=== PATIENT | female | born 1950 | race Caucasian/White ===

== ENCOUNTER 2016-06-27 22:26 | Emergency (ER) | payer OTHER ==
[~2016-06-27] VITALS: Ht 142.2 cm; Wt 94.0 kg
[~2016-06-27 22:26] MED LIST: ALBUAER2 INH; CHOL100010 PO; ESCI1TAB9 PO; FLUT220A INH; OMEP20TA PO; SENN8.6C PO; SIMV20TA2 PO
[2016-06-27 22:28] VITALS: Ht 142.2 cm; Wt 94.0 kg
[2016-06-27] MEDS ORDERED: SODIUM CHLORIDE 0.9% 1000ML 1,000 ML IV STA (22:36)
[2016-06-27] MEDS ORDERED: SODIUM CHLORIDE 0.9% 500ML 500 ML IV STA (22:36)
[2016-06-27] MEDS ORDERED: LIDOCAINE HCL 2% VISC SOLN 20 ML UDC PO STA (22:44)
[2016-06-27] MEDS ORDERED: ALUMINUM/MAGNESIUM SUSP 30 ML UDC PO STA (22:44)
[2016-06-27] MEDS ORDERED: VNTHFA/IN INH (22:51)
[2016-06-27] MEDS ORDERED: FLVHFA220 INH (22:51)
[2016-06-27] MEDS ORDERED: CHOL1TAB76 PO (22:51)
[2016-06-27] MEDS ORDERED: TRMCR130WC TOP (22:51)
[2016-06-27] MEDS ORDERED: NYST80OI TOP (22:51)
[2016-06-27 23:00] VITALS: O2SAT 97
[2016-06-27 23:09] LABS: BASO % 0.5 %; BASO ABS # 0.04 K/uL (0-0.2); COMPLETE YES; EOS % 0.6 %; HEMATOCRIT 37.5 % (37-47); IG% 0.1 %; LYMPH % 13.8 %; MEAN CELL VOLUME 90.4 fL (80-100); MEAN CORPUSCULAR HEMOGLOBIN 30.6 pg (25-34); MEAN CORPUSCULAR HGB CONC 33.9 g/dl (32-36); MEAN PLATELET VOLUME 10.5 fL (7.4-10.4); MONO % 6.9 %; NEUT % 78.1 %; PLATELET COUNT 224 K/uL (130-400); RED BLOOD COUNT 4.15 M/uL (4.2-5.4); WHITE BLOOD COUNT 7.95 K/uL (4.8-10.8)
--- NOTE | 2016-06-27 23:22 | EMERGENCY ROOM VISIT NOTE ---
ED Visit Note First contact with patient: 22:31 This Patient was discussed with the physician medical billing assistant, LIZ Perez. The pertinent historical and physical exam findings were confirmed. I agree with the studies ordered and with the interpretations of these studies. I agree with the disposition and care plan.
[2016-06-27 23:31] LABS: BUN/CREATININE RATIO 12.1 (10-20); CALCIUM 9.5 mg/dl (8.5-10.1); CREATININE 0.94 mg/dl (0.60-1.20); MAGNESIUM 2.4 mg/dl (1.8-2.4)
[2016-06-27 23:40] LABS: CKMB/CK RATIO 1.7 (0-3.0); THYROID STIMULATING HORMONE 2.72 uIu/ml (0.300-4.500)
--- NOTE | 2016-06-28 00:07 | EMERGENCY ROOM VISIT NOTE ---
History First contact with patient: 22:31 Chief Complaint: SYNCOPE (NEAR SYNCOPE) Stated Complaint: SHAKY,FEELS LIKE PASSING OUT,TROUBLE BREATHING History of Present Illness The patient is a 65 year old female who presents to the Emergency Room with complaints of burning in the back of her throat, shaky and lightheaded for the past day. Patient had a few episodes of this in the past. Patient states she feels as if she is going to pass out but has not. Patient denies chest pain, dyspnea, sore throat, fever, chills, cough, ingestion, abdominal pain, vomiting , diarrhea, headache, numbness, tingling. She is tolerating by mouth fluids and food. Endoscopy 1 year ago was normal per patient. No prior heart disease or stroke. Review of Systems See HPI for pertinent positives & negatives. A total of 10 systems reviewed and were otherwise negative. Past Medical/Surgical History Medical Problems: (1) Asthma, Unspecified (2) Hyperlipemia (3) Hypertension Surgical Problems: (1) No significant past surgical history Family History Cancer Social History Smoking Status: Unknown if Ever Smoked Alcohol Use: none Marital Status: Occupation Status: unemployed Current/Historical Medications Scheduled Cholecalciferol (D 1999), 2,000 UNITS PO DAILY Escitalopram Oxalate (Lexapro), 10 MG PO DAILY Fluticasone Propionate (Flovent Hfa), 1 PUFF INH BID Nystatin (Topical) (Nystatin), 1 APPLN TOP BID Omeprazole (Omeprazole), 40 MG PO DAILY Simvastatin (Zocor), 20 MG PO HS Triamcinolone Acet (Aristocort 0.1%), 1 APPLN TOP DIRECTED Scheduled PRN Albuterol Hfa (Ventolin Hfa), 2 PUFFS INH Q4H PRN for Shortness of Breath Sennosides (Senna), 2-4 TAB PO DAILY PRN for Constipation Allergies Coded Allergies: Latex (Verified Allergy, Mild, RASH, 06/27/16) Aspirin (Verified Allergy, Unknown, HX OF STOMACH ULCERS-NOT ALLOW TO TAKE , 06/27/16) Physical Exam Vital Signs Date Time Temp Pulse Resp B/P Pulse Ox O2 Delivery O2 Flow Rate FiO2 06/27/16 23:00 62 141/62 63 147/82 58 126/75 06/27/16 23:00 97 Room Air 06/27/16 23:00 57 06/27/16 22:28 64 18 165/72 98 Room Air Physical Exam VITALS: Vitals are noted on the nurse's note and reviewed by myself. Vital signs stable. GENERAL: Pleasant female shaky-appearing who states she feels anxious, in no acute distress, nondiaphoretic, well-developed well-nourished. SKIN: The skin was without rashes, erythema, edema, or bruising. There is no tenting of the skin. Capillary reflex less than 2 seconds. HEAD: Normocephalic atraumatic. EARS: External auditory canals clear, tympanic membranes pearly davis without erythema or effusion bilaterally. EYES: Pupils equal round and reactive to light and accommodation. Conjunctivae without injection, sclerae without icterus. Extraocular movements intact. NOSE: Patent, turbinates without inflammation or discharge. No sinus tenderness. MOUTH: Mucous membranes mildly dry Pharynx without erythema or exudate. Uvula midline. Airway patent. Tongue does not deviate. NECK: Supple without nuchal rigidity. No lymphadenopathy. No thyromegaly. Cervical spine is nontender. No JVD. HEART: Regular rate and rhythm LUNGS: Clear to auscultation bilaterally without wheezes, rales or rhonchi. No dullness to percussion. No retractions or accessory muscle use. ABDOMEN: Positive bowel sounds x 4. Normal tympanic percussion. Soft, nontender, without masses or organomegaly. Diego sign negative. No guarding or rebound tenderness. MUSCULOSKELETAL: No muscle atrophy, erythema, or edema noted. 5 out of 5 strength throughout NEURO: Patient was alert and oriented to person place and time. Normal sensation to light and sharp touch. No focal neurological deficits. Cranial nerves II through XII grossly intact. No pronator drift. Cerebellar exam intact. Medical Decision & Procedures Laboratory Results 06/27/16 22:52 Red Blood Count 4.15, Mean Corpuscular Volume 90.4, Mean Corpuscular Hemoglobin 30.6, Mean Corpuscular Hemoglobin Concent 33.9, Mean Platelet Volume 10.5, Neutrophils (%) (Auto) 78.1, Lymphocytes (%) (Auto) 13.8, Monocytes (%) (Auto) 6.9, Eosinophils (%) (Auto) 0.6, Basophils (%) (Auto) 0.5, Neutrophils # (Auto) 6.20, Lymphocytes # (Auto) 1.10, Monocytes # (Auto) 0.55, Eosinophils # (Auto) 0.05, Basophils # (Auto) 0.04 06/27/16 22:52 Test 06/27/16 22:52 White Blood Count 7.95 K/uL (4.8-10.8) Red Blood Count 4.15 M/uL (4.2-5.4) Hemoglobin 12.7 g/dL (12.0-16.0) Hematocrit 37.5 % (37-47) Mean Corpuscular Volume 90.4 fL (80-100) Mean Corpuscular Hemoglobin 30.6 pg (25-34) Mean Corpuscular Hemoglobin Concent 33.9 g/dl (32-36) Platelet Count 224 K/uL (130-400) Mean Platelet Volume 10.5 fL (7.4-10.4) Neutrophils (%) (Auto) 78.1 % Lymphocytes (%) (Auto) 13.8 % Monocytes (%) (Auto) 6.9 % Eosinophils (%) (Auto) 0.6 % Basophils (%) (Auto) 0.5 % Neutrophils # (Auto) 6.20 K/uL (1.4-6.5) Lymphocytes # (Auto) 1.10 K/uL (1.2-3.4) Monocytes # (Auto) 0.55 K/uL (0.11-0.59) Eosinophils # (Auto) 0.05 K/uL (0-0.5) Basophils # (Auto) 0.04 K/uL (0-0.2) RDW Standard Deviation 46.8 fL (36.4-46.3) RDW Coefficient of Variation 14.1 % (11.5-14.5) Immature Granulocyte % (Auto) 0.1 % Immature Granulocyte # (Auto) 0.01 K/uL (0.00-0.02) Anion Gap 5.0 mmol/L (3-11) Est Creatinine Clear Calc Drug Dose 55.9 ml/min Estimated GFR () 73.8 Estimated GFR (Non- 63.7 BUN/Creatinine Ratio 12.1 (10-20) Calcium Level 9.5 mg/dl (8.5-10.1) Magnesium Level 2.4 mg/dl (1.8-2.4) Total Bilirubin 0.5 mg/dl (0.2-1) Direct Bilirubin 0.1 mg/dl (0-0.2) Aspartate Amino Transf (AST/SGOT) 16 U/L (15-37) Alanine Aminotransferase (ALT/SGPT) 24 U/L (12-78) Alkaline Phosphatase 103 U/L (45-117) Total Creatine Kinase 126 U/L (26-192) Creatine Kinase MB 2.1 ng/ml (0.5-3.6) Creatine Kinase MB Ratio 1.7 (0-3.0) Bedside Troponin I 0.020 ng/ml (0-0.045) Total Protein 7.8 gm/dl (6.4-8.2) Albumin 4.1 gm/dl (3.4-5.0) Lipase 188 U/L (73-393) Thyroid Stimulating Hormone (TSH) 2.720 uIu/ml (0.300-4.500) Medications Administered Medications (Trade) Dose Ordered Sig/Jose Route Start Time Stop Time Status Last Admin Dose Admin Sodium Chloride 1,000 ml @ 125 mls/hr Q8H STAT IV 06/27/16 22:36 06/28/16 06:35 06/27/16 23:13 125 MLS/HR Sodium Chloride (Nss 500ml) 500 ml @ 999 mls/hr Q31M STAT IV 06/27/16 22:36 06/27/16 23:06 DC 06/27/16 23:13 999 MLS/HR Lidocaine HCl (Viscous Lidocaine 2% Soln) 10 ml NOW STAT PO 06/27/16 22:44 06/27/16 22:45 DC 06/27/16 23:13 10 ML Al Hydroxide/Mg Hydroxide (Maalox Susp) 30 ml NOW STAT PO 06/27/16 22:44 06/27/16 22:45 DC 06/27/16 23:13 30 ML ED Course Prior records/ancillary studies reviewed and summarized above. Nursing notes reviewed. Additional history obtained from family The patient's history was concerning for near-syncope and shaky. Differential diagnosis: Etiologies such as metabolic, infection, hypo/hyperglycemia, electrolyte abnormalities, cardiac sources, intracerebral event, toxicologic, neurologic, as well as others were entertained. Physical examination: As above. ER treatment provided: IV Lock IV fluids, GI cocktail On reassessment the patient felt better. Diagnostics interpretation by me: ECG: Normal sinus, normal intervals, no acute ST-T wave changes, rate of 57. Impression sinus bradycardia interpreted by myself The labs revealed negative troponin. Stable H&H Imaging studies: Chest x-ray with no acute consolidation, pneumothorax or free air per my interpretation Exam and history seem consistent with near syncope and shaking and feels much better that most likely could be related to dehydration. Patient is neurovascularly and neurologically intact. No acute findings and the above workup. She is advised to rest, stay well-hydrated, eat regular meals and follow-up family care in a few days or here in the ER sooner for chest pain, difficulty breathing, weakness, worsening signs or symptoms or as needed. Patient ambulate out of the ER without difficulties.By the evaluation outlined above emergent etiologies such as infection, electrolyte abnormalities, cardiac sources, intracerebral event, toxologic, neurologic, abnormalities blood glucose , metabolic, as well as others were deemed relatively unlikely. The pt informed about the findings as listed above. All questions were answered and pleased with the treatment. Return instructions were outlined and the patient was discharged in stable condition. Referral: The patient was referred back to primary care physician for follow-up in 2 to 3 days for a recheck of the current condition. Case reviewed with my attending. Medical Decision As above Impression Primary Impression: Near syncope Departure Information Dispostion Home / Self-Care Condition GOOD Referrals Frieda Pearles D.O. (PCP) Patient Instructions My [facility] Additional Instructions Acetaminophen(Tylenol) may be used for fever or pain. Use 1000mg every six hours as needed. Avoid using more than 3000mg in a 24 hour period. Rest and drink plenty of fluids as tolerated. Continue current medications. Return to the ER immediately for worsening or persistent near syncope, abdominal pain, vomiting, fevers, chest pains, difficulty breathing, worsening of your condition, or as needed. Follow up with your primary physician in 2-3 days for a recheck of your current condition.
[2016-06-28 00:23] VITALS: BP 154/80; PULSE 53; O2SAT 100
--- NOTE | 2016-06-28 07:54 | DIAGNOSTIC IMAGING REPORT ---
CHEST ONE VIEW PORTABLE HISTORY: Atypical CHEST PAIN COMPARISON: Chest 07/31/2014. FINDINGS: No pleural effusions. No pneumothorax. No focal lung consolidations to suggest pneumonia. No evidence for pulmonary edema. The heart is stable in size. Right cardiophrenic lobular density remains unchanged. This favors prominent mediastinal fat or a small hernia. IMPRESSION: No significant change compared to the prior study. No acute process. Electronically signed by: Luis Vazquez M.D. 06/28/2016 7:53 AM Dictated Date/Time: 06/28/2016 7:52 AM
== END 2016-06-28 00:24 | disposition home or self-care (01) ==
LOC: C.EDB 22:26 → C.EDC 06-28 00:24
DX: R55 Syncope and collapse (principal); R07.0 Pain in throat; E78.5 Hyperlipidemia, unspecified; I10 Essential (primary) hypertension; J45.909 Unspecified asthma, uncomplicated; Z79.899 Other long term (current) drug therapy

== ENCOUNTER → 2016-10-27 | Outpatient (CLI) | payer OTHER ==
[~2016-10-27] MED LIST changes: -ALBUAER2 INH; +AMLO2.5T PO; -CHOL100010 PO; +CHOL1TAB76 PO; -FLUT220A INH; +FLVHFA220 INH; +NYST80OI TOP; +SUCR1TAB PO; +TRMCR130WC TOP; +VNTHFA/IN INH
--- NOTE | 2016-10-27 11:47 | DIAGNOSTIC IMAGING REPORT ---
(BARIUM SWALLOW) ESOPHAGUS CLINICAL HISTORY: 66 years-old Female presenting with DIFFICULTY SWALLOWING. TECHNIQUE: A standard air contrast barium esophagram is performed. Multiple spot images of the esophagus are acquired both upright and prone. COMPARISON: None. FINDINGS: The patient was able to ingest barium, however, the patient was unable to attempt ingestion of the barium pill. Tertiary contractions evident. Normal mucosal pattern in the esophagus. No evidence of a diverticulum. Physiologic mass effect on the mid esophagus from the aortic arch. No evidence of intrinsic or extrinsic mass lesion. No aspiration observed. Small hiatal hernia may be present. The gastroesophageal junction distended normally. No gastroesophageal reflux could be elicited despite provocative maneuvers. Fluoroscopy dosage (mGy): Not available. Fluoroscopy time: 1.1 minutes. Number of fluoroscopic spot images: 30. IMPRESSION: 1. Physiologic mass effect on the mid esophagus from the aortic arch. No evidence of intrinsic or extrinsic mass lesion of the esophagus. 2. Tertiary contractions indicate mild dysmotility, likely in the setting of presbyesophagus. Electronically signed by: Trevor Rod M.D. 10/27/2016 11:46 AM Dictated Date/Time: 10/27/2016 11:43 AM
== END | disposition home or self-care (01) ==
LOC: C.RAD 10:35
PROVIDERS: ATTEND Family Medicine
DX: R13.10 Dysphagia, unspecified (principal); K22.8 Other specified diseases of esophagus

== ENCOUNTER 2016-10-30 18:27 | Emergency (ER) | payer OTHER ==
[~2016-10-30 18:27] MED LIST changes: -AMLO2.5T PO; -SUCR1TAB PO
[2016-10-30 18:38] VITALS: TEMP 36.6; Ht 147.3 cm
[2016-10-30] MEDS ORDERED: SUCR1TAB PO (19:45)
[2016-10-30] MEDS ORDERED: AMLO2.5T PO (19:45)
[2016-10-30] MEDS ORDERED: MAGNESIUM CITRATE 296 ML/BTL PO STA (20:45)
[2016-10-30 20:56] VITALS: BP 137/72; PULSE 68; O2SAT 96
--- NOTE | 2016-10-30 22:03 | EMERGENCY ROOM VISIT NOTE ---
History Report prepared by [place]: Vasquez Espino Under the Supervision of: Dr. Dain Crow M.D. First contact with patient: 18:42 Chief Complaint: CONSTIPATION Stated Complaint: CAN'T MAKE BM Nursing Triage Summary: Pt has issues having BMs, worse today, having discomfort rectal area whenshe attempts to go. Pt a/ox3, HILLS, abd obese, states having liquid coming out, normal BM yesterday. History of Present Illness The patient is a 66 year old female who presents to the Emergency Room with complaints of constant constipation beginning two days ago. The patient states that she has a history of chronic constipation, and her last normal bowel movement was two days ago. She reports that when she tries to defecate, but it is painful and little liquid is produced. The patient notes that she has never had a colonoscopy, and her son has a history of colon caner. She states that the last meal she ate was this morning. The patient reports that she is able to drink fluids. She notes that she had a swallow study performed three days ago, and she does not know the results. The patient states that she has tried miralax and senna, but neither is helping. She reports that she had not tried an enema or suppository. The patient notes that she has a history of GERD, hypertension, hyperlipidemia, and an ovarian cystectomy. Pt denies LOC, headache , fevers, chills, diaphoresis, visual changes, neck pain, chest pain, breathing difficulties, nausea, vomiting, abdominal pain, back pain, melena, hematochezia , urinary symptoms, numbness, weakness, lymphadenopathy, rash, or other complaints. Source of History: patient Onset: two days ago Position: other (rectum) Quality: other (constipation) Timing: constant Modifying Factors (Worsening): defecation (attempting to defecate) Note: Associated symptoms: pain with defecation Review of Systems See HPI for pertinent positives and negatives. A total of ten systems were reviewed and were otherwise negative. Past Medical & Surgical Medical Problems: (1) Asthma, Unspecified (2) Hyperlipemia (3) Hypertension Surgical Problems: (1) No significant past surgical history Family History Cancer Social History Smoking Status: Former Smoker Alcohol Use: none Marital Status: Occupation Status: unemployed Current/Historical Medications Scheduled Amlodipine Besylate (Norvasc), 2.5 MG PO DAILY Cholecalciferol (D 1999), 2,000 UNITS PO DAILY Escitalopram Oxalate (Lexapro), 10 MG PO DAILY Fluticasone Propionate (Flovent Hfa), 1 PUFF INH BID Nystatin (Topical) (Nystatin), 1 APPLN TOP BID Omeprazole (Omeprazole), 40 MG PO DAILY Simvastatin (Zocor), 20 MG PO HS Sucralfate (Sucralfate), 1 GM PO QID Triamcinolone Acet (Aristocort 0.1%), 1 APPLN TOP DIRECTED Scheduled PRN Albuterol Hfa (Ventolin Hfa), 2 PUFFS INH Q4H PRN for Shortness of Breath Sennosides (Senna), 2-4 TAB PO DAILY PRN for Constipation Allergies Coded Allergies: Latex (Verified Allergy, Mild, RASH, 06/27/16) Aspirin (Verified Allergy, Unknown, HX OF STOMACH ULCERS-NOT ALLOW TO TAKE , 06/27/16) Physical Exam Vital Signs Date Time Temp Pulse Resp B/P (MAP) Pulse Ox O2 Delivery O2 Flow Rate FiO2 10/30/16 20:56 68 18 137/72 96 Room Air 10/30/16 18:38 36.6 64 18 155/79 97 Room Air Physical Exam GENERAL: Awake, alert, well-appearing, in no distress HENT: Normocephalic, atraumatic. Oropharynx unremarkable. EYES: Normal conjunctiva. Sclera non-icteric. NECK: Supple. No nuchal rigidity. FROM. No JVD. RESPIRATORY: Clear to auscultation. CARDIAC: Regular rate, normal rhythm. Extremities warm and well perfused. Pulses equal. ABDOMEN: Soft, non-distended. No tenderness to palpation. No rebound or guarding. No masses. RECTAL (Performed in the presence of a female nurse): Brown stool, no significant hemorrhoid or sign of infection, firm stool noted at 5cm. MUSCULOSKELETAL: Chest examination reveals no tenderness. The back is symmetrical on inspection without obvious abnormality. There is no CVA tenderness to palpation. No joint edema. LOWER EXTREMITIES: Calves are equal size bilaterally and non-tender. No edema. No discoloration. NEURO: Normal sensorium. No sensory or motor deficits noted. SKIN: No rash or jaundice noted. Medical Decision & Procedures Medications Administered Medications (Trade) Dose Ordered Sig/Jose Route Start Time Stop Time Status Last Admin Dose Admin Magnesium Citrate (Citrate Of Magnesia Soln) 296 ml NOW STAT PO 10/30/16 20:45 10/30/16 20:46 DC 10/30/16 20:52 296 ML ED Course 1830: The patient was evaluated in room C08 by the medical student under my supervision. A complete history and physical exam was performed. 1922: The patient was evaluated by me. A complete history and physical exam was performed. 2040: I reevaluated the patient. She had a large bowel movement and feels much better. Discussed results and discharge instructions: she verbalized understanding and agreement. The patient is ready for discharge when she receives her medication. 2044: Ordered Magnesium Citrate 296 ml PO Medical Decision Prior records/ancillary studies reviewed. Triage Nursing notes reviewed and agree them. The patient's history was concerning for constipation. Differential diagnosis: Etiologies such as functional constipation, impaction, obstruction, volvulus, metabolic abnormality, infection, neurologic, as well as others were entertained. Physical examination findings: As above. The patient had hard stool in the rectal vault but this was not amenable to disimpaction. ER treatment provided: Soapsuds enema with large resulting bowel movement On reassessment the patient felt better. Diagnostics interpreted by me: Deferred Imaging studies: Deferred Appears to patient had constipation. She had no abdominal pain. Laboratory testing was deferred. She had a benign abdominal examination. Rectal examination revealed hard stool in vault however this needed an enema for treatment as disimpaction was not feasible. The patient had a large bowel movement with relief of her symptoms. I gave my usual and customary discussion regarding this issue. By the evaluation outlined above emergent etiologies such as obstruction, volvulus, metabolic abnormality, infection , neurologic, as well as others were deemed relatively unlikely. The patient was informed about the findings as listed above. All questions were answered and she was pleased with the treatment. Return instructions were outlined and the patient was discharged in stable condition. Outpatient prescription management: Magnesium citrate Referral: The patient was referred back to their primary care physician for follow-up for a recheck of the current condition. Medication Reconcilliation Current Medication List: was personally reviewed by me Blood Pressure Screening Patient's blood pressure: Elevated blood pressure Blood pressure disposition: Referred to PCP Impression Primary Impression: Constipation Scribe Attestation The scribe's documentation has been prepared under my direction and personally reviewed by me in its entirety. I confirm that the note above accurately reflects all work, treatment, procedures, and medical decision making performed by me. Departure Information Dispostion Home / Self-Care Referrals Frieda Perales D.O. (PCP) Forms HOME CARE DOCUMENTATION FORM, IMPORTANT VISIT INFORMATION Patient Instructions My [facility] Additional Instructions Magnesium citrate, 1/2 bottle for constipation. If you don't have a good bowel movement in 8 hrs then drink the other half. This is available over-the- counter. Rest and drink plenty of fluids. Increase fiber in your diet. Return to the ER for worsening abdominal pain, vomiting, fevers, bloody stools, or as needed. Follow-up with your primary care physician next week for a recheck of your current condition.
== END 2016-10-30 21:07 | disposition home or self-care (01) ==
LOC: C.EDB 18:28 → C.EDC 21:07
DX: K59.00 Constipation, unspecified (principal); J45.909 Unspecified asthma, uncomplicated; I10 Essential (primary) hypertension; E78.5 Hyperlipidemia, unspecified; K21.9 Gastro-esophageal reflux disease without esophagitis; Z87.891 Personal history of nicotine dependence; Z98.890 Other specified postprocedural states; Z80.0 Family history of malignant neoplasm of digestive organs; Z79.899 Other long term (current) drug therapy

== ENCOUNTER 2016-12-07 02:52 | Emergency (ER) | payer OTHER ==
[~2016-12-07] VITALS: Ht 144.8 cm; Wt 86.5 kg
[~2016-12-07 02:52] MED LIST changes: +AMLO2.5T PO; +SUCR1TAB PO
[2016-12-07 02:58] VITALS: Ht 144.8 cm; Wt 86.5 kg
[2016-12-07 04:06] VITALS: O2SAT 99
[2016-12-07 04:15] LABS: BASO % 0.8 %; BASO ABS # 0.06 K/uL (0-0.2); COMPLETE YES; EOS % 0.8 %; HEMATOCRIT 34.3 % (37-47); IG% 0.3 %; LYMPH % 13.2 %; LYMPH ABS # 0.98 K/uL (1.2-3.4); MEAN CELL VOLUME 89.1 fL (80-100); MEAN CORPUSCULAR HEMOGLOBIN 31.7 pg (25-34); MEAN CORPUSCULAR HGB CONC 35.6 g/dl (32-36); MEAN PLATELET VOLUME 10.9 fL (7.4-10.4); MONO % 5.2 %; NEUT % 79.7 %; PLATELET COUNT 186 K/uL (130-400); RED BLOOD COUNT 3.85 M/uL (4.2-5.4); WHITE BLOOD COUNT 7.44 K/uL (4.8-10.8)
[2016-12-07 04:26] LABS: INR 1.1 (0.9-1.1); PARTIAL THROMBOPLASTIN RATIO 1.1; PROTHROMBIN TIME (PATIENT) 11.9 SECONDS (9.0-12.0)
[2016-12-07 04:58] LABS: BUN/CREATININE RATIO 5.2 (10-20); CALCIUM 9.1 mg/dl (8.5-10.1); CREATININE 0.94 mg/dl (0.60-1.20); POTASSIUM 3.7 mmol/L (3.5-5.1)
[2016-12-07] MEDS ORDERED: OMEP40CA41 PO (05:04)
[2016-12-07 06:33] VITALS: TEMP 36.4
[2016-12-07] MEDS ORDERED: PANT40TA2 PO (06:45)
[2016-12-07] MEDS ORDERED: ALBUTEROL HFA 8 GM INHALER INH ONE (07:15)
--- NOTE | 2016-12-07 07:15 | EMERGENCY ROOM VISIT NOTE ---
History Report prepared by [place]: Maisha Mo Under the Supervision of: Dr. Linda Parisi D.O. First contact with patient: 05:31 Chief Complaint: RESPIRATORY PROBLEMS Stated Complaint: RESPIRATORY DIFFICULTY Nursing Triage Summary: pt states she was burping after the [facility] football game. had a burning sensation in her throat post burping. pt states she then began to have sob. pt states this all started around 0000 History of Present Illness The patient is a 66 year old female who presents to the Emergency Room with complaints of persistent SOB starting around 0000. The patient was trying to go to sleep when she belched. She felt something come up and she started feeling SOB. She has a history of esophageal dysfunction, acid reflux, and asthma. She has experienced belching before, but has not had SOB with her reflux before. She called her son around 0200 saying that she feels that she needs to go to the ED. He notes that she does not often want to go see a doctor. He brought her his albuterol inhaler. Her SOB is currently improved. She was not having any SOB earlier in the day. She has some burning in her throat. She denies hemoptysis, abdominal pain, or chest pain. She normally has a cough and denies any increased coughing. She is on Protonix and takes antacids regularly. She recently had an endoscopy which was normal. She has been on a diet of soft foods. She notes that she missed her blood pressure pill tonight. She denies any history of heart problems. She has a hiatal hernia. She quit smoking 26 years ago. Source of History: patient, family Onset: 0000 Position: other (global) Quality: other (SOB) Timing: other (persistent) Associated Symptoms: No chest pain, No abdominal pain Note: Pt reports burning in throat. Pt denies hemoptysis. Review of Systems See HPI for pertinent positives & negatives. A total of 10 systems reviewed and were otherwise negative. Past Medical & Surgical Medical Problems: (1) Asthma, Unspecified (2) Hyperlipemia (3) Hypertension Surgical Problems: (1) No significant past surgical history Family History Cancer Social History Smoking Status: Never Smoker Alcohol Use: none Marital Status: Occupation Status: unemployed Current/Historical Medications Scheduled Amlodipine Besylate (Norvasc), 2.5 MG PO DAILY Cholecalciferol (D 1999), 2,000 UNITS PO DAILY Escitalopram Oxalate (Lexapro), 10 MG PO DAILY Fluticasone Propionate (Flovent Hfa), 1 PUFF INH BID Nystatin (Topical) (Nystatin), 1 APPLN TOP BID Pantoprazole (Pantoprazole Sodium), 40 MG PO DAILYBB Simvastatin (Zocor), 20 MG PO HS Triamcinolone Acet (Aristocort 0.1%), 1 APPLN TOP DIRECTED Scheduled PRN Albuterol Hfa (Ventolin Hfa), 2 PUFFS INH Q4H PRN for Shortness of Breath Allergies Coded Allergies: Latex (Verified Allergy, Mild, RASH, 12/07/16) Aspirin (Verified Allergy, Unknown, HX OF STOMACH ULCERS-NOT ALLOW TO TAKE , 12/07/16) Physical Exam Vital Signs Date Time Temp Pulse Resp B/P (MAP) Pulse Ox O2 Delivery O2 Flow Rate FiO2 12/07/16 07:43 58 16 167/64 100 12/07/16 06:33 36.4 79 20 152/79 98 Room Air 12/07/16 06:13 97 Room Air 12/07/16 05:02 36.4 85 22 168/82 98 Room Air 12/07/16 04:06 98 Room Air 12/07/16 04:06 99 Room Air 12/07/16 03:21 57 12/07/16 03:19 36.8 58 22 116/55 98 Room Air 12/07/16 03:19 98 Room Air 12/07/16 02:58 59 24 182/84 99 Room Air Physical Exam GENERAL: alert, well appearing, well nourished, no distress, non-toxic EYE EXAM: normal conjunctiva, PERRL and EOM's grossly intact OROPHARYNX: edentulous, no exudate, no erythema, lips, buccal mucosa, and tongue normal, no mucocutaneous lesions, and mucous membranes are moist NECK: supple, no nuchal rigidity, no adenopathy, non-tender, no stridor LUNGS: Clear to auscultation. Normal chest wall mechanics, no wheezes/rhonchi/ rales HEART: no murmurs, S1 normal and S2 normal ABDOMEN: abdomen soft, non-tender, normo-active bowel sounds, no masses, no rebound or guarding. BACK: Back is symmetrical on inspection and there is no deformity, no midline tenderness, no CVA tenderness. SKIN: no rashes and no bruising UPPER EXTREMITIES: upper extremities are grossly normal. LOWER EXTREMITIES: No pitting edema. Normal ROM bilaterally. NEURO EXAM: Normal sensorium, cranial nerves II-XII grossly intact, normal speech, no gross weakness of arms, no gross weakness of legs. Medical Decision & Procedures ER Provider Diagnostic Interpretation: Xray results have been interpreted by me. Chest X-ray: No cardiomegaly. No effusion. No wide mediastinum. No pulmonary edema. No pneumothorax. Laboratory Results 12/07/16 04:00 Red Blood Count 3.85, Mean Corpuscular Volume 89.1, Mean Corpuscular Hemoglobin 31.7, Mean Corpuscular Hemoglobin Concent 35.6, Mean Platelet Volume 10.9, Neutrophils (%) (Auto) 79.7, Lymphocytes (%) (Auto) 13.2, Monocytes (%) (Auto) 5.2, Eosinophils (%) (Auto) 0.8, Basophils (%) (Auto) 0.8, Neutrophils # (Auto) 5.93, Lymphocytes # (Auto) 0.98, Monocytes # (Auto) 0.39, Eosinophils # (Auto) 0.06, Basophils # (Auto) 0.06 12/07/16 04:00 Test 12/07/16 04:00 12/07/16 06:13 White Blood Count 7.44 K/uL (4.8-10.8) Red Blood Count 3.85 M/uL (4.2-5.4) Hemoglobin 12.2 g/dL (12.0-16.0) Hematocrit 34.3 % (37-47) Mean Corpuscular Volume 89.1 fL (80-100) Mean Corpuscular Hemoglobin 31.7 pg (25-34) Mean Corpuscular Hemoglobin Concent 35.6 g/dl (32-36) Platelet Count 186 K/uL (130-400) Mean Platelet Volume 10.9 fL (7.4-10.4) Neutrophils (%) (Auto) 79.7 % Lymphocytes (%) (Auto) 13.2 % Monocytes (%) (Auto) 5.2 % Eosinophils (%) (Auto) 0.8 % Basophils (%) (Auto) 0.8 % Neutrophils # (Auto) 5.93 K/uL (1.4-6.5) Lymphocytes # (Auto) 0.98 K/uL (1.2-3.4) Monocytes # (Auto) 0.39 K/uL (0.11-0.59) Eosinophils # (Auto) 0.06 K/uL (0-0.5) Basophils # (Auto) 0.06 K/uL (0-0.2) RDW Standard Deviation 46.4 fL (36.4-46.3) RDW Coefficient of Variation 14.2 % (11.5-14.5) Immature Granulocyte % (Auto) 0.3 % Immature Granulocyte # (Auto) 0.02 K/uL (0.00-0.02) Prothrombin Time 11.9 SECONDS (9.0-12.0) Prothromb Time International Ratio 1.1 (0.9-1.1) Activated Partial Thromboplast Time 28.0 SECONDS (21.0-31.0) Partial Thromboplastin Ratio 1.1 Anion Gap 6.0 mmol/L (3-11) Est Creatinine Clear Calc Drug Dose 53.7 ml/min Estimated GFR () 73.3 Estimated GFR (Non- 63.2 BUN/Creatinine Ratio 5.2 (10-20) Calcium Level 9.1 mg/dl (8.5-10.1) Total Bilirubin 0.6 mg/dl (0.2-1) Aspartate Amino Transf (AST/SGOT) 17 U/L (15-37) Alanine Aminotransferase (ALT/SGPT) 23 U/L (12-78) Alkaline Phosphatase 90 U/L (45-117) Total Protein 7.5 gm/dl (6.4-8.2) Albumin 3.8 gm/dl (3.4-5.0) Globulin 3.7 gm/dl (2.5-4.0) Albumin/Globulin Ratio 1.0 (0.9-2) Troponin I < 0.015 ng/ml (0-0.045) Pro-B-Type Natriuretic Peptide 56 pg/ml (0-900) Laboratory results per my review. Medications Administered Medications (Trade) Dose Ordered Sig/Jose Route Start Time Stop Time Status Last Admin Dose Admin Albuterol (Ventolin Hfa Inhaler) 2 puffs NOW ONCE INH 12/07/16 07:15 12/07/16 07:16 DC 12/07/16 07:29 2 PUFFS ED Course 0542: The patient was evaluated in room B7. A complete history and physical exam was performed. 0703: Upon reevaluation, the patient is feeling better. I discussed the findings and the treatment plan with the patient. She verbalizes agreement and understanding. She was discharged home. 0715: Albuterol 2 puffs INH. Medical Decision Differential diagnoses includes but is not limited to pneumonia, bronchitis, COPD/Asthma exacerbation, pneumothorax, pulmonary embolism, congestive heart failure, acute coronary syndrome Patient well-appearing here despite initial complaint. I feel this is likely a patient with reflux which contributed to bronchospasm and patient also has contributing anxiety symptoms. Patient with no recurrent symptoms here, stable vital signs, no hypoxia at rest or with ambulation. Labs and imaging otherwise reassuring. Patient felt markedly improved here. Doubt PE, ACS, dissection, tamponade, effusion, no evidence of infiltrate or pneumothorax. No evidence of stridor, dysphonia, dysphasia to suggest upper airway obstruction. Discussed with patient all results, follow up with family doctor, use of her inhaler, continued use of her acid reducing medications, continued follow-up with GI for her recent history of dysphasia weight loss. Patient with no vomiting here, no fevers, doubt occult infectious etiology, doubt deep space infection, doubt bacteremia/sepsis. Medication Reconcilliation Current Medication List: was personally reviewed by me Blood Pressure Screening Patient's blood pressure: Elevated blood pressure Blood pressure disposition: Elevated BP felt to be situational Impression Primary Impression: GERD (gastroesophageal reflux disease) Additional Impressions: Bronchospasm Anxiety Scribe Attestation The scribe's documentation has been prepared under my direction and personally reviewed by me in its entirety. I confirm that the note above accurately reflects all work, treatment, procedures, and medical decision making performed by me. Departure Information Dispostion Home / Self-Care Referrals Frieda Perales D.O. (PCP) Patient Instructions My [facility] Additional Instructions Please take all your regular medications as prescribed. Please follow-up with your GI specialist as directed to undergo additional testing regarding your recent trouble swallowing and weight loss. You may use your inhaler up to every 4 hours as needed for shortness of breath or wheezing. If you have any recurrent episodes of difficulty breathing, develop chest pain, dizziness, vomiting, noticed blood in her vomit, noticed black or bloody stools, develop fevers, or you have any other new concerns, please return the emergency room. If you have persistent symptoms of reflux, you may use Tums or Maalox over-the- counter as directed on the packaging. Problem Qualifiers Primary Impression: GERD (gastroesophageal reflux disease) Esophagitis presence: esophagitis presence not specified Qualified Codes: K21.9 - Gastro-esophageal reflux disease without esophagitis
[2016-12-07 07:43] VITALS: BP 167/64; PULSE 58; O2SAT 100
--- NOTE | 2016-12-07 08:51 | DIAGNOSTIC IMAGING REPORT ---
CHEST ONE VIEW PORTABLE CLINICAL HISTORY: Shortness of breath COMPARISON STUDY: 06/27/2016 FINDINGS: The cardiac and mediastinal contours are normal. There is no evidence of focal pulmonary consolidation. There is no evidence of failure. No pleural effusions are visualized.[There is a prominent right cardiophrenic angle fat pad IMPRESSION: No active disease in the chest. Electronically signed by: Noe Dixon M.D. 12/07/2016 8:50 AM Dictated Date/Time: 12/07/2016 8:49 AM
== END 2016-12-07 07:44 | disposition home or self-care (01) ==
LOC: C.EDB 02:53
DX: K21.9 Gastro-esophageal reflux disease without esophagitis (principal); J98.01 Acute bronchospasm; F41.9 Anxiety disorder, unspecified; Z79.899 Other long term (current) drug therapy; Z87.891 Personal history of nicotine dependence; K44.9 Diaphragmatic hernia without obstruction or gangrene; I10 Essential (primary) hypertension; E78.5 Hyperlipidemia, unspecified; Z80.9 Family history of malignant neoplasm, unspecified

== ENCOUNTER 2016-12-16 03:10 | Emergency (ER) | payer OTHER ==
[~2016-12-16] VITALS: Ht 147.3 cm; Wt 85.1 kg
[~2016-12-16 03:10] MED LIST changes: -OMEP20TA PO; +PANT40TA2 PO; -SENN8.6C PO; -SUCR1TAB PO
[2016-12-16 03:20] VITALS: TEMP 37; Ht 147.3 cm; Wt 85.1 kg
[2016-12-16] MEDS ORDERED: LORAZEPAM 1 MG TAB SL STA (03:59)
[2016-12-16] MEDS ORDERED: ALUMINUM/MAGNESIUM SUSP 30 ML UDC PO STA (03:59)
[2016-12-16] MEDS ORDERED: LIDOCAINE HCL 2% VISC SOLN 20 ML UDC PO STA (03:59)
--- NOTE | 2016-12-16 04:01 | EMERGENCY ROOM VISIT NOTE ---
History Report prepared by [place]: Carla Smith Under the Supervision of: Dr. Samanta Robbins D.O. First contact with patient: 03:43 Chief Complaint: SORETHROAT Stated Complaint: SEVERE THROAT BURNING AND SEVERE PAIN History of Present Illness The patient is a 66 year old female who presents to the Emergency Room with complaints of a constant sore throat beginning prior to arrival. The patient describes the pain as burning. The patient also reports that she has been gagging. Per her family, the patient had a camera down her throat at [facility], and was told she has acid reflux. She states that she takes Pantoprazole for her reflux. Per her family, the patient was seen in the ED two weeks ago and that she will be following up with her PCP on January 01. The patient also reports that she takes medication for her anxiety. The patient denies having other symptoms. Source of History: patient, family Onset: prior to arrival Position: throat Quality: burning Timing: constant Associated Symptoms: No fevers Note: additional symptom: gagging Review of Systems See HPI for pertinent positives & negatives. A total of 10 systems reviewed and were otherwise negative. Past Medical & Surgical Medical Problems: (1) Anxiety (2) Asthma, Unspecified (3) Hyperlipemia (4) Hypertension Surgical Problems: (1) No significant past surgical history Family History Cancer Social History Smoking Status: Former Smoker Alcohol Use: none Marital Status: Occupation Status: unemployed Current/Historical Medications Scheduled Amlodipine Besylate (Norvasc), 2.5 MG PO DAILY Cholecalciferol (D 2000), 2,000 UNITS PO DAILY Escitalopram Oxalate (Lexapro), 10 MG PO DAILY Fluticasone Propionate (Flovent Hfa), 1 PUFF INH BID Nystatin (Topical) (Nystatin), 1 APPLN TOP BID Pantoprazole (Pantoprazole Sodium), 40 MG PO DAILYBB Simvastatin (Zocor), 20 MG PO HS Triamcinolone Acet (Aristocort 0.1%), 1 APPLN TOP DIRECTED Scheduled PRN Albuterol Hfa (Ventolin Hfa), 2 PUFFS INH Q4H PRN for Shortness of Breath Allergies Coded Allergies: Latex (Verified Allergy, Mild, RASH, 12/16/16) Aspirin (Verified Allergy, Unknown, HX OF STOMACH ULCERS-NOT ALLOW TO TAKE , 12/16/16) Physical Exam Vital Signs Date Time Temp Pulse Resp B/P (MAP) Pulse Ox O2 Delivery O2 Flow Rate FiO2 12/16/16 04:44 72 18 151/79 99 12/16/16 03:46 Room Air 12/16/16 03:20 37.0 64 18 163/89 97 Room Air Physical Exam General: Patient is anxious appearing. HEENT: Head - normocephalic and atraumatic Pupils are equal, round, and reactive to light. Extraocular eye muscles are intact, and sclera are anicteric. Nose - moist nasal mucosa without discharge. Mouth - moist buccal mucosa. Oropharynx is nonerythematous and there is no tonsillar exudate or edema noted. Neck: Supple; no JVD, nuchal rigidity, cervical lymphadenopathy, or auscultated bruits. Heart: Regular rate and rhythm. There is a normal S1 and S2 with no murmurs, clicks, or gallops appreciated. Lungs: Clear to auscultation bilaterally with no wheezes, rales, or rhonchi. Abdomen: Soft, completely nontender, nondistended, with good bowel sounds. There are no palpable pulsatile masses or hepatosplenomegaly. There is no guarding, rigidity, or rebound noted. Extremities: No evidence of cyanosis, clubbing, or edema. There are easily palpable peripheral pulses. Skin: warm and dry with good turgor and no rashes. Medical Decision & Procedures Medications Administered Medications (Trade) Dose Ordered Sig/Jose Route Start Time Stop Time Status Last Admin Dose Admin Lidocaine HCl (Viscous Lidocaine 2% Soln) 10 ml NOW STAT PO 12/16/16 03:59 12/16/16 04:00 DC 12/16/16 04:11 10 ML Al Hydroxide/Mg Hydroxide (Maalox Susp) 30 ml NOW STAT PO 12/16/16 03:59 12/16/16 04:00 DC 12/16/16 04:10 30 ML Lorazepam (Ativan Tab) 1 mg NOW STAT SL 12/16/16 03:59 12/16/16 04:00 DC 12/16/16 04:10 1 MG Procedure Medications ordered: Lorazepam SL, Maalox Susp PO, Lidocaine PO. ED Course 0350: Past medical records reviewed. The patient was evaluated in room B5. A complete history and physical exam was performed. 0359: Ordered Lorazepam 1 mg SL, Maalox Susp 30 ml PO, Lidocaine HCl 10 ml PO. 0437: The patient was sound asleep, I woke her up, and she says she feels much better. 0440: Upon reevaluation, the patient is resting. I discussed findings and results with her. She verbalized agreement of the treatment plan. She was discharged home. Medical Decision The patient is a 66 year old female who presents to the ED with throat pain. Differential diagnosis includes acute exacerbation of GERD, anxiety, esophagitis , and worsening hiatal hernia. The patient was here in the emergency department a couple weeks ago with a similar presentation. She was unable to sleep tonight. She has been seen by her PCP who has recommended follow-up with psychiatry for her anxiety. The patient's family explains that she is unable swallow pills and crushes her Protonix tablet. I wonder if this is making it less effective. The patient describes having previous GI evaluation related to the camera study and this was negative. The patient's symptoms seemed consistent with GERD and anxiety. She has a follow-up appointment with her PCP. I've asked her to discuss both of these with her. Medication Reconcilliation Current Medication List: was personally reviewed by me Blood Pressure Screening Patient's blood pressure: Elevated blood pressure Blood pressure disposition: Elevated BP felt to be situational Impression Primary Impression: GERD (gastroesophageal reflux disease) Scribe Attestation The scribe's documentation has been prepared under my direction and personally reviewed by me in its entirety. I confirm that the note above accurately reflects all work, treatment, procedures, and medical decision making performed by me. Departure Information Dispostion Home / Self-Care Referrals Frieda Perales D.O. (PCP) Forms HOME CARE DOCUMENTATION FORM, IMPORTANT VISIT INFORMATION Patient Instructions GERD, GERD Dc, GERD Lifestyle Changes, GERD Meds, My [facility] Additional Instructions Talk with Dr. Lara about Protonix so that you don't have to crush it. Take a bland diet. If you have further burning in your throat, take maalox Talk to Dr. Lara about anxiety and nerves Problem Qualifiers Primary Impression: GERD (gastroesophageal reflux disease) Esophagitis presence: with esophagitis Qualified Codes: K21.0 - Gastro- esophageal reflux disease with esophagitis
[2016-12-16 04:44] VITALS: BP 151/79; PULSE 72; O2SAT 99
== END 2016-12-16 04:45 | disposition home or self-care (01) ==
LOC: C.EDB 03:11
DX: K21.9 Gastro-esophageal reflux disease without esophagitis (principal); F41.9 Anxiety disorder, unspecified; I10 Essential (primary) hypertension; E78.5 Hyperlipidemia, unspecified; J45.909 Unspecified asthma, uncomplicated; Z79.899 Other long term (current) drug therapy; Z87.891 Personal history of nicotine dependence; Z88.6 Allergy status to analgesic agent; Z91.040 Latex allergy status; Z80.9 Family history of malignant neoplasm, unspecified

== ENCOUNTER 2017-01-03 04:28 | Emergency (ER) | payer OTHER ==
[~2017-01-03] VITALS: Ht 147.3 cm; Wt 81.8 kg
[2017-01-03 04:35] VITALS: Ht 147.3 cm; Wt 81.8 kg
[2017-01-03] MEDS ORDERED: LORAZEPAM 1 MG TAB SL STA (04:57)
--- NOTE | 2017-01-03 05:00 | EMERGENCY ROOM VISIT NOTE ---
History Report prepared by Maria Victoriaibkeegan: Ashley Roberts Under the Supervision of: Dr. Samanta Robbins D.O. First contact with patient: 04:41 Chief Complaint: ALLERGIC REACTION Stated Complaint: HARD TO SWALLOW Nursing Triage Summary: pt states after she had taken her lexapro around 0300 this am, her throat felt like it was burning and tight. she also states she had been gaging and having difficulty swallowing. History of Present Illness The patient is a 66 year old female who presents to the Emergency Room with complaints of a possible allergic reaction. She reports she has been having issues with excessive amounts of mucous in her throat recently. She took a Lexapro tablet, after crushing it up, around 0300 this morning and states after taking it, her throat began to feel like it was "burning and tight". She reports she had been taken off the Lexapro recently, but was restarted on it in the past few weeks. She also complains of gagging and difficulty swallowing. The patient admits to a history of GERD. She denies any recent abdominal pain. Source of History: patient Onset: 0300 this morning Position: throat Timing: other (persistent) Associated Symptoms: No abdominal pain Review of Systems See HPI for pertinent positives & negatives. A total of 10 systems reviewed and were otherwise negative. Past Medical & Surgical Medical Problems: (1) Anxiety (2) Asthma, Unspecified (3) Hyperlipemia (4) Hypertension Surgical Problems: (1) No significant past surgical history Family History Cancer Social History Smoking Status: Never Smoker Alcohol Use: none Drug Use: none Marital Status: Housing Status: lives with family Occupation Status: unemployed Current/Historical Medications Scheduled Amlodipine Besylate (Norvasc), 2.5 MG PO DAILY Cholecalciferol (D 1999), 2,000 UNITS PO DAILY Escitalopram Oxalate (Lexapro), 10 MG PO DAILY Fluticasone Propionate (Flovent Hfa), 1 PUFF INH BID Pantoprazole (Pantoprazole Sodium), 40 MG PO DAILYBB Simvastatin (Zocor), 20 MG PO HS Scheduled PRN Albuterol Hfa (Ventolin Hfa), 2 PUFFS INH Q4H PRN for Shortness of Breath Allergies Coded Allergies: Latex (Verified Allergy, Mild, RASH, 01/03/17) Aspirin (Verified Allergy, Unknown, HX OF STOMACH ULCERS-NOT ALLOW TO TAKE , 01/03/17) Physical Exam Vital Signs Date Time Temp Pulse Resp B/P (MAP) Pulse Ox O2 Delivery O2 Flow Rate FiO2 01/03/17 05:33 36.8 60 18 154/69 100 Room Air 01/03/17 04:46 100 Room Air 01/03/17 04:35 60 18 177/77 100 Room Air Physical Exam General: The patient continues to cough and gag on her own saliva. HEENT: Head - normocephalic and atraumatic Pupils are equal, round, and reactive to light. Extraocular eye muscles are intact, and sclera are anicteric. Nose - moist nasal mucosa without discharge. Mouth - moist buccal mucosa. Oropharynx is nonerythematous and there is no tonsillar exudate or edema noted. Neck: Supple; no JVD, nuchal rigidity, cervical lymphadenopathy. Heart: Regular rate and rhythm. There is a normal S1 and S2 with no murmurs, clicks, or gallops appreciated. Lungs: Clear to auscultation bilaterally with no wheezes, rales, or rhonchi. Abdomen: Soft, completely nontender, nondistended, with good bowel sounds. There are no palpable pulsatile masses or hepatosplenomegaly. There is no guarding, rigidity, or rebound noted. Extremities: No evidence of cyanosis, clubbing, or edema. There are easily palpable peripheral pulses. Skin: warm and dry with good turgor and no rashes. Medical Decision & Procedures Medications Administered Medications (Trade) Dose Ordered Sig/Jose Route Start Time Stop Time Status Last Admin Dose Admin Lorazepam (Ativan Tab) 1 mg NOW STAT SL 01/03/17 04:57 01/03/17 04:58 DC 01/03/17 05:06 1 MG Procedure Ativan SL. ED Course 0453: Past medical records reviewed. The patient was evaluated in room A3. A complete history and physical exam was performed. 0457: Ativan 1 mg SL. 0529: I reevaluated the patient. She is asleep. I gently woke her and she states she feels much more relaxed and comfortable. I discussed her discharge instructions and she verbalized complete understanding and agreement. Medical Decision The patient is a 66 year old female who presents to the ED with a possible allergic reaction. Differential diagnosis includes anxiety, GERD, medication reaction and allergic reaction. The patient has a history of significant reflux. She also suffers from anxiety. The patient states that she took a Lexapro tonight to try to help with her nerves and suddenly started to shake after taking it and wondered if she was having an acute allergic reaction. On presentation to the emergency department, the that she is suffering from some significant anxiety. I gave the patient and dose of oral Ativan and she is feeling much better at this time. I strongly encouraged the patient to follow-up with her PCP with regards to the GERD and anxiety. Medication Reconcilliation Current Medication List: was personally reviewed by me Blood Pressure Screening Patient's blood pressure: Elevated blood pressure Blood pressure disposition: Referred to PCP Impression Primary Impression: Anxiety Scribe Attestation The scribe's documentation has been prepared under my direction and personally reviewed by me in its entirety. I confirm that the note above accurately reflects all work, treatment, procedures, and medical decision making performed by me. Departure Information Dispostion Home / Self-Care Referrals Frieda Perales D.O. (PCP) Patient Instructions Anxiety Body Response, Anxiety Disorder, My [facility] Additional Instructions Rest. Follow up with PCP about meds to use for anxiety.
[2017-01-03 05:33] VITALS: BP 154/69; PULSE 60; TEMP 36.8; O2SAT 100
== END 2017-01-03 05:34 | disposition home or self-care (01) ==
LOC: C.EDB 04:29 → C.EDA 05:34
DX: F41.9 Anxiety disorder, unspecified (principal); K21.9 Gastro-esophageal reflux disease without esophagitis; I10 Essential (primary) hypertension; E78.5 Hyperlipidemia, unspecified; J45.909 Unspecified asthma, uncomplicated; Z79.899 Other long term (current) drug therapy; Z88.6 Allergy status to analgesic agent; Z91.040 Latex allergy status; Z80.9 Family history of malignant neoplasm, unspecified

== ENCOUNTER → 2017-01-28 | Emergency (ER) | payer OTHER ==
[~2017-01-28] VITALS: Ht 147.3 cm; Wt 74.7 kg
[~2017-01-28] MED LIST changes: +ALUMINUM/MAGNESIUM SUSP 30 ML UDC PO STA; +LIDOCAINE HCL 2% VISC SOLN 20 ML UDC MT STA; +LORAZEPAM 1 MG TAB SL STA; -NYST80OI TOP; -TRMCR130WC TOP
[2017-01-28 15:31] VITALS: TEMP 36.8; Ht 147.3 cm; Wt 74.7 kg
--- NOTE | 2017-01-28 16:01 | DIAGNOSTIC IMAGING REPORT ---
CHEST ONE VIEW PORTABLE HISTORY: 66 years-old Female CHEST PAIN acute atypical chest pain COMPARISON: Chest radiograph 12/07/2016 TECHNIQUE: Portable AP view of the chest FINDINGS: Cardiomediastinal and hilar silhouettes are within normal limits. No pneumothorax, pleural effusion, focal airspace consolidation or overt pulmonary edema. The bones of the chest appear grossly intact. There are degenerative changes about the shoulders and spine. IMPRESSION: No acute cardiopulmonary process. The above report was generated using voice recognition software. It may contain grammatical, syntax or spelling errors. Electronically signed by: Suman Drake M.D. 01/28/2017 4:00 PM Dictated Date/Time: 01/28/2017 3:59 PM
--- NOTE | 2017-01-28 16:13 | EMERGENCY ROOM VISIT NOTE ---
History Report prepared by [place]: Bahman Paniagua Under the Supervision of: Dr. Delfino Seth M.D. 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 She states that "it feels like something is stuck in my throat. She notes a burning sensation in her throat and a productive cough with "giant balls of mucus." The patient states that she cannot swallow normal foods, though she can swallow fluids and she has been on a soft food diet. She notes that she has been losing weight, though is not sure why. She also notes mild shortness of breath. She notes an acid taste in her mouth. She has a history of acid reflux. She denies fevers, nausea, vomiting, diarrhea, trauma, and chest pain. She currently rates her pain a 5/10 in severity. I have been gagging a lot." She was seen October 27, 2016 for swallow tests that showed mild dysmotility. She has a baseline tremor. 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 She notes difficulty swallowing normal foods. She notes weight loss. She denies trauma. Review of Systems See HPI for pertinent positives & negatives. A total of 10 systems reviewed and were otherwise negative. Past Medical & Surgical Medical Problems: (1) Anxiety (2) Asthma, Unspecified (3) Hyperlipemia (4) Hypertension Surgical Problems: (1) No significant past surgical history Family History Cancer Social History Smoking Status: Former Smoker Alcohol Use: none Drug Use: none Marital Status: Housing Status: lives with family Occupation Status: unemployed Current/Historical Medications Scheduled Amlodipine Besylate (Norvasc), 2.5 MG PO DAILY Cholecalciferol (D 2000), 2,000 UNITS PO DAILY Escitalopram Oxalate (Lexapro), 10 MG PO DAILY Fluticasone Propionate (Flovent Hfa), 1 PUFF INH BID Pantoprazole (Pantoprazole Sodium), 40 MG PO DAILYBB Simvastatin (Zocor), 20 MG PO HS Scheduled PRN Albuterol Hfa (Ventolin Hfa), 2 PUFFS INH Q4H PRN for Shortness of Breath Allergies Coded Allergies: Latex (Verified Allergy, Mild, RASH, 01/28/17) Aspirin (Verified Allergy, Unknown, HX OF STOMACH ULCERS-NOT ALLOW TO TAKE , 01/28/17) Physical Exam Vital Signs Date Time Temp Pulse Resp B/P (MAP) Pulse Ox O2 Delivery O2 Flow Rate FiO2 01/28/17 18:55 55 18 181/77 100 Room Air 01/28/17 16:36 48 20 178/83 99 Room Air 01/28/17 15:56 98 Room Air 01/28/17 15:31 36.8 63 18 183/69 98 Room Air Physical Exam General: Non-ill appearing older female in no acute distress. Speaking and swallowing without difficulty. No drooling. HEENT: Normal cephalic atraumatic. Pupils are equal round and reactive to light. Extraocular movements are intact. Oropharynx shows no lesions or swelling and is pink with moist mucous membranes. No swelling of the mouth lips or tongue. Neck: Supple with a midline trachea. No meningeal signs or stiffness, no JVD or bruits. No Stridor. Chest: Clear to auscultation bilaterally. No wheezes or rhonchi. No increased work of breathing. Heart: regular rate and rhythm. Abdomen: Soft nontender, nondistended without rebound guarding or rigidity. Extremities: No cyanosis clubbing or edema. No calf tenderness or assymetry. Spine/Back. Non tender to palpation. No CVA tenderness Skin: Good turgor without rashes. Neurologic exam: Cranial nerves two through 12 are intact. Motor and sensation are intact and symmetrical throughout. Baseline tremor. Medical Decision & Procedures ER Provider Diagnostic Interpretation: Radiology results as stated below per my review and radiologist interpretation: CHEST ONE VIEW PORTABLE HISTORY: 66 years-old Female CHEST PAIN acute atypical chest pain COMPARISON: Chest radiograph 12/07/2016 TECHNIQUE: Portable AP view of the chest FINDINGS: Cardiomediastinal and hilar silhouettes are within normal limits. No pneumothorax, pleural effusion, focal airspace consolidation or overt pulmonary edema. The bones of the chest appear grossly intact. There are degenerative changes about the shoulders and spine. IMPRESSION: No acute cardiopulmonary process. The above report was generated using voice recognition software. It may contain grammatical, syntax or spelling errors. Electronically signed by: Suman Drake M.D. 01/28/2017 4:00 PM Dictated Date/Time: 01/28/2017 3:59 PM Laboratory Results 01/28/17 16:00 Red Blood Count 4.20, Mean Corpuscular Volume 89.8, Mean Corpuscular Hemoglobin 31.0, Mean Corpuscular Hemoglobin Concent 34.5, Mean Platelet Volume 11.1, Neutrophils (%) (Auto) 79.2, Lymphocytes (%) (Auto) 13.5, Monocytes (%) (Auto) 6.0, Eosinophils (%) (Auto) 0.3, Basophils (%) (Auto) 1.0, Neutrophils # (Auto) 4.65, Lymphocytes # (Auto) 0.79, Monocytes # (Auto) 0.35, Eosinophils # (Auto) 0.02, Basophils # (Auto) 0.06 01/28/17 16:00 Test 01/28/17 16:00 01/28/17 16:05 White Blood Count 5.87 K/uL (4.8-10.8) Red Blood Count 4.20 M/uL (4.2-5.4) Hemoglobin 13.0 g/dL (12.0-16.0) Hematocrit 37.7 % (37-47) Mean Corpuscular Volume 89.8 fL (80-100) Mean Corpuscular Hemoglobin 31.0 pg (25-34) Mean Corpuscular Hemoglobin Concent 34.5 g/dl (32-36) Platelet Count 186 K/uL (130-400) Mean Platelet Volume 11.1 fL (7.4-10.4) Neutrophils (%) (Auto) 79.2 % Lymphocytes (%) (Auto) 13.5 % Monocytes (%) (Auto) 6.0 % Eosinophils (%) (Auto) 0.3 % Basophils (%) (Auto) 1.0 % Neutrophils # (Auto) 4.65 K/uL (1.4-6.5) Lymphocytes # (Auto) 0.79 K/uL (1.2-3.4) Monocytes # (Auto) 0.35 K/uL (0.11-0.59) Eosinophils # (Auto) 0.02 K/uL (0-0.5) Basophils # (Auto) 0.06 K/uL (0-0.2) RDW Standard Deviation 46.1 fL (36.4-46.3) RDW Coefficient of Variation 14.1 % (11.5-14.5) Immature Granulocyte % (Auto) 0.0 % Immature Granulocyte # (Auto) 0.00 K/uL (0.00-0.02) Anion Gap 9.0 mmol/L (3-11) Est Creatinine Clear Calc Drug Dose 51.7 ml/min Estimated GFR () 75.2 Estimated GFR (Non- 64.9 BUN/Creatinine Ratio 7.5 (10-20) Calcium Level 9.4 mg/dl (8.5-10.1) Total Bilirubin 0.9 mg/dl (0.2-1) Direct Bilirubin 0.2 mg/dl (0-0.2) Aspartate Amino Transf (AST/SGOT) 20 U/L (15-37) Alanine Aminotransferase (ALT/SGPT) 26 U/L (12-78) Alkaline Phosphatase 76 U/L (45-117) Total Protein 7.7 gm/dl (6.4-8.2) Albumin 4.1 gm/dl (3.4-5.0) Lipase 190 U/L (73-393) Bedside Troponin I < 0.030 ng/ml (0-0.045) Laboratory studies as stated above per my review. Medications Administered Medications (Trade) Dose Ordered Sig/Jose Route Start Time Stop Time Status Last Admin Dose Admin Al Hydroxide/Mg Hydroxide (Maalox Susp) 30 ml NOW STAT PO 01/28/17 15:43 01/28/17 15:44 DC 01/28/17 16:00 30 ML Lidocaine HCl (Viscous Lidocaine 2% Soln) 10 ml NOW STAT MT 01/28/17 15:43 01/28/17 15:44 DC 01/28/17 16:00 10 ML Lorazepam (Ativan Tab) 1 mg NOW STAT SL 01/28/17 16:39 01/28/17 16:40 DC 01/28/17 16:51 1 MG ECG Indication: other (difficulty swallowing) Rate (beats per minute): 55 Rhythm: normal sinus Findings: no acute ischemic change, no ectopy Change: No acute changes when compared to 06/27/2016. ED Course 1536: Past medical records reviewed. The patient was evaluated in room C11B, and a complete history and physical examination were performed. 1543: Ordered Lidocaine HCl 10 ml MT and Maalox 30 ml PO 1639: Ordered Ativan 1 mg SL 1722: I reassessed the patient at this time. She is feeling better and resting comfortably. 1800: I reassessed the patient at this time. She is feeling better and resting comfortably. I discussed the results and treatment plan with the patient. I answered all pertaining questions that she had. She expressed understanding and verbalized agreement. The patient will be discharged home. Medical Decision Differentials include, but are not limited to; GERD, anxiety, dysphasia, infection, and electrolyte or metabolic abnormality. This patient comes in as described above. She complains of difficulty swallowing. This has been gone for quite some time now. She appears well and is not drooling. She is in no respiratory distress. She is able swallow liquids. I reviewed her recent office notes from January 16, she has had upper endoscopy which was unremarkable and she had a swallowing study which showed mild dysmotility and is scheduled to see neuro. She does have some baseline tremor and is possible it could be neurologic issue. She's been afebrile. Chest x-ray was unremarkable. EKG does not suggest acute coronary syndrome or arrhythmia. She has no acute electrolyte or metabolic abnormalities. She was given a GI cocktail without much success. She was given Ativan and was doing much better. I do think she needs to follow-up with her regular doctor drink plenty of fluids and return if: Worsening symptoms or fever chills, any new problems or concerns. Medication Reconcilliation Current Medication List: was personally reviewed by me Blood Pressure Screening Patient's blood pressure: Elevated blood pressure Blood pressure disposition: Elevated BP felt to be situational, Referred to PCP Impression Primary Impression: Dysphagia Scribe Attestation The scribe's documentation has been prepared under my direction and personally reviewed by me in its entirety. I confirm that the note above accurately reflects all work, treatment, procedures, and medical decision making performed by me. Departure Information Dispostion Home / Self-Care Referrals Frieda Perales D.O. (PCP) Forms HOME CARE DOCUMENTATION FORM, IMPORTANT VISIT INFORMATION, WORK / SCHOOL INSTRUCTIONS Patient Instructions My [facility] Additional Instructions Rest. Drink plenty of fluids. Return if: Worsening of symptoms, not tolerating fluids, fever or chills, any new problems or concerns. Follow-up with your doctor this week for recheck
[2017-01-28 16:17] LABS: BASO ABS # 0.06 K/uL (0-0.2); COMPLETE YES; EOS % 0.3 %; HEMATOCRIT 37.7 % (37-47); LYMPH % 13.5 %; LYMPH ABS # 0.79 K/uL (1.2-3.4); MEAN CELL VOLUME 89.8 fL (80-100); MEAN CORPUSCULAR HGB CONC 34.5 g/dl (32-36); MEAN PLATELET VOLUME 11.1 fL (7.4-10.4); NEUT % 79.2 %; PLATELET COUNT 186 K/uL (130-400); WHITE BLOOD COUNT 5.87 K/uL (4.8-10.8)
[2017-01-28 16:35] LABS: BUN/CREATININE RATIO 7.5 (10-20); CALCIUM 9.4 mg/dl (8.5-10.1); CREATININE 0.92 mg/dl (0.60-1.20); POTASSIUM 3.6 mmol/L (3.5-5.1)
[2017-01-28 18:55] VITALS: BP 181/77; PULSE 55; O2SAT 100
== END | disposition home or self-care (01) ==
LOC: C.EDB 15:19
DX: R13.10 Dysphagia, unspecified (principal); J45.909 Unspecified asthma, uncomplicated; I10 Essential (primary) hypertension; E78.5 Hyperlipidemia, unspecified; Z87.891 Personal history of nicotine dependence

== ENCOUNTER 2017-02-13 16:14 | Emergency (ER) | payer OTHER ==
[~2017-02-13] VITALS: Ht 147.3 cm; Wt 70.7 kg
[~2017-02-13 16:14] MED LIST changes: -ALUMINUM/MAGNESIUM SUSP 30 ML UDC PO STA; -LIDOCAINE HCL 2% VISC SOLN 20 ML UDC MT STA; -LORAZEPAM 1 MG TAB SL STA
[2017-02-13 16:18] VITALS: TEMP 36.8; Ht 147.3 cm; Wt 70.7 kg
[2017-02-13] MEDS ORDERED: SODIUM CHLORIDE 0.9% 1000ML 1,000 ML IV STA (16:45)
[2017-02-13] MEDS ORDERED: SUCR5SUS PO (16:53)
--- NOTE | 2017-02-13 16:58 | EMERGENCY ROOM VISIT NOTE ---
History Report prepared by [place]: Michael Salas Under the Supervision of: Dr. Jay Nj M.D. First contact with patient: 16:42 Chief Complaint: CONSTIPATION Stated Complaint: CONSTIPATED Nursing Triage Summary: Pt states that she has been constipated for the last 4 days. Pt has taken stool softner, mag citrate without relief. Pt states that this happen 2 months ago. Pt is scheduled for a colonoscopy bharat in Feb. Hypoactive bowel sounds all 4 quadrants. Abdomen non distended. Pt tender to palpation around umbilicus History of Present Illness The patient is a 66 year old female who presents to the Emergency Room with complaints of constant constipation for the past 4 days. She has associated symptoms of abdominal pain, hematochezia, and a "gag that brings up mucous". She states the blood is only seen on the toilet paper and not in the toilet bowl. She notes the stool blood is red. She denies nausea, chills, painful urination, and vomiting. She adds that Miralax and medications that her physician gave her have not resolved the symptoms. She states she has a history of constipation. She is sometimes able to take care of it at home, and sometimes has to come to the ER. Patient has not tried an at-home enema. She states that she is currently on a "soft" diet that has not changed recently. She adds she has not vomited on this "soft" diet. Pertinent medical history includes having a cyst removed from her ovaries. She states she is currently being treated for throat problems by her PCP. She adds that last time she was at her PCP, she had hematuria. In addition, her PCP suspected she has a bladder infection and scheduled a colonoscopy for her in 10 days. Source of History: patient Onset: 4 days ago Position: other (Constipation) Timing: constant Associated Symptoms: + abdominal pain, + hematochezia, No fevers, No chills , No nausea, No vomiting Note: Patient denies painful urination. Review of Systems See HPI for pertinent positives and negatives. A total of ten systems were reviewed and were otherwise negative. Past Medical & Surgical Medical Problems: (1) Anxiety (2) Asthma, Unspecified (3) Hyperlipemia (4) Hypertension Surgical Problems: (1) No significant past surgical history Family History Cancer Social History Smoking Status: Former Smoker Alcohol Use: none Drug Use: none Marital Status: Housing Status: lives with family Occupation Status: unemployed Current/Historical Medications Scheduled Amlodipine Besylate (Norvasc), 2.5 MG PO DAILY Cholecalciferol (D 2000), 2,000 UNITS PO DAILY Docusate Sodium (Colace), 1 CAP PO BID Escitalopram Oxalate (Lexapro), 10 MG PO DAILY Fluticasone Propionate (Flovent Hfa), 1 PUFF INH BID Simvastatin (Zocor), 20 MG PO HS Sucralfate (Carafate), 10 ML PO QID Scheduled PRN Albuterol Hfa (Ventolin Hfa), 2 PUFFS INH Q4H PRN for Shortness of Breath Allergies Coded Allergies: Latex (Verified Allergy, Mild, RASH, 02/13/17) Aspirin (Verified Allergy, Unknown, HX OF STOMACH ULCERS-NOT ALLOW TO TAKE , 02/13/17) Physical Exam Vital Signs Date Time Temp Pulse Resp B/P (MAP) Pulse Ox O2 Delivery O2 Flow Rate FiO2 02/13/17 23:06 68 18 119/80 96 02/13/17 20:22 73 18 141/89 98 Room Air 02/13/17 17:49 75 02/13/17 16:18 36.8 109 17 158/79 99 Room Air Physical Exam GENERAL: Awake, alert, in no distress HENT: Normocephalic, atraumatic. Oropharynx unremarkable. EYES: Normal conjunctiva. Sclera non-icteric. NECK: Supple. No nuchal rigidity. FROM. No JVD. RESPIRATORY: Clear to auscultation. CARDIAC: Regular rate, normal rhythm. Extremities warm and well perfused. Pulses equal. ABDOMEN: Mild periumbilical tenderness to palpitation in LUQ. No peritoneal signs. Soft, non-distended No rebound or guarding. No masses. RECTAL: Deferred. MUSCULOSKELETAL: Chest examination reveals no tenderness. The back is symmetrical on inspection without obvious abnormality. There is no CVA tenderness to palpation. No joint edema. LOWER EXTREMITIES: Calves are equal size bilaterally and non-tender. No edema. No discoloration. NEURO: Normal sensorium. No sensory or motor deficits noted. SKIN: No rash or jaundice noted. Medical Decision & Procedures ER Provider Diagnostic Interpretation: Radiology results as stated below per my review and radiologist interpretation: ABD/PELVIS IV CONTRAST ONLY CT DOSE: 480.69 mGy.cm HISTORY: Pain abd pain, constipation TECHNIQUE: Multiaxial CT images of the abdomen and pelvis were performed following the use of intravenous contrast. A dose lowering technique was utilized adhering to the principles of ALARA. COMPARISON STUDY: None. FINDINGS: Lung bases are clear. Liver spleen and pancreas are unremarkable. Bilateral renal cysts. No evidence for renal obstructive change or hydronephrosis. Nonobstructive bowel pattern. Normal appendix. Findings consistent with fecal impaction. Maximum rectal diameter is 8 cm. Bladder is midline. No contained bladder calcifications. Uterus is anteflexed possibly with a small fibroid involvement. IMPRESSION: 1. Rectal fecal impaction. 2. Nonobstructive bowel pattern. 3. Several small renal cysts. The above report was generated using voice recognition software. It may contain grammatical, syntax or spelling errors. Electronically signed by: Fletcher Arriaga M.D. 02/13/2017 7:52 PM Laboratory Results 02/13/17 18:16 Red Blood Count 4.56, Mean Corpuscular Volume 86.6, Mean Corpuscular Hemoglobin 31.1, Mean Corpuscular Hemoglobin Concent 35.9, Mean Platelet Volume 11.5, Neutrophils (%) (Auto) 79.4, Lymphocytes (%) (Auto) 11.9, Monocytes (%) (Auto) 6.9, Eosinophils (%) (Auto) 0.7, Basophils (%) (Auto) 0.8, Neutrophils # (Auto) 5.88, Lymphocytes # (Auto) 0.88, Monocytes # (Auto) 0.51, Eosinophils # (Auto) 0.05, Basophils # (Auto) 0.06 02/13/17 18:16 Test 02/13/17 18:16 White Blood Count 7.40 K/uL (4.8-10.8) Red Blood Count 4.56 M/uL (4.2-5.4) Hemoglobin 14.2 g/dL (12.0-16.0) Hematocrit 39.5 % (37-47) Mean Corpuscular Volume 86.6 fL (80-100) Mean Corpuscular Hemoglobin 31.1 pg (25-34) Mean Corpuscular Hemoglobin Concent 35.9 g/dl (32-36) Platelet Count 204 K/uL (130-400) Mean Platelet Volume 11.5 fL (7.4-10.4) Neutrophils (%) (Auto) 79.4 % Lymphocytes (%) (Auto) 11.9 % Monocytes (%) (Auto) 6.9 % Eosinophils (%) (Auto) 0.7 % Basophils (%) (Auto) 0.8 % Neutrophils # (Auto) 5.88 K/uL (1.4-6.5) Lymphocytes # (Auto) 0.88 K/uL (1.2-3.4) Monocytes # (Auto) 0.51 K/uL (0.11-0.59) Eosinophils # (Auto) 0.05 K/uL (0-0.5) Basophils # (Auto) 0.06 K/uL (0-0.2) RDW Standard Deviation 43.7 fL (36.4-46.3) RDW Coefficient of Variation 14.0 % (11.5-14.5) Immature Granulocyte % (Auto) 0.3 % Immature Granulocyte # (Auto) 0.02 K/uL (0.00-0.02) Anion Gap 10.0 mmol/L (3-11) Est Creatinine Clear Calc Drug Dose 51.8 ml/min Estimated GFR () 78.3 Estimated GFR (Non- 67.5 BUN/Creatinine Ratio 12.6 (10-20) Lactic Acid Level 1.4 mmol/L (0.4-2.0) Calcium Level 9.7 mg/dl (8.5-10.1) Total Bilirubin 0.8 mg/dl (0.2-1) Direct Bilirubin 0.2 mg/dl (0-0.2) Aspartate Amino Transf (AST/SGOT) 23 U/L (15-37) Alanine Aminotransferase (ALT/SGPT) 30 U/L (12-78) Alkaline Phosphatase 79 U/L (45-117) Total Protein 8.0 gm/dl (6.4-8.2) Albumin 4.1 gm/dl (3.4-5.0) Lipase 297 U/L (73-393) Laboratory results reviewed by me Medications Administered Medications (Trade) Dose Ordered Sig/Jose Route Start Time Stop Time Status Last Admin Dose Admin Sodium Chloride 1,000 ml @ 999 mls/hr Q1H1M STAT IV 02/13/17 16:45 02/13/17 17:45 DC 02/13/17 18:38 999 MLS/HR Miscellaneous (Soap Suds Enema) 1 ea NOW STAT NM 02/13/17 20:05 02/13/17 20:06 DC 02/13/17 20:05 1 EA Metoclopramide HCl (Reglan Inj) 10 mg NOW STAT IV 02/13/17 21:41 02/13/17 21:42 DC 02/13/17 22:28 10 MG Potassium Chloride (Klor-Con M10) 40 meq STK-MED ONCE .ROUTE 02/13/17 22:55 02/13/17 22:56 DC 02/13/17 23:03 40 MEQ ED Course 1643: The patient was evaluated in room B9. A complete history and physical exam was performed. 2138: I reassessed the patient who is resting comfortably. 2251: I reevaluated the patient. Discussed results and discharge instructions: She verbalized understanding and agreement. The patient is ready for discharge. Medical Decision I reviewed the patient's past medical history, medications, and the nursing notes as described above. Differential Diagnoses: Bowel obstruction, diverticulitis, diverticulosis, colitis, gastroparesis, constipation. The patient is a 66-year-old woman with a past medical history of esophageal dysmotility as well as constipation who presents emergency Department with generalized abdominal pain and constipation for the past 4 days per hpi. On arrival the patient is in no acute distress, afebrile stable vital signs. She has mild marco-umbilical and left upper quadrant tenderness to palpation without any peritoneal signs. Labs unremarkable including WBC and lactate within normal limits. CT negative for acute findings but does show evidence of constipation. She was given a soapsuds enema with some effect and so repeated with milk and molasses as well as dose of reglan with good effect. Findings and plan for follow-up reviewed with patient. Patient agreeable and d/c'd per discharge instructions. Medication Reconcilliation Current Medication List: was personally reviewed by me Blood Pressure Screening Patient's blood pressure: Normal blood pressure Blood pressure disposition: Did not require urgent referral Impression Primary Impression: Constipation Additional Impression: Hypokalemia Scribe Attestation The scribe's documentation has been prepared under my direction and personally reviewed by me in its entirety. I confirm that the note above accurately reflects all work, treatment, procedures, and medical decision making performed by me. Departure Information Dispostion Home / Self-Care Prescriptions Docusate Sodium (COLACE) 100 Mg Cap 1 CAP PO BID for 15 Days, #30 CAP Prov: Jay Nj M.D. 02/13/17 Referrals Frieda Perales D.O. (PCP) Forms HOME CARE DOCUMENTATION FORM, IMPORTANT VISIT INFORMATION Patient Instructions ED Constipation, ED Potassium Deficiency, My [facility] Additional Instructions Please follow up with your primary care physician in the next 1-3 days for re- evaluation and to repeat your potassium level. You were found to have constipation. Otherwise, your exam, CT scan, and lab results did not show signs of an emergent condition at this time. Continue your Miralax and additionally use Colace for constipation as needed. Use Magnesium citrate and/or repeat enema at home as needed for persistent constipation. Drink plenty of fluids to ensure hydration. Return to the emergency department for worsening symptoms as described in the accompanying instructions. Problem Qualifiers
[2017-02-13] MEDS ORDERED: OPTIRAY 320 IV PRN (17:30)
[2017-02-13 18:25] LABS: BASO % 0.8 %; BASO ABS # 0.06 K/uL (0-0.2); EOS % 0.7 %; EOS ABS # 0.05 K/uL (0-0.5); HEMATOCRIT 39.5 % (37-47); HEMOGLOBIN 14.2 g/dL (12.0-16.0); IG# 0.02 K/uL (0.00-0.02); LYMPH % 11.9 %; LYMPH ABS # 0.88 K/uL (1.2-3.4); MEAN CELL VOLUME 86.6 fL (80-100); MEAN CORPUSCULAR HEMOGLOBIN 31.1 pg (25-34); MEAN CORPUSCULAR HGB CONC 35.9 g/dl (32-36); MEAN PLATELET VOLUME 11.5 fL (7.4-10.4); MONO % 6.9 %; MONO ABS # 0.51 K/uL (0.11-0.59); NEUT % 79.4 %; NEUT ABS # 5.88 K/uL (1.4-6.5); PLATELET COUNT 204 K/uL (130-400); RED CELL DISTRIBUTION WIDTH SD 43.7 fL (36.4-46.3)
[2017-02-13 18:42] LABS: ALBUMIN 4.1 gm/dl (3.4-5.0); CALCIUM 9.7 mg/dl (8.5-10.1); CREATININE 0.89 mg/dl (0.60-1.20); POTASSIUM 3.1 mmol/L (3.5-5.1)
--- NOTE | 2017-02-13 19:53 | DIAGNOSTIC IMAGING REPORT ---
ABD/PELVIS IV CONTRAST ONLY CT DOSE: 480.69 mGy.cm HISTORY: Pain abd pain, constipation TECHNIQUE: Multiaxial CT images of the abdomen and pelvis were performed following the use of intravenous contrast. A dose lowering technique was utilized adhering to the principles of ALARA. COMPARISON STUDY: None. FINDINGS: Lung bases are clear. Liver spleen and pancreas are unremarkable. Bilateral renal cysts. No evidence for renal obstructive change or hydronephrosis. Nonobstructive bowel pattern. Normal appendix. Findings consistent with fecal impaction. Maximum rectal diameter is 8 cm. Bladder is midline. No contained bladder calcifications. Uterus is anteflexed possibly with a small fibroid involvement. IMPRESSION: 1. Rectal fecal impaction. 2. Nonobstructive bowel pattern. 3. Several small renal cysts. The above report was generated using voice recognition software. It may contain grammatical, syntax or spelling errors. Electronically signed by: Fletcher Arriaga M.D. 02/13/2017 7:52 PM Dictated Date/Time: 02/13/2017 7:50 PM
[2017-02-13] MEDS ORDERED: SOAP SUDS ENEMA PR STA (20:05)
[2017-02-13] MEDS ORDERED: METOCLOPRAMIDE HCL INJ 5 MG/ML 2 ML VIAL IV STA (21:41)
[2017-02-13] MEDS ORDERED: DOCU-94 PO (22:15)
[2017-02-13] MEDS ORDERED: POTASSIUM CHLORIDE 20 MEQ TABCR PO STA (22:45)
[2017-02-13] MEDS ORDERED: MAGNESIUM CITRATE 296 ML/BTL PO STA (22:45)
[2017-02-13] MEDS ORDERED: POTASSIUM CHLORIDE 10 MEQ TABCR ONE (22:55)
[2017-02-13 23:06] VITALS: BP 119/80; PULSE 68; O2SAT 96
[2017-03-25] MEDS ORDERED: MULTLIQ26 PO (15:03)
[2017-03-25] MEDS ORDERED: ERGO500011 PO (15:03)
[2017-03-25] MEDS ORDERED: B COLIQ PO ×2 (15:03→15:26)
[2017-03-25] MEDS ORDERED: FLV1 PO (15:03)
[2017-03-25] MEDS ORDERED: RSPODT5 PO (15:03)
[2017-03-25] MEDS ORDERED: ENOX30IN4 SQ (15:24)
[2017-03-25] MEDS ORDERED: THIA100T27 PO (15:25)
== END 2017-02-13 23:06 | disposition home or self-care (01) ==
LOC: C.EDB 16:15
DX: K59.00 Constipation, unspecified (principal); E87.6 Hypokalemia; J45.909 Unspecified asthma, uncomplicated; E78.5 Hyperlipidemia, unspecified; I10 Essential (primary) hypertension; F41.9 Anxiety disorder, unspecified; Z87.891 Personal history of nicotine dependence; Z79.899 Other long term (current) drug therapy

== ENCOUNTER 2017-03-03 10:29 | Emergency (ER) | payer OTHER ==
[~2017-03-03] VITALS: Ht 147.3 cm; Wt 70.0 kg
[~2017-03-03 10:29] MED LIST changes: -PANT40TA2 PO; +SUCR5SUS PO
[2017-03-03 10:30] VITALS: TEMP 36.9; Ht 147.3 cm; Wt 70.0 kg
[2017-03-03] MEDS ORDERED: ACETAMINOPHEN SUSP 160 MG/5 ML UDC PO STA (10:49)
[2017-03-03] MEDS ORDERED: GI COCKTAIL PO STA (10:49)
[2017-03-03] MEDS ORDERED: ONDANSETRON INJ 2 MG/ML 2 ML VIAL IV STA (10:49)
--- NOTE | 2017-03-03 10:55 | EMERGENCY ROOM VISIT NOTE ---
History Report prepared by [place]: Guillermo Álvarez Under the Supervision of: Dr. Chris Cui M.D. First contact with patient: 10:44 Chief Complaint: DEHYDRATION Stated Complaint: DEHYDRATED, GAGGING, SICK IN STOMACH Nursing Triage Summary: Pt states, "I'm really sick. I feel dehydrated. My throat feels dry and I'm sick in my stomach. When I pee it's all red. When I bring up mucous it's like hard clumps in there." Nausea. Denies vomiting or diarrhea. Pain in upper abd. Sx for several months. Denies flank pain. History of Present Illness The patient is a 66 year old female who presents to the Emergency Room with complaints of persistent diffuse abdominal pain that began several months ago. She describes her pain as an ache and rates it a 6/10 in severity. For the past several months, the patient has been feeling generally dehydrated. She states that no matter how much water she drinks, she does not feel like it is hydrating her at all. She is experiencing a sore/dry throat, nausea, and bilateral leg stiffness. She denies any vomiting or diarrhea. Although she has not vomited, she says that whenever she gags, she brings up mucous. She also notes that whenever she urinates, "it is all red." She denies any fevers, weakness, or numbness. Source of History: patient Onset: several months Position: abdomen (diffuse) Symptom Intensity: 6/10 Quality: ache Timing: other (persistent) Associated Symptoms: + sorethroat, + nausea, + urinary symptoms (possible hematuria), No fevers, No vomiting, No diarrhea, No weakness, No numbness Review of Systems See HPI for pertinent positives & negatives. A total of 10 systems reviewed and were otherwise negative. Past Medical & Surgical Medical Problems: (1) Anxiety (2) Asthma, Unspecified (3) Hyperlipemia (4) Hypertension Surgical Problems: (1) No significant past surgical history Family History Cancer Social History Smoking Status: Never Smoker Alcohol Use: none Drug Use: none Marital Status: Housing Status: lives with family Occupation Status: unemployed Current/Historical Medications Scheduled Amlodipine Besylate (Norvasc), 2.5 MG PO DAILY Cholecalciferol (D 2000), 2,000 UNITS PO DAILY Escitalopram Oxalate (Lexapro), 20 MG PO DAILY Famotidine (Pepcid), 5 ML PO HS Fluticasone Propionate (Flovent Hfa), 1 PUFF INH BID Simvastatin (Zocor), 20 MG PO HS Scheduled PRN Albuterol Hfa (Ventolin Hfa), 2 PUFFS INH Q4H PRN for Shortness of Breath Allergies Coded Allergies: Latex (Verified Allergy, Mild, RASH, 03/03/17) Aspirin (Verified Allergy, Unknown, HX OF STOMACH ULCERS-NOT ALLOW TO TAKE , 03/03/17) Physical Exam Vital Signs Date Time Temp Pulse Resp B/P (MAP) Pulse Ox O2 Delivery O2 Flow Rate FiO2 03/03/17 12:56 94 22 156/96 100 03/03/17 12:25 97 20 157/104 100 Room Air 03/03/17 11:04 87 03/03/17 11:00 82 20 163/108 100 Room Air 03/03/17 10:56 99 Room Air 03/03/17 10:56 99 Room Air 03/03/17 10:30 36.9 103 20 151/86 100 Room Air Physical Exam GENERAL: Patient is a healthy-appearing well-nourished female HEAD: Normocephalic atraumatic EYES: Ocular movements intact pupils equal and react to light OROPHARYNX mucous membranes are moist no exudates present no erythema or edema present NECK: Supple no nuchal rigidity CHEST: Good equal expansion LUNGS: Clear and equal to auscultation CARDIAC: Normal S1 and S2 ABDOMEN: Soft nontender no guarding BACK: No CVA tenderness EXTREMITIES: No pain upon palpation normal muscle strength in all groups no clubbing cyanosis or edema NEURO: Patient is following commands and answering questions appropriately. Alert and oriented x3 Cranial Nerves 2-12 grossly intact Medical Decision & Procedures ER Provider Diagnostic Interpretation: Radiology results as stated below per my review and radiologist interpretation: CHEST AND ABDOMEN 2 VIEWS HISTORY: Pt c/o nausea COMPARISON: Chest 01/28/2017. Abdomen and pelvis CT 02/13/2017. FINDINGS: The lungs are clear. The cardiomediastinal silhouette is within normal limits. There is no pneumoperitoneum or pneumatosis. The bowel gas pattern is unremarkable. No evidence for bowel obstruction. Multiple pelvic phleboliths. No definite renal or ureteral calculi. Moderate well-formed stool seen within the rectum. IMPRESSION: No acute cardiopulmonary process. No evidence for bowel obstruction. Electronically signed by: Luis Vazquez M.D. 03/03/2017 11:43 AM Dictated Date/Time: 03/03/2017 11:40 AM Laboratory Results 03/03/17 11:00 Red Blood Count 4.49, Mean Corpuscular Volume 83.1, Mean Corpuscular Hemoglobin 30.1, Mean Corpuscular Hemoglobin Concent 36.2, Mean Platelet Volume 10.3, Neutrophils (%) (Auto) 83.1, Lymphocytes (%) (Auto) 9.3, Monocytes (%) (Auto) 6.6, Eosinophils (%) (Auto) 0.3, Basophils (%) (Auto) 0.4, Neutrophils # (Auto) 5.84, Lymphocytes # (Auto) 0.65, Monocytes # (Auto) 0.46, Eosinophils # (Auto) 0.02, Basophils # (Auto) 0.03 03/03/17 11:00 Test 03/03/17 11:00 White Blood Count 7.02 K/uL (4.8-10.8) Red Blood Count 4.49 M/uL (4.2-5.4) Hemoglobin 13.5 g/dL (12.0-16.0) Hematocrit 37.3 % (37-47) Mean Corpuscular Volume 83.1 fL (80-100) Mean Corpuscular Hemoglobin 30.1 pg (25-34) Mean Corpuscular Hemoglobin Concent 36.2 g/dl (32-36) Platelet Count 235 K/uL (130-400) Mean Platelet Volume 10.3 fL (7.4-10.4) Neutrophils (%) (Auto) 83.1 % Lymphocytes (%) (Auto) 9.3 % Monocytes (%) (Auto) 6.6 % Eosinophils (%) (Auto) 0.3 % Basophils (%) (Auto) 0.4 % Neutrophils # (Auto) 5.84 K/uL (1.4-6.5) Lymphocytes # (Auto) 0.65 K/uL (1.2-3.4) Monocytes # (Auto) 0.46 K/uL (0.11-0.59) Eosinophils # (Auto) 0.02 K/uL (0-0.5) Basophils # (Auto) 0.03 K/uL (0-0.2) RDW Standard Deviation 41.6 fL (36.4-46.3) RDW Coefficient of Variation 13.8 % (11.5-14.5) Immature Granulocyte % (Auto) 0.3 % Immature Granulocyte # (Auto) 0.02 K/uL (0.00-0.02) Anion Gap 9.0 mmol/L (3-11) Est Creatinine Clear Calc Drug Dose 60.4 ml/min Estimated GFR () 94.7 Estimated GFR (Non- 81.7 BUN/Creatinine Ratio 15.6 (10-20) Calcium Level 9.8 mg/dl (8.5-10.1) Total Bilirubin 1.9 mg/dl (0.2-1) Direct Bilirubin 0.7 mg/dl (0-0.2) Aspartate Amino Transf (AST/SGOT) 28 U/L (15-37) Alanine Aminotransferase (ALT/SGPT) 40 U/L (12-78) Alkaline Phosphatase 88 U/L (45-117) Total Creatine Kinase 83 U/L (26-192) Creatine Kinase MB 2.6 ng/ml (0.5-3.6) Creatine Kinase MB Ratio 3.1 (0-3.0) Troponin I 0.038 ng/ml (0-0.045) Total Protein 7.4 gm/dl (6.4-8.2) Albumin 3.2 gm/dl (3.4-5.0) Lipase 322 U/L (73-393) Labs reviewed by ED physician. Medications Administered Medications (Trade) Dose Ordered Sig/Jose Route Start Time Stop Time Status Last Admin Dose Admin Ondansetron HCl (Zofran Inj) 4 mg NOW STAT IV 03/03/17 10:49 03/03/17 10:53 DC 03/03/17 11:42 4 MG Miscellaneous Medication (Gi Cocktail) 24 ml NOW STAT PO 03/03/17 10:49 03/03/17 10:53 DC 03/03/17 11:42 24 ML Acetaminophen (Tylenol Children'S Susp) 640 mg NOW STAT PO 03/03/17 10:49 03/03/17 10:53 DC 03/03/17 11:41 640 MG Lidocaine HCl (Viscous Lidocaine 2% Soln) 20 ml STK-MED ONCE .ROUTE 03/03/17 11:39 03/03/17 11:40 DC 03/03/17 11:42 10 ML Al Hydroxide/Mg Hydroxide (Maalox Susp) 30 ml STK-MED ONCE .ROUTE 03/03/17 11:39 03/03/17 11:40 DC 03/03/17 11:42 30 ML Potassium Chloride (Perla Ciel Elix) 80 meq NOW STAT PO 03/03/17 11:47 03/03/17 11:48 DC 03/03/17 12:24 80 MEQ ECG Indication: nausea Rate (beats per minute): 84 Rhythm: sinus rhythm Findings: no acute ischemic change, no ectopy ED Course 1044: Past medical records reviewed. The patient was evaluated in room C5. A complete history and physical examination was performed. 1049: Ordered Acetaminophen 640 mg PO, Gi Cocktail 24 ml PO, Zofran Inj 4 mg IV 1147: Ordered Potassium Chloride 80 meq PO 1250: Upon reexamination the patient is resting. I discussed results and treatment plan with the patient. She verbalizes agreement and understanding. The patient is ready for discharge. Medical Decision Differential diagnosis: Etiologies such as appendicitis, diverticulitis, PUD, biliary pathology, UTI, pancreatitis, obstruction, mesenteric ischemia, aortic pathology, infections, inflammatory bowel disease, renal colic, as well as others were entertained. This is a 66-year-old female who presents emergency department complaining of severe reflux. I will note that the patient has been seen in this emergency department multiple times for this. In the emergency department she was given Zofran as well as GI cocktail. Repeat examination revealed improvement patient' s symptoms. The patient's potassium was found to be low at was repleted. Serial abdominal examinations were performed on the patient in the emergency department and at no time did the patient exhibit a surgical abdomen. In addition the patient has a unchanged EKG has a normal CK-MB and troponin. I do believe that the patient as well as to be discharged home for follow-up with her primary care physician. Patient and family were in agreement with the treatment plan. Medication Reconcilliation Current Medication List: was personally reviewed by me Blood Pressure Screening Patient's blood pressure: Elevated blood pressure Blood pressure disposition: Referred to PCP Impression Primary Impression: Hypokalemia Additional Impression: Reflux esophagitis Scribe Attestation The scribe's documentation has been prepared under my direction and personally reviewed by me in its entirety. I confirm that the note above accurately reflects all work, treatment, procedures, and medical decision making performed by me. Departure Information Dispostion Home / Self-Care Prescriptions Famotidine (Pepcid) 20 Mg/2.5 Ml Susp 5 ML PO HS for 30 Days, #150 ML Prov: Chris Cui MD 03/03/17 Referrals Frieda Perales D.O. (PCP) Forms HOME CARE DOCUMENTATION FORM, IMPORTANT VISIT INFORMATION, WORK / SCHOOL INSTRUCTIONS Patient Instructions ED GERD, My [facility] Additional Instructions Need follow up with Dr Flores's office Take 5 ml Maalox before every meal and at bedtime You have been examined and treated today on an emergency basis only. This is not a substitute for, or an effort to provide, complete comprehensive medical care. It is impossible to recognize and treat all injuries or illnesses in a single emergency department visit. It is therefore important that you follow up closely with Dr Perales. Call as soon as possible for an appointment. Thank you for your time and consideration. I look forward to speaking with you again soon. Please don't hesitate to call us if you have any questions. Problem Qualifiers
[2017-03-03 10:56] VITALS: O2SAT 99
[2017-03-03 11:29] LABS: BASO % 0.4 %; BASO ABS # 0.03 K/uL (0-0.2); EOS % 0.3 %; EOS ABS # 0.02 K/uL (0-0.5); HEMATOCRIT 37.3 % (37-47); HEMOGLOBIN 13.5 g/dL (12.0-16.0); IG# 0.02 K/uL (0.00-0.02); LYMPH % 9.3 %; LYMPH ABS # 0.65 K/uL (1.2-3.4); MEAN CELL VOLUME 83.1 fL (80-100); MEAN CORPUSCULAR HEMOGLOBIN 30.1 pg (25-34); MEAN CORPUSCULAR HGB CONC 36.2 g/dl (32-36); MEAN PLATELET VOLUME 10.3 fL (7.4-10.4); MONO % 6.6 %; MONO ABS # 0.46 K/uL (0.11-0.59); NEUT % 83.1 %; NEUT ABS # 5.84 K/uL (1.4-6.5); PLATELET COUNT 235 K/uL (130-400); RED CELL DISTRIBUTION WIDTH CV 13.8 % (11.5-14.5); RED CELL DISTRIBUTION WIDTH SD 41.6 fL (36.4-46.3); WHITE BLOOD COUNT 7.02 K/uL (4.8-10.8)
[2017-03-03] MEDS ORDERED: ALUMINUM/MAGNESIUM SUSP 30 ML UDC ONE (11:39)
[2017-03-03] MEDS ORDERED: LIDOCAINE HCL 2% VISC SOLN 20 ML UDC ONE (11:39)
--- NOTE | 2017-03-03 11:44 | DIAGNOSTIC IMAGING REPORT ---
CHEST AND ABDOMEN 2 VIEWS HISTORY: Pt c/o nausea COMPARISON: Chest 01/28/2017. Abdomen and pelvis CT 02/13/2017. FINDINGS: The lungs are clear. The cardiomediastinal silhouette is within normal limits. There is no pneumoperitoneum or pneumatosis. The bowel gas pattern is unremarkable. No evidence for bowel obstruction. Multiple pelvic phleboliths. No definite renal or ureteral calculi. Moderate well-formed stool seen within the rectum. IMPRESSION: No acute cardiopulmonary process. No evidence for bowel obstruction. Electronically signed by: Luis Vazquez M.D. 03/03/2017 11:43 AM Dictated Date/Time: 03/03/2017 11:40 AM
[2017-03-03 11:45] LABS: ALBUMIN 3.2 gm/dl (3.4-5.0); CALCIUM 9.8 mg/dl (8.5-10.1); CREATININE 0.76 mg/dl (0.60-1.20); POTASSIUM 2.9 mmol/L (3.5-5.1)
[2017-03-03] MEDS ORDERED: POTASSIUM CHLORIDE 20 MEQ/15 ML UDC PO STA (11:47)
[2017-03-03 11:50] LABS: CKMB 2.6 ng/ml (0.5-3.6); TOTAL PROTEIN 7.4 gm/dl (6.4-8.2)
[2017-03-03] MEDS ORDERED: PPCUDL20 PO (12:51)
[2017-03-03 12:56] VITALS: BP 156/96; PULSE 94; O2SAT 100
== END 2017-03-03 13:23 | disposition home or self-care (01) ==
LOC: C.EDB 10:30 → C.EDC 13:23
DX: E87.6 Hypokalemia (principal); K21.0 Gastro-esophageal reflux disease with esophagitis; I10 Essential (primary) hypertension; E78.5 Hyperlipidemia, unspecified; F41.9 Anxiety disorder, unspecified; J45.909 Unspecified asthma, uncomplicated; Z79.899 Other long term (current) drug therapy; Z88.6 Allergy status to analgesic agent; Z91.041 Radiographic dye allergy status; Z80.9 Family history of malignant neoplasm, unspecified

== ENCOUNTER 2017-03-06 15:01 | Inpatient (IN) | payer OTHER ==
[~2017-03-06] VITALS: Ht 147.3 cm; Wt 69.0 kg
[~2017-03-06 15:01] MED LIST changes: +PPCUDL20 PO; -SUCR5SUS PO
[2017-03-06 16:04] VITALS: BP 156/89; PULSE 91; TEMP 37; O2SAT 98
[2017-03-06 16:06] VITALS: BP 156/89; PULSE 91; TEMP 37; O2SAT 98; BMI 29.9
[2017-03-06] MEDS ORDERED: INFLUENZA ADMINISTRATION CHARGE ONE (17:15)
[2017-03-06] MEDS ORDERED: PNEUMOCOCCAL POLYSACCHARIDES 25 MCG/0.5 ML VIAL/SYR IM. ONE (17:15)
[2017-03-06] MEDS ORDERED: INFLUENZA VIRUS QUAD VACCINE 0.5 ML SYR IM. ONE (17:15)
[2017-03-06] MEDS ORDERED: PNEUMOCOCCAL ADMINISTRATION CHARGE ONE (17:15)
--- NOTE | 2017-03-06 17:49 | DIAGNOSTIC IMAGING REPORT ---
SINGLE VIEW CHEST CLINICAL HISTORY: Preadmission testing. FINDINGS: An AP, portable, upright chest radiograph is compared to study dated 03/03/2017. The examination is degraded by portable technique and patient rotation. The cardiomediastinal silhouette is unremarkable. The lungs and pleural spaces are clear. No pneumothorax is seen. The skeletal structures are osteopenic. The bony thorax is grossly intact. IMPRESSION: No active disease in the chest. Electronically signed by: Damon Padilla M.D. 03/06/2017 5:47 PM Dictated Date/Time: 03/06/2017 5:46 PM
[2017-03-06 18:32] LABS: HEMATOCRIT 37.3 % (37-47); HEMOGLOBIN 13.7 g/dL (12.0-16.0); MEAN CELL VOLUME 83.1 fL (80-100); MEAN CORPUSCULAR HEMOGLOBIN 30.5 pg (25-34); MEAN CORPUSCULAR HGB CONC 36.7 g/dl (32-36); MEAN PLATELET VOLUME 10.3 fL (7.4-10.4); PLATELET COUNT 208 K/uL (130-400); RED CELL DISTRIBUTION WIDTH CV 13.9 % (11.5-14.5); RED CELL DISTRIBUTION WIDTH SD 41.7 fL (36.4-46.3); WHITE BLOOD COUNT 8.42 K/uL (4.8-10.8)
[2017-03-06 18:41] LABS: INR 1.2 (0.9-1.1); PTT PATIENT 30.1 SECONDS (21.0-31.0)
[2017-03-06 18:58] LABS: ALBUMIN 3.2 gm/dl (3.4-5.0); CALCIUM 9.5 mg/dl (8.5-10.1); CREATININE 0.57 mg/dl (0.60-1.20); POTASSIUM 3.3 mmol/L (3.5-5.1); TOTAL PROTEIN 7.5 gm/dl (6.4-8.2)
--- NOTE | 2017-03-06 19:32 | History and Physical ---
History & Physical Date & Time of Service: Mar 06, 2017 at 19:32 Chief Complaint: Poor Oral Intake, Dehydration Primary Care Physician: Frieda Perales D.O. History of Present Illness Source: patient, spouse (at bedside), clinic records, hospital records This is a 66yo F with a PMH of HTN, HLD, asthma, h/o gastric ulcers and dysphagia who is a direct admit from Dr. Perales's office with poor PO intake and generalized weakness. Patient began to experience dysphagia this past September , describing the feeling as getting something stuck in her throat. Had lower and upper teeth removed around this time. A swallowing study was performed that showed mild esophageal dysmotility. Had an EGD performed in November that was normal, without abnormalities of the esophagus and stomach. Per chart review, GI felt that patient's anxiety may be contributing to dysphagia and recommended increasing SSRI. Also suggested a neuro evaluation as well as a dental referral. Was seen by neuro in December of this year for further evaluation of dysphagia. Also has a tremor that has been present since childhood. Neuro exam was essentially normal. CK and acetylcholine shackler ab were normal. An EMG was ordered to look for a central cause for symptoms but has not yet been performed. A CT abd/pelvis was performed in January which showed large diverticula of the rectosigmoid colon. Also showed a thickened bladder wall, for which urology follow-up has been scheduled. Today, the patient presents with worsening dysphagia, describing a burning sensation in the back of her throat. Feels that food and mucous get caught in the back of her throat and she is only able to tolerate thin liquids. States that she is continually throwing up/gagging white mucous. Has lost 30 pounds since symptoms began in September. Has felt generally weak and has not been ambulating as often. Endorses diffuse, aching abdominal pain. Denies nausea. Over the past few months, states that she has begun to notice blood in her urine. Denies dysuria. Has not been taking her medications due to dysphagia. Denies any fever, chills, lightheadedness, headache, CP, palpitations, SOB. Has chronic LE swelling that is unchanged. Past Medical/Surgical History Medical Problems: (1) Anemia Status: Chronic (2) Anxiety Status: Chronic (3) Asthma Status: Chronic (4) Dysphagia Status: Chronic (5) Hypertension Status: Chronic (6) Tremor Status: Chronic Surgical Problems: (1) No significant past surgical history Status: Chronic Family History Cancer Social History Smoking Status: Unknown if Ever Smoked Alcohol Use: none Drug Use: none Marital Status: Housing status: lives with family Occupational Status: unemployed Multi-Drug Resistant Organisms History of MDRO: No Allergies Coded Allergies: Latex (Verified Allergy, Mild, RASH, 03/03/17) Aspirin (Verified Allergy, Unknown, HX OF STOMACH ULCERS-NOT ALLOW TO TAKE , 03/03/17) Home Medications Scheduled Amlodipine Besylate (Norvasc), 2.5 MG PO DAILY Cholecalciferol (D 2000), 2,000 UNITS PO DAILY Escitalopram Oxalate (Lexapro), 20 MG PO DAILY Famotidine (Pepcid), 5 ML PO HS Fluticasone Propionate (Flovent Hfa), 1 PUFF INH BID Simvastatin (Zocor), 20 MG PO HS Scheduled PRN Albuterol Hfa (Ventolin Hfa), 2 PUFFS INH Q4H PRN for Shortness of Breath Review of Systems Ten systems reviewed and negative except as noted in the HPI. Physical Exam Vital Signs Date Time Temp Pulse Resp B/P (MAP) Pulse Ox O2 Delivery O2 Flow Rate FiO2 03/06/17 16:06 37.0 91 18 156/89 98 Room Air 03/06/17 16:04 37.0 91 18 156/89 (111) 98 Room Air General Appearance: + mild distress, + pertinent finding Head: normocephalic, atraumatic Eyes: normal inspection, PERRL, sclerae normal, + pertinent finding (Left eyelid closed but able to open on command.) ENT: hearing grossly normal, + pharyngeal erythema Neck: supple, no adenopathy, trachea midline Respiratory/Chest: chest non-tender, lungs clear, normal breath sounds, no respiratory distress, no accessory muscle use Cardiovascular: regular rate, rhythm, no murmur, normal peripheral pulses Abdomen/GI: soft, no organomegaly, + tenderness (Diffusely tender, most tender in epigastrium.) Back: normal inspection, no CVA tenderness Extremities/Musculoskelatal: normal inspection, no calf tenderness, + pertinent finding (1+ pitting edema bilaterally to knee) Neurologic/Psych: senior group manager II-XII nml as tested, no motor/sensory deficits (Limited 2/2 fatigue, pain but CUCA 5/5 in all 4 extremities. Sensation intact. Cerebellar tests normal. ), alert, normal mood/affect, oriented x 3, + pertinent finding (Refused ambulation 2/2 fatigue ) Skin: normal color, warm/dry Diagnostics Laboratory Results Results Past 24 Hours Test 03/06/17 18:14 Range/Units White Blood Count 8.42 4.8-10.8 K/uL Red Blood Count 4.49 4.2-5.4 M/uL Hemoglobin 13.7 12.0-16.0 g/dL Hematocrit 37.3 37-47 % Mean Corpuscular Volume 83.1 80-100 fL Mean Corpuscular Hemoglobin 30.5 25-34 pg Mean Corpuscular Hemoglobin Concent 36.7 32-36 g/dl RDW Standard Deviation 41.7 36.4-46.3 fL RDW Coefficient of Variation 13.9 11.5-14.5 % Platelet Count 208 130-400 K/uL Mean Platelet Volume 10.3 7.4-10.4 fL Prothrombin Time 12.7 9.0-12.0 SECONDS Prothromb Time International Ratio 1.2 0.9-1.1 Activated Partial Thromboplast Time 30.1 21.0-31.0 SECONDS Partial Thromboplastin Ratio 1.2 Sodium Level 132 136-145 mmol/L Potassium Level 3.3 3.5-5.1 mmol/L Chloride Level 92 98-107 mmol/L Carbon Dioxide Level 27 21-32 mmol/L Anion Gap 13.0 3-11 mmol/L Blood Urea Nitrogen 13 7-18 mg/dl Creatinine 0.57 0.60-1.20 mg/dl Est Creatinine Clear Calc Drug Dose 77.4 ml/min Estimated GFR () 112.0 Estimated GFR (Non- 96.6 BUN/Creatinine Ratio 23.2 10-20 Random Glucose 121 70-99 mg/dl Calcium Level 9.5 8.5-10.1 mg/dl Total Bilirubin 1.8 0.2-1 mg/dl Aspartate Amino Transf (AST/SGOT) 26 15-37 U/L Alanine Aminotransferase (ALT/SGPT) 40 12-78 U/L Alkaline Phosphatase 89 45-117 U/L Total Protein 7.5 6.4-8.2 gm/dl Albumin 3.2 3.4-5.0 gm/dl Globulin 4.3 2.5-4.0 gm/dl Albumin/Globulin Ratio 0.7 0.9-2 Lipase 364 73-393 U/L CXR normal EKG Normal sinus rhythm Incomplete left bundle block ST & T wave abnormality, consider lateral ischemia Prolonged QT When compared with ECG of 03-MAR-2017 11:17, Minimal criteria for Inferior infarct are no longer Present T wave inversion no longer evident in Inferior leads Impression Assessment and Plan This is a 66yo F with a PMH of HTN, HLD, asthma, h/o gastric ulcers and dysphagia who presents with poor PO intake and generalized weakness. Dysphagia: -Swallow study ordered -Neuro consult placed -Brain MRI combo ordered -EGD performed in Oct with normal results -Consider consulting GI, psych if neuro exam negative -NPO except meds -IVF resuscitation -Cont home ranitidine syrup Electrolyte abnormalities 2/2 dehydration: -IVF resuscitation, electrolyte replacement -Monitor with repeat lab work in AM Generalized weakness: -2/2 poor PO intake, deconditioning -Improve nutritional status -PT/OT eval HTN: -Slightly elevated 2/2 pain, non-compliance with BP meds -Cont home amlodipine -IV hydralazine PRN for SBP >160 Depression: -Cont lexapro Asthma: -Cont home albuterol, fluticasone HLD: -Cont statin Vit D deficiency: -Cont home dose supplement Bladder thickening on out patient ct scan hematuria? f/u UA consider urology consult DVT Ppx: Lovenox SQ Code status: FULL PCP: Diaz Dispo: Plan to return home once medically stable. Patient seen in collaboration with Dr. Culp. Please see addendum. Agree with above H and P. Briefly 66f presents with ongoing dysphagia for sold foods. patient says she can tolerated soft diet but not solid food. Has burning sensation in the throat. Lost weight. HAs tremors from child bullard. Seen by Neurology and GI as out patient. Because of worsening symptoms and weight loss was directly admitted from PCP office. Afebrile. Coughing up mucous.No pain.Says has swelling of legs and her legs feel weak. a/p Dysphagia had egd as out patient seen by neurology anxiety related? f/u mri head speech evaluation neuro consult consider psychiatry consult if workup negative patient may not clearing her secretions-coughing up mucous HTN home meds will monitor Lower extremity swelling from malnutrition? nutrition consult Level of Care Telemetry Advanced Directives Existing Living Will: No Existing Power of Assistant Art Director: No Resuscitation Status FULL RESUSCITATION VTE Prophylaxis VTE Risk Assessment Done? Y/N: Yes Risk Level: Moderate Given or contraindicated: Enoxaparin (Lovenox)SQ
[2017-03-06] MEDS ORDERED: HydrALAZINE HCL 20 MG/ML VIAL IV. PRN (19:45)
[2017-03-06 19:58] VITALS: BP 158/87; PULSE 95; TEMP 36.9; O2SAT 100
[2017-03-06 20:00] VITALS: O2SAT 98
[2017-03-06] MEDS: POTASSIUM CHLORIDE INJ 40 MEQ in D5W AND NSS 1,000 ML IV SCH (20:28)
[2017-03-06] MEDS ORDERED: LORAZEPAM INJ 0.5 MG in SYRINGE 0.75 ML IV ONE (20:30)
[2017-03-06] MEDS: ENOXAPARIN 40 MG/0.4 ML SYR SC SCH (20:55)
[2017-03-06] MEDS: FAMOTIDINE 20 MG TAB PO SCH (21:56)
[2017-03-06] MEDS: SIMVASTATIN 20 MG TAB PO SCH (21:57)
[2017-03-06] MEDS: CEFTRIAXONE SOD INJ 1 GM in DEXTROSE 5% ADD-VANTAGE 50ML 50 ML IV SCH (22:16)
[2017-03-06] MEDS: FLUTICASONE HFA 220 MCG INHALER INH SCH (22:16)
--- NOTE | 2017-03-06 22:44 | DIAGNOSTIC IMAGING REPORT ---
BRAIN COMBO HISTORY: 66 years-old Female Dysphagia chronic dysphasia for 6 months. Acute lightheadedness. COMPARISON: None available TECHNIQUE: Multiplanar multisequence MRI of the brain was obtained both with and without the use of 6.5 mL Gadavist FINDINGS: Large [id number] egg caser localizer images demonstrate no gross abnormality. There is no restricted diffusion to suggest acute infarction. The midline structures including the corpus callosum, brainstem, optic chiasm, infundibulum, pituitary and pineal glands appear unremarkable the sagittal T1 series. Degenerative changes of the imaged cervical spine are noted. Major flow voids at the level the skull base appear patent. Orbits are symmetric. Mastoid air cells appear clear. Mild mucosal thickening of the ethmoid air cells. Scalp, calvarium and soft tissues are unremarkable. There is no acute intracranial hemorrhage, midline shift, abnormal extra-axial collections, hydrocephalus or intracranial mass. Mild atrophy. Minimal punctate foci of increased T2/FLAIR signal noted within the subcortical white matter of the cerebral hemispheres bilaterally, notably the frontal lobes suggesting minimal chronic microvascular ischemic changes. There is no abnormal intra-axial or extra-axial enhancement identified. IMPRESSION: 1. No acute intracranial abnormality identified. No acute infarction or abnormal enhancement. 2. Probable minimal chronic microvascular ischemic changes. The above report was generated using voice recognition software. It may contain grammatical, syntax or spelling errors. Electronically signed by: Suman Drake M.D. 03/06/2017 10:42 PM Dictated Date/Time: 03/06/2017 10:36 PM
[2017-03-06 22:50] VITALS: BP 160/86; PULSE 97; TEMP 36.9; O2SAT 95
[2017-03-07] VITALS (8 sets, daily range): BP systolic 136–160; BP diastolic 86–101; PULSE 87–96; TEMP 36.6–37.1; O2SAT 97–100; Ht 147.3 cm; Wt 69.0 kg
[2017-03-07] MEDS: POTASSIUM CHLORIDE INJ 40 MEQ in D5W AND NSS 1,000 ML IV SCH ×2 (06:29→16:12)
[2017-03-07 06:51] LABS: HEMATOCRIT 33.1 % (37-47); HEMOGLOBIN 11.8 g/dL (12.0-16.0); MEAN CELL VOLUME 84.4 fL (80-100); MEAN CORPUSCULAR HEMOGLOBIN 30.1 pg (25-34); MEAN CORPUSCULAR HGB CONC 35.6 g/dl (32-36); MEAN PLATELET VOLUME 10.3 fL (7.4-10.4); PLATELET COUNT 187 K/uL (130-400); RED CELL DISTRIBUTION WIDTH CV 14.1 % (11.5-14.5); WHITE BLOOD COUNT 5.52 K/uL (4.8-10.8)
[2017-03-07 07:20] LABS: ALBUMIN 2.8 gm/dl (3.4-5.0); CALCIUM 8.8 mg/dl (8.5-10.1); CREATININE 0.7 mg/dl (0.60-1.20); POTASSIUM 3.2 mmol/L (3.5-5.1)
[2017-03-07 07:23] LABS: TOTAL PROTEIN 6.8 gm/dl (6.4-8.2)
[2017-03-07] MEDS: AMLODIPINE BESYLATE 5 MG TAB PO SCH (08:02)
[2017-03-07] MEDS: ESCITALOPRAM OXALATE 10 MG TAB PO SCH (08:02)
[2017-03-07] MEDS: FLUTICASONE HFA 220 MCG INHALER INH SCH ×2 (08:04→20:56)
[2017-03-07] MEDS ORDERED: PREMIXED WATER IV ONE (08:45)
[2017-03-07] MEDS ORDERED: POTASSIUM CHLR IV ONE (08:45)
[2017-03-07] MEDS ORDERED: WTR IV ONE (08:45)
[2017-03-07] MEDS: POTASSIUM CHLR 10MEQ / WTR IV SCH ×3 (09:04→11:15)
[2017-03-07] MEDS: CHOLECALCIFEROL 1000 INTER.UNIT TAB PO SCH (09:04)
--- NOTE | 2017-03-07 12:16 | NEUROLOGY CONSULTATION ---
DATE OF CONSULTATION: 03/07/2017 DATE OF CONSULTATION: 03/07/2017 REASON FOR CONSULTATION: Dysphagia. HISTORY OF PRESENT ILLNESS: The patient is a 66-year-old right-handed female with hypertension, hyperlipidemia, asthma, gastric ulcers and dysphagia, who was admitted from outpatient because of poor p.o. intake and generalized weak. The patient has had dysphagia I believe for about a year with the sense that solids are getting stuck in her throat. Her workup has included a swallowing study and barium swallow which showed mild esophageal dysmotility, but nothing that required then to move on to a video swallow with speech, although speech has seen her. She had an EGD that was normal without abnormalities in the esophagus and the stomach. GI felt anxiety might be contributing to dysphagia and they increase the SSRI. She saw our nurse practitioner in neurology and acetylcholine receptor antibody titer was negative, CK was normal and she was suggested to have a nerve conduction EMG which is not yet had. The patient indicates that she has no difficulty with solids or semi-soft textures. She has difficulty with anything that has some texture to it. She was unwilling to get a cracker in the presence of the nurse's. It does not sound like there is any jaw fatigue. She is edentulous. It is unclear to me that the swallowing changes throughout a meal or throughout the day. While she has a fairly severe head tremor and some blepharospasm and tics and clears her throat that clearing of phlegm is a relatively new phenomenon. She indicates no family history of tremor. Her mother fell while she was with her and this was thought to be the etiology of some of her movements. She denies any diplopia, ptosis. She believes her arm strength is good. Her legs have felt fatigued and heavy. She has been relatively immobile during this period of time and has lost 30 pounds since September. She denies any overt sensory symptoms, bladder symptoms, significant spine pain. She has noted blood in her stool. She has not had any fevers, chills, sweats, headache, chest pain, palpitations, shortness of breath. She has chronic lower extremity swelling. An MRI of the brain performed on this hospitalization is unremarkable. LABORATORY DATA: White count, H&H and platelet count are normal. PT, PTT normal. Chemistry profile: Sodium 132, potassium 3.3, BUN and creatinine 13/0.57. Random glucose 121, total bilirubin 1.8, albumin 3.2. Urinalysis notable for positive nitrite, leukocyte esterase, epithelial cells, bacteria. PAST MEDICAL HISTORY: As above including anemia, anxiety, asthma, hypertension, tremor. No significant surgical history. FAMILY HISTORY: Mother Alzheimer disease. Father of a pneumonia. SOCIAL HISTORY: Former smoker. Does not drink alcohol. ALLERGIES: LATEX AND ASPIRIN. HOME MEDICATIONS: Amlodipine, cholecalciferol, Lexapro, Pepcid, Flovent, simvastatin, p.r.n. albuterol. PHYSICAL EXAMINATION: GENERAL: The patient is 37, 87, 20, 143/86, 100%. The patient is awake and alert. She has a fairly coarse side to side head tremor with blepharospasm. I did not notice any ongoing clearing of her throat. There is no resting tremor. There is no nasality of speech. Pupils are equal, round, reactive to light. I had difficulty visualizing the optic nerves. There is normal motility. No fatigability of eye closure. The face is symmetric. Tongue is midline. Speech checked gag which was intact. Tongue seems strong. There are no fasciculations. Gross inspection of the musculature may reveal some mild diffuse atrophy of the proximal muscles of the lower. She has a lot of redundant skin in the lower extremities, particularly about the thighs, pretibial edema. Her strength is full in the upper and lowers, although limited by pain in the lowers. Tone was normal. No atrophy of fasciculations. No pathological reflexes. Downgoing toes. There is a moderate tremor with intention. [id number] is normal. Sensation is intact to vibration and temperature. IMPRESSION: 1. This patient has a fairly severe head tremor and a postural tremor of the heans. 2. She may have a tic disorder with blepharospasm and throat clearing, although the difficulty that she has with the constant spitting up of phlegm is a relatively new phenomenon. 3. I do not see any convincing evidence of a neuromuscular etiology of her symptoms. I am going to order myasthenia panel, add a blocking and modulating antibody. At some point if it is still not clear an anti-MuSK antibody might be appropriate. She will need a nerve conduction EMG with repetitive stimulation as an outpatient. Dr. Garcia asked if scopolamine was problematic. While it could be an issue in myasthenia, I really do not think the patient has it and she is here it can be monitored. I will watch for excessive thickening of secretions. We will follow with you. MILTON
[2017-03-07] MEDS ORDERED: NURSING VERBAL MED ORDER ONE (15:00)
[2017-03-07] MEDS: SCOPOLAMINE 1.5 MG TDSY TD SCH (15:58)
[2017-03-07] MEDS: CHECK SCOPOLAMINE PATCH PLACEMENT SCH (15:58)
--- NOTE | 2017-03-07 17:30 | Progress Note ---
Medicine Progress Note Date & Time of Visit: Mar 07, 2017 at 11:55. Subjective Pt was seen and examined Sitting in bed with no distress Pt continues to have increase saliva She said that she continue to have difficulty swallowing She said that the swallowing seems to start after she had her teeth pulled out She refused to get dentures Denies any SOB, palpitation and fever Objective Last 8 Hrs Date Time Temp Pulse Resp B/P (MAP) Pulse Ox O2 Delivery O2 Flow Rate FiO2 03/07/17 16:14 36.8 92 18 154/90 (111) 97 Room Air 03/07/17 15:32 99 Room Air 03/07/17 12:00 36.8 92 20 160/88 (112) 99 Room Air 03/07/17 12:00 99 Room Air Physical Exam: General- No acute distress Head- atraumatic Eyes- PERRL, EOMI ENT- oropharynx clear Neck- supple, no JVD Lungs- No wheezing Heart- regular rhythm Abdomen- normal bowel sounds, soft Extremities- no calf tenderness Neuro- alert, oriented, PERRL, EOMI Skin- warm & dry Laboratory Results: Last 24 Hours Test 03/06/17 18:14 03/06/17 20:25 03/07/17 06:29 03/07/17 12:42 White Blood Count 8.42 K/uL 5.52 K/uL Red Blood Count 4.49 M/uL 3.92 M/uL Hemoglobin 13.7 g/dL 11.8 g/dL Hematocrit 37.3 % 33.1 % Mean Corpuscular Volume 83.1 fL 84.4 fL Mean Corpuscular Hemoglobin 30.5 pg 30.1 pg Mean Corpuscular Hemoglobin Concent 36.7 g/dl 35.6 g/dl RDW Standard Deviation 41.7 fL 43.0 fL RDW Coefficient of Variation 13.9 % 14.1 % Platelet Count 208 K/uL 187 K/uL Mean Platelet Volume 10.3 fL 10.3 fL Prothrombin Time 12.7 SECONDS Prothromb Time International Ratio 1.2 Activated Partial Thromboplast Time 30.1 SECONDS Partial Thromboplastin Ratio 1.2 Sodium Level 132 mmol/L 134 mmol/L Potassium Level 3.3 mmol/L 3.2 mmol/L Chloride Level 92 mmol/L 99 mmol/L Carbon Dioxide Level 27 mmol/L 27 mmol/L Anion Gap 13.0 mmol/L 8.0 mmol/L Blood Urea Nitrogen 13 mg/dl 11 mg/dl Creatinine 0.57 mg/dl 0.70 mg/dl Est Creatinine Clear Calc Drug Dose 77.4 ml/min 63.4 ml/min Estimated GFR () 112.0 104.6 Estimated GFR (Non- 96.6 90.3 BUN/Creatinine Ratio 23.2 15.5 Random Glucose 121 mg/dl 155 mg/dl Calcium Level 9.5 mg/dl 8.8 mg/dl Total Bilirubin 1.8 mg/dl 1.4 mg/dl Aspartate Amino Transf (AST/SGOT) 26 U/L 20 U/L Alanine Aminotransferase (ALT/SGPT) 40 U/L 33 U/L Alkaline Phosphatase 89 U/L 82 U/L Total Protein 7.5 gm/dl 6.8 gm/dl Albumin 3.2 gm/dl 2.8 gm/dl Globulin 4.3 gm/dl 4.0 gm/dl Albumin/Globulin Ratio 0.7 0.7 Lipase 364 U/L Urine Color ORANGE Urine Appearance CLOUDY Urine pH 5.0 Urine Specific [place] 1.026 Urine Protein NEG Urine Glucose (UA) NEG Urine Ketones 1+ Urine Occult Blood NEG Urine Nitrite POS Urine Bilirubin NEG Urine Urobilinogen NEG Urine Leukocyte Esterase MODERATE Urine WBC (Auto) 10-30 /hpf Urine RBC (Auto) 5-10 /hpf Urine Hyaline Casts (Auto) 5-10 /lpf Urine Epithelial Cells (Auto) >30 /lpf Urine Bacteria (Auto) 1+ Date/Time Source Procedure Growth Status 03/06/17 20:25 Urine , Clean Catch Urine Culture - Preliminary Gram Negative Bacilli Resulted Assessment & Plan Dysphagia Etiology unknown Brain MRI showed no acute finding Last EGD done in NOV showed normal esophagus Neuro on board, does not think it is neuro related, workup for myasthenia gravis pending Recommended nerve conduction EMG with repetitive stimulation as an outpatient Speech therapy on board recommended Mechanical Soft slippery diet with thin liquids- Changed to puree if unable to tolerate Will add protonix IV Aspiration precaution Recommend dental follow up for dentures (refused) EGD done on 12/02 showed - Normal esophagus. - No esophageal pathology seen. - Normal stomach. - Normal examined duodenum. - No specimens collected. - Symptoms and exam c/w oropharyngeal dysphagia not esophageal Electrolyte abnormalities related to poor oral intake/dehydration K replaced Continue IVF Continue monitor electrolytes UTI UA positive Urine cx positive for gram negative bacilli Will starting on rocephin Increase Saliva Possible related to reflux Will try scopolamine patch Adding protonix Generalized weakness Increase PO intake Continue PT/OT eval fall precaution HTN BP elevated Cont home amlodipine Continue IV hydralazine PRN for SBP >160 Depression: On lexapro Asthma: Cont home albuterol, fluticasone HLD: Cont statin Vit D deficiency: -Cont home dose supplement Bladder thickening UA showed no blood Continue monitor DVT Ppx: Lovenox SQ Code status: FULL code Consultants: Neuro Speech therapy Current Inpatient Medications: Current Inpatient Medications Medications (Trade) Dose Ordered Sig/Jose Route Start Time Stop Time Status Last Admin Dose Admin Acetaminophen (Tylenol Tab) 650 mg Q4H PRN PO 03/06/17 17:15 04/05/17 17:14 Ondansetron HCl (Zofran Inj) 4 mg Q6H PRN IV 03/06/17 17:15 04/05/17 17:14 Potassium Chloride 40 meq/ Dextrose/Sodium Chloride 1,020 ml @ 100 mls/hr [id number] IV 03/06/17 20:00 04/05/17 19:59 03/07/17 16:12 100 MLS/HR Enoxaparin Sodium (Lovenox Inj) 40 mg HS SC 03/06/17 21:00 04/05/17 20:59 03/06/17 20:55 40 MG Hydralazine HCl (HydrALAZINE INJ) 5 mg Q6 PRN IV. 03/06/17 19:45 04/05/17 19:44 Albuterol (Ventolin Hfa Inhaler) 2 puffs Q4H PRN INH 03/06/17 20:30 04/05/17 20:29 Amlodipine Besylate (Norvasc Tab) 2.5 mg DAILY PO 03/07/17 09:00 04/06/17 08:59 03/07/17 08:02 2.5 MG Escitalopram Oxalate (Lexapro Tab) 20 mg DAILY PO 03/07/17 09:00 04/06/17 08:59 03/07/17 08:02 20 MG Fluticasone Propionate (Flovent Hfa 220MCG Inhaler) 1 puffs BID INH 03/06/17 21:00 04/05/17 20:59 Simvastatin (Zocor Tab) 20 mg HS PO 03/06/17 21:00 04/05/17 20:59 03/06/17 21:57 20 MG Cholecalciferol (Vitamin D Tab) 2,000 inter.unit QAM PO 03/07/17 09:00 04/06/17 08:59 03/07/17 09:04 2,000 INTER.UNIT Famotidine (Pepcid Tab) 40 mg HS PO 03/06/17 21:00 04/05/17 20:59 03/06/17 21:56 40 MG Ceftriaxone Sodium 1 gm/ Dextrose 50 ml @ 100 mls/hr Q24H IV 03/06/17 22:00 03/16/17 21:59 03/06/17 22:16 100 MLS/HR Scopolamine (Transderm-Scop Patch) 1.5 mg Q72H TD 03/07/17 15:15 04/06/17 15:14 03/07/17 15:58 1.5 MG Miscellaneous (Remove Transderm-Scop Patch) 1 ea Q72H N/A 03/07/17 15:15 04/06/17 15:14 Miscellaneous Information (Check Scopolamine Patch Placement) 1 ea QS N/A 03/07/17 16:00 04/06/17 15:59 03/07/17 15:58 1 EA Enteral Nutritional Formula (Boost) 1 can TID PO 03/07/17 21:00 04/06/17 20:59
[2017-03-07] MEDS ORDERED: PANTOprazole INJ 40 MG in SYRINGE 0 ML IV SCH (18:00)
[2017-03-07] MEDS: BOOST VANILLA PO SCH (20:56)
[2017-03-07] MEDS: SIMVASTATIN 20 MG TAB PO SCH (20:56)
[2017-03-07] MEDS: FAMOTIDINE 20 MG TAB PO SCH (20:56)
[2017-03-07] MEDS: ENOXAPARIN 40 MG/0.4 ML SYR SC SCH (20:57)
[2017-03-07] MEDS: ONDANSETRON INJ 2 MG/ML 2 ML VIAL IV PRN (21:06)
[2017-03-07] MEDS: CEFTRIAXONE SOD INJ 1 GM in DEXTROSE 5% ADD-VANTAGE 50ML 50 ML IV SCH (21:52)
[2017-03-08] VITALS (8 sets, daily range): BP systolic 119–137; BP diastolic 84–96; PULSE 81–96; TEMP 36.5–36.9; O2SAT 92–100
[2017-03-08] MEDS: CHECK SCOPOLAMINE PATCH PLACEMENT SCH ×4 (00:46→23:53)
[2017-03-08] MEDS: POTASSIUM CHLORIDE INJ 40 MEQ in D5W AND NSS 1,000 ML IV SCH (02:51)
[2017-03-08 06:47] LABS: CALCIUM 8.8 mg/dl (8.5-10.1); CREATININE 0.68 mg/dl (0.60-1.20); POTASSIUM 4.5 mmol/L (3.5-5.1)
[2017-03-08 06:55] LABS: PHOSPHORUS 1.4 mg/dl (2.5-4.9)
[2017-03-08] MEDS ORDERED: SODIUM PHOSPHATE INJ 21 MMOL in SODIUM CHLORIDE 0.9% 500ML 500 ML IV ONE (08:30)
[2017-03-08] MEDS ORDERED: SODIUM PHOSPHATE 3 MMOL/1 ML INFUSION IV ONE (08:30)
[2017-03-08] MEDS: BOOST VANILLA PO SCH ×3 (09:00→19:39)
[2017-03-08] MEDS: ESCITALOPRAM OXALATE 10 MG TAB PO SCH (09:02)
[2017-03-08] MEDS: AMLODIPINE BESYLATE 5 MG TAB PO SCH (09:03)
[2017-03-08] MEDS: CHOLECALCIFEROL 1000 INTER.UNIT TAB PO SCH (09:03)
[2017-03-08] MEDS: FLUTICASONE HFA 220 MCG INHALER INH SCH ×2 (09:05→21:14)
[2017-03-08] MEDS ORDERED: PANTOprazole INJ 40 MG in SYRINGE 0 ML IV ONE (10:00)
--- NOTE | 2017-03-08 11:05 | Gastrointestinal Consultation ---
Gastrointestinal Consultation Date of Consultation: Mar 08, 2017 Attending Physician: Miladis Middleton Consulting Physician: Reason for Consultation: Dysphagia History of Present Illness Patient is a 66 year old female with medical comorbids of asthma, HTN, Dyslipidemia, Tremors, admitted to the hospital for dysphagia. Her problem initially started after tooth extraction months ago, describe difficulty initiating the swallow in her oropharyngeal area and diffculty swallowing her saliva hence she has recurrent gagging and drooling thought she can still eat ans swallow soft texture diet. The has been previously investigated by GI team and her EGD was normal in 11/2016, seen in GI clinic few weeks ago and impression was oropharyngeal dysphagia related to neuromuscular disorder that needs further work up by Neurology. She lost some weight recently. She denies any abdominal pain, nausea or vomiting, No typical reflux symptoms. Never had a colonoscopy. Past Medical/Surgical History Medical Problems: (1) Bronchospasm Status: Acute (2) Constipation Status: Acute (3) Constipation Status: Acute (4) GERD (gastroesophageal reflux disease) Status: Acute (5) GERD (gastroesophageal reflux disease) Status: Acute (6) Hypokalemia Status: Acute (7) Hypokalemia Status: Acute (8) Near syncope Status: Acute Family History Cancer Social History Smoking Status: Unknown if Ever Smoked Alcohol Use: none Drug Use: none Marital Status: Housing Status: lives with family Occupation Status: unemployed Allergies Coded Allergies: Latex (Verified Allergy, Mild, RASH, 03/03/17) Aspirin (Verified Allergy, Unknown, HX OF STOMACH ULCERS-NOT ALLOW TO TAKE , 03/03/17) Current Medications Home Meds and Scripts Medications Dose Route/Sig Max Daily Dose Days Date Category Pepcid (Famotidine) 20 Mg/2.5 Ml Susp 5 Ml PO HS 30 03/03/17 Rx Norvasc (Amlodipine Besylate) 2.5 Mg Tab 2.5 Mg PO DAILY 10/30/16 Reported Flovent Hfa (Fluticasone Propionate) 120 Puffs/79384 Mcg Aero 1 Puff INH BID 06/27/16 Reported D 2000 (Cholecalciferol) 2,000 Unit Tab 2,000 Units PO DAILY 06/27/16 Reported Ventolin Hfa (Albuterol) 200 Puffs/90424 Mcg Aers 2 Puffs INH Q4H PRN 06/27/16 Reported Lexapro (Escitalopram Oxalate) 10 Mg Tab 20 Mg PO DAILY 05/12/14 Reported Zocor (Simvastatin) 20 Mg Tab 20 Mg PO HS 05/12/14 Reported Review of Systems Constitutional: No fever, No chills Eyes: No redness, No discharge ENT: No hearing loss, No unusual epistaxis Respiratory: No cough, No sputum Cardiac: No chest pain, No orthopnea Abdomen: + see HPI Musculoskeletal: No joint pain, No muscle pain Female : No dysuria, No urinary frequency, No hematuria, No incontinence Neuro: No numbness/tingling, No vertigo Endo: No fatigue Skin: No rash, No itch Physical Exam Date Time Temp Pulse Resp B/P (MAP) Pulse Ox O2 Delivery O2 Flow Rate FiO2 03/08/17 08:23 36.9 90 18 136/95 (109) 100 Room Air 03/08/17 05:00 36.7 89 18 126/91 (103) 98 Room Air 03/08/17 04:00 Room Air 03/08/17 00:18 Room Air 03/07/17 23:24 36.6 96 18 136/101 (113) 99 Room Air 03/07/17 20:10 Room Air 03/07/17 19:31 36.9 95 18 139/94 (109) 99 Room Air 03/07/17 16:14 36.8 92 18 154/90 (111) 97 Room Air 03/07/17 15:32 99 Room Air 03/07/17 12:00 36.8 92 20 160/88 (112) 99 Room Air 03/07/17 12:00 99 Room Air General Appearance: no apparent distress Eyes: normal inspection ENT: hearing grossly normal, pharynx normal Neck: supple, no JVD Respiratory/Chest: lungs clear, normal breath sounds Cardiovascular: regular rate, rhythm, no edema Abdomen: normal bowel sounds, non tender, soft Neurologic/Psych: alert, oriented x 3 Laboratory Results Last 24 Hours Test 03/08/17 05:38 Sodium Level 136 mmol/L Potassium Level 4.5 mmol/L Chloride Level 106 mmol/L Carbon Dioxide Level 21 mmol/L Anion Gap 9.0 mmol/L Blood Urea Nitrogen 7 mg/dl Creatinine 0.68 mg/dl Est Creatinine Clear Calc Drug Dose 65.3 ml/min Estimated GFR () 105.6 Estimated GFR (Non- 91.2 BUN/Creatinine Ratio 10.7 Random Glucose 237 mg/dl Calcium Level 8.8 mg/dl Phosphorus Level 1.4 mg/dl Magnesium Level 1.9 mg/dl Impression Patient is a 66 year old female with progressive oropharyngeal dysphagia and tremors, frequent head nodding, had recent unremarkable EGD and esophagogram. Seen by Neurology and planned for further work up including work up for Myasthenia. Plan At this point I don't see any further input from GI point. Her problem is only in the oropharyngeal area and difficulty coordinating the swallow not in propagation, hence don't think an esophageal motility study will reveal any pathology in esophagus but this can be done as OP. She needs a FEES study by swallow team and neurology work up including paraneoplastic markers, nerve plexus disorders, etc..... She definitely needs an elective colonoscopy which is scheduled. Would also consider an evaluation by Psych team if anxiety disorder is suspected. Can continue PPI anyway if reflux is suspected. Please recall us if needed.
--- NOTE | 2017-03-08 13:03 | PROGRESS NOTE ---
DATE: 03/08/2017 SUBJECTIVE: I am seeing Mrs. Schaeffer in followup dysphasia. All of her lab testing, the acetylcholine receptor binding, blocking, modulating antibody are pending. She has had no change. PHYSICAL EXAMINATION: She has a coarse [id number] head tremor, blepharospasm. She is spitting thick mucous. There is no fatigability of eye closure, no nasality of speech, no jaw fatigue, neck flexor fatigue, deltoid fatigue, may be some mild proximal weakness in the lower extremities. IMPRESSION: Dysphagia, worse with solids than liquids. I do not see signs of a neuromuscular etiology. No clear signs of a central etiology such as multiple infarcts. Await the acetylcholine receptor antibody titers, binding, blocking, modulating, prior acetylcholine receptor antibodies have been negative The patient will need a nerve conduction EMG with myself as an outpatient. The patient has lost significant weight and I do not doubt that she has some mild proximal lower extremity weakness related to disuse. I would recommend physical therapy and she may need some inpatient physical therapy for strengthening. Please arrange the appointment as an outpatient. MILTON
[2017-03-08] MEDS: SODIUM CHLORIDE 0.9% 1000ML 1,000 ML IV SCH (14:27)
--- NOTE | 2017-03-08 18:25 | Progress Note ---
Medicine Progress Note Date & Time of Visit: Mar 08, 2017 at 11:16. Subjective Pt was seen and examined Lying in bed with no distress Pt continue having difficulty to swallow She said that she spitting less saliva She did not eat today talked to son as bedside son is frustrated because dysphagia has been going on for few months He said that now her mother getting worst and feeling very weak Pt denies any chest pain, abdominal pain and sob Objective Last 8 Hrs Date Time Temp Pulse Resp B/P (MAP) Pulse Ox O2 Delivery O2 Flow Rate FiO2 03/08/17 15:32 36.9 81 18 125/88 (100) 97 Room Air 03/08/17 13:25 100 Room Air 03/08/17 11:55 36.5 92 20 133/90 (104) 100 Room Air 135/90 (105) Physical Exam: General- No acute distress Head- atraumatic Eyes- PERRL, EOMI ENT- oropharynx clear Neck- supple, no JVD Lungs- No wheezing Heart- regular rhythm Abdomen- normal bowel sounds, soft Extremities- no calf tenderness Neuro- alert, oriented, PERRL, EOMI Skin- warm & dry Laboratory Results: Last 24 Hours Test 03/08/17 05:38 Sodium Level 136 mmol/L Potassium Level 4.5 mmol/L Chloride Level 106 mmol/L Carbon Dioxide Level 21 mmol/L Anion Gap 9.0 mmol/L Blood Urea Nitrogen 7 mg/dl Creatinine 0.68 mg/dl Est Creatinine Clear Calc Drug Dose 65.3 ml/min Estimated GFR () 105.6 Estimated GFR (Non- 91.2 BUN/Creatinine Ratio 10.7 Random Glucose 237 mg/dl Calcium Level 8.8 mg/dl Phosphorus Level 1.4 mg/dl Magnesium Level 1.9 mg/dl Assessment & Plan Dysphagia Etiology unknown Brain MRI showed no acute finding Last EGD done in OCT showed normal esophagus Neuro on board, does not think it is neuro related, workup for myasthenia gravis pending Recommended nerve conduction EMG with repetitive stimulation as an outpatient Speech therapy on board recommended Mechanical Soft slippery diet with thin liquids- Changed to puree if unable to tolerate Trial protonix IV Aspiration precaution Recommend dental follow up for dentures (refused) continue gentle IV fluid Case discussed with Gastro, does not think it is GI related Will discuss with speech for video swallow in am Discussed with son to consider tube feeding if her dysphagia does not improve Will consider psych eval EGD done on 12/02 showed - Normal esophagus. - No esophageal pathology seen. - Normal stomach. - Normal examined duodenum. - No specimens collected. - Symptoms and exam c/w oropharyngeal dysphagia not esophageal Electrolyte abnormalities related to poor oral intake/dehydration K replaced Continue IVF Continue monitor electrolytes UTI UA positive Urine cx grew ecoli Continue Rocephin Increase Saliva Possible related to reflux continue scopolamine patch and IV protonix Improve Generalized weakness Increase PO intake Continue PT/OT eval fall precaution HTN BP elevated Cont home amlodipine Continue IV hydralazine PRN for SBP >160 Depression: On lexapro Asthma: Cont home albuterol, fluticasone HLD: Cont statin Vit D deficiency: -Cont home dose supplement Bladder thickening UA showed no blood Continue monitor DVT Ppx: Lovenox SQ Code status: FULL code Consultants: Neuro Speech therapy Current Inpatient Medications: Current Inpatient Medications Medications (Trade) Dose Ordered Sig/Jose Route Start Time Stop Time Status Last Admin Dose Admin Acetaminophen (Tylenol Tab) 650 mg Q4H PRN PO 03/06/17 17:15 04/05/17 17:14 Ondansetron HCl (Zofran Inj) 4 mg Q6H PRN IV 03/06/17 17:15 04/05/17 17:14 03/07/17 21:06 4 MG Enoxaparin Sodium (Lovenox Inj) 40 mg HS SC 03/06/17 21:00 04/05/17 20:59 03/07/17 20:57 40 MG Hydralazine HCl (HydrALAZINE INJ) 5 mg Q6 PRN IV. 03/06/17 19:45 04/05/17 19:44 Albuterol (Ventolin Hfa Inhaler) 2 puffs Q4H PRN INH 03/06/17 20:30 04/05/17 20:29 Amlodipine Besylate (Norvasc Tab) 2.5 mg DAILY PO 03/07/17 09:00 04/06/17 08:59 03/08/17 09:03 2.5 MG Escitalopram Oxalate (Lexapro Tab) 20 mg DAILY PO 03/07/17 09:00 04/06/17 08:59 03/08/17 09:02 20 MG Fluticasone Propionate (Flovent Hfa 220MCG Inhaler) 1 puffs BID INH 03/06/17 21:00 04/05/17 20:59 03/08/17 09:05 1 PUFFS Simvastatin (Zocor Tab) 20 mg HS PO 03/06/17 21:00 04/05/17 20:59 03/07/17 20:56 20 MG Cholecalciferol (Vitamin D Tab) 2,000 inter.unit QAM PO 03/07/17 09:00 04/06/17 08:59 03/08/17 09:03 2,000 INTER.UNIT Famotidine (Pepcid Tab) 40 mg HS PO 03/06/17 21:00 04/05/17 20:59 03/07/17 20:56 40 MG Ceftriaxone Sodium 1 gm/ Dextrose 50 ml @ 100 mls/hr Q24H IV 03/06/17 22:00 03/16/17 21:59 03/07/17 21:52 100 MLS/HR Scopolamine (Transderm-Scop Patch) 1.5 mg Q72H TD 03/07/17 15:15 04/06/17 15:14 03/07/17 15:58 1.5 MG Miscellaneous (Remove Transderm-Scop Patch) 1 ea Q72H N/A 03/07/17 15:15 04/06/17 15:14 Miscellaneous Information (Check Scopolamine Patch Placement) 1 ea QS N/A 03/07/17 16:00 04/06/17 15:59 03/08/17 16:19 1 EA Enteral Nutritional Formula (Boost) 1 can TID PO 03/07/17 21:00 04/06/17 20:59 Sodium Chloride 1,000 ml @ 60 mls/hr [id number] IV 03/08/17 10:00 04/07/17 09:59 03/08/17 14:27 60 MLS/HR
[2017-03-08] MEDS: SIMVASTATIN 20 MG TAB PO SCH (19:39)
[2017-03-08] MEDS: FAMOTIDINE 20 MG TAB PO SCH (19:39)
[2017-03-08] MEDS: ACETAMINOPHEN 325 MG TAB PO PRN (19:49)
[2017-03-08] MEDS: CEFTRIAXONE SOD INJ 1 GM in DEXTROSE 5% ADD-VANTAGE 50ML 50 ML IV SCH (21:14)
[2017-03-08] MEDS: ENOXAPARIN 40 MG/0.4 ML SYR SC SCH (21:14)
[2017-03-09 03:50] VITALS: BP 142/94; PULSE 93; TEMP 36.7; O2SAT 98
[2017-03-09 07:13] VITALS: BP 128/86; PULSE 101; TEMP 36.6; O2SAT 100
[2017-03-09 07:50] LABS: CALCIUM 8.6 mg/dl (8.5-10.1); CREATININE 0.58 mg/dl (0.60-1.20)
[2017-03-09] MEDS ORDERED: MAGNESIUM SULFATE 1GM / D5W 1 GM in PREMIXED IN D5W 100 ML IV ONE (08:15)
--- NOTE | 2017-03-09 08:59 | Clinical Documentation Query ---
CLINICAL DOCUMENTATION QUERY A 66yo F with a PMH of HTN, HLD, asthma, h/o gastric ulcers and dysphagia who presents with poor PO intake and generalized weakness In your clinical opinion is this patient being managed for: NOT MY PATIENT ( ) Severe protein-calorie malnutrition ( ) Not Agree ( ) Other explanation of clinical findings (Please Explain) ( ) Unable to determine (Please Define) ( ) Need to Discuss The medical record reflects the following clinical findings, treatment, and risk factors. Clinical Indicators: 30# wt loss since September, removal of teeth, dysphagia, weakness Treatment: Mechanical soft diet, diet consult, boost shakes Risk Factors: Dysphagia, removal of teeth, difficulty swallowing Please clarify and document your clinical opinion in the progress notes and discharge summary. Terms such as "probable", "suspected", "likely", "questionable", "possible", or "still to be ruled out" are acceptable. IF IN AGREEMENT, YOU MUST DOCUMENT ABOVE DIAGNOSTIC STATEMENT IN DAILY PROGRESS NOTES AND DISCHARGE SUMMARY. This document is not part of the patient's record. Thank You, Gertrude Reed RN [phone]
[2017-03-09] MEDS: BOOST VANILLA PO SCH ×3 (09:00→20:10)
[2017-03-09] MEDS: FLUTICASONE HFA 220 MCG INHALER INH SCH ×2 (09:09→20:12)
[2017-03-09] MEDS: ESCITALOPRAM OXALATE 10 MG TAB PO SCH (09:10)
[2017-03-09] MEDS: AMLODIPINE BESYLATE 5 MG TAB PO SCH (09:10)
[2017-03-09] MEDS: CHECK SCOPOLAMINE PATCH PLACEMENT SCH ×3 (09:10→23:33)
[2017-03-09] MEDS: CHOLECALCIFEROL 1000 INTER.UNIT TAB PO SCH (09:10)
[2017-03-09] MEDS: SODIUM CHLORIDE 0.9% 1000ML 1,000 ML IV SCH ×2 (09:11→20:17)
[2017-03-09 12:03] VITALS: BP 142/97; PULSE 113; TEMP 36.8; O2SAT 98
--- NOTE | 2017-03-09 12:55 | Clinical Documentation Query ---
CLINICAL DOCUMENTATION QUERY A 66yo F with a PMH of HTN, HLD, asthma, h/o gastric ulcers and dysphagia who presents with poor PO intake and generalized weakness In your clinical opinion is this patient being managed for: ( ) Severe protein-calorie malnutrition ( ) Not Agree ( ) Other explanation of clinical findings (Please Explain) ( ) Unable to determine (Please Define) ( ) Need to Discuss The medical record reflects the following clinical findings, treatment, and risk factors. Clinical Indicators: 30# wt loss since September, removal of teeth, dysphagia, weakness Treatment: Mechanical soft diet, diet consult, boost shakes Risk Factors: Dysphagia, removal of teeth, difficulty swallowing Please clarify and document your clinical opinion in the progress notes and discharge summary. Terms such as "probable", "suspected", "likely", "questionable", "possible", or "still to be ruled out" are acceptable. IF IN AGREEMENT, YOU MUST DOCUMENT ABOVE DIAGNOSTIC STATEMENT IN DAILY PROGRESS NOTES AND DISCHARGE SUMMARY. This document is not part of the patient's record. Thank You, Gertrude Reed RN [phone]
[2017-03-09 15:33] VITALS: BP 108/86; PULSE 96; TEMP 36.3; O2SAT 99
[2017-03-09 19:27] VITALS: BP 107/75; PULSE 105; TEMP 36.7; O2SAT 99
--- NOTE | 2017-03-09 19:56 | Progress Note ---
Medicine Progress Note Date & Time of Visit: Mar 09, 2017 at 10:42. Subjective Pt was seen and examined Lying in bed with no distress Case discussed with speech and said that pt was able to swallow during her assessment Talked to son again, he said that her mother was able to swallow She said that her mother said that there is a burning sensation in her throat whenever she swallows Son said that she was given Protonix but she cannot swallow it because of the burning sensation Pt said that she did not like the taste of the Carafate Denies any chest pain, palpitation, dizziness and SOB Objective Last 8 Hrs Date Time Temp Pulse Resp B/P (MAP) Pulse Ox O2 Delivery O2 Flow Rate FiO2 03/09/17 19:27 36.7 105 18 107/75 (86) 99 Room Air 03/09/17 16:00 Room Air 03/09/17 15:33 36.3 96 18 108/86 (93) 99 Room Air 03/09/17 12:03 36.8 113 16 142/97 (112) 98 Room Air 03/09/17 12:00 Room Air Physical Exam: General- No acute distress Head- atraumatic Eyes- PERRL, EOMI ENT- oropharynx clear Neck- supple, no JVD Lungs- No wheezing Heart- regular rhythm Abdomen- normal bowel sounds, soft Extremities- no calf tenderness Neuro- alert, oriented, PERRL, EOMI Skin- warm & dry Laboratory Results: Last 24 Hours Test 03/09/17 07:09 Sodium Level 134 mmol/L Potassium Level 4.0 mmol/L Chloride Level 104 mmol/L Carbon Dioxide Level 17 mmol/L Anion Gap 13.0 mmol/L Blood Urea Nitrogen 7 mg/dl Creatinine 0.58 mg/dl Est Creatinine Clear Calc Drug Dose 77.1 ml/min Estimated GFR () 111.3 Estimated GFR (Non- 96.1 BUN/Creatinine Ratio 11.5 Random Glucose 181 mg/dl Calcium Level 8.6 mg/dl Phosphorus Level 2.9 mg/dl Magnesium Level 1.7 mg/dl Assessment & Plan Dysphagia Odynophagia Etiology unknown Brain MRI showed no acute finding Last EGD done in NOV showed normal esophagus Neuro on board, does not think it is neuro related, workup for myasthenia gravis pending Recommended nerve conduction EMG with repetitive stimulation as an outpatient Speech therapy on board recommended Mechanical Soft slippery diet with thin liquids- Changed to puree if unable to tolerate Trial protonix IV Aspiration precaution Recommend dental follow up for dentures (refused) continue gentle IV fluid Case discussed with Gastro, does not think it is GI related Will discuss with speech for video swallow in am Discussed with son to consider tube feeding if her dysphagia does not improve Will consider psych eval 03/09 Video swallow was cancelled because pt was able to swallow as per speech assessment Son said that pt has a burning feeling with swallowing GI was informed and will seen pt tomorrow Will start on Carafate and continue protonix Starting on puree diet EGD done on 12/02 showed - Normal esophagus. - No esophageal pathology seen. - Normal stomach. - Normal examined duodenum. - No specimens collected. - Symptoms and exam c/w oropharyngeal dysphagia not esophageal Electrolyte abnormalities related to poor oral intake/dehydration Mg replaced Continue IVF Continue monitor electrolytes UTI UA positive Urine cx grew ecoli Continue Rocephin Increase Saliva Possible related to reflux continue scopolamine patch and IV protonix Improve Generalized weakness Increase PO intake Continue PT/OT eval fall precaution HTN BP elevated Cont home amlodipine Continue IV hydralazine PRN for SBP >160 Depression: On lexapro Asthma: Cont home albuterol, fluticasone HLD: Cont statin Vit D deficiency: -Cont home dose supplement Bladder thickening UA showed no blood Continue monitor DVT Ppx: Lovenox SQ Code status: FULL code Consultants: Neuro Speech therapy Current Inpatient Medications: Current Inpatient Medications Medications (Trade) Dose Ordered Sig/Jose Route Start Time Stop Time Status Last Admin Dose Admin Acetaminophen (Tylenol Tab) 650 mg Q4H PRN PO 03/06/17 17:15 04/05/17 17:14 03/08/17 19:49 650 MG Ondansetron HCl (Zofran Inj) 4 mg Q6H PRN IV 03/06/17 17:15 04/05/17 17:14 03/07/17 21:06 4 MG Enoxaparin Sodium (Lovenox Inj) 40 mg HS SC 03/06/17 21:00 04/05/17 20:59 03/08/17 21:14 40 MG Hydralazine HCl (HydrALAZINE INJ) 5 mg Q6 PRN IV. 03/06/17 19:45 04/05/17 19:44 Albuterol (Ventolin Hfa Inhaler) 2 puffs Q4H PRN INH 03/06/17 20:30 04/05/17 20:29 Amlodipine Besylate (Norvasc Tab) 2.5 mg DAILY PO 03/07/17 09:00 04/06/17 08:59 03/09/17 09:10 2.5 MG Escitalopram Oxalate (Lexapro Tab) 20 mg DAILY PO 03/07/17 09:00 04/06/17 08:59 03/09/17 09:10 20 MG Fluticasone Propionate (Flovent Hfa 220MCG Inhaler) 1 puffs BID INH 03/06/17 21:00 04/05/17 20:59 03/09/17 09:09 1 PUFFS Simvastatin (Zocor Tab) 20 mg HS PO 03/06/17 21:00 04/05/17 20:59 03/08/17 19:39 20 MG Cholecalciferol (Vitamin D Tab) 2,000 inter.unit QAM PO 03/07/17 09:00 04/06/17 08:59 03/09/17 09:10 2,000 INTER.UNIT Famotidine (Pepcid Tab) 40 mg HS PO 03/06/17 21:00 04/05/17 20:59 03/08/17 19:39 40 MG Ceftriaxone Sodium 1 gm/ Dextrose 50 ml @ 100 mls/hr Q24H IV 03/06/17 22:00 03/16/17 21:59 03/08/17 21:14 100 MLS/HR Scopolamine (Transderm-Scop Patch) 1.5 mg Q72H TD 03/07/17 15:15 04/06/17 15:14 03/07/17 15:58 1.5 MG Miscellaneous (Remove Transderm-Scop Patch) 1 ea Q72H N/A 03/07/17 15:15 04/06/17 15:14 Miscellaneous Information (Check Scopolamine Patch Placement) 1 ea QS N/A 03/07/17 16:00 04/06/17 15:59 03/09/17 16:00 1 EA Enteral Nutritional Formula (Boost) 1 can TID PO 03/07/17 21:00 04/06/17 20:59 03/08/17 19:39 1 CAN Sodium Chloride 1,000 ml @ 60 mls/hr [id number] IV 03/08/17 10:00 04/07/17 09:59 03/09/17 09:11 60 MLS/HR
[2017-03-09] MEDS: SIMVASTATIN 20 MG TAB PO SCH (20:11)
[2017-03-09] MEDS: FAMOTIDINE 20 MG TAB PO SCH (20:11)
[2017-03-09] MEDS: ENOXAPARIN 40 MG/0.4 ML SYR SC SCH (20:12)
[2017-03-09] MEDS ORDERED: PANTOprazole INJ 40 MG in SYRINGE 0 ML IV ONE (21:00)
[2017-03-09] MEDS: SUCRALFATE 1 GM/10 ML UDC PO SCH ×2 (21:00→22:05)
[2017-03-09] MEDS: CEFTRIAXONE SOD INJ 1 GM in DEXTROSE 5% ADD-VANTAGE 50ML 50 ML IV SCH (22:05)
[2017-03-10] VITALS (8 sets, daily range): BP systolic 104–136; BP diastolic 73–92; PULSE 94–123; TEMP 36.4–37; O2SAT 96–100
[2017-03-10 07:26] LABS: BASO % 0.6 %; BASO ABS # 0.03 K/uL (0-0.2); EOS % 0.4 %; EOS ABS # 0.02 K/uL (0-0.5); HEMATOCRIT 34.1 % (37-47); HEMOGLOBIN 12.3 g/dL (12.0-16.0); IG# 0.04 K/uL (0.00-0.02); LYMPH % 20.9 %; LYMPH ABS # 0.99 K/uL (1.2-3.4); MEAN CELL VOLUME 83.4 fL (80-100); MEAN CORPUSCULAR HEMOGLOBIN 30.1 pg (25-34); MEAN CORPUSCULAR HGB CONC 36.1 g/dl (32-36); MONO % 3.8 %; MONO ABS # 0.18 K/uL (0.11-0.59); NEUT % 73.5 %; NEUT ABS # 3.48 K/uL (1.4-6.5); PLATELET COUNT 156 K/uL (130-400); RED CELL DISTRIBUTION WIDTH SD 42.5 fL (36.4-46.3); WHITE BLOOD COUNT 4.74 K/uL (4.8-10.8)
[2017-03-10 07:59] LABS: CALCIUM 8.7 mg/dl (8.5-10.1); CREATININE 0.59 mg/dl (0.60-1.20); POTASSIUM 3.8 mmol/L (3.5-5.1)
[2017-03-10] MEDS: CHECK SCOPOLAMINE PATCH PLACEMENT SCH ×2 (08:00→16:02)
[2017-03-10] MEDS: SUCRALFATE 1 GM/10 ML UDC PO SCH ×4 (08:01→21:00)
[2017-03-10] MEDS: FLUTICASONE HFA 220 MCG INHALER INH SCH ×2 (08:01→21:04)
[2017-03-10] MEDS: ESCITALOPRAM OXALATE 10 MG TAB PO SCH (08:01)
[2017-03-10] MEDS: BOOST VANILLA PO SCH ×3 (08:01→21:00)
[2017-03-10] MEDS: CHOLECALCIFEROL 1000 INTER.UNIT TAB PO SCH (08:02)
[2017-03-10] MEDS: AMLODIPINE BESYLATE 5 MG TAB PO SCH (08:02)
--- NOTE | 2017-03-10 10:05 | Gastroenterology Progress Note ---
Progress Note Date of Service: Mar 10, 2017 Subjective Pt evaluation today including: conversation w/ patient, physical exam, chart review, lab review GI was asked to re-evaluate the pt as the pt continues to have dysphagia and burning w/ swallowing. Pt was seen and evaluated, chart reviewed. She notes dysphagia x years, worse recently for which she had a recent EGD which was unremarkable. She tells me she compensates by eating foods that are easy to swallow, and crushing her pills. She now notes she has continues esophageal burning worse when laying supine and worse with PO intake. She notes she is not taking any medications as an OP for her stomach as she did not like the way Carafate tastes and she cant swallow pills. She continues to have constant PND w/ mucous that she coughs up. She notes this does irritate her throat. NATURE PHOTOGRAPHER 03/05: Pureed diet General aspiration precautions; straws okay Consider enteral feeding if oral intake is inadequate EGD 12/02: WNL Review of Systems Constitutional: No fever, No chills Respiratory: + cough, + sputum Cardiac: No chest pain Abdomen: + dysphagia, No pain, No nausea, No vomiting, No diarrhea, No constipation Medications Current Inpatient Medications Medications (Trade) Dose Ordered Sig/Jose Route Start Time Stop Time Status Last Admin Dose Admin Acetaminophen (Tylenol Tab) 650 mg Q4H PRN PO 03/06/17 17:15 04/05/17 17:14 03/08/17 19:49 650 MG Ondansetron HCl (Zofran Inj) 4 mg Q6H PRN IV 03/06/17 17:15 04/05/17 17:14 03/07/17 21:06 4 MG Enoxaparin Sodium (Lovenox Inj) 40 mg HS SC 03/06/17 21:00 04/05/17 20:59 03/09/17 20:12 40 MG Hydralazine HCl (HydrALAZINE INJ) 5 mg Q6 PRN IV. 03/06/17 19:45 04/05/17 19:44 Albuterol (Ventolin Hfa Inhaler) 2 puffs Q4H PRN INH 03/06/17 20:30 04/05/17 20:29 Amlodipine Besylate (Norvasc Tab) 2.5 mg DAILY PO 03/07/17 09:00 04/06/17 08:59 03/10/17 08:02 2.5 MG Escitalopram Oxalate (Lexapro Tab) 20 mg DAILY PO 03/07/17 09:00 04/06/17 08:59 03/10/17 08:01 20 MG Fluticasone Propionate (Flovent Hfa 220MCG Inhaler) 1 puffs BID INH 03/06/17 21:00 04/05/17 20:59 03/10/17 08:01 1 PUFFS Simvastatin (Zocor Tab) 20 mg HS PO 03/06/17 21:00 04/05/17 20:59 03/09/17 20:11 20 MG Cholecalciferol (Vitamin D Tab) 2,000 inter.unit QAM PO 03/07/17 09:00 04/06/17 08:59 03/10/17 08:02 2,000 INTER.UNIT Famotidine (Pepcid Tab) 40 mg HS PO 03/06/17 21:00 04/05/17 20:59 03/09/17 20:11 40 MG Ceftriaxone Sodium 1 gm/ Dextrose 50 ml @ 100 mls/hr Q24H IV 03/06/17 22:00 03/16/17 21:59 03/09/17 22:05 100 MLS/HR Scopolamine (Transderm-Scop Patch) 1.5 mg Q72H TD 03/07/17 15:15 04/06/17 15:14 03/07/17 15:58 1.5 MG Miscellaneous (Remove Transderm-Scop Patch) 1 ea Q72H N/A 03/07/17 15:15 04/06/17 15:14 Miscellaneous Information (Check Scopolamine Patch Placement) 1 ea QS N/A 03/07/17 16:00 04/06/17 15:59 03/10/17 08:00 1 EA Enteral Nutritional Formula (Boost) 1 can TID PO 03/07/17 21:00 04/06/17 20:59 03/08/17 19:39 1 CAN Sodium Chloride 1,000 ml @ 60 mls/hr [id number] IV 03/08/17 10:00 04/07/17 09:59 03/09/17 20:17 60 MLS/HR Sucralfate (Carafate Susp) 1 gm QID PO 03/09/17 21:00 04/08/17 20:59 03/10/17 08:01 1 GM Objective Vital Signs Date Time Temp Pulse Resp B/P (MAP) Pulse Ox O2 Delivery O2 Flow Rate FiO2 03/10/17 08:00 Room Air 03/10/17 07:22 36.5 107 20 125/83 (97) 98 Room Air 03/10/17 04:00 37.0 99 18 113/82 (92) 99 Room Air 03/10/17 04:00 Room Air 03/10/17 00:45 36.5 105 18 104/73 (83) 100 Room Air 03/10/17 00:00 Room Air 03/09/17 20:00 Room Air 03/09/17 19:27 36.7 105 18 107/75 (86) 99 Room Air 03/09/17 16:00 Room Air 03/09/17 15:33 36.3 96 18 108/86 (93) 99 Room Air 03/09/17 12:03 36.8 113 16 142/97 (112) 98 Room Air 03/09/17 12:00 Room Air Physical Exam General Appearance: no apparent distress, + pertinent finding (ill appearing) Eyes: PERRL ENT: hearing grossly normal Neck: supple Respiratory/Chest: lungs clear, normal breath sounds Cardiovascular: regular rate, rhythm Abdomen: normal bowel sounds, non tender, soft Neurologic/Psych: alert, normal mood/affect, oriented x 3 Skin: normal color Laboratory Results Last 24 Hours Test 03/10/17 06:55 White Blood Count 4.74 K/uL Red Blood Count 4.09 M/uL Hemoglobin 12.3 g/dL Hematocrit 34.1 % Mean Corpuscular Volume 83.4 fL Mean Corpuscular Hemoglobin 30.1 pg Mean Corpuscular Hemoglobin Concent 36.1 g/dl Platelet Count 156 K/uL Mean Platelet Volume 11.0 fL Neutrophils (%) (Auto) 73.5 % Lymphocytes (%) (Auto) 20.9 % Monocytes (%) (Auto) 3.8 % Eosinophils (%) (Auto) 0.4 % Basophils (%) (Auto) 0.6 % Neutrophils # (Auto) 3.48 K/uL Lymphocytes # (Auto) 0.99 K/uL Monocytes # (Auto) 0.18 K/uL Eosinophils # (Auto) 0.02 K/uL Basophils # (Auto) 0.03 K/uL RDW Standard Deviation 42.5 fL RDW Coefficient of Variation 14.0 % Immature Granulocyte % (Auto) 0.8 % Immature Granulocyte # (Auto) 0.04 K/uL Sodium Level 134 mmol/L Potassium Level 3.8 mmol/L Chloride Level 105 mmol/L Carbon Dioxide Level 18 mmol/L Anion Gap 11.0 mmol/L Blood Urea Nitrogen 11 mg/dl Creatinine 0.59 mg/dl Est Creatinine Clear Calc Drug Dose 75.8 ml/min Estimated GFR () 110.7 Estimated GFR (Non- 95.5 BUN/Creatinine Ratio 18.2 Random Glucose 143 mg/dl Calcium Level 8.7 mg/dl Magnesium Level 1.8 mg/dl Assessment and Plan 66 year old female with progressive oropharyngeal dysphagia and tremors, frequent head nodding, had recent unremarkable EGD and esophagogram. Seen by Neurology and planned for further work up including work up for Myasthenia. There is no evidence of oral thrush on examination, and EGD for her symptoms in November was without evidence of esophageal thrush. Evaluated by NATURE PHOTOGRAPHER who recommends aspiration precaution and pureed diet. Pt still w/ limited PO intake due to dysphagia and esophageal burning - GI cocktail PRN - Gaviscon PRN as OP - IV PPI - Prevacid SoluTab 15 mg BID - Pureed diet as tolerated - Elevate head of bed - Eliminate NSAIDs - Eliminate caffeine - Smaller, more frequent meals - Remain upright after meals - Will discuss repeat EGD w/ dilation - Outpatient Colonoscopy I saw and evaluated the patient. We are consult at for question of oropharyngeal dysphagia. The patient notes having difficulty with swallowing meats and breads and localizes the sensation to her retrosternal and neck region. She does have significant neurologic compromise and perhaps this is the cause of her symptoms. Plan Upper endoscopy with attempt at dilation If no improvement to could try use of baclofen 10 mg 3 times daily or consider further evaluation by neurology.
[2017-03-10] MEDS ORDERED: NURSING DECISION MEDICATION ORDER SCH (11:00)
[2017-03-10] MEDS: MICONAZOLE NITRATE POWDER 43 GM EXT PRN (12:45)
[2017-03-10] MEDS: SODIUM CHLORIDE 0.9% 1000ML 1,000 ML IV SCH (14:11)
[2017-03-10] MEDS ORDERED: GI COCKTAIL PO PRN (15:45)
--- NOTE | 2017-03-10 15:58 | Progress Note ---
Medicine Progress Note Date & Time of Visit: Mar 10, 2017 at 15:37. Subjective -reports pain in throat -denies abdominal pain, bleeding -continues to fall asleep or become easily distracted with cell phone and hacking up sputum. Objective Last 8 Hrs Date Time Temp Pulse Resp B/P (MAP) Pulse Ox O2 Delivery O2 Flow Rate FiO2 03/10/17 14:57 36.4 99 18 128/85 (99) 100 Room Air 03/10/17 12:14 Room Air 03/10/17 11:39 36.5 94 20 129/82 (98) 96 Room Air 03/10/17 11:13 123 03/10/17 08:00 Room Air Physical Exam: GEN: obese, in no acute distress, generalized weakness, lethargic and appears intermittently confused. History is very limited. HEENT: NC/AT, normal sclerae, MMM dry and pulling thick secretions from her mouth, frequently hacks up but nonproductive. CARDIO: reg rate, S1/2 heard without m/g/r LUNGS: CTA bilaterally, no crackles, rales or wheezes, good diaphragmatic excursion ABD: soft, non-tender, non-distended, no rebound or guarding, +BS EXTREMITY: RP and DP palpable 2+ bilat, no LE swelling or edema, extremities are warm and well-perfused NEURO: CN 2-12 grossly intact, exam is otherwise limited as she is very weak and cannot easily follow instruction. MUSC: generalized weakness, no apparent gross focal abnormality but very limited exam 2/2 weakness and confusion as above. SKIN: warm and dry Laboratory Results: 03/10/17 06:55 Red Blood Count 4.09, Mean Corpuscular Volume 83.4, Mean Corpuscular Hemoglobin 30.1, Mean Corpuscular Hemoglobin Concent 36.1, Mean Platelet Volume 11.0, Neutrophils (%) (Auto) 73.5, Lymphocytes (%) (Auto) 20.9, Monocytes (%) (Auto) 3.8, Eosinophils (%) (Auto) 0.4, Basophils (%) (Auto) 0.6, Neutrophils # (Auto) 3.48, Lymphocytes # (Auto) 0.99, Monocytes # (Auto) 0.18, Eosinophils # (Auto) 0.02, Basophils # (Auto) 0.03 03/10/17 06:55 Test 03/06/17 18:14 03/06/17 20:25 03/07/17 06:29 03/08/17 05:38 Prothrombin Time 12.7 SECONDS (9.0-12.0) Prothromb Time International Ratio 1.2 (0.9-1.1) Activated Partial Thromboplast Time 30.1 SECONDS (21.0-31.0) Partial Thromboplastin Ratio 1.2 Lipase 364 U/L (73-393) Urine Color ORANGE Urine Appearance CLOUDY (CLEAR) Urine pH 5.0 (4.5-7.5) Urine Specific [place] 1.026 (1.000-1.030) Urine Protein NEG (NEG) Urine Glucose (UA) NEG (NEG) Urine Ketones 1+ (NEG) Urine Occult Blood NEG (NEG) Urine Nitrite POS (NEG) Urine Bilirubin NEG (NEG) Urine Urobilinogen NEG (NEG) Urine Leukocyte Esterase MODERATE (NEG) Urine WBC (Auto) 10-30 /hpf (0-5) Urine RBC (Auto) 5-10 /hpf (0-4) Urine Hyaline Casts (Auto) 5-10 /lpf (0-5) Urine Epithelial Cells (Auto) >30 /lpf (0-5) Urine Bacteria (Auto) 1+ (NEG) Total Bilirubin 1.4 mg/dl (0.2-1) Aspartate Amino Transf (AST/SGOT) 20 U/L (15-37) Alanine Aminotransferase (ALT/SGPT) 33 U/L (12-78) Alkaline Phosphatase 82 U/L (45-117) Total Protein 6.8 gm/dl (6.4-8.2) Albumin 2.8 gm/dl (3.4-5.0) Globulin 4.0 gm/dl (2.5-4.0) Albumin/Globulin Ratio 0.7 (0.9-2) Test 03/09/17 07:09 03/10/17 06:55 Phosphorus Level 2.9 mg/dl (2.5-4.9) White Blood Count 4.74 K/uL (4.8-10.8) Red Blood Count 4.09 M/uL (4.2-5.4) Hemoglobin 12.3 g/dL (12.0-16.0) Hematocrit 34.1 % (37-47) Mean Corpuscular Volume 83.4 fL (80-100) Mean Corpuscular Hemoglobin 30.1 pg (25-34) Mean Corpuscular Hemoglobin Concent 36.1 g/dl (32-36) Platelet Count 156 K/uL (130-400) Mean Platelet Volume 11.0 fL (7.4-10.4) Neutrophils (%) (Auto) 73.5 % Lymphocytes (%) (Auto) 20.9 % Monocytes (%) (Auto) 3.8 % Eosinophils (%) (Auto) 0.4 % Basophils (%) (Auto) 0.6 % Neutrophils # (Auto) 3.48 K/uL (1.4-6.5) Lymphocytes # (Auto) 0.99 K/uL (1.2-3.4) Monocytes # (Auto) 0.18 K/uL (0.11-0.59) Eosinophils # (Auto) 0.02 K/uL (0-0.5) Basophils # (Auto) 0.03 K/uL (0-0.2) RDW Standard Deviation 42.5 fL (36.4-46.3) RDW Coefficient of Variation 14.0 % (11.5-14.5) Immature Granulocyte % (Auto) 0.8 % Immature Granulocyte # (Auto) 0.04 K/uL (0.00-0.02) Anion Gap 11.0 mmol/L (3-11) Est Creatinine Clear Calc Drug Dose 75.8 ml/min Estimated GFR () 110.7 Estimated GFR (Non- 95.5 BUN/Creatinine Ratio 18.2 (10-20) Calcium Level 8.7 mg/dl (8.5-10.1) Magnesium Level 1.8 mg/dl (1.8-2.4) Date/Time Source Procedure Growth Status 03/06/17 20:25 Urine , Clean Catch Urine Culture - Final Escherichia Coli Complete Last 24 Hours Test 03/10/17 06:55 White Blood Count 4.74 K/uL Red Blood Count 4.09 M/uL Hemoglobin 12.3 g/dL Hematocrit 34.1 % Mean Corpuscular Volume 83.4 fL Mean Corpuscular Hemoglobin 30.1 pg Mean Corpuscular Hemoglobin Concent 36.1 g/dl Platelet Count 156 K/uL Mean Platelet Volume 11.0 fL Neutrophils (%) (Auto) 73.5 % Lymphocytes (%) (Auto) 20.9 % Monocytes (%) (Auto) 3.8 % Eosinophils (%) (Auto) 0.4 % Basophils (%) (Auto) 0.6 % Neutrophils # (Auto) 3.48 K/uL Lymphocytes # (Auto) 0.99 K/uL Monocytes # (Auto) 0.18 K/uL Eosinophils # (Auto) 0.02 K/uL Basophils # (Auto) 0.03 K/uL RDW Standard Deviation 42.5 fL RDW Coefficient of Variation 14.0 % Immature Granulocyte % (Auto) 0.8 % Immature Granulocyte # (Auto) 0.04 K/uL Sodium Level 134 mmol/L Potassium Level 3.8 mmol/L Chloride Level 105 mmol/L Carbon Dioxide Level 18 mmol/L Anion Gap 11.0 mmol/L Blood Urea Nitrogen 11 mg/dl Creatinine 0.59 mg/dl Est Creatinine Clear Calc Drug Dose 75.8 ml/min Estimated GFR () 110.7 Estimated GFR (Non- 95.5 BUN/Creatinine Ratio 18.2 Random Glucose 143 mg/dl Calcium Level 8.7 mg/dl Magnesium Level 1.8 mg/dl Assessment & Plan This is a 66yo F with a PMH of HTN, HLD, asthma, h/o gastric ulcers and dysphagia who presents with poor PO intake and generalized weakness. 1. Weakness: likely multifactorial. Per family she is not eating much and is very deconditioned. Cont to encourage PO intake. PT/OT. Nutrition consult ordered, however, patient is non-compliant with diet or supplement recs. 2. Dysphagia/Odynophagia: per DISTRICT PLANT SUPERVISOR and Neuro discussion there is no indication for a video swallow study at this time. Per Neuro there is no evidence of a neuromuscular disorder at this time. Workup still pending completion. Per GI, they plan to repeat EGD in am with dilation to see if that helps. GI cocktail ordered PRN. 3. HTN-controlled. Holding Norvasc to minimize PO intake. 4. Depression/Anxiety-cont Lexapro 5. h/o PUD-Pepcid switched to PPI. Sulcralfate ordered but pt is declining at this time. 6. E coli UTI-some confusion present, poss related to infection. Cont ceftriaxone as this is IV and she is having difficulty tolerating PO and monitor for improvement. DVT Ppx: Lovenox SQ Code status: FULL PCP: Diaz Dispo: Plan to return home once medically stable. DO Bandar Nash Hospitalist Consultants: Neuro Speech therapy Current Inpatient Medications: Current Inpatient Medications Medications (Trade) Dose Ordered Sig/Jose Route Start Time Stop Time Status Last Admin Dose Admin Acetaminophen (Tylenol Tab) 650 mg Q4H PRN PO 03/06/17 17:15 04/05/17 17:14 03/08/17 19:49 650 MG Ondansetron HCl (Zofran Inj) 4 mg Q6H PRN IV 03/06/17 17:15 04/05/17 17:14 03/07/17 21:06 4 MG Enoxaparin Sodium (Lovenox Inj) 40 mg HS SC 03/06/17 21:00 04/05/17 20:59 03/09/17 20:12 40 MG Hydralazine HCl (HydrALAZINE INJ) 5 mg Q6 PRN IV. 03/06/17 19:45 04/05/17 19:44 Albuterol (Ventolin Hfa Inhaler) 2 puffs Q4H PRN INH 03/06/17 20:30 04/05/17 20:29 Amlodipine Besylate (Norvasc Tab) 2.5 mg DAILY PO 03/07/17 09:00 04/06/17 08:59 03/10/17 08:02 2.5 MG Escitalopram Oxalate (Lexapro Tab) 20 mg DAILY PO 03/07/17 09:00 04/06/17 08:59 03/10/17 08:01 20 MG Fluticasone Propionate (Flovent Hfa 220MCG Inhaler) 1 puffs BID INH 03/06/17 21:00 04/05/17 20:59 03/10/17 08:01 1 PUFFS Simvastatin (Zocor Tab) 20 mg HS PO 03/06/17 21:00 04/05/17 20:59 03/09/17 20:11 20 MG Cholecalciferol (Vitamin D Tab) 2,000 inter.unit QAM PO 03/07/17 09:00 04/06/17 08:59 03/10/17 08:02 2,000 INTER.UNIT Famotidine (Pepcid Tab) 40 mg HS PO 03/06/17 21:00 04/05/17 20:59 03/09/17 20:11 40 MG Ceftriaxone Sodium 1 gm/ Dextrose 50 ml @ 100 mls/hr Q24H IV 03/06/17 22:00 03/16/17 21:59 03/09/17 22:05 100 MLS/HR Scopolamine (Transderm-Scop Patch) 1.5 mg Q72H TD 03/07/17 15:15 04/06/17 15:14 03/07/17 15:58 1.5 MG Miscellaneous (Remove Transderm-Scop Patch) 1 ea Q72H N/A 03/07/17 15:15 04/06/17 15:14 Miscellaneous Information (Check Scopolamine Patch Placement) 1 ea QS N/A 03/07/17 16:00 04/06/17 15:59 03/10/17 08:00 1 EA Enteral Nutritional Formula (Boost) 1 can TID PO 03/07/17 21:00 04/06/17 20:59 03/08/17 19:39 1 CAN Sodium Chloride 1,000 ml @ 60 mls/hr [id number] IV 03/08/17 10:00 04/07/17 09:59 03/10/17 14:11 60 MLS/HR Sucralfate (Carafate Susp) 1 gm QID PO 03/09/17 21:00 04/08/17 20:59 03/10/17 08:01 1 GM Miconazole Nitrate (Desenex Powder) 1 appln PRN PRN EXT 03/10/17 12:00 04/09/17 11:59
[2017-03-10] MEDS: SCOPOLAMINE 1.5 MG TDSY TD SCH (16:02)
[2017-03-10] MEDS: D5NSS + 20MEQ KCL 1,000 ML IV SCH (16:31)
[2017-03-10] MEDS: ALUMINUM/MAGNESIUM SUSP 72 ML, LIDOCAINE HCL 2% VISCOUS SOLN 24 ML, BARCODE IDENTIFIER ... PO PRN ×2 (16:33)
[2017-03-10] MEDS: ENOXAPARIN 40 MG/0.4 ML SYR SC SCH (21:03)
[2017-03-10] MEDS: CEFTRIAXONE SOD INJ 1 GM in DEXTROSE 5% ADD-VANTAGE 50ML 50 ML IV SCH (22:05)
[2017-03-11] MEDS: CHECK SCOPOLAMINE PATCH PLACEMENT SCH ×4 (00:07→23:36)
[2017-03-11] MEDS: D5NSS + 20MEQ KCL 1,000 ML IV SCH ×3 (01:39→18:30)
[2017-03-11 04:11] VITALS: BP 132/84; PULSE 96; TEMP 36.4; O2SAT 100
[2017-03-11 07:08] VITALS: BP 120/85; PULSE 60; TEMP 36.5; O2SAT 95
[2017-03-11] MEDS: SUCRALFATE 1 GM/10 ML UDC PO SCH ×4 (07:23→20:50)
[2017-03-11] MEDS: BOOST VANILLA PO SCH ×3 (07:23→20:50)
[2017-03-11] MEDS: FLUTICASONE HFA 220 MCG INHALER INH SCH ×2 (07:24→21:06)
[2017-03-11] MEDS: MICONAZOLE NITRATE POWDER 43 GM EXT PRN (07:24)
--- NOTE | 2017-03-11 09:13 | History & Physical Bridge Note ---
H&P Re-Evaluation Bridge Note: I have examined the patient, reviewed the History & Physical and in the interval since the performance of the History & Physical I have noted the following changes of clinical significance: No changes noted. Due to persistent solid food dysphagia repeat upper endoscopy with esophageal dilation has been requested by the hospitalist and neurologic service. If this does not help the patient's symptoms then her dysphagia is likely neurologic in nature.
--- NOTE | 2017-03-11 09:38 | GI REPORT ---
Procedure Date: 03/11/2017 9:18 AM Procedure: Upper GI endoscopy Indications: Dysphagia Medicines: Monitored Anesthesia Care Complications: No immediate complications. Estimated blood loss: Minimal. Estimated Blood Loss: Estimated blood loss was minimal. Procedure: Pre-Anesthesia Assessment: - Prior to the procedure, a History and Physical was performed, and patient medications, allergies and sensitivities were reviewed. The patient's tolerance of previous anesthesia was reviewed. - The risks and benefits of the procedure and the sedation options and risks were discussed with the patient. All questions were answered and informed consent was obtained. - Patient identification and proposed procedure were verified prior to the procedure by the physician, the nurse and the knock up assembler. The procedure was verified in the procedure room. - Pre-procedure physical examination revealed no contraindications to sedation. - ASA Grade Assessment: III - A patient with severe systemic disease. - After reviewing the risks and benefits, the patient was deemed in satisfactory condition to undergo the procedure. - The anesthesia plan was to use monitored anesthesia care (MAC). - Immediately prior to administration of medications, the patient was re-assessed for adequacy to receive sedatives. - The heart rate, respiratory rate, oxygen saturations, blood pressure, adequacy of pulmonary ventilation, and response to care were monitored throughout the procedure. - The physical status of the patient was re-assessed after the procedure. After obtaining informed consent, the endoscope was passed under direct vision. Throughout the procedure, the patient's blood pressure, pulse, and oxygen saturations were monitored continuously. The scope was introduced through the mouth, and advanced to the third part of duodenum. The upper GI endoscopy was accomplished without difficulty. The patient tolerated the procedure well. Findings: No endoscopic abnormality was evident in the esophagus to explain the patient's complaint of dysphagia. It was decided, however, to proceed with dilation of the entire esophagus. A guidewire was placed and the scope was withdrawn. Dilation was performed with a Savary dilator with no resistance at 54 Fr. The endoscope was then reinserted to evaluate the success of the procedure. Estimated blood loss: none. The Z-line was regular and was found 35 cm from the incisors. The entire examined stomach was normal. The examined duodenum was normal. Impression: - No endoscopic esophageal abnormality to explain patient's dysphagia. Esophagus dilated to 54 Fr. - Z-line regular, 35 cm from the incisors. - Normal stomach. - Normal examined duodenum. - No specimens collected. Recommendation: - [facility]. - Advance diet as tolerated today. - Observe patient's clinical course following today's procedure with therapeutic intervention. - No esophageal process seen to explain the patient's symptoms. If dysphagia persists would favor a neurologic problem given the patient's history. Fritz Baker D.O. Fritz Baker, DO 03/11/2017 9:37:39 AM This report has been signed electronically. Note Initiated On: 03/11/2017 9:18 AM I attest to the content of the Intraoperative Record and orders documented therein, exceptions below
--- NOTE | 2017-03-11 10:23 | Progress Note ---
Progress Note Date of Service Mar 11, 2017. Progress Note The patient underwent an upper endoscopy this morning for persistent difficulty with swallowing. Results Normal-appearing esophagus dilated to 54 Yi Normal stomach Normal duodenum Impression: Patient with history of dysphagia status post EGD with esophageal dilation. If her difficulty with swallowing persists then the dysphagia is most likely related to her underlying neurologic process. Recommendations Advance diet as tolerated Please call with any questions or concerns, GI to sign off for the present time
--- NOTE | 2017-03-11 10:28 | Anesthesiology Progress Note ---
Anesthesia Post Op Note Date & Time Mar 11, 2017 at 10:28 Vital Signs Pain Intensity: 0 Vital Signs Past 12 Hours Date Time Temp Pulse Resp B/P (MAP) Pulse Ox O2 Delivery O2 Flow Rate FiO2 03/11/17 10:14 72 18 101/79 (86) 100 Room Air 03/11/17 09:58 66 18 101/61 (74) 100 Room Air 03/11/17 09:47 66 18 89/44 (59) 99 Room Air 03/11/17 09:32 68 16 107/58 (74) 100 Room Air 03/11/17 08:54 35.9 96 24 112/88 (96) 100 Room Air 03/11/17 08:00 Room Air 03/11/17 07:08 36.5 60 16 120/85 (97) 95 Room Air 03/11/17 04:11 36.4 96 18 132/84 (100) 100 Room Air 03/11/17 04:00 Room Air 03/11/17 00:00 Room Air 03/10/17 23:00 36.9 105 20 118/87 (97) 100 Room Air Notes Mental Status: alert / awake / arousable, participated in evaluation Pt Amnestic to Procedure: Yes Nausea / Vomiting: adequately controlled Pain: adequately controlled Airway Patency, RR, SpO2: stable & adequate BP & HR: stable & adequate Hydration State: stable & adequate Anesthetic Complications: no major complications apparent
[2017-03-11] MEDS ORDERED: PANTOprazole INJ 40 MG in SYRINGE 0 ML IV SCH (11:00)
[2017-03-11 11:37] VITALS: BP 146/85; PULSE 69; TEMP 36.3; O2SAT 100
[2017-03-11] MEDS: ALUMINUM/MAGNESIUM SUSP 72 ML, LIDOCAINE HCL 2% VISCOUS SOLN 24 ML, BARCODE IDENTIFIER ... PO PRN ×2 (12:00)
--- NOTE | 2017-03-11 12:46 | Clinical Documentation Query ---
CLINICAL DOCUMENTATION QUERY QUERY 1 OF 2 A 66yo F with a PMH of HTN, HLD, asthma, h/o gastric ulcers and dysphagia who presents with poor PO intake and generalized weakness In your clinical opinion is this patient being managed for: (x ) Severe protein-calorie malnutrition ( ) Not Agree ( ) Other explanation of clinical findings (Please Explain) ( ) Unable to determine (Please Define) ( ) Need to Discuss The medical record reflects the following clinical findings, treatment, and risk factors. Clinical Indicators: 30# wt loss since September, removal of teeth, dysphagia, weakness Treatment: Mechanical soft diet, diet consult, boost shakes Risk Factors: Dysphagia, removal of teeth, difficulty swallowing QUERY 2 OF 2 In your clinical opinion is this patient being managed for: ( ) Encephalopathy ( x ) Not Agree ( ) Other explanation of clinical findings (Please Explain) ( ) Unable to determine (Please Define) ( ) Need to Discuss The medical record reflects the following clinical findings, treatment, and risk factors. Clinical Indicators: Altered mental status, confusion Treatment: Neuro consult fall/aspiration precautions Risk Factors: E coli UTI, weakness Please clarify and document your clinical opinion in the progress notes and discharge summary. Terms such as "probable", "suspected", "likely", "questionable", "possible", or "still to be ruled out" are acceptable. IF IN AGREEMENT, YOU MUST DOCUMENT ABOVE DIAGNOSTIC STATEMENT IN DAILY PROGRESS NOTES AND DISCHARGE SUMMARY. This document is not part of the patient's record. Thank You, Gertrude Reed RN [phone]
[2017-03-11] MEDS: ESCITALOPRAM OXALATE 10 MG TAB PO SCH (12:50)
[2017-03-11 15:03] VITALS: BP 134/90; PULSE 93; TEMP 36.5; O2SAT 100
[2017-03-11] MEDS ORDERED: BISACODYL 10 MG SUPP PR ONE (17:28)
[2017-03-11] MEDS ORDERED: BISACODYL 10 MG SUPP PR PRN (17:30)
[2017-03-11] MEDS ORDERED: POLYETHYLENE (MIRALAX) 17 GM PACK PO PRN (17:30)
--- NOTE | 2017-03-11 18:19 | Progress Note ---
Medicine Progress Note Date & Time of Visit: Mar 11, 2017 at 17:29. Subjective -feels somewhat better today -some lower abdominal discomfort related to not having a BM -tolerating soft foods post-EGD -EGD was normal with dilation performed -pt is more awake and is conversing appropriately today, however, she was interrupted several times with phone calls and preferred to take these over continuing the conversation. Some history is below in A/P Objective Last 8 Hrs Date Time Temp Pulse Resp B/P (MAP) Pulse Ox O2 Delivery O2 Flow Rate FiO2 03/11/17 16:00 Room Air 03/11/17 15:03 36.5 93 20 134/90 (105) 100 Room Air 03/11/17 12:00 Room Air 03/11/17 11:37 36.3 69 20 146/85 (105) 100 Room Air 03/11/17 10:14 72 18 101/79 (86) 100 Room Air 03/11/17 09:58 66 18 101/61 (74) 100 Room Air 03/11/17 09:47 66 18 89/44 (59) 99 Room Air 03/11/17 09:32 68 16 107/58 (74) 100 Room Air Physical Exam: GEN: obese, in no acute distress, generalized weakness, alert and appropriate HEENT: NC/AT, normal sclerae, MMM moist and pulling thick secretions from her mouth, frequently hacks up but nonproductive. CARDIO: reg rate, S1/2 heard without m/g/r LUNGS: CTA bilaterally, no crackles, rales or wheezes, good diaphragmatic excursion ABD: soft, mils lower TTP, non-distended, no rebound or guarding, +BS EXTREMITY: RP and DP palpable 2+ bilat, no LE swelling or edema, extremities are warm and well-perfused NEURO: CN 2-12 grossly intact, no gross focal deficit MUSC: generalized weakness which appears somewhat improved today. She is able to sit up on her own-an improvement from yesterday SKIN: warm and dry Laboratory Results: 03/10/17 06:55 Red Blood Count 4.09, Mean Corpuscular Volume 83.4, Mean Corpuscular Hemoglobin 30.1, Mean Corpuscular Hemoglobin Concent 36.1, Mean Platelet Volume 11.0, Neutrophils (%) (Auto) 73.5, Lymphocytes (%) (Auto) 20.9, Monocytes (%) (Auto) 3.8, Eosinophils (%) (Auto) 0.4, Basophils (%) (Auto) 0.6, Neutrophils # (Auto) 3.48, Lymphocytes # (Auto) 0.99, Monocytes # (Auto) 0.18, Eosinophils # (Auto) 0.02, Basophils # (Auto) 0.03 03/10/17 06:55 Test 03/06/17 18:14 03/06/17 20:25 03/07/17 06:29 03/08/17 05:38 Prothrombin Time 12.7 SECONDS (9.0-12.0) Prothromb Time International Ratio 1.2 (0.9-1.1) Activated Partial Thromboplast Time 30.1 SECONDS (21.0-31.0) Partial Thromboplastin Ratio 1.2 Lipase 364 U/L (73-393) Urine Color ORANGE Urine Appearance CLOUDY (CLEAR) Urine pH 5.0 (4.5-7.5) Urine Specific Harrington 1.026 (1.000-1.030) Urine Protein NEG (NEG) Urine Glucose (UA) NEG (NEG) Urine Ketones 1+ (NEG) Urine Occult Blood NEG (NEG) Urine Nitrite POS (NEG) Urine Bilirubin NEG (NEG) Urine Urobilinogen NEG (NEG) Urine Leukocyte Esterase MODERATE (NEG) Urine WBC (Auto) 10-30 /hpf (0-5) Urine RBC (Auto) 5-10 /hpf (0-4) Urine Hyaline Casts (Auto) 5-10 /lpf (0-5) Urine Epithelial Cells (Auto) >30 /lpf (0-5) Urine Bacteria (Auto) 1+ (NEG) Total Bilirubin 1.4 mg/dl (0.2-1) Aspartate Amino Transf (AST/SGOT) 20 U/L (15-37) Alanine Aminotransferase (ALT/SGPT) 33 U/L (12-78) Alkaline Phosphatase 82 U/L (45-117) Total Protein 6.8 gm/dl (6.4-8.2) Albumin 2.8 gm/dl (3.4-5.0) Globulin 4.0 gm/dl (2.5-4.0) Albumin/Globulin Ratio 0.7 (0.9-2) Test 03/09/17 07:09 03/10/17 06:55 Phosphorus Level 2.9 mg/dl (2.5-4.9) White Blood Count 4.74 K/uL (4.8-10.8) Red Blood Count 4.09 M/uL (4.2-5.4) Hemoglobin 12.3 g/dL (12.0-16.0) Hematocrit 34.1 % (37-47) Mean Corpuscular Volume 83.4 fL (80-100) Mean Corpuscular Hemoglobin 30.1 pg (25-34) Mean Corpuscular Hemoglobin Concent 36.1 g/dl (32-36) Platelet Count 156 K/uL (130-400) Mean Platelet Volume 11.0 fL (7.4-10.4) Neutrophils (%) (Auto) 73.5 % Lymphocytes (%) (Auto) 20.9 % Monocytes (%) (Auto) 3.8 % Eosinophils (%) (Auto) 0.4 % Basophils (%) (Auto) 0.6 % Neutrophils # (Auto) 3.48 K/uL (1.4-6.5) Lymphocytes # (Auto) 0.99 K/uL (1.2-3.4) Monocytes # (Auto) 0.18 K/uL (0.11-0.59) Eosinophils # (Auto) 0.02 K/uL (0-0.5) Basophils # (Auto) 0.03 K/uL (0-0.2) RDW Standard Deviation 42.5 fL (36.4-46.3) RDW Coefficient of Variation 14.0 % (11.5-14.5) Immature Granulocyte % (Auto) 0.8 % Immature Granulocyte # (Auto) 0.04 K/uL (0.00-0.02) Anion Gap 11.0 mmol/L (3-11) Est Creatinine Clear Calc Drug Dose 75.8 ml/min Estimated GFR () 110.7 Estimated GFR (Non- 95.5 BUN/Creatinine Ratio 18.2 (10-20) Calcium Level 8.7 mg/dl (8.5-10.1) Magnesium Level 1.8 mg/dl (1.8-2.4) Date/Time Source Procedure Growth Status 03/06/17 20:25 Urine , Clean Catch Urine Culture - Final Escherichia Coli Complete Assessment & Plan This is a 66yo F with a PMH of HTN, HLD, asthma, h/o gastric ulcers and dysphagia who presents with poor PO intake and generalized weakness. 1. Weakness: likely multifactorial. Per family she is not eating much and is very deconditioned. Cont to encourage PO intake. PT/OT. Nutrition consult ordered, however, patient is non-compliant with diet or supplement recs. 2. Dysphagia/Odynophagia: per TRANSCRIPTION SPECIALIST and Neuro discussion there is no indication for a video swallow study at this time. Per Neuro there is no evidence of a neuromuscular disorder at this time. Workup still pending completion. Per GI, repeat EGD with dilation was performed this morning and patient states that she feels better. She is currently eating pudding and ice cream slowly. She claims that she can swallow this food without issue but that she cannot swallow a pill. She cannot identify for me exactly where her issue is-throat, esophagus , etc. She states this has been an ongoing issue for her since shortly after she got her teeth removed two years ago, but cannot identify for me where things began to get worse. she continues to reference mucous coming up and continues to express respiratory secretions forcefully every 5 minutes or so. IF she is having some pain, this forceful production is likely contributing. GI cocktail ordered PRN and she states this does help her some. Will consider Baclofen trial, however, I need to get a clear understanding from her first and she was too busy on her cell phone this evening answering calls. We decided it was best to continue the conversation tomorrow. 3. HTN-controlled. Holding Norvasc to minimize PO intake. 4. Depression/Anxiety-cont Lexapro 5. h/o PUD-Pepcid switched to PPI. Sulcralfate ordered 6. E coli UTI-some confusion present, poss related to infection. Will switch to cipro. 7. Abdominal discomfort likely 2/2 constipation-pt refuses to ambulate because of lightheadedness. Refuses enema and PO meds and liquids are still tenuous for her. Suppository ordered now and PRN. Encouraged to ambulate when able. DVT Ppx: Lovenox SQ Code status: FULL PCP: Diaz Dispo: Plan to return home once medically stable. Annmarie Agustin DO [facility] Hospitalist Consultants: Neuro Speech therapy Current Inpatient Medications: Current Inpatient Medications Medications (Trade) Dose Ordered Sig/Jose Route Start Time Stop Time Status Last Admin Dose Admin Acetaminophen (Tylenol Tab) 650 mg Q4H PRN PO 03/06/17 17:15 04/05/17 17:14 03/08/17 19:49 650 MG Ondansetron HCl (Zofran Inj) 4 mg Q6H PRN IV 03/06/17 17:15 04/05/17 17:14 03/07/17 21:06 4 MG Enoxaparin Sodium (Lovenox Inj) 40 mg HS SC 03/06/17 21:00 04/05/17 20:59 Future hold 03/10/17 21:03 40 MG Hydralazine HCl (HydrALAZINE INJ) 5 mg Q6 PRN IV. 03/06/17 19:45 04/05/17 19:44 Albuterol (Ventolin Hfa Inhaler) 2 puffs Q4H PRN INH 03/06/17 20:30 04/05/17 20:29 Amlodipine Besylate (Norvasc Tab) 2.5 mg DAILY PO 03/07/17 09:00 04/06/17 08:59 Future Hold 03/10/17 08:02 2.5 MG Escitalopram Oxalate (Lexapro Tab) 20 mg DAILY PO 03/07/17 09:00 04/06/17 08:59 03/11/17 12:50 20 MG Fluticasone Propionate (Flovent Hfa 220MCG Inhaler) 1 puffs BID INH 03/06/17 21:00 04/05/17 20:59 03/11/17 07:24 1 PUFFS Simvastatin (Zocor Tab) 20 mg HS PO 03/06/17 21:00 04/05/17 20:59 Future Hold 03/09/17 20:11 20 MG Ceftriaxone Sodium 1 gm/ Dextrose 50 ml @ 100 mls/hr Q24H IV 03/06/17 22:00 03/16/17 21:59 03/10/17 22:05 100 MLS/HR Scopolamine (Transderm-Scop Patch) 1.5 mg Q72H TD 03/07/17 15:15 04/06/17 15:14 03/10/17 16:02 1.5 MG Miscellaneous (Remove Transderm-Scop Patch) 1 ea Q72H N/A 1/20/18 15:15 04/06/17 15:14 03/10/17 14:57 1 EA Miscellaneous Information (Check Scopolamine Patch Placement) 1 ea QS N/A 03/07/17 16:00 04/06/17 15:59 03/11/17 16:24 1 EA Enteral Nutritional Formula (Boost) 1 can TID PO 03/07/17 21:00 04/06/17 20:59 03/08/17 19:39 1 CAN Sucralfate (Carafate Susp) 1 gm QID PO 03/09/17 21:00 04/08/17 20:59 03/10/17 08:01 1 GM Miconazole Nitrate (Desenex Powder) 1 appln PRN PRN EXT 03/10/17 12:00 04/09/17 11:59 03/10/17 12:45 1 APPLN Potassium Chloride/Dextrose/ Sod Cl 1,000 ml @ 125 mls/hr Q8H IV 03/10/17 15:45 04/09/17 15:44 03/11/17 10:41 125 MLS/HR Pantoprazole Sodium 40 mg/ Syringe 10 ml @ 5 mls/min DAILY@11 IV 03/11/17 11:00 04/10/17 10:59 03/11/17 10:41 5 MLS/MIN Al Hydroxide/Mg Hydroxide/ Lidocaine HCl/ Barcode Q8H PRN PO 03/10/17 16:00 04/09/17 15:59 03/11/17 12:00 24 ML
[2017-03-11 19:34] VITALS: BP 121/72; PULSE 94; TEMP 36.5; O2SAT 100
[2017-03-11] MEDS: ENOXAPARIN 40 MG/0.4 ML SYR SC SCH (21:06)
[2017-03-11] MEDS: CIPROFLOXACIN 500 MG TAB PO SCH (21:10)
[2017-03-11 23:19] VITALS: BP 139/92; PULSE 108; TEMP 36.8; O2SAT 99
[2017-03-12] MEDS: ONDANSETRON INJ 2 MG/ML 2 ML VIAL IV PRN (00:34)
[2017-03-12] MEDS: D5NSS + 20MEQ KCL 1,000 ML IV SCH ×3 (02:02→16:44)
[2017-03-12 04:48] VITALS: BP 130/83; PULSE 92; TEMP 36.6; O2SAT 98
[2017-03-12 07:19] VITALS: BP 133/67; PULSE 96; TEMP 36.4; O2SAT 99
[2017-03-12] MEDS: CHECK SCOPOLAMINE PATCH PLACEMENT SCH ×2 (07:46→16:45)
[2017-03-12] MEDS: ESCITALOPRAM OXALATE 10 MG TAB PO SCH (08:05)
[2017-03-12] MEDS: BOOST VANILLA PO SCH ×3 (08:06→20:53)
[2017-03-12] MEDS: FLUTICASONE HFA 220 MCG INHALER INH SCH ×2 (08:06→20:53)
[2017-03-12] MEDS: CIPROFLOXACIN 500 MG TAB PO SCH (08:06)
[2017-03-12] MEDS: SUCRALFATE 1 GM/10 ML UDC PO SCH ×4 (08:07→20:53)
[2017-03-12 11:28] VITALS: BP 136/86; PULSE 92; TEMP 36.3; O2SAT 100
--- NOTE | 2017-03-12 12:02 | Psychiatric Consultation ---
Consultation Date of Consultation Mar 12, 2017. Identifying Data 66-year-old woman with multiple chronic medical conditions as listed below, who is admitted with poor by mouth intake, 30+ pound weight loss, weakness and reports of dysphagia. We are consulted to evaluate anxiety. Information is gathered from the electronic medical record, and the patient, and considered to be reliable. Chief Complaint "Not so good.". History of Present Illness The patient is a 66-year-old woman with multiple medical conditions including hypertension, dyslipidemia, asthma, gastric ulcers, dysphasia, who was brought to the emergency room because of severe impairment to her by mouth intake with a 30 pound weight loss. She had her teeth removed in the summer, is edentulous and this coincided with a period of time in which she was developing a difficulty swallowing. She tells me that she can swallow things like putting N soup, but does not swallowing solids. She has trouble manipulating her own saliva and even during the interview is having to spit saliva into a tissue or an emesis based. She has been seen by neurology, Dr. Almonte, who postulates that she may have a tic disorder with blepharospasm and throat clearing and will also proceed with a myasthenia workup. She has been seen by GI, who did an EGD, with no abnormal findings. At the time I see the patient, she is seated in the bedside chair. She says she rarely lays down even to sleep because of her difficulty swallowing. She says that her mood is "not so good" and admits that she has had intermittent suicidal thoughts although cannot give a good timeline to this. She denies any plan or intent. She describes herself as nervous and says that she was seen by a psychiatrist at the age of 15 because of "bad nerves" and also symptomatic with being unable to eat. She could not remember whether it was because she had a mechanical issue swallowing similar to now or whether she simply had no appetite. She reports chronic problems with sleep, specifically staying asleep and this is gone on for years. She has low energy, generally just sits on the couch and watches TV all day. In inquiring about hallucinations it is not clear to me that she's ever had clear hallucinations but said that a "couple of times" she thought she heard things. She is unable to tell me what she heard or in what setting. She does not currently see a psychiatrist. She does admit to some stressors in her life right now. Her oldest son, Fermin, who is in his 40s is now living with them for the last year. He is unable to get a job and support himself. The patient gets nervous when he has friends over since she doesn't know them and worries that they'll do something she doesn't like. She has talked with him about this but it seems that he hasn't changed his behaviors. She indicates that she has other stressors but is unable really to explain that. She has a with whom she lives as well. Her PCP, Dr. Mcleod, has her on Lexapro 20 mg daily which she has been on for possibly as long as 4 or 5 months. She does not think this has been significantly helpful. Past Psychiatric History Current OP Treatment: no current treatment Prior OP Treatment: psychiatrist Prior Psych Hospitalizations: none Suicide Attempts: No Past Medication Trials Cannot remember Past Medical/Surgical History (1) Dyslipidemia (2) Gastric ulcer (3) Hypertension (4) Tremor (5) Generalized weakness (6) Dysphagia Allergies Allergies: Coded Allergies: Latex (Verified Allergy, Mild, RASH, 03/03/17) Aspirin (Verified Allergy, Unknown, HX OF STOMACH ULCERS-NOT ALLOW TO TAKE , 03/03/17) Home Medications Scheduled Amlodipine Besylate (Norvasc), 2.5 MG PO DAILY Cholecalciferol (D 1999), 2,000 UNITS PO DAILY Escitalopram Oxalate (Lexapro), 20 MG PO DAILY Famotidine (Pepcid), 5 ML PO HS Fluticasone Propionate (Flovent Hfa), 1 PUFF INH BID Simvastatin (Zocor), 20 MG PO HS Scheduled PRN Albuterol Hfa (Ventolin Hfa), 2 PUFFS INH Q4H PRN for Shortness of Breath Family History Cancer History of Suicide: No History of Substance Abuse: No Psychiatric History: Yes (mother with depression) Alcohol Use Alcohol Use In Past 12 Months: No Smoking Use Smoking Status: Unknown if Ever Smoked Personal History Lives in: [facility] with her and son Education: started high school 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 Relationship History: Psychological Trauma History: Denies Hx Traumatic Event Review of Systems Constitutional: malaise Eyes: reports: other (keeps eyes squinted shot) ENT: reports: other (difficulty swallowing, as if something is stuck) Cardiovascular: denies: no symptoms reported, see HPI, chest pain, chest tightness, chest pressure, diaphoresis, palpitations, syncope, other Respiratory: denies: no symptoms reported, see HPI, cough, orthopnea, short of breath, stridor, wheezing, sputum production, cyanosis, ZABALA, PND, other Gastrointestinal: other (anorexia) Genitourinary - Female: denies: no symptoms, see HPI, rash, amenorrhea, dysmenorrhea, menorrhagia, metrorrhagia, , vaginal bleeding, vaginal itching, vaginal discharge, vulvadynia, other Musculoskeletal: denies no symptoms reported, denies see HPI, denies back pain , denies gout, denies joint pain, denies joint swelling, denies muscle pain, denies muscle stiffness, denies neck pain, denies other Integumentary: denies no symptoms reported, denies see HPI, denies change in color, denies change in hair/nails, denies dryness, denies lesions, denies lumps , denies rash, denies other Neurologic: reports: tremors, general weakness Endocrine: denies: no symptoms, as stated in HPI, cold intolerance, heat intolerance, hair changes, goiter, polydipsia, polyuria, skin changes, other Hematologic / Lymphatic: denies: no symptoms, as stated in HPI, abnormal clotting, adenopathy, anemia, easy bleeding, easy bruising, gums bleeding, petechiae, other Examination Vital Signs Vital Signs Past 12 Hours Date Time Temp Pulse Resp B/P (MAP) Pulse Ox O2 Delivery O2 Flow Rate FiO2 03/12/17 11:28 36.3 92 20 136/86 (103) 100 03/12/17 08:00 Room Air 03/12/17 07:19 36.4 96 18 133/67 (89) 99 03/12/17 04:48 36.6 92 20 130/83 (99) 98 Room Air 03/12/17 04:00 Room Air 03/12/17 00:00 Room Air Laboratory Results 03/10/17 06:55 Red Blood Count 4.09, Mean Corpuscular Volume 83.4, Mean Corpuscular Hemoglobin 30.1, Mean Corpuscular Hemoglobin Concent 36.1, Mean Platelet Volume 11.0, Neutrophils (%) (Auto) 73.5, Lymphocytes (%) (Auto) 20.9, Monocytes (%) (Auto) 3.8, Eosinophils (%) (Auto) 0.4, Basophils (%) (Auto) 0.6, Neutrophils # (Auto) 3.48, Lymphocytes # (Auto) 0.99, Monocytes # (Auto) 0.18, Eosinophils # (Auto) 0.02, Basophils # (Auto) 0.03 03/10/17 06:55 Test 03/06/17 18:14 03/06/17 20:25 03/07/17 06:29 03/08/17 05:38 Prothrombin Time 12.7 SECONDS (9.0-12.0) Prothromb Time International Ratio 1.2 (0.9-1.1) Activated Partial Thromboplast Time 30.1 SECONDS (21.0-31.0) Partial Thromboplastin Ratio 1.2 Lipase 364 U/L (73-393) Urine Color ORANGE Urine Appearance CLOUDY (CLEAR) Urine pH 5.0 (4.5-7.5) Urine Specific [place] 1.026 (1.000-1.030) Urine Protein NEG (NEG) Urine Glucose (UA) NEG (NEG) Urine Ketones 1+ (NEG) Urine Occult Blood NEG (NEG) Urine Nitrite POS (NEG) Urine Bilirubin NEG (NEG) Urine Urobilinogen NEG (NEG) Urine Leukocyte Esterase MODERATE (NEG) Urine WBC (Auto) 10-30 /hpf (0-5) Urine RBC (Auto) 5-10 /hpf (0-4) Urine Hyaline Casts (Auto) 5-10 /lpf (0-5) Urine Epithelial Cells (Auto) >30 /lpf (0-5) Urine Bacteria (Auto) 1+ (NEG) Total Bilirubin 1.4 mg/dl (0.2-1) Aspartate Amino Transf (AST/SGOT) 20 U/L (15-37) Alanine Aminotransferase (ALT/SGPT) 33 U/L (12-78) Alkaline Phosphatase 82 U/L (45-117) Total Protein 6.8 gm/dl (6.4-8.2) Albumin 2.8 gm/dl (3.4-5.0) Globulin 4.0 gm/dl (2.5-4.0) Albumin/Globulin Ratio 0.7 (0.9-2) Test 03/09/17 07:09 03/10/17 06:55 Phosphorus Level 2.9 mg/dl (2.5-4.9) White Blood Count 4.74 K/uL (4.8-10.8) Red Blood Count 4.09 M/uL (4.2-5.4) Hemoglobin 12.3 g/dL (12.0-16.0) Hematocrit 34.1 % (37-47) Mean Corpuscular Volume 83.4 fL (80-100) Mean Corpuscular Hemoglobin 30.1 pg (25-34) Mean Corpuscular Hemoglobin Concent 36.1 g/dl (32-36) Platelet Count 156 K/uL (130-400) Mean Platelet Volume 11.0 fL (7.4-10.4) Neutrophils (%) (Auto) 73.5 % Lymphocytes (%) (Auto) 20.9 % Monocytes (%) (Auto) 3.8 % Eosinophils (%) (Auto) 0.4 % Basophils (%) (Auto) 0.6 % Neutrophils # (Auto) 3.48 K/uL (1.4-6.5) Lymphocytes # (Auto) 0.99 K/uL (1.2-3.4) Monocytes # (Auto) 0.18 K/uL (0.11-0.59) Eosinophils # (Auto) 0.02 K/uL (0-0.5) Basophils # (Auto) 0.03 K/uL (0-0.2) RDW Standard Deviation 42.5 fL (36.4-46.3) RDW Coefficient of Variation 14.0 % (11.5-14.5) Immature Granulocyte % (Auto) 0.8 % Immature Granulocyte # (Auto) 0.04 K/uL (0.00-0.02) Anion Gap 11.0 mmol/L (3-11) Est Creatinine Clear Calc Drug Dose 75.8 ml/min Estimated GFR () 110.7 Estimated GFR (Non- 95.5 BUN/Creatinine Ratio 18.2 (10-20) Calcium Level 8.7 mg/dl (8.5-10.1) Magnesium Level 1.8 mg/dl (1.8-2.4) Date/Time Source Procedure Growth Status 03/06/17 20:25 Urine , Clean Catch Urine Culture - Final Escherichia Coli Complete Mental Examination During interview pt is: alert and oriented, cooperative Appearance: appropriately dressed, appropriately groomed Eye contact is: poor (keeps eyes closed through most of the interview. When asked to keep them open she is unable to do so for more than 5-10 seconds) Motor behavior is: tremor, other (lip smacking) Speech: normal in rate, rhythm & volume Affect: depressed, flat Mood is: depressed Thought process: goal directed Thought content: reality based without delusions Suicidal thought are: present, Plan: denied, Intent: denied Homicidal thoughts are: denied Hallucinations: denies auditory, denies visual Cognition: attention grossly intact, language grossly intact Intelligence estimated to be: average Insight: limited Judgement: limited Impression / Recommendations Impression 66-year-old woman admitted with poor by mouth intake resulting in a 30 pound weight loss, weakness, dysphasia. Neurology is on board pursuing workup of myasthenia, possible tic disorder. GI confined no functional cause for her swallowing issues. One consideration is that this could be an anxiety symptom, a globus hystericus, that makes her feel like something is in her throat. She does present as anxious and says for the last year having her son living in her home is causing her anxiety. I like the Lexapro that she is on but I suggest we add a little bit of Remeron 7.5 mg twice a day which I hope will calm during the day and aid in sleep at bedtime. It is also somewhat calming to the GI system if that is of any benefit to her in her swallowing and eating. One could consider layering on an atypical antipsychotic such as Abilify to target mood and anxiety however her QTC is already prolonged at 493 ms. When I am able to get her to open her eyes, look at me while we talked, she talks with more vigor and seems more engaged, but then she retreats to closing her eyes and experiencing her internal sensations. I wonder at some point if she wouldn' t benefit from a therapist with whom she could talk, but clearly at this point it would be premature. I will add the Remeron as the patient is in agreement and check back tomorrow. Recommendations (1) Unspecified mood [affective] disorder 03/12 - Continue Lexapro 20 mg daily - Will add Remeron to 7.5 mg twice a day to target mood, anxiety, possible globus hystericus and appetite - Will see again tomorrow - Liaison nurse will get supplemental information from - The patient has a tendency to disengage from her environment. Would encourage the patient to be up and ambulating when possible (2) Anxiety disorder, unspecified 03/12 - C recommendations above Dr. Dana Martinez is personally been involved in the review of the above case and in development of recommendations.
[2017-03-12] MEDS ORDERED: MIRTAZAPINE TAB 15 MG TAB PO ONE (12:15)
[2017-03-12 15:08] VITALS: BP 105/75; PULSE 92; TEMP 35.9; O2SAT 99
--- NOTE | 2017-03-12 19:10 | Progress Note ---
Medicine Progress Note Date & Time of Visit: Mar 12, 2017 at 16:27. Subjective seems somewhat better today although not much son is feeding her and she is swallowing without issue at bedside and both realize they can't take care of her like this. pt didn't respond much to my questions on how she was doing denies any throat or chest pain today states that she can eat "no problem" max assist per nursing and very fatigued today family believes she has a mental block and is scared to eat. Objective Last 8 Hrs Date Time Temp Pulse Resp B/P (MAP) Pulse Ox O2 Delivery O2 Flow Rate FiO2 03/12/17 15:08 35.9 92 16 105/75 (85) 99 Room Air 03/12/17 12:00 Room Air 03/12/17 11:28 36.3 92 20 136/86 (103) 100 Physical Exam: GEN: obese, in no acute distress, generalized weakness, alert and appropriate HEENT: NC/AT, normal sclerae, MMM moist and pulling thick secretions from her mouth, frequently hacks up but nonproductive. CARDIO: reg rate, S1/2 heard without m/g/r LUNGS: CTA bilaterally, no crackles, rales or wheezes, good diaphragmatic excursion ABD: soft, mils lower TTP, non-distended, no rebound or guarding, +BS EXTREMITY: RP and DP palpable 2+ bilat, no LE swelling or edema, extremities are warm and well-perfused NEURO: CN 2-12 grossly intact, no gross focal deficit MUSC: generalized weakness which appears somewhat improved today. She is able to sit up on her own-an improvement from yesterday SKIN: warm and dry Laboratory Results: 03/10/17 06:55 Red Blood Count 4.09, Mean Corpuscular Volume 83.4, Mean Corpuscular Hemoglobin 30.1, Mean Corpuscular Hemoglobin Concent 36.1, Mean Platelet Volume 11.0, Neutrophils (%) (Auto) 73.5, Lymphocytes (%) (Auto) 20.9, Monocytes (%) (Auto) 3.8, Eosinophils (%) (Auto) 0.4, Basophils (%) (Auto) 0.6, Neutrophils # (Auto) 3.48, Lymphocytes # (Auto) 0.99, Monocytes # (Auto) 0.18, Eosinophils # (Auto) 0.02, Basophils # (Auto) 0.03 03/10/17 06:55 Test 03/06/17 18:14 03/06/17 20:25 03/07/17 06:29 03/08/17 05:38 Prothrombin Time 12.7 SECONDS (9.0-12.0) Prothromb Time International Ratio 1.2 (0.9-1.1) Activated Partial Thromboplast Time 30.1 SECONDS (21.0-31.0) Partial Thromboplastin Ratio 1.2 Lipase 364 U/L (73-393) Urine Color ORANGE Urine Appearance CLOUDY (CLEAR) Urine pH 5.0 (4.5-7.5) Urine Specific [place] 1.026 (1.000-1.030) Urine Protein NEG (NEG) Urine Glucose (UA) NEG (NEG) Urine Ketones 1+ (NEG) Urine Occult Blood NEG (NEG) Urine Nitrite POS (NEG) Urine Bilirubin NEG (NEG) Urine Urobilinogen NEG (NEG) Urine Leukocyte Esterase MODERATE (NEG) Urine WBC (Auto) 10-30 /hpf (0-5) Urine RBC (Auto) 5-10 /hpf (0-4) Urine Hyaline Casts (Auto) 5-10 /lpf (0-5) Urine Epithelial Cells (Auto) >30 /lpf (0-5) Urine Bacteria (Auto) 1+ (NEG) Total Bilirubin 1.4 mg/dl (0.2-1) Aspartate Amino Transf (AST/SGOT) 20 U/L (15-37) Alanine Aminotransferase (ALT/SGPT) 33 U/L (12-78) Alkaline Phosphatase 82 U/L (45-117) Total Protein 6.8 gm/dl (6.4-8.2) Albumin 2.8 gm/dl (3.4-5.0) Globulin 4.0 gm/dl (2.5-4.0) Albumin/Globulin Ratio 0.7 (0.9-2) Test 03/09/17 07:09 03/10/17 06:55 Phosphorus Level 2.9 mg/dl (2.5-4.9) White Blood Count 4.74 K/uL (4.8-10.8) Red Blood Count 4.09 M/uL (4.2-5.4) Hemoglobin 12.3 g/dL (12.0-16.0) Hematocrit 34.1 % (37-47) Mean Corpuscular Volume 83.4 fL (80-100) Mean Corpuscular Hemoglobin 30.1 pg (25-34) Mean Corpuscular Hemoglobin Concent 36.1 g/dl (32-36) Platelet Count 156 K/uL (130-400) Mean Platelet Volume 11.0 fL (7.4-10.4) Neutrophils (%) (Auto) 73.5 % Lymphocytes (%) (Auto) 20.9 % Monocytes (%) (Auto) 3.8 % Eosinophils (%) (Auto) 0.4 % Basophils (%) (Auto) 0.6 % Neutrophils # (Auto) 3.48 K/uL (1.4-6.5) Lymphocytes # (Auto) 0.99 K/uL (1.2-3.4) Monocytes # (Auto) 0.18 K/uL (0.11-0.59) Eosinophils # (Auto) 0.02 K/uL (0-0.5) Basophils # (Auto) 0.03 K/uL (0-0.2) RDW Standard Deviation 42.5 fL (36.4-46.3) RDW Coefficient of Variation 14.0 % (11.5-14.5) Immature Granulocyte % (Auto) 0.8 % Immature Granulocyte # (Auto) 0.04 K/uL (0.00-0.02) Anion Gap 11.0 mmol/L (3-11) Est Creatinine Clear Calc Drug Dose 75.8 ml/min Estimated GFR () 110.7 Estimated GFR (Non- 95.5 BUN/Creatinine Ratio 18.2 (10-20) Calcium Level 8.7 mg/dl (8.5-10.1) Magnesium Level 1.8 mg/dl (1.8-2.4) Date/Time Source Procedure Growth Status 03/06/17 20:25 Urine , Clean Catch Urine Culture - Final Escherichia Coli Complete Assessment & Plan This is a 66yo F with a PMH of HTN, HLD, asthma, h/o gastric ulcers and dysphagia who presents with poor PO intake and generalized weakness. 1. Weakness 2/2 severe protein-calorie malnutrition: Deconditioned. PT/OT recommend rehab and case Management is working on some options. does not feel he can care for her at home like this so may be more than a temporary situation? 2. Dysphagia/Odynophagia: per [employer] OPERATOR and Neuro discussion there is no indication for a video swallow study at this time. Per Neuro there is no evidence of a neuromuscular disorder at this time. Workup still pending completion on that end. Per GI, repeat EGD with dilation was performed 03/11 and patient seems improved. I watched her take multiple bites successfully. She has no reports of pain or feeling dysphagia. But now she states that she just doesn't want to eat quickly. She appears to continually have a roadblock to food setup and this may be something deeper than mechanical. Psych saw her today-greatly appreciate their recs and starting her on mirtazapine which may also help to stimulate appetite. She is a very poor historian and gets purposely distracted or shuts down and stops looking at me when she can't or won't give and answer to a question. It is still a mystery why she won't eat regularly. Coughing up secretions appears to have slowed somewhat today. Review of the record does reveal tertiary contractions on a barium swallow last year and the radiologist did note that her aortic arch appeared to be pushing in on her esophagus extrinsically. Will discuss with Neuro further. 3. HTN-Norvasc 4. Depression/Anxiety-cont Lexapro. Mirtazapine 7.5mg PO bID added per Neuro. 5. h/o PUD-Pepcid switched to PPI. Sulcralfate ordered 6. E coli UTI-Cipro 7. Abdominal discomfort likely 2/2 constipation-resolved after suppository and bowel movement. DVT Ppx: Lovenox SQ Code status: FULL PCP: Diaz Dispo: Plan for SNF at discharge likely in next 1-2 days. Transfer to med/surg. DO Bandar Nash Hospitalist Consultants: Neuro-Amandeep Speech therapy GI-Samuel Current Inpatient Medications: Current Inpatient Medications Medications (Trade) Dose Ordered Sig/Jose Route Start Time Stop Time Status Last Admin Dose Admin Acetaminophen (Tylenol Tab) 650 mg Q4H PRN PO 03/06/17 17:15 04/05/17 17:14 03/08/17 19:49 650 MG Ondansetron HCl (Zofran Inj) 4 mg Q6H PRN IV 03/06/17 17:15 04/05/17 17:14 03/12/17 00:34 4 MG Enoxaparin Sodium (Lovenox Inj) 40 mg HS SC 03/06/17 21:00 04/05/17 20:59 Future hold 03/11/17 21:06 40 MG Hydralazine HCl (HydrALAZINE INJ) 5 mg Q6 PRN IV. 03/06/17 19:45 04/05/17 19:44 Albuterol (Ventolin Hfa Inhaler) 2 puffs Q4H PRN INH 03/06/17 20:30 04/05/17 20:29 Amlodipine Besylate (Norvasc Tab) 2.5 mg DAILY PO 03/07/17 09:00 04/06/17 08:59 Future Hold 03/10/17 08:02 2.5 MG Escitalopram Oxalate (Lexapro Tab) 20 mg DAILY PO 03/07/17 09:00 04/06/17 08:59 03/12/17 08:05 20 MG Fluticasone Propionate (Flovent Hfa 220MCG Inhaler) 1 puffs BID INH 03/06/17 21:00 04/05/17 20:59 03/12/17 08:06 1 PUFFS Scopolamine (Transderm-Scop Patch) 1.5 mg Q72H TD 03/07/17 15:15 04/06/17 15:14 03/10/17 16:02 1.5 MG Miscellaneous (Remove Transderm-Scop Patch) 1 ea Q72H N/A 03/07/17 15:15 04/06/17 15:14 03/10/17 14:57 1 EA Miscellaneous Information (Check Scopolamine Patch Placement) 1 ea QS N/A 03/07/17 16:00 04/06/17 15:59 03/12/17 07:46 1 EA Enteral Nutritional Formula (Boost) 1 can TID PO 03/07/17 21:00 04/06/17 20:59 03/08/17 19:39 1 CAN Sucralfate (Carafate Susp) 1 gm QID PO 03/09/17 21:00 04/08/17 20:59 03/10/17 08:01 1 GM Miconazole Nitrate (Desenex Powder) 1 appln PRN PRN EXT 03/10/17 12:00 04/09/17 11:59 03/10/17 12:45 1 APPLN Potassium Chloride/Dextrose/ Sod Cl 1,000 ml @ 125 mls/hr Q8H IV 03/10/17 15:45 04/09/17 15:44 03/12/17 09:38 125 MLS/HR Al Hydroxide/Mg Hydroxide/ Lidocaine HCl/ Barcode Q8H PRN PO 03/10/17 16:00 04/09/17 15:59 03/11/17 12:00 24 ML Bisacodyl (Dulcolax Supp) 10 mg DAILY PRN IL 03/11/17 17:30 04/10/17 17:29 Polyethylene (Miralax Powder Packet) 17 gm DAILY PRN PO 03/11/17 17:30 04/10/17 17:29 Ciprofloxacin (Cipro Tab) 500 mg BID PO 03/11/17 21:00 03/16/17 20:59 03/12/17 08:06 500 MG Mirtazapine (Remeron Tab) 7.5 mg BID PO 03/12/17 21:00 04/11/17 20:59
[2017-03-12] MEDS: MIRTAZAPINE TAB 15 MG TAB PO SCH (20:54)
[2017-03-12] MEDS: ENOXAPARIN 40 MG/0.4 ML SYR SC SCH (20:54)
[2017-03-13 00:58] VITALS: BP 129/87; PULSE 88; TEMP 36.8; O2SAT 100
[2017-03-13] MEDS: D5NSS + 20MEQ KCL 1,000 ML IV SCH ×4 (01:46→23:52)
[2017-03-13 05:48] LABS: HEMATOCRIT 32.4 % (37-47); HEMOGLOBIN 11.5 g/dL (12.0-16.0); MEAN CELL VOLUME 83.1 fL (80-100); MEAN CORPUSCULAR HEMOGLOBIN 29.5 pg (25-34); MEAN CORPUSCULAR HGB CONC 35.5 g/dl (32-36); MEAN PLATELET VOLUME 11.2 fL (7.4-10.4); PLATELET COUNT 117 K/uL (130-400); RED CELL DISTRIBUTION WIDTH CV 14.3 % (11.5-14.5); RED CELL DISTRIBUTION WIDTH SD 43.1 fL (36.4-46.3); WHITE BLOOD COUNT 5.72 K/uL (4.8-10.8)
[2017-03-13 06:25] LABS: CALCIUM 8.5 mg/dl (8.5-10.1); CREATININE 0.74 mg/dl (0.60-1.20); POTASSIUM 3.4 mmol/L (3.5-5.1)
[2017-03-13 06:39] LABS: PHOSPHORUS 1.6 mg/dl (2.5-4.9)
[2017-03-13 07:40] VITALS: BP 141/99; PULSE 86; TEMP 36.6; O2SAT 100
[2017-03-13] MEDS: MIRTAZAPINE TAB 15 MG TAB PO SCH ×2 (07:55→21:54)
[2017-03-13] MEDS: ESCITALOPRAM OXALATE 10 MG TAB PO SCH (07:56)
[2017-03-13] MEDS: SUCRALFATE 1 GM/10 ML UDC PO SCH ×4 (07:57→21:53)
[2017-03-13] MEDS: FLUTICASONE HFA 220 MCG INHALER INH SCH ×2 (07:58→21:54)
[2017-03-13] MEDS: BOOST VANILLA PO SCH ×3 (09:00→21:00)
[2017-03-13] MEDS ORDERED: SODIUM PHOSPHATE IV SCH (10:00)
[2017-03-13] MEDS ORDERED: [UNRECOGNIZED DRUG - OTHER] IV SCH (10:00)
[2017-03-13] MEDS ORDERED: MAG SULFATE IV SCH (10:00)
--- NOTE | 2017-03-13 11:12 | Psychiatric Progress Notes ---
Psychiatric Progress Note Date of Service Mar 13, 2017. Notes ID: Patient reviewed with OSWALDO Almonte who completed initial consult on . CC: swallowing issues HPI: [] ROS: [] MSE: [] Imp: [] Plan: []
--- NOTE | 2017-03-13 11:21 | DIAGNOSTIC IMAGING REPORT ---
CT SCAN OF THE CHEST, ABDOMEN, AND PELVIS WITHOUT IV CONTRAST CLINICAL HISTORY: Persistent weight loss. Diminished appetite. COMPARISON STUDY: Chest x-ray dated 03/06/2017. Abdominal CT dated 02/13/2017. TECHNIQUE: CT scan of the chest, abdomen, and pelvis was performed from the thoracic inlet to the proximal femora. Images are reviewed in the axial, sagittal, and coronal planes. IV contrast was not administered as per the referring clinician. Note that the examination was performed in suboptimal fashion without oral and IV contrast. Automated dose control exposure was utilized. A dose lowering technique was utilized adhering to the principles of ALARA. CT DOSE: 602.36 mGy.cm FINDINGS: CHEST: Thyroid: Imaged portions of the thyroid gland are normal in size and attenuation. Thoracic aorta: There is mild atherosclerotic calcification of the thoracic aorta, which is normal in caliber and demonstrates 3-vessel variant arch anatomy. There is a bovine arch, and the left vertebral artery arises directly from the thoracic aorta. Heart: The heart is top normal in size and there is trace pericardial effusion. There are coronary artery calcifications. Lungs and pleural spaces: There is no airspace consolidation typical for pneumonia. A 2.0 cm cyst is noted in the left lower lobe. A calcific granuloma is present the right lung base. Small pleural effusions are identified with bibasilar atelectasis. Minimal secretions are present within the trachea. Mediastinum: There is no mediastinal lymphadenopathy. Jolene: Not well assessed without IV contrast. Axillae: There is no axillary lymphadenopathy. Bony thorax: The skeletal structures are osteopenic. Degenerative change is seen in the shoulders and thoracic spine. No lytic or blastic lesions are identified. ABDOMEN AND PELVIS: Liver: The unenhanced liver is normal in size, contour, and attenuation. There is no intrahepatic or ductal dilatation. Gallbladder: Unremarkable. Spleen: Normal in size and attenuation. Pancreas: Unremarkable. Adrenal glands: Unremarkable. Kidneys: The unenhanced kidneys demonstrate cortical atrophy. There is moderate to severe bilateral hydroureteronephrosis. The ureters are dilated to the markedly distended bladder. No renal calculi are identified. There is no evidence of contour deforming mass lesion. Abdominal vasculature: The abdominal aorta is normal in course and caliber noting moderate to advanced atherosclerotic calcification. Stomach and bowel: A tiny hiatal hernia is noted. The stomach and duodenum otherwise normal in configuration. No bowel obstruction is seen. The appendix is well-visualized and normal. Mild rectal wall thickening is questioned. Peritoneum: There is no intraperitoneal free air. There is a small volume of free fluid in the paracolic gutters bilaterally. Lymphadenopathy: None. Pelvic viscera: The bladder is markedly distended. The uterus is normal as imaged. No adnexal lesion is seen. Findings suggest pelvic floor prolapse. Skeletal structures: The skeletal structures are osteopenic. There is mild to moderate lumbosacral spondylosis. No lytic or blastic lesions are seen. IMPRESSION: 1. Suboptimal examination without oral and IV contrast. 2. There are small pleural effusions. The lungs are otherwise clear. 3. The bladder is markedly distended and grossly unremarkable. 4. There is moderate to severe bilateral hydroureteronephrosis. The ureters are dilated to the bladder, and this is likely related to marked bladder distention. Follow-up with urology is recommended. 5. There is trace free fluid within the paracolic gutter bilaterally. 6. Rectal wall thickening is questioned. Correlate clinically for evidence of proctitis. This could be further assessed with colonoscopy if clinically warranted. 7. Additional findings as above. Electronically signed by: Damon Padilla M.D. 03/13/2017 11:19 AM Dictated Date/Time: 03/13/2017 11:05 AM
--- NOTE | 2017-03-13 12:21 | Progress Note ---
Progress Note Date of Service Mar 13, 2017. (Citlalli Ontiveros ., OSWALDO) Progress Note Pt was seen and evaluated, chart reviewed. No acute complaints. Notes mild improvement of her symptoms w/ EGD w/ dilation. Still is having decreased PO intake. Is tired. Easily awakens to name. Offers no complaints. No fever, chills , CP, SOB. No abdominal pain. No diarrhea, rectal bleeding, melena. CT during admission w/o PO or IV contrast concerning w/ rectal wall thickening and proctitis. Assessment: No acute distress, lungs CTA, heart RRR, abdomen soft, non- distended without tenderness or guarding w/ palpation. Rectal exam deferred per patient 66 year old female with history of dysphagia status post EGD with esophageal dilation. She noted some relief of her dysphagia but still has limited PO intake , due to her weight loss, CT imaging was ordered, there is questions of proctitis. Pt is asymptomatic, no rectal pain, diarrhea, blood in stool, black stools. Pt has never had a colonoscopy before. Pt will need an outpatient colonoscopy as an outpatient. (Citlalli Ontiveros ., OSWALDO) I saw and evaluated the patient with Ms. Ontiveros. We were asked about an abnormal CT scan. It appears that there is evidence of proctitis on CT, the patient is presently without any symptoms. At this point we would suggest an outpatient colonoscopy to 8 weeks once the patient stabilized from her other medical issues. (Fritz Baker, DO)
[2017-03-13 12:33] VITALS: BP 131/95; PULSE 76; O2SAT 95
--- NOTE | 2017-03-13 12:54 | Psychiatric Progress Notes ---
Psychiatric Progress Note Date of Service Mar 13, 2017. Notes ID: Patient reviewed with OSWALDO Almonte who completed initial consult on . CC: swallowing issues HPI: reports sleep is improved, only tolerating soft foods/no meats ROS: denies SI MSE: alert, cooperative, appears older than stated age, had difficulty navigating her remote without glasses, no barnhart Imp: as per initial consult Plan: tolerating addition of Remeron, if daytime sedation could shift total daily dose to hs.
[2017-03-13 15:18] VITALS: BP 120/87; PULSE 96; TEMP 36.6; O2SAT 95
--- NOTE | 2017-03-13 16:46 | DIAGNOSTIC IMAGING REPORT ---
HEAD CT NONCONTRAST CT DOSE: 690.05 mGycm HISTORY: Altered mental status. TECHNIQUE: Multiaxial CT images of the head were performed without the use of intravenous contrast. Automated exposure control was utilized for this study. A dose lowering technique was utilized adhering to the principles of ALARA. Comparison: Brain MRI 03/06/2017. Findings: The paranasal sinuses and mastoid air cells are clear. The calvarium and skull base are intact. The ventricles and sulci are within normal limits. There is no mass, hematoma, midline shift, or acute infarct. Impression: No acute intracranial abnormality. Electronically signed by: Luis Vazquez M.D. 03/13/2017 4:45 PM Dictated Date/Time: 03/13/2017 4:24 PM
--- NOTE | 2017-03-13 18:40 | Progress Note ---
Medicine Progress Note Date & Time of Visit: Mar 13, 2017 at 11:41. Subjective pt not responding to me at all today very difficult to arouse from sleep Objective Last 8 Hrs Date Time Temp Pulse Resp B/P (MAP) Pulse Ox O2 Delivery O2 Flow Rate FiO2 03/13/17 08:00 Room Air 03/13/17 07:40 36.6 86 20 141/99 (113) 100 Physical Exam: GEN: obese, sleeping and dificult to arouse. HEENT: NC/AT, PERRL CARDIO: reg rate, S1/2 heard without m/g/r LUNGS: CTA bilaterally, no crackles, rales or wheezes, good diaphragmatic excursion ABD: soft, generalized TTP but tough to discern-winces to pain, non-distended, no rebound or guarding, +BS EXTREMITY: RP and DP palpable 2+ bilat, no LE swelling or edema, extremities are warm and well-perfused NEURO: obtunded, cannot obtain MUSC: generalized weakness, obtunded SKIN: warm and dry Laboratory Results: 03/13/17 05:28 03/13/17 05:28 Test 03/06/17 18:14 03/06/17 20:25 03/07/17 06:29 03/08/17 05:38 Prothrombin Time 12.7 SECONDS (9.0-12.0) Prothromb Time International Ratio 1.2 (0.9-1.1) Activated Partial Thromboplast Time 30.1 SECONDS (21.0-31.0) Partial Thromboplastin Ratio 1.2 Lipase 364 U/L (73-393) Urine Color ORANGE Urine Appearance CLOUDY (CLEAR) Urine pH 5.0 (4.5-7.5) Urine Specific [place] 1.026 (1.000-1.030) Urine Protein NEG (NEG) Urine Glucose (UA) NEG (NEG) Urine Ketones 1+ (NEG) Urine Occult Blood NEG (NEG) Urine Nitrite POS (NEG) Urine Bilirubin NEG (NEG) Urine Urobilinogen NEG (NEG) Urine Leukocyte Esterase MODERATE (NEG) Urine WBC (Auto) 10-30 /hpf (0-5) Urine RBC (Auto) 5-10 /hpf (0-4) Urine Hyaline Casts (Auto) 5-10 /lpf (0-5) Urine Epithelial Cells (Auto) >30 /lpf (0-5) Urine Bacteria (Auto) 1+ (NEG) Total Bilirubin 1.4 mg/dl (0.2-1) Aspartate Amino Transf (AST/SGOT) 20 U/L (15-37) Alanine Aminotransferase (ALT/SGPT) 33 U/L (12-78) Alkaline Phosphatase 82 U/L (45-117) Total Protein 6.8 gm/dl (6.4-8.2) Albumin 2.8 gm/dl (3.4-5.0) Globulin 4.0 gm/dl (2.5-4.0) Albumin/Globulin Ratio 0.7 (0.9-2) Test 03/10/17 06:55 03/13/17 05:28 Immature Granulocyte % (Auto) 0.8 % White Blood Count 4.74 K/uL (4.8-10.8) Red Blood Count 4.09 M/uL (4.2-5.4) 3.90 M/uL (4.2-5.4) Hemoglobin 12.3 g/dL (12.0-16.0) Hematocrit 34.1 % (37-47) Mean Corpuscular Volume 83.4 fL (80-100) 83.1 fL (80-100) Mean Corpuscular Hemoglobin 30.1 pg (25-34) 29.5 pg (25-34) Mean Corpuscular Hemoglobin Concent 36.1 g/dl (32-36) 35.5 g/dl (32-36) Platelet Count 156 K/uL (130-400) Mean Platelet Volume 11.0 fL (7.4-10.4) 11.2 fL (7.4-10.4) Neutrophils (%) (Auto) 73.5 % Lymphocytes (%) (Auto) 20.9 % Monocytes (%) (Auto) 3.8 % Eosinophils (%) (Auto) 0.4 % Basophils (%) (Auto) 0.6 % Neutrophils # (Auto) 3.48 K/uL (1.4-6.5) Lymphocytes # (Auto) 0.99 K/uL (1.2-3.4) Monocytes # (Auto) 0.18 K/uL (0.11-0.59) Eosinophils # (Auto) 0.02 K/uL (0-0.5) Basophils # (Auto) 0.03 K/uL (0-0.2) Immature Granulocyte # (Auto) 0.04 K/uL (0.00-0.02) RDW Standard Deviation 43.1 fL (36.4-46.3) RDW Coefficient of Variation 14.3 % (11.5-14.5) Anion Gap 9.0 mmol/L (3-11) Est Creatinine Clear Calc Drug Dose 62.2 ml/min Estimated GFR () 97.8 Estimated GFR (Non- 84.4 BUN/Creatinine Ratio 6.2 (10-20) Calcium Level 8.5 mg/dl (8.5-10.1) Phosphorus Level 1.6 mg/dl (2.5-4.9) Magnesium Level 1.6 mg/dl (1.8-2.4) Prealbumin 16.1 mg/dl (20-40) Date/Time Source Procedure Growth Status 03/06/17 20:25 Urine , Clean Catch Urine Culture - Final Escherichia Coli Complete Last 24 Hours Test 03/13/17 05:28 White Blood Count 5.72 K/uL Red Blood Count 3.90 M/uL Hemoglobin 11.5 g/dL Hematocrit 32.4 % Mean Corpuscular Volume 83.1 fL Mean Corpuscular Hemoglobin 29.5 pg Mean Corpuscular Hemoglobin Concent 35.5 g/dl RDW Standard Deviation 43.1 fL RDW Coefficient of Variation 14.3 % Platelet Count 117 K/uL Mean Platelet Volume 11.2 fL Sodium Level 133 mmol/L Potassium Level 3.4 mmol/L Chloride Level 103 mmol/L Carbon Dioxide Level 21 mmol/L Anion Gap 9.0 mmol/L Blood Urea Nitrogen 5 mg/dl Creatinine 0.74 mg/dl Est Creatinine Clear Calc Drug Dose 62.2 ml/min Estimated GFR () 97.8 Estimated GFR (Non- 84.4 BUN/Creatinine Ratio 6.2 Random Glucose 192 mg/dl Calcium Level 8.5 mg/dl Phosphorus Level 1.6 mg/dl Magnesium Level 1.6 mg/dl Prealbumin 16.1 mg/dl Diagnostic Imaging: HEAD CT NONCONTRAST CT DOSE: 690.05 mGycm HISTORY: Altered mental status. TECHNIQUE: Multiaxial CT images of the head were performed without the use of intravenous contrast. Automated exposure control was utilized for this study. A dose lowering technique was utilized adhering to the principles of ALARA. Comparison: Brain MRI 03/06/2017. Findings: The paranasal sinuses and mastoid air cells are clear. The calvarium and skull base are intact. The ventricles and sulci are within normal limits. There is no mass, hematoma, midline shift, or acute infarct. Impression: No acute intracranial abnormality. CT SCAN OF THE CHEST, ABDOMEN, AND PELVIS WITHOUT IV CONTRAST CLINICAL HISTORY: Persistent weight loss. Diminished appetite. COMPARISON STUDY: Chest x-ray dated 03/06/2017. Abdominal CT dated 02/13/2017. TECHNIQUE: CT scan of the chest, abdomen, and pelvis was performed from the thoracic inlet to the proximal femora. Images are reviewed in the axial, sagittal, and coronal planes. IV contrast was not administered as per the referring clinician. Note that the examination was performed in suboptimal fashion without oral and IV contrast. Automated dose control exposure was utilized. A dose lowering technique was utilized adhering to the principles of ALARA. CT DOSE: 602.36 mGy.cm FINDINGS: CHEST: Thyroid: Imaged portions of the thyroid gland are normal in size and attenuation. Thoracic aorta: There is mild atherosclerotic calcification of the thoracic aorta, which is normal in caliber and demonstrates 3-vessel variant arch anatomy. There is a bovine arch, and the left vertebral artery arises directly from the thoracic aorta. Heart: The heart is top normal in size and there is trace pericardial effusion. There are coronary artery calcifications. Lungs and pleural spaces: There is no airspace consolidation typical for pneumonia. A 2.0 cm cyst is noted in the left lower lobe. A calcific granuloma is present the right lung base. Small pleural effusions are identified with bibasilar atelectasis. Minimal secretions are present within the trachea. Mediastinum: There is no mediastinal lymphadenopathy. Jolene: Not well assessed without IV contrast. Axillae: There is no axillary lymphadenopathy. Bony thorax: The skeletal structures are osteopenic. Degenerative change is seen in the shoulders and thoracic spine. No lytic or blastic lesions are identified. ABDOMEN AND PELVIS: Liver: The unenhanced liver is normal in size, contour, and attenuation. There is no intrahepatic or ductal dilatation. Gallbladder: Unremarkable. Spleen: Normal in size and attenuation. Pancreas: Unremarkable. Adrenal glands: Unremarkable. Kidneys: The unenhanced kidneys demonstrate cortical atrophy. There is moderate to severe bilateral hydroureteronephrosis. The ureters are dilated to the markedly distended bladder. No renal calculi are identified. There is no evidence of contour deforming mass lesion. Abdominal vasculature: The abdominal aorta is normal in course and caliber noting moderate to advanced atherosclerotic calcification. Stomach and bowel: A tiny hiatal hernia is noted. The stomach and duodenum otherwise normal in configuration. No bowel obstruction is seen. The appendix is well-visualized and normal. Mild rectal wall thickening is questioned. Peritoneum: There is no intraperitoneal free air. There is a small volume of free fluid in the paracolic gutters bilaterally. Lymphadenopathy: None. Pelvic viscera: The bladder is markedly distended. The uterus is normal as imaged. No adnexal lesion is seen. Findings suggest pelvic floor prolapse. Skeletal structures: The skeletal structures are osteopenic. There is mild to moderate lumbosacral spondylosis. No lytic or blastic lesions are seen. IMPRESSION: 1. Suboptimal examination without oral and IV contrast. 2. There are small pleural effusions. The lungs are otherwise clear. 3. The bladder is markedly distended and grossly unremarkable. 4. There is moderate to severe bilateral hydroureteronephrosis. The ureters are dilated to the bladder, and this is likely related to marked bladder distention. Follow-up with urology is recommended. 5. There is trace free fluid within the paracolic gutter bilaterally. 6. Rectal wall thickening is questioned. Correlate clinically for evidence of proctitis. This could be further assessed with colonoscopy if clinically warranted. 7. Additional findings as above. Assessment & Plan This is a 66yo F with a PMH of HTN, HLD, asthma, h/o gastric ulcers and dysphagia who presents with poor PO intake and generalized weakness. 1. Encephalopathy-unclear source, however, likely metabolic. She is very fatigued and not easily arousable this afternoon although was conversing with nursing staff this morning. CT c/a/p revealed acute urinary retention and when issa placed->2L returned. Bilateral hydronephrosis seen on imaging, however, she didn't mention any of this. She did have a recent UTI this admission and finished a course of antibiotics. Will recheck for test of cure now. She did maintain normal renal function despite this. Cont Issa and IVF. She was so hard to arouse that a CT head was performed which was negative for intracranial abnormality acutely. Normal brain MRI jsut a few days ago, also. Cont to monitor as obstruction improves. 2. Acute urinary retention with bilateral hydronephrosis-poss 2/2 recent UTI?- Issa placed, cont IVF. >2L out initially 3. Weakness 2/2 severe protein-calorie malnutrition vs #1 above: Deconditioned. PT/OT recommend rehab and case Management is working on some options. does not feel he can care for her at home like this so may be more than a temporary situation? 4. Dysphagia/Odynophagia: per [employer] OPERATOR and Neuro discussion there is no indication for a video swallow study at this time. Per Neuro there is no evidence of a neuromuscular disorder at this time. Per GI, repeat EGD with dilation was performed 03/11 and patient seems improved. I watched her take multiple bites successfully. She has no reports of pain or feeling dysphagia at this time. She will not eat again today but hope this will change with an improvement in her encephalopathy. Cont mirtazapine BID started this admission. Considering starting marinol for appetite stimulation but would like her to wake up more. Of note, barium swallow in 2016 did show some tertiary contractions and some extrinsic compression on the mid-esophagus from the aortic arch. 5. HTN-Norvasc 6. Depression/Anxiety-cont Lexapro. Mirtazapine 7.5mg PO bID added per Neuro. 7. h/o PUD-Pepcid switched to PPI. Sulcralfate ordered 8. E coli UTI-completed course of abx. Rechecking for infection as above. DVT Ppx: Lovenox SQ Code status: FULL PCP: Diaz Dispo: Plan for SNF at discharge Annmarie Agustin DO [facility] Hospitalist Consultants: Neuro-Amandeep Speech therapy GI-Samuel Current Inpatient Medications: Current Inpatient Medications Medications (Trade) Dose Ordered Sig/Jose Route Start Time Stop Time Status Last Admin Dose Admin Acetaminophen (Tylenol Tab) 650 mg Q4H PRN PO 03/06/17 17:15 04/05/17 17:14 03/08/17 19:49 650 MG Ondansetron HCl (Zofran Inj) 4 mg Q6H PRN IV 03/06/17 17:15 04/05/17 17:14 03/12/17 00:34 4 MG Enoxaparin Sodium (Lovenox Inj) 40 mg HS SC 03/06/17 21:00 04/05/17 20:59 Future hold 03/12/17 20:54 40 MG Hydralazine HCl (HydrALAZINE INJ) 5 mg Q6 PRN IV. 03/06/17 19:45 04/05/17 19:44 Albuterol (Ventolin Hfa Inhaler) 2 puffs Q4H PRN INH 03/06/17 20:30 04/05/17 20:29 Amlodipine Besylate (Norvasc Tab) 2.5 mg DAILY PO 03/07/17 09:00 04/06/17 08:59 Future Hold 03/10/17 08:02 2.5 MG Escitalopram Oxalate (Lexapro Tab) 20 mg DAILY PO 03/07/17 09:00 04/06/17 08:59 03/13/17 07:56 20 MG Fluticasone Propionate (Flovent Hfa 220MCG Inhaler) 1 puffs BID INH 03/06/17 21:00 04/05/17 20:59 03/13/17 07:58 1 PUFFS Enteral Nutritional Formula (Boost) 1 can TID PO 03/07/17 21:00 04/06/17 20:59 03/08/17 19:39 1 CAN Sucralfate (Carafate Susp) 1 gm QID PO 03/09/17 21:00 04/08/17 20:59 03/13/17 07:57 1 GM Miconazole Nitrate (Desenex Powder) 1 appln PRN PRN EXT 03/10/17 12:00 04/09/17 11:59 03/10/17 12:45 1 APPLN Potassium Chloride/Dextrose/ Sod Cl 1,000 ml @ 125 mls/hr Q8H IV 03/10/17 15:45 04/09/17 15:44 03/13/17 09:42 125 MLS/HR Al Hydroxide/Mg Hydroxide/ Lidocaine HCl/ Barcode Q8H PRN PO 03/10/17 16:00 04/09/17 15:59 03/11/17 12:00 24 ML Bisacodyl (Dulcolax Supp) 10 mg DAILY PRN AR 1/24/18 17:30 04/10/17 17:29 Polyethylene (Miralax Powder Packet) 17 gm DAILY PRN PO 03/11/17 17:30 04/10/17 17:29 Mirtazapine (Remeron Tab) 7.5 mg BID PO 03/12/17 21:00 04/11/17 20:59 03/13/17 07:55 7.5 MG Sodium Phosphate 15 mmol/Magnesium Sulfate 4 gm/ Sodium Chloride 513 ml @ 100 mls/hr Q5H8M IV 03/13/17 10:00 03/13/17 15:00 03/13/17 09:30 100 MLS/HR
[2017-03-13] MEDS: ENOXAPARIN 40 MG/0.4 ML SYR SC SCH (21:52)
[2017-03-13] MEDS: ALBUTEROL HFA 8 GM INHALER INH PRN (21:53)
[2017-03-13 23:14] VITALS: BP 105/66; PULSE 88; TEMP 36.2; O2SAT 100
[2017-03-14 07:20] VITALS: BP 137/84; PULSE 85; TEMP 36.4; O2SAT 100
[2017-03-14] MEDS: ESCITALOPRAM OXALATE 10 MG TAB PO SCH (07:42)
[2017-03-14] MEDS: SUCRALFATE 1 GM/10 ML UDC PO SCH ×4 (07:42→21:04)
[2017-03-14] MEDS: MIRTAZAPINE TAB 15 MG TAB PO SCH ×2 (07:42→21:07)
[2017-03-14] MEDS: FLUTICASONE HFA 220 MCG INHALER INH SCH ×2 (07:43→21:04)
[2017-03-14] MEDS: D5NSS + 20MEQ KCL 1,000 ML IV SCH ×2 (07:46→15:56)
[2017-03-14 08:10] LABS: HEMATOCRIT 32.9 % (37-47); HEMOGLOBIN 11.9 g/dL (12.0-16.0); MEAN CELL VOLUME 83.5 fL (80-100); MEAN CORPUSCULAR HEMOGLOBIN 30.2 pg (25-34); MEAN CORPUSCULAR HGB CONC 36.2 g/dl (32-36); MEAN PLATELET VOLUME 11.1 fL (7.4-10.4); PLATELET COUNT 109 K/uL (130-400); RED CELL DISTRIBUTION WIDTH CV 14.5 % (11.5-14.5); RED CELL DISTRIBUTION WIDTH SD 44.2 fL (36.4-46.3); WHITE BLOOD COUNT 3.86 K/uL (4.8-10.8)
[2017-03-14 08:48] LABS: CALCIUM 8.7 mg/dl (8.5-10.1); CREATININE 0.68 mg/dl (0.60-1.20); PHOSPHORUS 2.6 mg/dl (2.5-4.9)
[2017-03-14] MEDS: BOOST VANILLA PO SCH ×3 (09:00→21:00)
[2017-03-14] MEDS ORDERED: THIAMINE HCL INJ 100 MG in SYRINGE 9 ML IV ONE (14:15)
[2017-03-14] MEDS: ONDANSETRON INJ 2 MG/ML 2 ML VIAL IV. SCH ×2 (15:06→21:07)
[2017-03-14 15:18] VITALS: BP 142/78; PULSE 91; TEMP 36.4; O2SAT 100
--- NOTE | 2017-03-14 17:45 | DIAGNOSTIC IMAGING REPORT ---
CHEST ONE VIEW PORTABLE HISTORY: coresafe placement COMPARISON: Chest 03/06/2017. FINDINGS: Nasogastric tube terminates below the diaphragm. The tip is not included on this study. The lungs are clear. No pleural effusions. No pneumothorax. The heart is normal in size. IMPRESSION: The nasogastric tube terminates below the diaphragm. Electronically signed by: Luis Vazquez M.D. 03/14/2017 5:43 PM Dictated Date/Time: 03/14/2017 4:04 PM
[2017-03-14] MEDS ORDERED: PEPTAMEN 1.5 CAL 1000ML BAG NG SCH (18:00)
--- NOTE | 2017-03-14 18:13 | Progress Note ---
Medicine Progress Note Date & Time of Visit: Mar 14, 2017 at 13:55. Subjective -pt is lethargic and gives minimal conversation today -she reports some nausea then falls back asleep. -this morning, nursing reported that she was awake and alert and conversing normally. Objective Last 8 Hrs Date Time Temp Pulse Resp B/P (MAP) Pulse Ox O2 Delivery O2 Flow Rate FiO2 03/14/17 08:00 Room Air 03/14/17 07:20 36.4 85 16 137/84 (101) 100 Physical Exam: GEN: obese, lethargic HEENT: NC/AT, PERRL, MMM CARDIO: reg rate, S1/2 heard without m/g/r LUNGS: CTA bilaterally, no crackles, rales or wheezes, good diaphragmatic excursion ABD: soft, nontender, non-distended, no rebound or guarding, +BS EXTREMITY: RP and DP palpable 2+ bilat, no LE swelling or edema, extremities are warm and well-perfused SKIN: warm and dry Laboratory Results: 03/14/17 07:42 03/14/17 07:42 Test 03/06/17 18:14 03/07/17 06:29 03/08/17 05:38 03/10/17 06:55 Prothrombin Time 12.7 SECONDS (9.0-12.0) Prothromb Time International Ratio 1.2 (0.9-1.1) Activated Partial Thromboplast Time 30.1 SECONDS (21.0-31.0) Partial Thromboplastin Ratio 1.2 Lipase 364 U/L (73-393) Total Bilirubin 1.4 mg/dl (0.2-1) Aspartate Amino Transf (AST/SGOT) 20 U/L (15-37) Alanine Aminotransferase (ALT/SGPT) 33 U/L (12-78) Alkaline Phosphatase 82 U/L (45-117) Total Protein 6.8 gm/dl (6.4-8.2) Albumin 2.8 gm/dl (3.4-5.0) Globulin 4.0 gm/dl (2.5-4.0) Albumin/Globulin Ratio 0.7 (0.9-2) Immature Granulocyte % (Auto) 0.8 % White Blood Count 4.74 K/uL (4.8-10.8) Red Blood Count 4.09 M/uL (4.2-5.4) Hemoglobin 12.3 g/dL (12.0-16.0) Hematocrit 34.1 % (37-47) Mean Corpuscular Volume 83.4 fL (80-100) Mean Corpuscular Hemoglobin 30.1 pg (25-34) Mean Corpuscular Hemoglobin Concent 36.1 g/dl (32-36) Platelet Count 156 K/uL (130-400) Mean Platelet Volume 11.0 fL (7.4-10.4) Neutrophils (%) (Auto) 73.5 % Lymphocytes (%) (Auto) 20.9 % Monocytes (%) (Auto) 3.8 % Eosinophils (%) (Auto) 0.4 % Basophils (%) (Auto) 0.6 % Neutrophils # (Auto) 3.48 K/uL (1.4-6.5) Lymphocytes # (Auto) 0.99 K/uL (1.2-3.4) Monocytes # (Auto) 0.18 K/uL (0.11-0.59) Eosinophils # (Auto) 0.02 K/uL (0-0.5) Basophils # (Auto) 0.03 K/uL (0-0.2) Immature Granulocyte # (Auto) 0.04 K/uL (0.00-0.02) Test 03/13/17 05:28 03/14/17 07:04 03/14/17 07:42 Prealbumin 16.1 mg/dl (20-40) Urine Color YELLOW Urine Appearance CLEAR (CLEAR) Urine pH 5.5 (4.5-7.5) Urine Specific [place] 1.011 (1.000-1.030) Urine Protein NEG (NEG) Urine Glucose (UA) TRACE (NEG) Urine Ketones NEG (NEG) Urine Occult Blood 2+ (NEG) Urine Nitrite NEG (NEG) Urine Bilirubin NEG (NEG) Urine Urobilinogen NEG (NEG) Urine Leukocyte Esterase NEG (NEG) Urine WBC (Auto) 1-5 /hpf (0-5) Urine RBC (Auto) 0-4 /hpf (0-4) Urine Hyaline Casts (Auto) 1-5 /lpf (0-5) Urine Epithelial Cells (Auto) 5-10 /lpf (0-5) Urine Bacteria (Auto) NEG (NEG) Red Blood Count 3.94 M/uL (4.2-5.4) Mean Corpuscular Volume 83.5 fL (80-100) Mean Corpuscular Hemoglobin 30.2 pg (25-34) Mean Corpuscular Hemoglobin Concent 36.2 g/dl (32-36) RDW Standard Deviation 44.2 fL (36.4-46.3) RDW Coefficient of Variation 14.5 % (11.5-14.5) Mean Platelet Volume 11.1 fL (7.4-10.4) Anion Gap 9.0 mmol/L (3-11) Est Creatinine Clear Calc Drug Dose 66.6 ml/min Estimated GFR () 105.6 Estimated GFR (Non- 91.2 BUN/Creatinine Ratio 9.2 (10-20) Calcium Level 8.7 mg/dl (8.5-10.1) Phosphorus Level 2.6 mg/dl (2.5-4.9) Magnesium Level 2.3 mg/dl (1.8-2.4) Date/Time Source Procedure Growth Status 03/14/17 07:04 Urine,Catheterized Urine Culture Pending Received Last 24 Hours Test 03/14/17 07:04 03/14/17 07:42 Urine Color YELLOW Urine Appearance CLEAR Urine pH 5.5 Urine Specific [place] 1.011 Urine Protein NEG Urine Glucose (UA) TRACE Urine Ketones NEG Urine Occult Blood 2+ Urine Nitrite NEG Urine Bilirubin NEG Urine Urobilinogen NEG Urine Leukocyte Esterase NEG Urine WBC (Auto) 1-5 /hpf Urine RBC (Auto) 0-4 /hpf Urine Hyaline Casts (Auto) 1-5 /lpf Urine Epithelial Cells (Auto) 5-10 /lpf Urine Bacteria (Auto) NEG White Blood Count 3.86 K/uL Red Blood Count 3.94 M/uL Hemoglobin 11.9 g/dL Hematocrit 32.9 % Mean Corpuscular Volume 83.5 fL Mean Corpuscular Hemoglobin 30.2 pg Mean Corpuscular Hemoglobin Concent 36.2 g/dl RDW Standard Deviation 44.2 fL RDW Coefficient of Variation 14.5 % Platelet Count 109 K/uL Mean Platelet Volume 11.1 fL Sodium Level 137 mmol/L Potassium Level 4.0 mmol/L Chloride Level 106 mmol/L Carbon Dioxide Level 22 mmol/L Anion Gap 9.0 mmol/L Blood Urea Nitrogen 6 mg/dl Creatinine 0.68 mg/dl Est Creatinine Clear Calc Drug Dose 66.6 ml/min Estimated GFR () 105.6 Estimated GFR (Non- 91.2 BUN/Creatinine Ratio 9.2 Random Glucose 165 mg/dl Calcium Level 8.7 mg/dl Phosphorus Level 2.6 mg/dl Magnesium Level 2.3 mg/dl Date/Time Source Procedure Growth Status 03/14/17 07:04 Urine,Catheterized Urine Culture Pending Received Assessment & Plan This is a 66yo F with a PMH of HTN, HLD, asthma, h/o gastric ulcers and dysphagia who presents with poor PO intake and generalized weakness. This patient has not eaten anything since admission. Spoke with multiple family members today who are very stressed about her condition. The confusion appears to be resolving but she is still pushing her food away. Discussed the case with Reilly in Nutrition who recommended NGT with feeds for now. I apprised the family of this option and they agreed heartily. The patient is reporting some nausea. 1. Encephalopathy-multifactorial 2/2 poor nutrition, recent infection, and recent urinary retention. She remains very lethargic but is more easily aroused today. Still showing signs of delirium. Repeat UA looks clear after recent trt of UTI. 2. Acute urinary retention with bilateral hydronephrosis-2/2 recent scopalamine patch use in addition to recent UTI. Lexapro may also be playing a small role as this drug has anticholinergic properties which can contribute to urinary retention. Discussed switching agents with Psych who is considering. Cont Adam and will recheck for hydronephrosis resolution in am. Cont Adam and IVF 3. Weakness 2/2 severe protein-calorie malnutrition Deconditioned. PT/OT recommend rehab and case Management is working on some options. does not feel he can care for her at home like this so may be more than a temporary situation? Placing NGT and feeding with Peptamen. Will watch to see if this turns her encephalopathy and weakness around. Thiamine started and trickle feeds to avoid refeeding syndrome. 4. Nausea-as this may be an additional barrier to eating, will schedule Zofran in the short-term. 5. Dysphagia/Odynophagia: per [employer] and Neuro discussion there is no indication for a video swallow study at this time. Per Neuro there is no evidence of a neuromuscular disorder at this time. Per GI, repeat EGD with dilation was performed 03/11 and patient seems improved. I watched her take multiple bites successfully. She has no reports of pain or feeling dysphagia at this time. Cont mirtazapine BID started this admission. Considering starting marinol for appetite stimulation but would like her to wake up more. Of note, barium swallow in 2016 did show some tertiary contractions and some extrinsic compression on the mid-esophagus from the aortic arch. 6. HTN-Norvasc 7. Depression/Anxiety-cont Lexapro. Mirtazapine 7.5mg PO BID 8. h/o PUD-Pepcid switched to PPI. Sulcralfate ordered 9. E coli UTI-completed course of abx. Rechecking for infection as above. DVT Ppx: Lovenox SQ Code status: FULL PCP: Diaz Dispo: Plan for SNF at discharge Annmarie Agustin DO [facility] Hospitalist Consultants: Neuro-Amandeep Speech therapy GI-Samuel Psych Current Inpatient Medications: Current Inpatient Medications Medications (Trade) Dose Ordered Sig/Jose Route Start Time Stop Time Status Last Admin Dose Admin Acetaminophen (Tylenol Tab) 650 mg Q4H PRN PO 03/06/17 17:15 04/05/17 17:14 03/08/17 19:49 650 MG Ondansetron HCl (Zofran Inj) 4 mg Q6H PRN IV 03/06/17 17:15 04/05/17 17:14 03/12/17 00:34 4 MG Enoxaparin Sodium (Lovenox Inj) 40 mg HS SC 03/06/17 21:00 04/05/17 20:59 Future hold 03/13/17 21:52 40 MG Hydralazine HCl (HydrALAZINE INJ) 5 mg Q6 PRN IV. 03/06/17 19:45 04/05/17 19:44 Albuterol (Ventolin Hfa Inhaler) 2 puffs Q4H PRN INH 03/06/17 20:30 04/05/17 20:29 03/13/17 21:53 2 PUFFS Amlodipine Besylate (Norvasc Tab) 2.5 mg DAILY PO 03/07/17 09:00 04/06/17 08:59 Future Hold 03/10/17 08:02 2.5 MG Escitalopram Oxalate (Lexapro Tab) 20 mg DAILY PO 03/07/17 09:00 04/06/17 08:59 03/14/17 07:42 20 MG Fluticasone Propionate (Flovent Hfa 220MCG Inhaler) 1 puffs BID INH 03/06/17 21:00 04/05/17 20:59 03/14/17 07:43 1 PUFFS Enteral Nutritional Formula (Boost) 1 can TID PO 03/07/17 21:00 04/06/17 20:59 03/08/17 19:39 1 CAN Sucralfate (Carafate Susp) 1 gm QID PO 03/09/17 21:00 04/08/17 20:59 03/14/17 12:23 1 GM Miconazole Nitrate (Desenex Powder) 1 appln PRN PRN EXT 03/10/17 12:00 04/09/17 11:59 03/10/17 12:45 1 APPLN Potassium Chloride/Dextrose/ Sod Cl 1,000 ml @ 125 mls/hr Q8H IV 03/10/17 15:45 04/09/17 15:44 03/14/17 07:46 125 MLS/HR Al Hydroxide/Mg Hydroxide/ Lidocaine HCl/ Barcode Q8H PRN PO 03/10/17 16:00 04/09/17 15:59 03/11/17 12:00 24 ML Bisacodyl (Dulcolax Supp) 10 mg DAILY PRN ME 03/11/17 17:30 04/10/17 17:29 Polyethylene (Miralax Powder Packet) 17 gm DAILY PRN PO 03/11/17 17:30 04/10/17 17:29 Mirtazapine (Remeron Tab) 7.5 mg BID PO 03/12/17 21:00 04/11/17 20:59 03/14/17 07:42 7.5 MG
[2017-03-14 18:21] LABS: ACETYLCHOLINE RECEPT BLOCKING <15 % inhibit (<15)
[2017-03-14] MEDS: ENOXAPARIN 40 MG/0.4 ML SYR SC SCH (21:06)
[2017-03-14] MEDS: THIAMINE HCL INJ 100 MG in SYRINGE 9 ML IV SCH (21:17)
[2017-03-14 22:50] VITALS: BP 118/78; PULSE 88; TEMP 36.8; O2SAT 100
[2017-03-15] MEDS: D5NSS + 20MEQ KCL 1,000 ML IV SCH ×3 (00:10→15:36)
[2017-03-15] MEDS ORDERED: [UNRECOGNIZED DRUG - REMARK] ONE (06:00)
[2017-03-15] MEDS: ONDANSETRON INJ 2 MG/ML 2 ML VIAL IV. SCH ×3 (06:02→21:31)
[2017-03-15 06:44] LABS: CREATININE 0.68 mg/dl (0.60-1.20); POTASSIUM 4.7 mmol/L (3.5-5.1)
[2017-03-15 07:15] VITALS: BP 129/74; PULSE 88; TEMP 36.7; O2SAT 100
[2017-03-15] MEDS: ESCITALOPRAM OXALATE 10 MG TAB PO SCH (08:02)
[2017-03-15] MEDS: MIRTAZAPINE TAB 15 MG TAB PO SCH (08:02)
[2017-03-15] MEDS: SUCRALFATE 1 GM/10 ML UDC PO SCH ×3 (08:02→16:11)
[2017-03-15] MEDS: FLUTICASONE HFA 220 MCG INHALER INH SCH ×2 (08:02→21:05)
[2017-03-15] MEDS: THIAMINE HCL INJ 100 MG in SYRINGE 9 ML IV SCH (08:22)
--- NOTE | 2017-03-15 08:28 | DIAGNOSTIC IMAGING REPORT ---
CHEST ONE VIEW PORTABLE CLINICAL HISTORY: PLACEMENT OF NG COMPARISON STUDY: Chest CT March 13, 2017 and chest radiograph March 14, 2017 at 3:49 PM. FINDINGS: A calcific density along the superolateral aspect the left humeral head may reflect calcific tendinitis of the left rotator cuff. The tip of the nasogastric tube projects over the gastric antrum. There is no pneumothorax or pleural effusion. There is no consolidation. Cardiomediastinal silhouette is unremarkable. IMPRESSION: 1. Tip of nasogastric tube projects over the gastric antrum. 2. No acute cardiopulmonary findings. Electronically signed by: Umesh Colon M.D. 03/15/2017 8:27 AM Dictated Date/Time: 03/15/2017 8:26 AM
[2017-03-15] MEDS: BOOST VANILLA PO SCH ×3 (09:00→21:06)
--- NOTE | 2017-03-15 12:00 | Psychiatric Progress Notes ---
Progress Note Date of Service Mar 15, 2017. Interval History 66 yo female admitted medically with difficulty swallowing and weakness. We are consulted to evaluate anxiety. Chief Complaint None stated Subjective Patient was seen & assessed interval progress reviewed. patient lying on back in bed asleep, but easily arousable. Poorly responsive to questioning, constantly clearing her throat and wiping saliva from her mouth. Will open eyes when requested and again seems more engagable when eyes open, but quickly closes them. Sister Bernice at the bedside, with whom she seems more responsive. She will not answer questions about her mood or anxiety. Per medicine, there is no specific cause found for inability to swallow, but due to complete lack of PO intake, now has a coresafe and receiving nutrition as nutritional deficit contributing to encephalopathy. Review psychiatric interventions with sister Bernice, including use of Remeron for mood anxiety and appetite. Also review the possible use of an atypical to augment her lexapro and target any possible distorted thoughts about swallowing that may be occurring in the setting of severe depression. R/B/A including black box warning reviewed with sister who is in agreement to try. Review of Systems Constitutional: + fatigue Abdomen: + problem reported (no PO, now with feeding tube) Mental Status Exam During interview pt is: other (poorly responsive) Appearance: appropriately dressed, appropriately groomed Eye contact is: poor (keeps eyes closed through most of the interview. When asked to keep them open she is unable to do so for more than 5-10 seconds) Motor behavior is: tremor, other (lip smacking) Speech: other (one word responses to some questions) Affect: depressed Mood is: depressed Thought process: goal directed Thought content: reality based without delusions Suicidal thought are: present, Plan: denied, Intent: denied Homicidal thoughts are: denied Hallucinations: denies auditory, denies visual Cognition: attention grossly intact, language grossly intact Intelligence estimated to be: average Insight: limited Judgement: limited Impression Further deterioration to patient condition, now requiring feeding tube. Will DC Remeron as she is tired and poorly responsive. Recommend continuing Lexapro and adding Risperdal M tab 0.5 mg HS in an attempt to target distorted thoughts that may be contributing to inability to swallow. Reviewed R/B/A with patient and sister including increased risk for sudden . Sister supports the trial and patient says yes. Will need to follow QTc, and Dr. Agustin aware. Will follow. Plan (1) Unspecified mood [affective] disorder 03/12 - Continue Lexapro 20 mg daily - Will add Remeron to 7.5 mg twice a day to target mood, anxiety, possible globus hystericus and appetite - Will see again tomorrow - Liaison nurse will get supplemental information from - The patient has a tendency to disengage from her environment. Would encourage the patient to be up and ambulating when possible 03/15 - DC Remeron - Add risperdal M 0.5 mg HS (2) Anxiety disorder, unspecified 03/12 - C recommendations above Dr. Dana Martinez is personally been involved in the review of the above case and in development of recommendations. Visit Code E&M Code: 07971 Data Vital Signs Last 24 Hrs: Date Time Temp Pulse Resp B/P (MAP) Pulse Ox O2 Delivery O2 Flow Rate FiO2 03/15/17 08:00 Room Air 03/15/17 07:15 36.7 88 16 129/74 (92) 100 03/15/17 04:05 Room Air 03/15/17 00:05 Room Air 03/14/17 22:50 36.8 88 18 118/78 (91) 100 Room Air 03/14/17 20:01 Room Air 03/14/17 16:00 Room Air 03/14/17 15:18 36.4 91 16 142/78 (99) 100 Meds Administered Last 24 Hrs: Meds Administered (Past 24Hrs) Medications (Trade) Dose Ordered Sig/Jose Route Start Time Stop Time Status Last Admin Dose Admin Thiamine HCl 100 mg/Syringe 10 ml @ 2 mls/min BID IV 03/14/17 21:00 04/13/17 20:59 03/15/17 08:22 2 MLS/MIN Thiamine HCl 100 mg/Syringe 10 ml @ 2 mls/min TODAY@1415 ONCE IV 03/14/17 14:15 03/14/17 14:19 DC 03/14/17 15:07 2 MLS/MIN Ondansetron HCl (Zofran Inj) 4 mg Q8H IV. 03/14/17 14:00 03/16/17 13:59 03/15/17 06:02 4 MG Enteral Nutritional Formula (Peptamen 1.5) 1,000 ml DAILY@1800 NG 03/14/17 18:00 04/13/17 17:59 03/14/17 18:33 1,000 ML Lab Results Last 24 Hrs: Last 24 Hours Test 03/15/17 05:18 Sodium Level 140 mmol/L Potassium Level 4.7 mmol/L Chloride Level 111 mmol/L Carbon Dioxide Level 24 mmol/L Anion Gap 5.0 mmol/L Blood Urea Nitrogen 8 mg/dl Creatinine 0.68 mg/dl Est Creatinine Clear Calc Drug Dose 66.6 ml/min Estimated GFR () 105.6 Estimated GFR (Non- 91.2 BUN/Creatinine Ratio 11.7 Random Glucose 88 mg/dl Calcium Level 8.0 mg/dl Phosphorus Level 3.0 mg/dl Magnesium Level 2.0 mg/dl
[2017-03-15] MEDS ORDERED: OPTIRAY 320 IV PRN (13:30)
[2017-03-15 14:57] VITALS: BP 116/78; PULSE 89; TEMP 36.4; O2SAT 100
--- NOTE | 2017-03-15 16:14 | DIAGNOSTIC IMAGING REPORT ---
ABDOMEN AND PELVIS CT WITH IV CONTRAST CT DOSE: 918.22 mGy.cm HISTORY: h/o acute urinary retention with hydronephrosis, CT to eval hydro, contrast for ?tumor TECHNIQUE: Multiaxial CT images of the abdomen and pelvis were performed following the use of intravenous contrast. A dose lowering technique was utilized adhering to the principles of ALARA. COMPARISON STUDY: Abdomen and pelvis CT 03/13/2017. FINDINGS: There is a 1.5 cm bleb within the left lung base. No pneumoperitoneum. No pneumatosis. No fractures within the visualized osseous structures. A feeding tube terminates in the proximal duodenum. No hepatic or splenic masses. There is a small splenic cleft present. The pancreas, gallbladder, and Char glands are unremarkable. There is a 1.9 cm cyst within the lower pole of the left kidney. No retroperitoneal lymphadenopathy. Trace pelvic free fluid. The uterus and bilateral ovaries are within normal limits. Mild body wall edema. Normal appendix. No evidence for bowel obstruction. The bilateral hydroureteronephrosis has resolved status post decompression of the urinary bladder with a Adam catheter. Small amount of gas within the bladder is likely due to the catheterization. Evaluation for a urothelial lesion is essentially nondiagnostic due to the lack of delayed imaging through the urinary system. The bladder is completely decompressed. There may be mild thickening versus decompression of the rectum. Mild perirectal edema. IMPRESSION: 1. Interval resolution of the bilateral hydroureteronephrosis status post decompression of the bladder by a Adam catheter. Therefore, this hydronephrosis was likely due to a bladder outlet obstruction. 2. A feeding tube is located within the proximal duodenum. 3. No bowel wall thickening or obstruction. 4. Mild thickening of the rectum is again suggested. This may represent a low-grade proctitis in the appropriate clinical setting. 4. No evidence for bowel obstruction. 5. Normal appendix. Electronically signed by: Luis Vazquez M.D. 03/15/2017 4:12 PM Dictated Date/Time: 03/15/2017 3:52 PM
--- NOTE | 2017-03-15 16:52 | Progress Note ---
Medicine Progress Note Date & Time of Visit: Mar 15, 2017 at 13:16. Subjective This is a 66yo F with a PMH of HTN, HLD, asthma, h/o gastric ulcers and dysphagia who presents with poor PO intake and generalized weakness. She appears somewhat more responsive to me today. There was some choking last night so the tube feeds were held. Since restarting them today, she is handling them well. Issa remains in place. She reports some lower abdominal discomfort today and slight nausea. Zofran is scheduled. Repeat CT to reassess bilateral hydronephrosis since issa placement and poss cause of abdominal discomfort. Will need outpatient colonoscopy when discharged. Objective Last 8 Hrs Date Time Temp Pulse Resp B/P (MAP) Pulse Ox O2 Delivery O2 Flow Rate FiO2 03/15/17 08:00 Room Air 03/15/17 07:15 36.7 88 16 129/74 (92) 100 Physical Exam: GEN: obese, lethargic but easily arousable HEENT: NC/AT, PERRL, MMM, NGT in place CARDIO: reg rate, S1/2 heard without m/g/r LUNGS: CTA bilaterally, no crackles, rales or wheezes, good diaphragmatic excursion ABD: soft, nontender, non-distended, no rebound or guarding, +BS EXTREMITY: RP and DP palpable 2+ bilat, no LE swelling or edema, extremities are warm and well-perfused SKIN: warm and dry Laboratory Results: 03/14/17 07:42 03/15/17 05:18 Test 03/06/17 18:14 03/07/17 06:29 03/08/17 05:38 03/10/17 06:55 Prothrombin Time 12.7 SECONDS (9.0-12.0) Prothromb Time International Ratio 1.2 (0.9-1.1) Activated Partial Thromboplast Time 30.1 SECONDS (21.0-31.0) Partial Thromboplastin Ratio 1.2 Lipase 364 U/L (73-393) Total Bilirubin 1.4 mg/dl (0.2-1) Aspartate Amino Transf (AST/SGOT) 20 U/L (15-37) Alanine Aminotransferase (ALT/SGPT) 33 U/L (12-78) Alkaline Phosphatase 82 U/L (45-117) Total Protein 6.8 gm/dl (6.4-8.2) Albumin 2.8 gm/dl (3.4-5.0) Globulin 4.0 gm/dl (2.5-4.0) Albumin/Globulin Ratio 0.7 (0.9-2) Anti-Striated Muscle Antibody Titer SEE BELOW (<1:40) Anti-Striated Muscle Antibody NEGATIVE (NEGATIVE) Acetylcholine Receptor Blocking Ab <15 % inhibit (<15) Acetylcholine Receptor Binding Ab <0.30 nmol/L Acetylcholine Recept Modulating Ab 15 Immature Granulocyte % (Auto) 0.8 % White Blood Count 4.74 K/uL (4.8-10.8) Red Blood Count 4.09 M/uL (4.2-5.4) Hemoglobin 12.3 g/dL (12.0-16.0) Hematocrit 34.1 % (37-47) Mean Corpuscular Volume 83.4 fL (80-100) Mean Corpuscular Hemoglobin 30.1 pg (25-34) Mean Corpuscular Hemoglobin Concent 36.1 g/dl (32-36) Platelet Count 156 K/uL (130-400) Mean Platelet Volume 11.0 fL (7.4-10.4) Neutrophils (%) (Auto) 73.5 % Lymphocytes (%) (Auto) 20.9 % Monocytes (%) (Auto) 3.8 % Eosinophils (%) (Auto) 0.4 % Basophils (%) (Auto) 0.6 % Neutrophils # (Auto) 3.48 K/uL (1.4-6.5) Lymphocytes # (Auto) 0.99 K/uL (1.2-3.4) Monocytes # (Auto) 0.18 K/uL (0.11-0.59) Eosinophils # (Auto) 0.02 K/uL (0-0.5) Basophils # (Auto) 0.03 K/uL (0-0.2) Immature Granulocyte # (Auto) 0.04 K/uL (0.00-0.02) Test 03/13/17 05:28 03/14/17 07:04 03/14/17 07:42 03/15/17 05:18 Prealbumin 16.1 mg/dl (20-40) Urine Color YELLOW Urine Appearance CLEAR (CLEAR) Urine pH 5.5 (4.5-7.5) Urine Specific [place] 1.011 (1.000-1.030) Urine Protein NEG (NEG) Urine Glucose (UA) TRACE (NEG) Urine Ketones NEG (NEG) Urine Occult Blood 2+ (NEG) Urine Nitrite NEG (NEG) Urine Bilirubin NEG (NEG) Urine Urobilinogen NEG (NEG) Urine Leukocyte Esterase NEG (NEG) Urine WBC (Auto) 1-5 /hpf (0-5) Urine RBC (Auto) 0-4 /hpf (0-4) Urine Hyaline Casts (Auto) 1-5 /lpf (0-5) Urine Epithelial Cells (Auto) 5-10 /lpf (0-5) Urine Bacteria (Auto) NEG (NEG) Red Blood Count 3.94 M/uL (4.2-5.4) Mean Corpuscular Volume 83.5 fL (80-100) Mean Corpuscular Hemoglobin 30.2 pg (25-34) Mean Corpuscular Hemoglobin Concent 36.2 g/dl (32-36) RDW Standard Deviation 44.2 fL (36.4-46.3) RDW Coefficient of Variation 14.5 % (11.5-14.5) Mean Platelet Volume 11.1 fL (7.4-10.4) Anion Gap 5.0 mmol/L (3-11) Est Creatinine Clear Calc Drug Dose 66.6 ml/min Estimated GFR () 105.6 Estimated GFR (Non- 91.2 BUN/Creatinine Ratio 11.7 (10-20) Calcium Level 8.0 mg/dl (8.5-10.1) Phosphorus Level 3.0 mg/dl (2.5-4.9) Magnesium Level 2.0 mg/dl (1.8-2.4) Date/Time Source Procedure Growth Status 03/14/17 07:04 Urine,Catheterized Urine Culture - Preliminary NO GROWTH - LESS THAN 1,000 COLONIES/... Resulted Last 24 Hours Test 03/15/17 05:18 Sodium Level 140 mmol/L Potassium Level 4.7 mmol/L Chloride Level 111 mmol/L Carbon Dioxide Level 24 mmol/L Anion Gap 5.0 mmol/L Blood Urea Nitrogen 8 mg/dl Creatinine 0.68 mg/dl Est Creatinine Clear Calc Drug Dose 66.6 ml/min Estimated GFR () 105.6 Estimated GFR (Non- 91.2 BUN/Creatinine Ratio 11.7 Random Glucose 88 mg/dl Calcium Level 8.0 mg/dl Phosphorus Level 3.0 mg/dl Magnesium Level 2.0 mg/dl Assessment & Plan This is a 66yo F with a PMH of HTN, HLD, asthma, h/o gastric ulcers and dysphagia who presents with poor PO intake and generalized weakness. She appears somewhat more responsive to me today. There was some choking last night so the tube feeds were held. Since restarting them today, she is handling them well. Issa remains in place. She reports some lower abdominal discomfort today and slight nausea. Zofran is scheduled. Repeat CT to reassess bilateral hydronephrosis since issa placement and poss cause of abdominal discomfort. Will need outpatient colonoscopy when discharged. 1. Encephalopathy-multifactorial 2/2 poor nutrition, recent infection (now cleared), and recent urinary retention. She remains lethargic but is more easily aroused today. I discussed the case sherman Sampson with mental health who is changing her mirtazapine to Risepridone to augment her lexapro. Cont current management and watch for improvement. 2. Acute urinary retention with bilateral hydronephrosis-2/2 recent scopalamine patch use in addition to recent UTI. Lexapro may also be playing a small role as this drug has anticholinergic properties which can contribute to urinary retention. Discussed switching agents with Psych. Cont Issa 3. Weakness 2/2 severe protein-calorie malnutrition-Deconditioned. PT/OT recommend rehab and case Management is working on some options. does not feel he can care for her at home like this so may be more than a temporary situation? Peptamen and free water being given through [facility]-tolerating well but still far from her baseline strength and functioning. Thiamine started and trickle feeds to avoid refeeding syndrome. 4. Nausea-as this may be an additional barrier to eating, will schedule Zofran in the short-term. 5. Dysphagia/Odynophagia: per [employer] and Neuro discussion there is no indication for a video swallow study at this time. Per Neuro there is no evidence of a neuromuscular disorder at this time. Per GI, repeat EGD with dilation was performed 03/11 and patient seems improved. I watched her take multiple bites successfully. She has no reports of pain or feeling dysphagia at this time. Of note, barium swallow in 2016 did show some tertiary contractions and some extrinsic compression on the mid-esophagus from the aortic arch. Cont PO feeding efforts during the day. 6. HTN-Norvasc 7. Depression/Anxiety-cont Lexapro augmented w risperidone. 8. h/o PUD-Pepcid switched to PPI. Sulcralfate stopped. 9. E coli UTI-completed course of abx. HAVEN is clear. DVT Ppx: Lovenox SQ Code status: FULL PCP: Diaz Dispo: Plan for SNF at discharge Annmarie Agustin DO [facility] Hospitalist Consultants: Neuro-Amandeep Speech therapy GI-Samuel Psych Current Inpatient Medications: Current Inpatient Medications Medications (Trade) Dose Ordered Sig/Jose Route Start Time Stop Time Status Last Admin Dose Admin Acetaminophen (Tylenol Tab) 650 mg Q4H PRN PO 03/06/17 17:15 04/05/17 17:14 03/08/17 19:49 650 MG Enoxaparin Sodium (Lovenox Inj) 40 mg HS SC 03/06/17 21:00 04/05/17 20:59 Future hold 03/14/17 21:06 40 MG Hydralazine HCl (HydrALAZINE INJ) 5 mg Q6 PRN IV. 03/06/17 19:45 04/05/17 19:44 Albuterol (Ventolin Hfa Inhaler) 2 puffs Q4H PRN INH 03/06/17 20:30 04/05/17 20:29 03/13/17 21:53 2 PUFFS Amlodipine Besylate (Norvasc Tab) 2.5 mg DAILY PO 03/07/17 09:00 04/06/17 08:59 Future Hold 03/10/17 08:02 2.5 MG Escitalopram Oxalate (Lexapro Tab) 20 mg DAILY PO 03/07/17 09:00 04/06/17 08:59 03/15/17 08:02 20 MG Fluticasone Propionate (Flovent Hfa 220MCG Inhaler) 1 puffs BID INH 03/06/17 21:00 04/05/17 20:59 03/15/17 08:02 1 PUFFS Enteral Nutritional Formula (Boost) 1 can TID PO 03/07/17 21:00 04/06/17 20:59 03/08/17 19:39 1 CAN Sucralfate (Carafate Susp) 1 gm QID PO 03/09/17 21:00 04/08/17 20:59 03/15/17 12:25 1 GM Miconazole Nitrate (Desenex Powder) 1 appln PRN PRN EXT 03/10/17 12:00 04/09/17 11:59 03/10/17 12:45 1 APPLN Potassium Chloride/Dextrose/ Sod Cl 1,000 ml @ 125 mls/hr Q8H IV 03/10/17 15:45 04/09/17 15:44 03/15/17 07:45 125 MLS/HR Al Hydroxide/Mg Hydroxide/ Lidocaine HCl/ Barcode Q8H PRN PO 03/10/17 16:00 04/09/17 15:59 03/11/17 12:00 24 ML Bisacodyl (Dulcolax Supp) 10 mg DAILY PRN LA 03/11/17 17:30 04/10/17 17:29 Polyethylene (Miralax Powder Packet) 17 gm DAILY PRN PO 03/11/17 17:30 04/10/17 17:29 Thiamine HCl 100 mg/Syringe 10 ml @ 2 mls/min BID IV 03/14/17 21:00 04/13/17 20:59 03/15/17 08:22 2 MLS/MIN Ondansetron HCl (Zofran Inj) 4 mg Q8H IV. 03/14/17 14:00 03/16/17 13:59 03/15/17 06:02 4 MG Enteral Nutritional Formula (Peptamen 1.5) 1,000 ml DAILY@1800 NG 03/14/17 18:00 04/13/17 17:59 03/14/17 18:33 1,000 ML Risperidone (Risperdal M Tab) 0.5 mg HS PO 03/15/17 21:00 04/14/17 20:59
[2017-03-15] MEDS ORDERED: GLUCAGON FOR INJ 1 MG VIAL SQ PRN (17:00)
[2017-03-15] MEDS ORDERED: GLUCOSE 40% GEL 15 GM TUBE PO PRN (17:00)
[2017-03-15] MEDS ORDERED: GLUCOSE 10 TABS/TUBE PO PRN (17:00)
[2017-03-15] MEDS ORDERED: DEXTROSE 50% 50 ML SYR IV PRN (17:00)
[2017-03-15] MEDS: PEPTAMEN 1.5 CAL 1000ML BAG NG PRN (18:05)
[2017-03-15] MEDS: INSULIN HUMAN REGULAR SC SCH (21:00)
[2017-03-15] MEDS ORDERED: THIAMINE HCL 100 MG/ML 2 ML VIAL IV SCH (21:00)
[2017-03-15] MEDS: ENOXAPARIN 40 MG/0.4 ML SYR SC SCH (21:06)
[2017-03-15] MEDS: RISPERIDONE ODT 0.5MG PO SCH (21:07)
[2017-03-15] MEDS: THIAMINE HCL INJ 500 MG in SODIUM CHLORIDE 0.9% 100ML IV SCH (21:19)
[2017-03-15 23:53] VITALS: BP 129/96; PULSE 88; TEMP 37; O2SAT 99
[2017-03-16] MEDS: D5NSS + 20MEQ KCL 1,000 ML IV SCH (00:53)
[2017-03-16] MEDS: THIAMINE HCL INJ 500 MG in SODIUM CHLORIDE 0.9% 100ML IV SCH ×3 (02:00→18:42)
[2017-03-16] MEDS: ONDANSETRON INJ 2 MG/ML 2 ML VIAL IV. SCH (05:50)
[2017-03-16 06:21] LABS: HEMATOCRIT 29.1 % (37-47); HEMOGLOBIN 9.9 g/dL (12.0-16.0); MEAN CELL VOLUME 87.4 fL (80-100); MEAN CORPUSCULAR HEMOGLOBIN 29.7 pg (25-34); RED CELL DISTRIBUTION WIDTH CV 15.3 % (11.5-14.5); RED CELL DISTRIBUTION WIDTH SD 48.2 fL (36.4-46.3); WHITE BLOOD COUNT 7.78 K/uL (4.8-10.8)
[2017-03-16 06:44] LABS: CALCIUM 7.8 mg/dl (8.5-10.1); CREATININE 0.58 mg/dl (0.60-1.20); MEAN PLATELET VOLUME 10.7 fL (7.4-10.4); PLATELET COUNT 96 K/uL (130-400); POTASSIUM 4.2 mmol/L (3.5-5.1)
[2017-03-16 08:01] VITALS: BP 121/74; PULSE 92; TEMP 36.9; O2SAT 99
[2017-03-16] MEDS: INSULIN HUMAN REGULAR SC SCH ×4 (08:20→20:42)
[2017-03-16] MEDS: BOOST VANILLA PO SCH ×3 (08:20→20:15)
[2017-03-16] MEDS: FLUTICASONE HFA 220 MCG INHALER INH SCH ×2 (08:20→20:14)
[2017-03-16] MEDS: ESCITALOPRAM OXALATE 10 MG TAB PO SCH (08:21)
[2017-03-16] MEDS ORDERED: POT PHOSPHATE MONOBASIC W/ SOD TAB PO SCH (09:00)
[2017-03-16] MEDS ORDERED: POTASSIUM PHOS 3 MMOL/1 ML INFUSION IV SCH (09:30)
[2017-03-16] MEDS ORDERED: POTASSIUM PHOSPHATE INJ 15 MMOL in SODIUM CHLORIDE 0.9% 250ML 250 ML IV ONE (10:00)
[2017-03-16] MEDS: MULTI-VITAMIN INFUSION INJ 10 ML, THIAMINE HCL INJ 100 MG, FoLIC ACID INJ 1 MG in SODIU... IV SCH (10:01)
[2017-03-16] MEDS: ERGOCALCIFEROL 50,000 INTER.UNIT CAP PO SCH (10:02)
--- NOTE | 2017-03-16 14:32 | Neurology Progress Notes ---
Neurology Progress Note Date of Service Mar 16, 2017. Lilly Aguilar is a 66 year old PMH of HTN, HLD, asthma, h/o gastric ulcers and dysphagia who presents with poor PO intake and generalized weakness. She is responsive to simple questions and following commands. She has an NGT for feeding and there is pudding bedside. She has a issa for urinary retention and bilateral hydronephrosis. She follow commands but is very slow with responding. denies pain today Objective Date Time Temp Pulse Resp B/P (MAP) Pulse Ox O2 Delivery O2 Flow Rate FiO2 03/16/17 08:01 36.9 92 20 121/74 (90) 99 Room Air 03/16/17 08:00 Room Air 03/16/17 00:05 Room Air 03/15/17 23:53 37.0 88 16 129/96 (107) 99 Room Air 03/15/17 20:05 Room Air 03/15/17 16:00 Room Air 03/15/17 14:57 36.4 89 16 116/78 (91) 100 Last 24 Hours Test 03/15/17 17:00 03/15/17 20:18 03/16/17 05:30 03/16/17 07:45 Bedside Glucose 106 mg/dl 101 mg/dl 95 mg/dl White Blood Count 7.78 K/uL Red Blood Count 3.33 M/uL Hemoglobin 9.9 g/dL Hematocrit 29.1 % Mean Corpuscular Volume 87.4 fL Mean Corpuscular Hemoglobin 29.7 pg Mean Corpuscular Hemoglobin Concent 34.0 g/dl RDW Standard Deviation 48.2 fL RDW Coefficient of Variation 15.3 % Platelet Count 96 K/uL Mean Platelet Volume 10.7 fL Platelet Estimate DECREASED Sodium Level 140 mmol/L Potassium Level 4.2 mmol/L Chloride Level 111 mmol/L Carbon Dioxide Level 22 mmol/L Anion Gap 7.0 mmol/L Blood Urea Nitrogen 8 mg/dl Creatinine 0.58 mg/dl Est Creatinine Clear Calc Drug Dose 78.8 ml/min Estimated GFR () 111.3 Estimated GFR (Non- 96.1 BUN/Creatinine Ratio 13.3 Random Glucose 114 mg/dl Calcium Level 7.8 mg/dl Phosphorus Level 2.0 mg/dl Magnesium Level 1.8 mg/dl Vitamin B12 Level 836 pg/mL 25-Hydroxy Vitamin D Total 15.7 ng/ml Folate 1.92 ng/mL Test 03/16/17 11:36 Bedside Glucose 101 mg/dl Imaging: CT abdomen- Interval resolution of the bilateral hydroureteronephrosis status post decompression of the bladder by a Issa catheter. Therefore, this hydronephrosis was likely due to a bladder outlet obstruction. A feeding tube is located within the proximal duodenum. No bowel wall thickening or obstruction. Mild thickening of the rectum is again suggested. This may represent a low-grade proctitis in the appropriate clinical setting. No evidence for bowel obstruction. Normal appendix. Exam: Physical Exam: Constitutional: ill appearing sitting bedside Ears, Nose, Mouth and Throat: mucous membranes moist, no injection and skin normal, eyes normal Cardiovascular: normal S-1 and S-2 and regular rate and rhythm Respiratory: clear to auscultation (CTA) and no rales, rhonchi or wheeze Musculoskeletal: bilaterally UE edema of hands and digits, LE edema bilaterally Skin: no stigmata of neurocutaneous disease noted and normal and intact Eyes: extraocular muscles intact (EOMI) and pupils equal, round and reactive to light (PERRL) NEUROLOGIC EXAMINATION: Mental status: Alert and interactive Oriented looks around but does not respond to where she is Oriented to person Speech slowed responses Cranial Nerves face appears symmetric Sensory: light and cool touch Coordination: finger to nose with minimal bi pass Gait/Stance: Posture sitting up in bedside chair Motor: Negative for pronator drift of out stretched arms with eyes closed. 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 03/06/17 19:45 04/05/17 19:44 Albuterol (Ventolin Hfa Inhaler) 2 puffs Q4H PRN INH 03/06/17 20:30 2/18/18 20:29 03/13/17 21:53 2 PUFFS Escitalopram Oxalate (Lexapro Tab) 20 mg DAILY PO 03/07/17 09:00 04/06/17 08:59 03/16/17 08:21 20 MG Fluticasone Propionate (Flovent Hfa 220MCG Inhaler) 1 puffs BID INH 03/06/17 21:00 04/05/17 20:59 03/16/17 08:20 1 PUFFS Enteral Nutritional Formula (Boost) 1 can TID PO 03/07/17 21:00 04/06/17 20:59 03/15/17 21:06 1 CAN Miconazole Nitrate (Desenex Powder) 1 appln PRN PRN EXT 03/10/17 12:00 04/09/17 11:59 03/10/17 12:45 1 APPLN Al Hydroxide/Mg Hydroxide/ Lidocaine HCl/ Barcode Q8H PRN PO 03/10/17 16:00 04/09/17 15:59 03/11/17 12:00 24 ML Bisacodyl (Dulcolax Supp) 10 mg DAILY PRN [place] 03/11/17 17:30 04/10/17 17:29 Polyethylene (Miralax Powder Packet) 17 gm DAILY PRN PO 03/11/17 17:30 04/10/17 17:29 Risperidone (Risperdal M Tab) 0.5 mg HS PO 03/15/17 21:00 04/14/17 20:59 03/15/17 21:07 0.5 MG Ioversol (Optiray 320) 111 ml UD PRN IV 03/15/17 13:30 03/19/17 13:29 Enteral Nutritional Formula (Peptamen 1.5) 1,000 ml UD PRN NG 03/15/17 14:45 04/14/17 14:44 03/15/17 18:05 1,000 ML Insulin Human Regular (novoLIN-R) SLIDING SCALE IF C... ACHS SC 03/15/17 21:00 04/14/17 20:59 Glucose (Glucose 40% Gel) 15-30 GRAMS 15 GRAMS... UD PRN PO 03/15/17 17:00 04/14/17 16:59 Glucose (Glucose Chew Tab) 4-8 Tablets 4 Tabl... UD PRN PO 03/15/17 17:00 04/14/17 16:59 Dextrose (Dextrose 50% 50ML Syringe) 25-50ML OF 50% DW IV FOR... UD PRN IV 03/15/17 17:00 04/14/17 16:59 Glucagon (Glucagon Inj) 1 mg UD PRN SQ 03/15/17 17:00 04/14/17 16:59 Thiamine HCl 500 mg/Sodium Chloride 105 ml @ 210 mls/hr Q8H IV 03/15/17 18:00 04/14/17 17:59 03/16/17 09:50 210 MLS/HR Multivitamins 10 ml/Thiamine HCl 100 mg/Folic Acid 1 mg/Sodium Chloride 1,011.2 ml @ 125 mls/ hr DAILY IV 03/16/17 10:00 04/15/17 09:59 03/16/17 10:01 125 MLS/HR Ergocalciferol (Vitamin D Cap) 50,000 interunit Q4D@0900 PO 03/16/17 10:00 04/05/17 09:01 03/16/17 10:02 50,000 INTERUNIT Impression 66 year old female with complex medical history poor oral intake now on tube feeds Plan 1. all immunology markers have been negative 2. may need repeat MRI brain to evaluate for any structural changes 3. continue tube feeds until able to swallow for nutrition 4. PT/OT for discharge needs 5. will need EMG as outpatient for further evaluation of weakness 6. GI for evaluation and treatment of GI issues 7. nutrition to adjust for lyte abnormalities Vit D, folate further recommendations to follow I have seen and discussed above patient with Dr Pinky Fernandez, neurology PT seen examined. Spoke with Dr Agustin last evening. I had seen pt early in admission for dysphagia. Her ACH binding, blocking and modulating ab were neg, MRI brain noncontrib and recommned outpt EMG to eval for neuromuscular etiologies of dysphagia and weakness, which I doubted clinically, other than some weakness prox LE related to disuse. Pt MS declined gradually to become poorly response. CT head, neg. Found to be in urinary retention with hydronephrosis related to a combination of transderm scop and remeron. Those have improved, but pt has been slow to improve. NGT feedings and thiamine have been started. Exam, sleepy but arousable, O x 3, no aphasia, R/L confusion, nl eye closure, motility, facial symmetry. Side to side head tremor with blepharospasm noted. No asymmetric weakness, mild LE weakness. No pathologic reflexes. Impression. Suspect encephalopathy related to meds, urinary retention. Pt has no focal signs on exam. I do no see signs of Wernicke- Korsakoff, but agree with thimaine. Folate level low, would supplement. Continue to monitor contribution risperdal may be playing re sedation. Will follow with you. JACKELYN Fernandez MD
[2017-03-16 15:15] VITALS: BP 105/75; PULSE 87; TEMP 36.9; O2SAT 100
[2017-03-16 16:00] VITALS: O2SAT 100
--- NOTE | 2017-03-16 16:43 | Progress Note ---
Medicine Progress Note Date & Time of Visit: Mar 16, 2017 at 09:31. Subjective This is a 66yo F with a PMH of HTN, HLD, asthma, h/o gastric ulcers and dysphagia who presents with poor PO intake and generalized weakness. She appears somewhat more responsive to me today since 24 hours of feeds and thiamine supplementation. Adam remains in place with CT scan yesterday revealing resolution of hydronephrosis and good urine output. She denies lower abdominal discomfort and no nausea. Will need outpatient colonoscopy when discharged. Objective Last 8 Hrs Date Time Temp Pulse Resp B/P (MAP) Pulse Ox O2 Delivery O2 Flow Rate FiO2 03/16/17 08:01 36.9 92 20 121/74 (90) 99 Room Air 03/16/17 08:00 Room Air Physical Exam: GEN: obese, lethargic but easily arousable, able to speak clearly and articulate today, appears more awake when prompted. HEENT: NC/AT, PERRL, MMM, NGT in place (Corsafe) CARDIO: reg rate, S1/2 heard without m/g/r LUNGS: CTA bilaterally, no crackles, rales or wheezes, good diaphragmatic excursion ABD: soft, nontender, non-distended, no rebound or guarding, +BS EXTREMITY: RP and DP palpable 2+ bilat, no LE swelling or edema, extremities are warm and well-perfused SKIN: warm and dry Laboratory Results: 03/16/17 05:30 03/16/17 05:30 Test 03/06/17 18:14 03/07/17 06:29 03/08/17 05:38 03/10/17 06:55 Prothrombin Time 12.7 SECONDS (9.0-12.0) Prothromb Time International Ratio 1.2 (0.9-1.1) Activated Partial Thromboplast Time 30.1 SECONDS (21.0-31.0) Partial Thromboplastin Ratio 1.2 Lipase 364 U/L (73-393) Total Bilirubin 1.4 mg/dl (0.2-1) Aspartate Amino Transf (AST/SGOT) 20 U/L (15-37) Alanine Aminotransferase (ALT/SGPT) 33 U/L (12-78) Alkaline Phosphatase 82 U/L (45-117) Total Protein 6.8 gm/dl (6.4-8.2) Albumin 2.8 gm/dl (3.4-5.0) Globulin 4.0 gm/dl (2.5-4.0) Albumin/Globulin Ratio 0.7 (0.9-2) Anti-Striated Muscle Antibody Titer SEE BELOW (<1:40) Anti-Striated Muscle Antibody NEGATIVE (NEGATIVE) Acetylcholine Receptor Blocking Ab <15 % inhibit (<15) Acetylcholine Receptor Binding Ab <0.30 nmol/L Acetylcholine Recept Modulating Ab 15 Immature Granulocyte % (Auto) 0.8 % White Blood Count 4.74 K/uL (4.8-10.8) Red Blood Count 4.09 M/uL (4.2-5.4) Hemoglobin 12.3 g/dL (12.0-16.0) Hematocrit 34.1 % (37-47) Mean Corpuscular Volume 83.4 fL (80-100) Mean Corpuscular Hemoglobin 30.1 pg (25-34) Mean Corpuscular Hemoglobin Concent 36.1 g/dl (32-36) Platelet Count 156 K/uL (130-400) Mean Platelet Volume 11.0 fL (7.4-10.4) Neutrophils (%) (Auto) 73.5 % Lymphocytes (%) (Auto) 20.9 % Monocytes (%) (Auto) 3.8 % Eosinophils (%) (Auto) 0.4 % Basophils (%) (Auto) 0.6 % Neutrophils # (Auto) 3.48 K/uL (1.4-6.5) Lymphocytes # (Auto) 0.99 K/uL (1.2-3.4) Monocytes # (Auto) 0.18 K/uL (0.11-0.59) Eosinophils # (Auto) 0.02 K/uL (0-0.5) Basophils # (Auto) 0.03 K/uL (0-0.2) Immature Granulocyte # (Auto) 0.04 K/uL (0.00-0.02) Test 03/13/17 05:28 03/14/17 07:04 03/16/17 05:30 03/16/17 11:36 Prealbumin 16.1 mg/dl (20-40) Urine Color YELLOW Urine Appearance CLEAR (CLEAR) Urine pH 5.5 (4.5-7.5) Urine Specific [place] 1.011 (1.000-1.030) Urine Protein NEG (NEG) Urine Glucose (UA) TRACE (NEG) Urine Ketones NEG (NEG) Urine Occult Blood 2+ (NEG) Urine Nitrite NEG (NEG) Urine Bilirubin NEG (NEG) Urine Urobilinogen NEG (NEG) Urine Leukocyte Esterase NEG (NEG) Urine WBC (Auto) 1-5 /hpf (0-5) Urine RBC (Auto) 0-4 /hpf (0-4) Urine Hyaline Casts (Auto) 1-5 /lpf (0-5) Urine Epithelial Cells (Auto) 5-10 /lpf (0-5) Urine Bacteria (Auto) NEG (NEG) Red Blood Count 3.33 M/uL (4.2-5.4) Mean Corpuscular Volume 87.4 fL (80-100) Mean Corpuscular Hemoglobin 29.7 pg (25-34) Mean Corpuscular Hemoglobin Concent 34.0 g/dl (32-36) RDW Standard Deviation 48.2 fL (36.4-46.3) RDW Coefficient of Variation 15.3 % (11.5-14.5) Mean Platelet Volume 10.7 fL (7.4-10.4) Platelet Estimate DECREASED Anion Gap 7.0 mmol/L (3-11) Est Creatinine Clear Calc Drug Dose 78.8 ml/min Estimated GFR () 111.3 Estimated GFR (Non- 96.1 BUN/Creatinine Ratio 13.3 (10-20) Calcium Level 7.8 mg/dl (8.5-10.1) Phosphorus Level 2.0 mg/dl (2.5-4.9) Magnesium Level 1.8 mg/dl (1.8-2.4) Vitamin B12 Level 836 pg/mL (211-911) 25-Hydroxy Vitamin D Total 15.7 ng/ml (30-100) Folate 1.92 ng/mL (>5.38) Bedside Glucose 101 mg/dl (70-90) Date/Time Source Procedure Growth Status 03/14/17 07:04 Urine,Catheterized Urine Culture - Final NO GROWTH - LESS THAN 1,000 COLONIES/ML Complete Last 24 Hours Test 03/15/17 17:00 03/15/17 20:18 03/16/17 05:30 03/16/17 07:45 Bedside Glucose 106 mg/dl 101 mg/dl 95 mg/dl White Blood Count 7.78 K/uL Red Blood Count 3.33 M/uL Hemoglobin 9.9 g/dL Hematocrit 29.1 % Mean Corpuscular Volume 87.4 fL Mean Corpuscular Hemoglobin 29.7 pg Mean Corpuscular Hemoglobin Concent 34.0 g/dl RDW Standard Deviation 48.2 fL RDW Coefficient of Variation 15.3 % Platelet Count 96 K/uL Mean Platelet Volume 10.7 fL Platelet Estimate DECREASED Sodium Level 140 mmol/L Potassium Level 4.2 mmol/L Chloride Level 111 mmol/L Carbon Dioxide Level 22 mmol/L Anion Gap 7.0 mmol/L Blood Urea Nitrogen 8 mg/dl Creatinine 0.58 mg/dl Est Creatinine Clear Calc Drug Dose 78.8 ml/min Estimated GFR () 111.3 Estimated GFR (Non- 96.1 BUN/Creatinine Ratio 13.3 Random Glucose 114 mg/dl Calcium Level 7.8 mg/dl Phosphorus Level 2.0 mg/dl Magnesium Level 1.8 mg/dl Vitamin B12 Level 836 pg/mL 25-Hydroxy Vitamin D Total 15.7 ng/ml Folate 1.92 ng/mL Assessment & Plan This is a 66yo F with a PMH of HTN, HLD, asthma, h/o gastric ulcers and dysphagia who presents with poor PO intake and generalized weakness. She appears somewhat more responsive to me today since 24 hours of feeds and thiamine supplementation. Adam remains in place with CT scan yesterday revealing resolution of hydronephrosis and good urine output. She denies lower abdominal discomfort and no nausea. Will need outpatient colonoscopy when discharged. 1. Encephalopathy-multifactorial 2/2 poor nutrition, recent infection (now cleared), and recent urinary retention. Improved today after starting feeds and supplementing thiamine. Mirtazapine was also switched to Risperidone with first dose last night. She has severe folate deficiency, likely thiamine def, and vit D def. Likely has a general deficiency in micronutrients which we are adding more supplementation to today to help replete. 2. Acute urinary retention with bilateral hydronephrosis-2/2 recent scopalamine patch use. Lexapro may also be playing a small role as this drug has anticholinergic properties which can contribute to urinary retention. Discussed switching agents with Psych. Currently continuing with Lexapro and switched from mirtazapine to risperidone to help address the anxiety. Cont Adam 3. Weakness 2/2 severe protein-calorie malnutrition-Deconditioned. PT/OT recommend rehab and case Management is working on some options. does not feel he can care for her at home like this so may be more than a temporary situation? Peptamen and free water being given through corsafe-tolerating well but still far from her baseline strength and functioning. Thiamine started and trickle feeds to avoid refeeding syndrome. 4. Nausea-as this may be an additional barrier to eating, will schedule Zofran in the short-term. 5. Dysphagia/Odynophagia: per INTENSIVE CARE ANAESTHETIST and Neuro discussion there is no indication for a video swallow study at this time. Per Neuro there is no evidence of a neuromuscular disorder at this time. Per GI, repeat EGD with dilation was performed 03/11 and was normal. I have watched her take multiple bites successfully. She has no reports of pain or feeling dysphagia at this time. Of note, barium swallow in 2016 did show some tertiary contractions and some extrinsic compression on the mid-esophagus from the aortic arch. Cont PO feeding efforts during the day with Peptamen supplementation overnight. 6. HTN-Norvasc stopped to minimize PO because it was very low dose and BP controlled. 7. Depression/Anxiety-cont Lexapro augmented w risperidone. 8. h/o PUD-Pepcid switched to PPI. Sulcralfate stopped to avoid malabsorption 9. E coli UTI-completed course of abx. HAVEN is clear. DVT Ppx: Lovenox SQ Code status: FULL PCP: Diaz Dispo: Plan for SNF at discharge DO Koby [facility] Hospitalist Consultants: Neuro-Amandeep Speech therapy GI-[facility] Psych Current Inpatient Medications: Current Inpatient Medications Medications (Trade) Dose Ordered Sig/Jose Route Start Time Stop Time Status Last Admin Dose Admin Acetaminophen (Tylenol Tab) 650 mg Q4H PRN PO 03/06/17 17:15 04/05/17 17:14 03/08/17 19:49 650 MG Enoxaparin Sodium (Lovenox Inj) 40 mg HS SC 03/06/17 21:00 04/05/17 20:59 Future hold 03/15/17 21:06 40 MG Hydralazine HCl (HydrALAZINE INJ) 5 mg Q6 PRN IV. 03/06/17 19:45 04/05/17 19:44 Albuterol (Ventolin Hfa Inhaler) 2 puffs Q4H PRN INH 03/06/17 20:30 04/05/17 20:29 03/13/17 21:53 2 PUFFS Escitalopram Oxalate (Lexapro Tab) 20 mg DAILY PO 03/07/17 09:00 04/06/17 08:59 03/16/17 08:21 20 MG Fluticasone Propionate (Flovent Hfa 220MCG Inhaler) 1 puffs BID INH 03/06/17 21:00 04/05/17 20:59 03/16/17 08:20 1 PUFFS Enteral Nutritional Formula (Boost) 1 can TID PO 03/07/17 21:00 04/06/17 20:59 03/15/17 21:06 1 CAN Miconazole Nitrate (Desenex Powder) 1 appln PRN PRN EXT 03/10/17 12:00 04/09/17 11:59 03/10/17 12:45 1 APPLN Al Hydroxide/Mg Hydroxide/ Lidocaine HCl/ Barcode Q8H PRN PO 03/10/17 16:00 04/09/17 15:59 03/11/17 12:00 24 ML Bisacodyl (Dulcolax Supp) 10 mg DAILY PRN [place] 03/11/17 17:30 04/10/17 17:29 Polyethylene (Miralax Powder Packet) 17 gm DAILY PRN PO 03/11/17 17:30 04/10/17 17:29 Ondansetron HCl (Zofran Inj) 4 mg Q8H IV. 03/14/17 14:00 03/16/17 13:59 03/16/17 05:50 4 MG Risperidone (Risperdal M Tab) 0.5 mg HS PO 03/15/17 21:00 04/14/17 20:59 03/15/17 21:07 0.5 MG Ioversol (Optiray 320) 111 ml UD PRN IV 03/15/17 13:30 03/19/17 13:29 Enteral Nutritional Formula (Peptamen 1.5) 1,000 ml UD PRN NG 03/15/17 14:45 04/14/17 14:44 03/15/17 18:05 1,000 ML Insulin Human Regular (novoLIN-R) SLIDING SCALE IF C... ACHS SC 03/15/17 21:00 04/14/17 20:59 Glucose (Glucose 40% Gel) 15-30 GRAMS 15 GRAMS... UD PRN PO 03/15/17 17:00 04/14/17 16:59 Glucose (Glucose Chew Tab) 4-8 Tablets 4 Tabl... UD PRN PO 03/15/17 17:00 04/14/17 16:59 Dextrose (Dextrose 50% 50ML Syringe) 25-50ML OF 50% DW IV FOR... UD PRN IV 03/15/17 17:00 04/14/17 16:59 Glucagon (Glucagon Inj) 1 mg UD PRN SQ 03/15/17 17:00 04/14/17 16:59 Thiamine HCl 500 mg/Sodium Chloride 105 ml @ 210 mls/hr Q8H IV 03/15/17 18:00 04/14/17 17:59 03/16/17 02:00 210 MLS/HR Potassium/ Phosphorus/Sodium (Phospha 250 Neutral 155-852-130 Mg) 1 tab QID PO 03/16/17 09:00 03/18/17 08:59 03/16/17 08:21 1 TAB
[2017-03-16] MEDS: PEPTAMEN 1.5 CAL 1000ML BAG NG PRN (19:28)
[2017-03-16] MEDS: ENOXAPARIN 40 MG/0.4 ML SYR SC SCH (20:16)
[2017-03-16] MEDS: RISPERIDONE ODT 0.5MG PO SCH (20:16)
[2017-03-16 23:48] VITALS: BP 101/69; PULSE 87; TEMP 36.6; O2SAT 98
[2017-03-17] VITALS (7 sets, daily range): BP systolic 111–138; BP diastolic 69–82; PULSE 73–87; TEMP 36.4–36.8; O2SAT 95–100
[2017-03-17] MEDS: THIAMINE HCL INJ 500 MG in SODIUM CHLORIDE 0.9% 100ML IV SCH ×3 (02:13→17:29)
[2017-03-17] MEDS: MULTI-VITAMIN INFUSION INJ 10 ML, THIAMINE HCL INJ 100 MG, FoLIC ACID INJ 1 MG in SODIU... IV SCH (08:12)
[2017-03-17 08:19] LABS: HEMATOCRIT 26.7 % (37-47); HEMOGLOBIN 9.2 g/dL (12.0-16.0); MEAN CELL VOLUME 86.4 fL (80-100); MEAN CORPUSCULAR HEMOGLOBIN 29.8 pg (25-34); MEAN CORPUSCULAR HGB CONC 34.5 g/dl (32-36); RED CELL DISTRIBUTION WIDTH CV 15.1 % (11.5-14.5); RED CELL DISTRIBUTION WIDTH SD 47.2 fL (36.4-46.3); WHITE BLOOD COUNT 5.82 K/uL (4.8-10.8)
[2017-03-17 08:22] LABS: MEAN PLATELET VOLUME 10.6 fL (7.4-10.4); PLATELET COUNT 82 K/uL (130-400)
[2017-03-17 08:47] LABS: CREATININE 0.57 mg/dl (0.60-1.20); POTASSIUM 3.7 mmol/L (3.5-5.1)
[2017-03-17] MEDS: INSULIN HUMAN REGULAR SC SCH ×4 (08:47→20:35)
[2017-03-17 08:50] LABS: PHOSPHORUS 3.2 mg/dl (2.5-4.9); TOTAL PROTEIN 4.9 gm/dl (6.4-8.2)
[2017-03-17] MEDS: ESCITALOPRAM OXALATE 10 MG TAB PO SCH (10:31)
[2017-03-17] MEDS: BOOST VANILLA PO SCH ×3 (10:37→20:34)
[2017-03-17] MEDS: FLUTICASONE HFA 220 MCG INHALER INH SCH ×2 (10:38→20:35)
--- NOTE | 2017-03-17 16:27 | Progress Note ---
Medicine Progress Note Date & Time of Visit: Mar 17, 2017 at 16:10 . Subjective CC: Follow-up visit for altered mental status, weight loss, severe malnutrition, and other problems. HPI: More alert. Ate some lunch. Still has NGT. No N/V. 1 loose stool last night; none since. Generalized weakness. Dependent for ADL's. ROS: General- no fever, no chills Resp- no cough; no shortness of breath Cardiac- no chest pain, no edema GI- as noted above in HPI - Adam cath . Objective Last 8 Hrs Date Time Temp Pulse Resp B/P (MAP) Pulse Ox O2 Delivery O2 Flow Rate FiO2 03/17/17 14:50 36.8 73 18 126/72 (90) 100 Room Air 03/17/17 12:15 100 Room Air 03/17/17 12:11 36.6 87 16 111/69 (83) 100 Room Air 03/17/17 09:09 100 Room Air 03/17/17 09:03 36.4 86 16 138/82 (100) 100 Room Air Physical Exam: General- lying in bed; no distress ENT- NGT right nostril Lungs- clear to auscultation; no respiratory distress Cardiovascular- RRR; no murmur; no gallop; no JVD; trace pretibial edema Abdomen- + bowel sounds, soft, nontender Extremities- no cyanosis; no calf tenderness; waffle boots and SCD's applied Neuro- more alert; oriented to person, year; can name president; generalized weakness; resting tremor of head Skin- warm & dry . Laboratory Results: Last 24 Hours Test 03/16/17 16:54 03/16/17 20:24 03/17/17 07:03 03/17/17 08:07 Bedside Glucose 81 mg/dl 85 mg/dl 88 mg/dl Sodium Level 140 mmol/L Potassium Level 3.7 mmol/L Chloride Level 108 mmol/L Carbon Dioxide Level 25 mmol/L Anion Gap 7.0 mmol/L Blood Urea Nitrogen 12 mg/dl Creatinine 0.57 mg/dl Est Creatinine Clear Calc Drug Dose 82.1 ml/min Estimated GFR () 112.0 Estimated GFR (Non- 96.6 BUN/Creatinine Ratio 20.9 Random Glucose 106 mg/dl Calcium Level 8.0 mg/dl Phosphorus Level 3.2 mg/dl Magnesium Level 1.7 mg/dl Total Bilirubin 0.4 mg/dl Direct Bilirubin 0.1 mg/dl Aspartate Amino Transf (AST/SGOT) 23 U/L Alanine Aminotransferase (ALT/SGPT) 35 U/L Alkaline Phosphatase 82 U/L Total Protein 4.9 gm/dl Albumin 2.0 gm/dl Globulin 2.9 gm/dl Albumin/Globulin Ratio 0.7 Heparin-PF4 Antibody Screen NEG Test 03/17/17 08:08 03/17/17 10:56 White Blood Count 5.82 K/uL Red Blood Count 3.09 M/uL Hemoglobin 9.2 g/dL Hematocrit 26.7 % Mean Corpuscular Volume 86.4 fL Mean Corpuscular Hemoglobin 29.8 pg Mean Corpuscular Hemoglobin Concent 34.5 g/dl RDW Standard Deviation 47.2 fL RDW Coefficient of Variation 15.1 % Platelet Count 82 K/uL Mean Platelet Volume 10.6 fL Bedside Glucose 81 mg/dl Assessment & Plan ALTERED MENTAL STATUS MRI demonstrated minimal chronic small vessel ischemic changes, no acute events. Apparent metabolic encephalopathy due to severe malnutrition and vitamin deficiencies. Improved. WEIGHT LOSS / MALNUTRITION 100 lb weight loss documented. Apparently secondary to dysphagia. Albumin 3.2 --> 2.0. Documented folate and vitamin D deficiencies. Receiving enteral nutritional support via NGT. Continue vitamin supplementation. Advance diet as tolerated. Calorie counts. 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 EGD did not demonstrate any esophageal pathology. TRIMMING CASER consulted. HYPERTENSION Amlodipine stopped because of relatively low BP's. Follow. URINARY RETENTION Anti-cholinergic drugs discontinued. Try voiding trial soon. E COLI UTI (present on admission) Treated with course of antibiotics. THROMBOCYTOPENIA Plts 208,000 --> --> 82,000. HIT screen negative. Follow. GENERALIZED WEAKNESS Probably secondary to malnutrition and immobility. Seen by Neurology. Anti-acetylcholine receptor antibodies negative. PT / OT. Outpatient EMG / NCV recommended. DEPRESSION Psychiatry consulted. Receiving escitalopram. VTE PROPHYLAXIS Was receiving enoxaparin. Enoxaparin discontinued due to thrombocytopenia. SCD's. Ambulate as able. DISPOSITION To be determined. Anticipate need for skilled care or rehab. Family Medicine follow-up with Dr. Perales. . Consultants: Neuro-Amandeep Speech therapy GI-[facility] Psych Current Inpatient Medications: Current Inpatient Medications Medications (Trade) Dose Ordered Sig/Jose Route Start Time Stop Time Status Last Admin Dose Admin Acetaminophen (Tylenol Tab) 650 mg Q4H PRN PO 03/06/17 17:15 04/05/17 17:14 03/08/17 19:49 650 MG Hydralazine HCl (HydrALAZINE INJ) 5 mg Q6 PRN IV. 03/06/17 19:45 04/05/17 19:44 Albuterol (Ventolin Hfa Inhaler) 2 puffs Q4H PRN INH 03/06/17 20:30 04/05/17 20:29 03/13/17 21:53 2 PUFFS Escitalopram Oxalate (Lexapro Tab) 20 mg DAILY PO 03/07/17 09:00 04/06/17 08:59 03/17/17 10:31 20 MG Fluticasone Propionate (Flovent Hfa 220MCG Inhaler) 1 puffs BID INH 03/06/17 21:00 04/05/17 20:59 03/17/17 10:38 1 PUFFS Enteral Nutritional Formula (Boost) 1 can TID PO 03/07/17 21:00 04/06/17 20:59 03/17/17 10:37 1 CAN Miconazole Nitrate (Desenex Powder) 1 appln PRN PRN EXT 03/10/17 12:00 04/09/17 11:59 03/10/17 12:45 1 APPLN Al Hydroxide/Mg Hydroxide/ Lidocaine HCl/ Barcode Q8H PRN PO 03/10/17 16:00 04/09/17 15:59 03/11/17 12:00 24 ML Bisacodyl (Dulcolax Supp) 10 mg DAILY PRN [place] 03/11/17 17:30 04/10/17 17:29 Polyethylene (Miralax Powder Packet) 17 gm DAILY PRN PO 03/11/17 17:30 04/10/17 17:29 Risperidone (Risperdal M Tab) 0.5 mg HS PO 03/15/17 21:00 04/14/17 20:59 03/16/17 20:16 0.5 MG Ioversol (Optiray 320) 111 ml UD PRN IV 03/15/17 13:30 03/19/17 13:29 Enteral Nutritional Formula (Peptamen 1.5) 1,000 ml UD PRN NG 03/15/17 14:45 04/14/17 14:44 03/16/17 19:28 1,000 ML Insulin Human Regular (novoLIN-R) SLIDING SCALE IF C... ACHS SC 03/15/17 21:00 04/14/17 20:59 Glucose (Glucose 40% Gel) 15-30 GRAMS 15 GRAMS... UD PRN PO 03/15/17 17:00 04/14/17 16:59 Glucose (Glucose Chew Tab) 4-8 Tablets 4 Tabl... UD PRN PO 03/15/17 17:00 04/14/17 16:59 Dextrose (Dextrose 50% 50ML Syringe) 25-50ML OF 50% DW IV FOR... UD PRN IV 03/15/17 17:00 04/14/17 16:59 Glucagon (Glucagon Inj) 1 mg UD PRN SQ 03/15/17 17:00 04/14/17 16:59 Thiamine HCl 500 mg/Sodium Chloride 105 ml @ 210 mls/hr Q8H IV 03/15/17 18:00 04/14/17 17:59 03/17/17 10:37 210 MLS/HR Multivitamins 10 ml/Thiamine HCl 100 mg/Folic Acid 1 mg/Sodium Chloride 1,011.2 ml @ 125 mls/ hr DAILY IV 03/16/17 10:00 04/15/17 09:59 03/17/17 08:12 125 MLS/HR Ergocalciferol (Vitamin D Cap) 50,000 interunit Q4D@0900 PO 03/16/17 10:00 04/05/17 09:01 03/16/17 10:02 50,000 INTERUNIT
--- NOTE | 2017-03-17 16:42 | Neurology Progress Notes ---
Neurology Progress Note Date of Service Mar 17, 2017. Lilly Aguilar is a 66 year old PMH of HTN, HLD, asthma, h/o gastric ulcers and dysphagia who presents with poor PO intake and generalized weakness. She is responsive to simple questions and following commands. She has an NGT for feeding and there is pudding bedside. She has a issa for urinary retention and bilateral hydronephrosis. She follow commands and is responding better today. denies pain today Objective Date Time Temp Pulse Resp B/P (MAP) Pulse Ox O2 Delivery O2 Flow Rate FiO2 03/17/17 14:50 36.8 73 18 126/72 (90) 100 Room Air 03/17/17 12:15 100 Room Air 03/17/17 12:11 36.6 87 16 111/69 (83) 100 Room Air 03/17/17 09:09 100 Room Air 03/17/17 09:03 36.4 86 16 138/82 (100) 100 Room Air 03/17/17 07:55 100 Room Air 03/17/17 00:00 Room Air 03/16/17 23:48 36.6 87 16 101/69 (80) 98 Room Air Last 24 Hours Test 03/16/17 16:54 03/16/17 20:24 03/17/17 07:03 03/17/17 08:07 Bedside Glucose 81 mg/dl 85 mg/dl 88 mg/dl Sodium Level 140 mmol/L Potassium Level 3.7 mmol/L Chloride Level 108 mmol/L Carbon Dioxide Level 25 mmol/L Anion Gap 7.0 mmol/L Blood Urea Nitrogen 12 mg/dl Creatinine 0.57 mg/dl Est Creatinine Clear Calc Drug Dose 82.1 ml/min Estimated GFR () 112.0 Estimated GFR (Non- 96.6 BUN/Creatinine Ratio 20.9 Random Glucose 106 mg/dl Calcium Level 8.0 mg/dl Phosphorus Level 3.2 mg/dl Magnesium Level 1.7 mg/dl Total Bilirubin 0.4 mg/dl Direct Bilirubin 0.1 mg/dl Aspartate Amino Transf (AST/SGOT) 23 U/L Alanine Aminotransferase (ALT/SGPT) 35 U/L Alkaline Phosphatase 82 U/L Total Protein 4.9 gm/dl Albumin 2.0 gm/dl Globulin 2.9 gm/dl Albumin/Globulin Ratio 0.7 Heparin-PF4 Antibody Screen NEG Test 03/17/17 08:08 03/17/17 10:56 White Blood Count 5.82 K/uL Red Blood Count 3.09 M/uL Hemoglobin 9.2 g/dL Hematocrit 26.7 % Mean Corpuscular Volume 86.4 fL Mean Corpuscular Hemoglobin 29.8 pg Mean Corpuscular Hemoglobin Concent 34.5 g/dl RDW Standard Deviation 47.2 fL RDW Coefficient of Variation 15.1 % Platelet Count 82 K/uL Mean Platelet Volume 10.6 fL Bedside Glucose 81 mg/dl Imaging: no new imaging Exam: Physical Exam: Constitutional: appearance nourish NGT in nares Ears, Nose, Mouth and Throat: mucous membranes moist, no injection and skin normal, eyes normal Cardiovascular: normal S-1 and S-2 and regular rate and rhythm Respiratory: clear to auscultation (CTA) and no rales, rhonchi or wheeze Musculoskeletal: no peripheral edema and good distal pulses Skin: no stigmata of neurocutaneous disease noted and normal and intact Eyes: extraocular muscles intact (EOMI) and pupils equal, round and reactive to light (PERRL) NEUROLOGIC EXAMINATION: Mental status: Alert and interactive Oriented knows she is in the hospital knows it is at the end of February, Oriented to person Speech fluent with no evidence of aphasia Cranial Nerves smile, eye brow raise symmetric, tongue midline Reflexes: Deep tendon reflexes were symmetrical and graded 2/5. Sensory: intact to cool and light touch Coordination: finger to nose no bi pass mild tremor Gait/Stance: Posture lying in bed Motor: Negative for pronator drift of out stretched arms with eyes closed. Strength: biceps triceps hand hospital coordinator 5/5 bilaterally hip flex 4/5 bilaterally plantar flex ext 5/5 bilaterally Current Inpatient Medications Medications (Trade) Dose Ordered Sig/Jose Route Start Time Stop Time Status Last Admin Dose Admin Acetaminophen (Tylenol Tab) 650 mg Q4H PRN PO 03/06/17 17:15 04/05/17 17:14 03/08/17 19:49 650 MG Hydralazine HCl (HydrALAZINE INJ) 5 mg Q6 PRN IV. 03/06/17 19:45 04/05/17 19:44 Albuterol (Ventolin Hfa Inhaler) 2 puffs Q4H PRN INH 03/06/17 20:30 04/05/17 20:29 03/13/17 21:53 2 PUFFS Escitalopram Oxalate (Lexapro Tab) 20 mg DAILY PO 03/07/17 09:00 04/06/17 08:59 03/17/17 10:31 20 MG Fluticasone Propionate (Flovent Hfa 220MCG Inhaler) 1 puffs BID INH 03/06/17 21:00 04/05/17 20:59 03/17/17 10:38 1 PUFFS Enteral Nutritional Formula (Boost) 1 can TID PO 03/07/17 21:00 04/06/17 20:59 03/17/17 10:37 1 CAN Miconazole Nitrate (Desenex Powder) 1 appln PRN PRN EXT 03/10/17 12:00 04/09/17 11:59 03/10/17 12:45 1 APPLN Al Hydroxide/Mg Hydroxide/ Lidocaine HCl/ Barcode Q8H PRN PO 03/10/17 16:00 04/09/17 15:59 03/11/17 12:00 24 ML Bisacodyl (Dulcolax Supp) 10 mg DAILY PRN [place] 03/11/17 17:30 04/10/17 17:29 Polyethylene (Miralax Powder Packet) 17 gm DAILY PRN PO 03/11/17 17:30 04/10/17 17:29 Risperidone (Risperdal M Tab) 0.5 mg HS PO 03/15/17 21:00 04/14/17 20:59 03/16/17 20:16 0.5 MG Ioversol (Optiray 320) 111 ml UD PRN IV 03/15/17 13:30 03/19/17 13:29 Enteral Nutritional Formula (Peptamen 1.5) 1,000 ml UD PRN NG 03/15/17 14:45 04/14/17 14:44 03/16/17 19:28 1,000 ML Insulin Human Regular (novoLIN-R) SLIDING SCALE IF C... ACHS SC 03/15/17 21:00 04/14/17 20:59 Glucose (Glucose 40% Gel) 15-30 GRAMS 15 GRAMS... UD PRN PO 03/15/17 17:00 04/14/17 16:59 Glucose (Glucose Chew Tab) 4-8 Tablets 4 Tabl... UD PRN PO 03/15/17 17:00 04/14/17 16:59 Dextrose (Dextrose 50% 50ML Syringe) 25-50ML OF 50% DW IV FOR... UD PRN IV 03/15/17 17:00 04/14/17 16:59 Glucagon (Glucagon Inj) 1 mg UD PRN SQ 03/15/17 17:00 04/14/17 16:59 Thiamine HCl 500 mg/Sodium Chloride 105 ml @ 210 mls/hr Q8H IV 03/15/17 18:00 04/14/17 17:59 03/17/17 10:37 210 MLS/HR Multivitamins 10 ml/Thiamine HCl 100 mg/Folic Acid 1 mg/Sodium Chloride 1,011.2 ml @ 125 mls/ hr DAILY IV 03/16/17 10:00 04/15/17 09:59 03/17/17 08:12 125 MLS/HR Ergocalciferol (Vitamin D Cap) 50,000 interunit Q4D@0900 PO 03/16/17 10:00 04/05/17 09:01 03/16/17 10:02 50,000 INTERUNIT Impression 66 year old female with complex medical history poor oral intake now on tube feeds Plan 1. all immunology markers have been negative 2. may need repeat MRI brain to evaluate for any structural changes 3. continue tube feeds until able to swallow for nutrition 4. PT/OT/speech for discharge needs 5. will need EMG as outpatient for further evaluation of weakness 6. GI for evaluation and treatment of GI issues 7. nutrition to adjust for lyte abnormalities Vit D, folate I have seen and discussed above patient with Dr Pinky Fernandez, neurology Pt much more awake and alert, non focal. Suspect protracted encephalopathy related to urinary retention and anticholinergic drugs. JACKELYN Fernandez MD
[2017-03-17] MEDS: PEPTAMEN 1.5 CAL 1000ML BAG NG PRN (18:13)
[2017-03-17] MEDS: RISPERIDONE ODT 0.5MG PO SCH (20:35)
[2017-03-17] MEDS: MICONAZOLE NITRATE POWDER 43 GM EXT PRN (20:37)
[2017-03-18 00:36] VITALS: BP 117/72; PULSE 81; TEMP 36.8; O2SAT 100
[2017-03-18] MEDS: THIAMINE HCL INJ 500 MG in SODIUM CHLORIDE 0.9% 100ML IV SCH ×3 (01:52→17:38)
[2017-03-18 07:27] VITALS: BP 106/72; PULSE 81; TEMP 36.6; O2SAT 98
[2017-03-18] MEDS: INSULIN HUMAN REGULAR SC SCH ×4 (08:19→20:46)
[2017-03-18] MEDS: ESCITALOPRAM OXALATE 10 MG TAB PO SCH (08:20)
[2017-03-18] MEDS: FLUTICASONE HFA 220 MCG INHALER INH SCH ×2 (08:20→20:46)
[2017-03-18] MEDS: BOOST VANILLA PO SCH ×3 (08:24→16:43)
[2017-03-18] MEDS: MULTI-VITAMIN INFUSION INJ 10 ML, THIAMINE HCL INJ 100 MG, FoLIC ACID INJ 1 MG in SODIU... IV SCH (08:30)
[2017-03-18 14:34] VITALS: BP 114/67; PULSE 77; TEMP 36.8; O2SAT 98
--- NOTE | 2017-03-18 15:24 | Neurology Progress Notes ---
Neurology Progress Note Date of Service Mar 18, 2017. Subjective Lauren is a 66 year old PMH of HTN, HLD, asthma, h/o gastric ulcers and dysphagia who presents with poor PO intake and generalized weakness. She is responsive to simple questions and following commands. The NGT for feeding was removed and she states she has been taking things orally. She has a Adam for urinary retention and bilateral hydronephrosis. She follow commands and is responding better today. denies pain today Objective Date Time Temp Pulse Resp B/P (MAP) Pulse Ox O2 Delivery O2 Flow Rate FiO2 03/18/17 14:34 36.8 77 16 114/67 (83) 98 03/18/17 07:58 Room Air 03/18/17 07:27 36.6 81 16 106/72 (83) 98 03/18/17 00:36 36.8 81 20 117/72 (87) 100 Room Air 03/18/17 00:15 Room Air 03/17/17 19:04 36.6 85 18 132/79 (96) 95 03/17/17 16:00 Room Air 03/17/17 14:50 36.8 73 18 126/72 (90) 100 Room Air Last 24 Hours Test 03/17/17 16:28 03/17/17 20:24 03/18/17 07:39 03/18/17 11:33 Bedside Glucose 85 mg/dl 95 mg/dl 91 mg/dl 93 mg/dl Imaging: no new imaging Exam: Physical Exam: Constitutional: appearance nourished more alert today Ears, Nose, Mouth and Throat: mucous membranes moist, no injection and skin normal, eyes normal Cardiovascular: normal S-1 and S-2 and regular rate and rhythm Respiratory: clear to auscultation (CTA) and no rales, rhonchi or wheeze Musculoskeletal: peripheral edema decreased distal pulses Skin: no stigmata of neurocutaneous disease noted and normal and intact Eyes: extraocular muscles intact (EOMI) and pupils equal, round and reactive to light (PERRL) NEUROLOGIC EXAMINATION: Mental status: Alert and interactive Oriented hospital winter Oriented to person Speech fluent with no evidence of aphasia Cranial Nerves smile eye brow raise symmetric, tongue midline Sensory: to light touch Coordination: finger to nose without bi pass Gait/Stance: Posture sitting up in chair bedside Motor: Negative for pronator drift of out stretched arms with eyes closed. Strength: generalize weakness, decreased strength throughout Current Inpatient Medications Medications (Trade) Dose Ordered Sig/Jose Route Start Time Stop Time Status Last Admin Dose Admin Acetaminophen (Tylenol Tab) 650 mg Q4H PRN PO 03/06/17 17:15 04/05/17 17:14 03/08/17 19:49 650 MG Hydralazine HCl (HydrALAZINE INJ) 5 mg Q6 PRN IV. 03/06/17 19:45 04/05/17 19:44 Albuterol (Ventolin Hfa Inhaler) 2 puffs Q4H PRN INH 03/06/17 20:30 04/05/17 20:29 03/13/17 21:53 2 PUFFS Escitalopram Oxalate (Lexapro Tab) 20 mg DAILY PO 03/07/17 09:00 04/06/17 08:59 03/18/17 08:20 20 MG Fluticasone Propionate (Flovent Hfa 220MCG Inhaler) 1 puffs BID INH 03/06/17 21:00 04/05/17 20:59 03/18/17 08:20 1 PUFFS Miconazole Nitrate (Desenex Powder) 1 appln PRN PRN EXT 03/10/17 12:00 04/09/17 11:59 03/17/17 20:37 1 APPLN Al Hydroxide/Mg Hydroxide/ Lidocaine HCl/ Barcode Q8H PRN PO 03/10/17 16:00 04/09/17 15:59 03/11/17 12:00 24 ML Bisacodyl (Dulcolax Supp) 10 mg DAILY PRN SC 03/11/17 17:30 04/10/17 17:29 Polyethylene (Miralax Powder Packet) 17 gm DAILY PRN PO 03/11/17 17:30 04/10/17 17:29 Risperidone (Risperdal M Tab) 0.5 mg HS PO 03/15/17 21:00 04/14/17 20:59 03/17/17 20:35 0.5 MG Ioversol (Optiray 320) 111 ml UD PRN IV 03/15/17 13:30 03/19/17 13:29 Enteral Nutritional Formula (Peptamen 1.5) 1,000 ml UD PRN NG 03/15/17 14:45 04/14/17 14:44 03/17/17 18:13 1,000 ML Insulin Human Regular (novoLIN-R) SLIDING SCALE IF C... ACHS SC 03/15/17 21:00 04/14/17 20:59 Glucose (Glucose 40% Gel) 15-30 GRAMS 15 GRAMS... UD PRN PO 03/15/17 17:00 04/14/17 16:59 Glucose (Glucose Chew Tab) 4-8 Tablets 4 Tabl... UD PRN PO 03/15/17 17:00 04/14/17 16:59 Dextrose (Dextrose 50% 50ML Syringe) 25-50ML OF 50% DW IV FOR... UD PRN IV 03/15/17 17:00 04/14/17 16:59 Glucagon (Glucagon Inj) 1 mg UD PRN SQ 03/15/17 17:00 04/14/17 16:59 Thiamine HCl 500 mg/Sodium Chloride 105 ml @ 210 mls/hr Q8H IV 03/15/17 18:00 04/14/17 17:59 03/18/17 08:25 210 MLS/HR Multivitamins 10 ml/Thiamine HCl 100 mg/Folic Acid 1 mg/Sodium Chloride 1,011.2 ml @ 125 mls/ hr DAILY IV 03/16/17 10:00 04/15/17 09:59 03/18/17 08:30 125 MLS/HR Ergocalciferol (Vitamin D Cap) 50,000 interunit Q4D@0900 PO 03/16/17 10:00 04/05/17 09:01 03/16/17 10:02 50,000 INTERUNIT Enteral Nutritional Formula (Boost) 1 can TIDM PO 03/18/17 12:00 04/17/17 11:59 03/18/17 13:47 1 CAN Impression 66 year old female with complex medical history poor oral intake now on tube feeds Plan 1. all immunology markers have been negative 2. NGT removed no taking orals 3.nutrition will need to be monitored 4. PT/OT/speech for discharge needs -[facility] when stable 5. will need EMG as outpatient for further evaluation of weakness 6. GI for evaluation and treatment of GI issues 7. watch lytes and replete 8. ok from neurology stand point to discharge when medically stable will see in neurology for EMG after discharged from rehab. I have seen and discussed above patient with Dr Pinky Fernandez, neurology Pt seen , examined resolved encephalopathy related to meds, decreased PO intake. Improved. Rec ongoing folic acid supplementation. Defer to hospitalist re ongoing need for thiamine. REc NCV-EMG with me as outpt. Doubt underlying neuromuscular or central etiology of dysphagia. JACKELYN Fernandez MD
--- NOTE | 2017-03-18 20:14 | Progress Note ---
Medicine Progress Note Date & Time of Visit: Mar 18, 2017 at 19:10 . Subjective CC: Follow-up visit for altered mental status, weight loss, severe malnutrition, and other problems. HPI: Better. NGT came out last night. PO intake improved. No N/V. No diarrhea. Still has Adam cath. Generalized weakness. Dependent for ADL's. Son visiting. ROS: General- no fever, no chills Resp- no cough; no shortness of breath Cardiac- no chest pain, no edema GI- as noted above in HPI - as noted above in HPI . Objective Last 8 Hrs Date Time Temp Pulse Resp B/P (MAP) Pulse Ox O2 Delivery O2 Flow Rate FiO2 03/18/17 16:49 Room Air 03/18/17 14:34 36.8 77 16 114/67 (83) 98 Physical Exam: General- lying in bed; no distress Eyes- anicteric Lungs- clear to auscultation; no respiratory distress Cardiovascular- RRR; no murmur; no gallop; no JVD; trace pretibial edema Abdomen- + bowel sounds, soft, nontender Extremities- no cyanosis; no calf tenderness; waffle boots applied Neuro- alert; oriented to person, hospital, year; can name president; generalized weakness; resting tremor of head Skin- warm & dry . Laboratory Results: Last 24 Hours Test 03/17/17 20:24 03/18/17 07:39 03/18/17 11:33 03/18/17 16:32 Bedside Glucose 95 mg/dl 91 mg/dl 93 mg/dl 89 mg/dl Assessment & Plan ALTERED MENTAL STATUS MRI demonstrated minimal chronic small vessel ischemic changes, no acute events. Apparent metabolic encephalopathy due to severe malnutrition and vitamin deficiencies. Improved. WEIGHT LOSS / MALNUTRITION 100 lb weight loss documented. Apparently secondary to dysphagia. Albumin 3.2 --> 2.0. Documented folate and vitamin D deficiencies. Received enteral nutritional support via NGT. NGT inadvertently removed 03/17. Advance diet as tolerated. Continue vitamin supplementation. Calorie counts. 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 EGD did not demonstrate any esophageal pathology. CASTING REPAIRER consulted. HYPERTENSION Amlodipine stopped because of relatively low BP's. Follow. URINARY RETENTION Anti-cholinergic drugs discontinued. Try voiding trial tomorrow. E COLI UTI (present on admission) Treated with course of antibiotics. THROMBOCYTOPENIA Plts 208,000 --> --> 82,000. HIT screen negative. Follow. GENERALIZED WEAKNESS Probably secondary to malnutrition and immobility. Seen by Neurology. Anti-acetylcholine receptor antibodies negative. PT / OT. Outpatient EMG / NCV recommended. DEPRESSION Psychiatry consulted. Receiving escitalopram. VTE PROPHYLAXIS Was receiving enoxaparin. Enoxaparin discontinued due to thrombocytopenia. SCD's. Ambulate as able. DISPOSITION To be determined. Anticipate need for skilled care or rehab. Family Medicine follow-up with Dr. Perales. . Consultants: Neuro-Amandeep Speech therapy GI-Samuel Psych Current Inpatient Medications: Current Inpatient Medications Medications (Trade) Dose Ordered Sig/Jose Route Start Time Stop Time Status Last Admin Dose Admin Acetaminophen (Tylenol Tab) 650 mg Q4H PRN PO 03/06/17 17:15 04/05/17 17:14 03/08/17 19:49 650 MG Hydralazine HCl (HydrALAZINE INJ) 5 mg Q6 PRN IV. 03/06/17 19:45 04/05/17 19:44 Albuterol (Ventolin Hfa Inhaler) 2 puffs Q4H PRN INH 03/06/17 20:30 04/05/17 20:29 03/13/17 21:53 2 PUFFS Escitalopram Oxalate (Lexapro Tab) 20 mg DAILY PO 03/07/17 09:00 04/06/17 08:59 03/18/17 08:20 20 MG Fluticasone Propionate (Flovent Hfa 220MCG Inhaler) 1 puffs BID INH 03/06/17 21:00 04/05/17 20:59 03/18/17 08:20 1 PUFFS Miconazole Nitrate (Desenex Powder) 1 appln PRN PRN EXT 03/10/17 12:00 04/09/17 11:59 03/17/17 20:37 1 APPLN Al Hydroxide/Mg Hydroxide/ Lidocaine HCl/ Barcode Q8H PRN PO 03/10/17 16:00 04/09/17 15:59 03/11/17 12:00 24 ML Bisacodyl (Dulcolax Supp) 10 mg DAILY PRN SC 03/11/17 17:30 04/10/17 17:29 Polyethylene (Miralax Powder Packet) 17 gm DAILY PRN PO 03/11/17 17:30 04/10/17 17:29 Risperidone (Risperdal M Tab) 0.5 mg HS PO 03/15/17 21:00 04/14/17 20:59 03/17/17 20:35 0.5 MG Ioversol (Optiray 320) 111 ml UD PRN IV 03/15/17 13:30 03/19/17 13:29 Enteral Nutritional Formula (Peptamen 1.5) 1,000 ml UD PRN NG 03/15/17 14:45 04/14/17 14:44 03/17/17 18:13 1,000 ML Insulin Human Regular (novoLIN-R) SLIDING SCALE IF C... ACHS SC 03/15/17 21:00 04/14/17 20:59 Glucose (Glucose 40% Gel) 15-30 GRAMS 15 GRAMS... UD PRN PO 03/15/17 17:00 04/14/17 16:59 Glucose (Glucose Chew Tab) 4-8 Tablets 4 Tabl... UD PRN PO 03/15/17 17:00 04/14/17 16:59 Dextrose (Dextrose 50% 50ML Syringe) 25-50ML OF 50% DW IV FOR... UD PRN IV 03/15/17 17:00 04/14/17 16:59 Glucagon (Glucagon Inj) 1 mg UD PRN SQ 03/15/17 17:00 04/14/17 16:59 Thiamine HCl 500 mg/Sodium Chloride 105 ml @ 210 mls/hr Q8H IV 03/15/17 18:00 04/14/17 17:59 03/18/17 17:38 210 MLS/HR Multivitamins 10 ml/Thiamine HCl 100 mg/Folic Acid 1 mg/Sodium Chloride 1,011.2 ml @ 125 mls/ hr DAILY IV 03/16/17 10:00 04/15/17 09:59 03/18/17 08:30 125 MLS/HR Ergocalciferol (Vitamin D Cap) 50,000 interunit Q4D@0900 PO 03/16/17 10:00 04/05/17 09:01 03/16/17 10:02 50,000 INTERUNIT Enteral Nutritional Formula (Boost) 1 can TIDM PO 03/18/17 12:00 04/17/17 11:59 03/18/17 16:43 1 CAN
[2017-03-18] MEDS: RISPERIDONE ODT 0.5MG PO SCH (20:46)
[2017-03-18] MEDS: ACETAMINOPHEN 325 MG TAB PO PRN (20:49)
[2017-03-18 23:15] VITALS: BP 91/52; PULSE 78; TEMP 37; O2SAT 94
[2017-03-19] MEDS: THIAMINE HCL INJ 500 MG in SODIUM CHLORIDE 0.9% 100ML IV SCH ×3 (02:00→18:23)
[2017-03-19 03:30] VITALS: BP 110/69; PULSE 80; TEMP 36.3; O2SAT 97
[2017-03-19 05:43] LABS: HEMATOCRIT 25.2 % (37-47); HEMOGLOBIN 8.5 g/dL (12.0-16.0); MEAN CELL VOLUME 87.5 fL (80-100); MEAN CORPUSCULAR HEMOGLOBIN 29.5 pg (25-34); MEAN CORPUSCULAR HGB CONC 33.7 g/dl (32-36); MEAN PLATELET VOLUME 11.2 fL (7.4-10.4); PLATELET COUNT 104 K/uL (130-400); RED CELL DISTRIBUTION WIDTH SD 46.7 fL (36.4-46.3); WHITE BLOOD COUNT 4.85 K/uL (4.8-10.8)
[2017-03-19 06:20] LABS: CALCIUM 8.1 mg/dl (8.5-10.1); CREATININE 0.55 mg/dl (0.60-1.20); PHOSPHORUS 3.7 mg/dl (2.5-4.9); POTASSIUM 3.5 mmol/L (3.5-5.1)
[2017-03-19] MEDS: INSULIN HUMAN REGULAR SC SCH ×4 (07:13→20:47)
[2017-03-19 07:33] VITALS: BP 112/64; PULSE 66; TEMP 36.5; O2SAT 94
[2017-03-19] MEDS: FLUTICASONE HFA 220 MCG INHALER INH SCH ×2 (08:15→20:49)
[2017-03-19] MEDS: ESCITALOPRAM OXALATE 10 MG TAB PO SCH (08:15)
[2017-03-19] MEDS: MULTI-VITAMIN INFUSION INJ 10 ML, THIAMINE HCL INJ 100 MG, FoLIC ACID INJ 1 MG in SODIU... IV SCH (08:38)
[2017-03-19] MEDS: BOOST VANILLA PO SCH ×3 (08:39→16:43)
[2017-03-19 11:42] VITALS: BP 114/72; PULSE 72; TEMP 36.3; O2SAT 94
[2017-03-19 15:13] VITALS: BP 100/65; PULSE 79; TEMP 36.8; O2SAT 98
[2017-03-19] MEDS: ACETAMINOPHEN 325 MG TAB PO PRN (16:42)
[2017-03-19 19:36] VITALS: BP 105/67; PULSE 85; TEMP 36.9; O2SAT 99
[2017-03-19] MEDS: RISPERIDONE ODT 0.5MG PO SCH (20:48)
--- NOTE | 2017-03-19 20:49 | Progress Note ---
Medicine Progress Note Date & Time of Visit: Mar 19, 2017 at 16:20 . Subjective CC: Follow-up visit for altered mental status, weight loss, severe malnutrition, and other problems. HPI: Better. PO intake improved. No N/V. No diarrhea. Adam cath removed this morning. Required straight cath for retention later. Generalized weakness. Dependent for ADL's. and son visiting. ROS: General- no fever, no chills Resp- no cough; no shortness of breath Cardiac- no chest pain, no edema GI- as noted above in HPI - as noted above in HPI . Objective Last 8 Hrs Date Time Temp Pulse Resp B/P (MAP) Pulse Ox O2 Delivery O2 Flow Rate FiO2 03/19/17 19:36 36.9 85 18 105/67 (80) 99 Room Air 03/19/17 16:32 Room Air 03/19/17 15:13 36.8 79 100/65 (77) 98 Physical Exam: General- sitting in chair; no distress Eyes- anicteric Lungs- clear to auscultation; no respiratory distress Cardiovascular- RRR; no murmur; no gallop; no JVD; trace pretibial edema Abdomen- + bowel sounds, soft, nontender Extremities- no cyanosis; no calf tenderness Neuro- alert; oriented to person, hospital, year; can name president; generalized weakness; resting tremor of head Skin- warm & dry . Laboratory Results: Last 24 Hours Test 03/19/17 05:33 03/19/17 07:09 03/19/17 11:13 03/19/17 16:18 White Blood Count 4.85 K/uL Red Blood Count 2.88 M/uL Hemoglobin 8.5 g/dL Hematocrit 25.2 % Mean Corpuscular Volume 87.5 fL Mean Corpuscular Hemoglobin 29.5 pg Mean Corpuscular Hemoglobin Concent 33.7 g/dl RDW Standard Deviation 46.7 fL RDW Coefficient of Variation 16.0 % Platelet Count 104 K/uL Mean Platelet Volume 11.2 fL Sodium Level 139 mmol/L Potassium Level 3.5 mmol/L Chloride Level 108 mmol/L Carbon Dioxide Level 25 mmol/L Anion Gap 6.0 mmol/L Blood Urea Nitrogen 11 mg/dl Creatinine 0.55 mg/dl Est Creatinine Clear Calc Drug Dose 85.8 ml/min Estimated GFR () 113.3 Estimated GFR (Non- 97.7 BUN/Creatinine Ratio 20.1 Random Glucose 85 mg/dl Calcium Level 8.1 mg/dl Phosphorus Level 3.7 mg/dl Magnesium Level 1.8 mg/dl Iron Level 97 mcg/dl Total Iron Binding Capacity 244 mcg/dl Transferrin 183 mg/dl Transferrin % Saturation 38 % Ferritin 368.1 ng/ml Bedside Glucose 92 mg/dl 107 mg/dl 90 mg/dl Test 03/19/17 20:32 Bedside Glucose 96 mg/dl Assessment & Plan ALTERED MENTAL STATUS MRI demonstrated minimal chronic small vessel ischemic changes, no acute events. Apparent metabolic encephalopathy due to severe malnutrition and vitamin deficiencies. Improved. WEIGHT LOSS / MALNUTRITION 100 lb weight loss documented. Apparently secondary to dysphagia. Albumin 3.2 --> 2.0. Documented folate and vitamin D deficiencies. Received enteral nutritional support via NGT. NGT inadvertently removed 03/17. Advance diet as tolerated. Continue vitamin supplementation. PO intake improved. Calorie counts underway. 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 EGD did not demonstrate any esophageal pathology. SPRING MACHINE OPERATOR consulted. HYPERTENSION Amlodipine stopped because of relatively low BP's. Follow. URINARY RETENTION Anti-cholinergic drugs discontinued. Adam cath removed. Voiding trial with PRN straight caths. E COLI UTI (present on admission) Treated with course of antibiotics. THROMBOCYTOPENIA Plts 208,000 --> --> 82,000 --> 104,000. HIT screen negative. Follow. GENERALIZED WEAKNESS Probably secondary to malnutrition and immobility. Seen by Neurology. Anti-acetylcholine receptor antibodies negative. PT / OT. Outpatient EMG / NCV recommended. DEPRESSION Psychiatry consulted. Receiving escitalopram. VTE PROPHYLAXIS Was receiving enoxaparin. Enoxaparin discontinued due to thrombocytopenia. SCD's. Ambulate as able. DISPOSITION To be determined. Anticipate need for skilled care or rehab. Family Medicine follow-up with Dr. Perales. . Consultants: Neuro-Amandeep Speech therapy GI-[facility] Psych Current Inpatient Medications: Current Inpatient Medications Medications (Trade) Dose Ordered Sig/Jose Route Start Time Stop Time Status Last Admin Dose Admin Acetaminophen (Tylenol Tab) 650 mg Q4H PRN PO 03/06/17 17:15 04/05/17 17:14 03/19/17 16:42 650 MG Hydralazine HCl (HydrALAZINE INJ) 5 mg Q6 PRN IV. 03/06/17 19:45 04/05/17 19:44 Albuterol (Ventolin Hfa Inhaler) 2 puffs Q4H PRN INH 03/06/17 20:30 04/05/17 20:29 03/13/17 21:53 2 PUFFS Escitalopram Oxalate (Lexapro Tab) 20 mg DAILY PO 03/07/17 09:00 04/06/17 08:59 03/19/17 08:15 20 MG Fluticasone Propionate (Flovent Hfa 220MCG Inhaler) 1 puffs BID INH 03/06/17 21:00 04/05/17 20:59 03/19/17 08:15 1 PUFFS Miconazole Nitrate (Desenex Powder) 1 appln PRN PRN EXT 03/10/17 12:00 04/09/17 11:59 03/17/17 20:37 1 APPLN Al Hydroxide/Mg Hydroxide/ Lidocaine HCl/ Barcode Q8H PRN PO 03/10/17 16:00 04/09/17 15:59 03/11/17 12:00 24 ML Bisacodyl (Dulcolax Supp) 10 mg DAILY PRN [place] 03/11/17 17:30 04/10/17 17:29 Polyethylene (Miralax Powder Packet) 17 gm DAILY PRN PO 03/11/17 17:30 04/10/17 17:29 Risperidone (Risperdal M Tab) 0.5 mg HS PO 03/15/17 21:00 04/14/17 20:59 03/18/17 20:46 0.5 MG Enteral Nutritional Formula (Peptamen 1.5) 1,000 ml UD PRN NG 03/15/17 14:45 04/14/17 14:44 03/17/17 18:13 1,000 ML Insulin Human Regular (novoLIN-R) SLIDING SCALE IF C... ACHS SC 03/15/17 21:00 04/14/17 20:59 Glucose (Glucose 40% Gel) 15-30 GRAMS 15 GRAMS... UD PRN PO 03/15/17 17:00 04/14/17 16:59 Glucose (Glucose Chew Tab) 4-8 Tablets 4 Tabl... UD PRN PO 03/15/17 17:00 04/14/17 16:59 Dextrose (Dextrose 50% 50ML Syringe) 25-50ML OF 50% DW IV FOR... UD PRN IV 03/15/17 17:00 04/14/17 16:59 Glucagon (Glucagon Inj) 1 mg UD PRN SQ 03/15/17 17:00 04/14/17 16:59 Thiamine HCl 500 mg/Sodium Chloride 105 ml @ 210 mls/hr Q8H IV 03/15/17 18:00 04/14/17 17:59 03/19/17 18:23 210 MLS/HR Multivitamins 10 ml/Thiamine HCl 100 mg/Folic Acid 1 mg/Sodium Chloride 1,011.2 ml @ 125 mls/ hr DAILY IV 03/16/17 10:00 04/15/17 09:59 03/19/17 08:38 125 MLS/HR Ergocalciferol (Vitamin D Cap) 50,000 interunit Q4D@0900 PO 03/16/17 10:00 04/05/17 09:01 03/16/17 10:02 50,000 INTERUNIT Enteral Nutritional Formula (Boost) 1 can TIDM PO 03/18/17 12:00 04/17/17 11:59 03/19/17 16:43 1 CAN
[2017-03-19 22:46] VITALS: BP 127/83; PULSE 79; TEMP 36.9; O2SAT 100
[2017-03-20] MEDS: THIAMINE HCL INJ 500 MG in SODIUM CHLORIDE 0.9% 100ML IV SCH ×3 (02:49→16:50)
[2017-03-20 06:13] LABS: HEMATOCRIT 26.6 % (37-47)
[2017-03-20 06:39] LABS: CALCIUM 8.2 mg/dl (8.5-10.1); CREATININE 0.52 mg/dl (0.60-1.20); POTASSIUM 3.5 mmol/L (3.5-5.1)
[2017-03-20 08:01] VITALS: BP 138/84; PULSE 80; TEMP 36.7; O2SAT 99
[2017-03-20] MEDS: BOOST VANILLA PO SCH ×3 (08:04→17:25)
[2017-03-20] MEDS: ESCITALOPRAM OXALATE 10 MG TAB PO SCH (08:04)
[2017-03-20] MEDS: ERGOCALCIFEROL 50,000 INTER.UNIT CAP PO SCH (08:04)
[2017-03-20] MEDS: FLUTICASONE HFA 220 MCG INHALER INH SCH ×2 (08:05→21:16)
[2017-03-20] MEDS: MULTI-VITAMIN INFUSION INJ 10 ML, THIAMINE HCL INJ 100 MG, FoLIC ACID INJ 1 MG in SODIU... IV SCH (08:16)
[2017-03-20] MEDS: INSULIN HUMAN REGULAR SC SCH ×4 (08:18→21:00)
[2017-03-20 09:38] VITALS: O2SAT 99
[2017-03-20 14:54] VITALS: BP 119/73; PULSE 74; TEMP 36.7; O2SAT 97
[2017-03-20 19:30] VITALS: O2SAT 97
--- NOTE | 2017-03-20 20:32 | Progress Note ---
Medicine Progress Note Date & Time of Visit: Mar 20, 2017 at 16:00 . Subjective CC: Follow-up visit for altered mental status, weight loss, severe malnutrition, and other problems. HPI: Better. PO intake improved, but still needs assistance with meals. No N/V. No diarrhea. Adam cath removed yesterday. Requiring straight caths for ongoing retention. Generalized weakness. Remains dependent for ADL's. Son visiting. ROS: General- no fever, no chills Resp- no cough; no shortness of breath Cardiac- no chest pain, no edema GI- as noted above in HPI - as noted above in HPI . Objective Last 8 Hrs Date Time Temp Pulse Resp B/P (MAP) Pulse Ox O2 Delivery O2 Flow Rate FiO2 03/20/17 16:00 Room Air 03/20/17 14:54 36.7 74 16 119/73 (88) 97 Room Air Physical Exam: General- lying in bed; no distress Eyes- anicteric Lungs- clear to auscultation; no respiratory distress Cardiovascular- RRR; no murmur; no gallop; no JVD; trace pretibial edema Abdomen- + bowel sounds, soft, nontender Extremities- no cyanosis; no calf tenderness Neuro- alert; oriented; resting tremor of head Skin- warm & dry . Laboratory Results: Last 24 Hours Test 03/20/17 05:43 03/20/17 07:33 03/20/17 11:31 03/20/17 16:34 Hemoglobin 9.0 g/dL Hematocrit 26.6 % Sodium Level 139 mmol/L Potassium Level 3.5 mmol/L Chloride Level 107 mmol/L Carbon Dioxide Level 26 mmol/L Anion Gap 6.0 mmol/L Blood Urea Nitrogen 11 mg/dl Creatinine 0.52 mg/dl Est Creatinine Clear Calc Drug Dose 90.4 ml/min Estimated GFR () 115.4 Estimated GFR (Non- 99.6 BUN/Creatinine Ratio 22.0 Random Glucose 84 mg/dl Calcium Level 8.2 mg/dl Bedside Glucose 90 mg/dl 100 mg/dl 105 mg/dl Test 03/20/17 20:10 Bedside Glucose 97 mg/dl Assessment & Plan ALTERED MENTAL STATUS MRI demonstrated minimal chronic small vessel ischemic changes, no acute events. Apparent metabolic encephalopathy due to severe malnutrition and vitamin deficiencies. Improving. WEIGHT LOSS / MALNUTRITION 100 lb weight loss documented. Apparently secondary to dysphagia. Albumin 3.2 --> 2.0. Documented folate and vitamin D deficiencies. Received enteral nutritional support via NGT. NGT inadvertently removed 03/17. Advance diet as tolerated. Continue vitamin supplementation. PO intake improved. 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 EGD did not demonstrate any esophageal pathology. SALES AND SERVICE CHANGE LEADER consulted. HYPERTENSION Amlodipine stopped because of relatively low BP's. Follow. URINARY RETENTION Anti-cholinergic drugs discontinued. Adam cath removed. Voiding trial with PRN straight caths. E COLI UTI (present on admission) Treated with course of antibiotics. THROMBOCYTOPENIA Plts 208,000 --> --> 82,000 --> 104,000. HIT screen negative. Follow. ANEMIA Hgb 13.7 --> 8.5 --> 9.0. Anemia probably multifactorial- malnutrition, hemodilution. No gross GI bleeding. Fe studies surprisingly normal. Follow. GENERALIZED WEAKNESS Probably secondary to malnutrition and immobility. Seen by Neurology. Anti-acetylcholine receptor antibodies negative. PT / OT. Outpatient EMG / NCV recommended. DEPRESSION Psychiatry consulted. Receiving escitalopram. VTE PROPHYLAXIS Was receiving enoxaparin. Enoxaparin discontinued due to thrombocytopenia. SCD's. Ambulate as able. DISPOSITION To be determined. Anticipate need for skilled care or rehab. Family Medicine follow-up with Dr. Perales. . Consultants: Neuro-Amandeep Speech therapy GI-[facility] Psych Current Inpatient Medications: Current Inpatient Medications Medications (Trade) Dose Ordered Sig/Jose Route Start Time Stop Time Status Last Admin Dose Admin Acetaminophen (Tylenol Tab) 650 mg Q4H PRN PO 03/06/17 17:15 04/05/17 17:14 03/19/17 16:42 650 MG Hydralazine HCl (HydrALAZINE INJ) 5 mg Q6 PRN IV. 03/06/17 19:45 04/05/17 19:44 Albuterol (Ventolin Hfa Inhaler) 2 puffs Q4H PRN INH 03/06/17 20:30 04/05/17 20:29 03/13/17 21:53 2 PUFFS Escitalopram Oxalate (Lexapro Tab) 20 mg DAILY PO 03/07/17 09:00 04/06/17 08:59 03/20/17 08:04 20 MG Fluticasone Propionate (Flovent Hfa 220MCG Inhaler) 1 puffs BID INH 03/06/17 21:00 04/05/17 20:59 03/20/17 08:05 1 PUFFS Miconazole Nitrate (Desenex Powder) 1 appln PRN PRN EXT 03/10/17 12:00 04/09/17 11:59 03/17/17 20:37 1 APPLN Al Hydroxide/Mg Hydroxide/ Lidocaine HCl/ Barcode Q8H PRN PO 03/10/17 16:00 04/09/17 15:59 03/11/17 12:00 24 ML Bisacodyl (Dulcolax Supp) 10 mg DAILY PRN [place] 03/11/17 17:30 04/10/17 17:29 Polyethylene (Miralax Powder Packet) 17 gm DAILY PRN PO 03/11/17 17:30 04/10/17 17:29 Risperidone (Risperdal M Tab) 0.5 mg HS PO 03/15/17 21:00 04/14/17 20:59 03/19/17 20:48 0.5 MG Enteral Nutritional Formula (Peptamen 1.5) 1,000 ml UD PRN NG 03/15/17 14:45 04/14/17 14:44 03/17/17 18:13 1,000 ML Insulin Human Regular (novoLIN-R) SLIDING SCALE IF C... ACHS SC 03/15/17 21:00 04/14/17 20:59 Glucose (Glucose 40% Gel) 15-30 GRAMS 15 GRAMS... UD PRN PO 03/15/17 17:00 04/14/17 16:59 Glucose (Glucose Chew Tab) 4-8 Tablets 4 Tabl... UD PRN PO 03/15/17 17:00 04/14/17 16:59 Dextrose (Dextrose 50% 50ML Syringe) 25-50ML OF 50% DW IV FOR... UD PRN IV 03/15/17 17:00 04/14/17 16:59 Glucagon (Glucagon Inj) 1 mg UD PRN SQ 03/15/17 17:00 04/14/17 16:59 Thiamine HCl 500 mg/Sodium Chloride 105 ml @ 210 mls/hr Q8H IV 03/15/17 18:00 04/14/17 17:59 2/2/18 16:50 210 MLS/HR Multivitamins 10 ml/Thiamine HCl 100 mg/Folic Acid 1 mg/Sodium Chloride 1,011.2 ml @ 125 mls/ hr DAILY IV 03/16/17 10:00 04/15/17 09:59 03/20/17 08:16 125 MLS/HR Ergocalciferol (Vitamin D Cap) 50,000 interunit Q4D@0900 PO 03/16/17 10:00 04/05/17 09:01 03/20/17 08:04 50,000 INTERUNIT Enteral Nutritional Formula (Boost) 1 can TIDM PO 03/18/17 12:00 04/17/17 11:59 03/20/17 17:25 1 CAN
[2017-03-20] MEDS: RISPERIDONE ODT 0.5MG PO SCH (21:15)
[2017-03-21] VITALS (7 sets, daily range): BP systolic 113–129; BP diastolic 73–81; PULSE 74–88; TEMP 36.4–37; O2SAT 97–100
[2017-03-21] MEDS: INSULIN HUMAN REGULAR SC SCH ×4 (06:30→20:52)
[2017-03-21 06:48] LABS: HEMOGLOBIN 8.6 g/dL (12.0-16.0); MEAN CELL VOLUME 89.7 fL (80-100); MEAN CORPUSCULAR HEMOGLOBIN 29.7 pg (25-34); MEAN CORPUSCULAR HGB CONC 33.1 g/dl (32-36); MEAN PLATELET VOLUME 11.6 fL (7.4-10.4); PLATELET COUNT 103 K/uL (130-400); RED CELL DISTRIBUTION WIDTH CV 17.8 % (11.5-14.5); RED CELL DISTRIBUTION WIDTH SD 49.7 fL (36.4-46.3); WHITE BLOOD COUNT 4.78 K/uL (4.8-10.8)
[2017-03-21 07:23] LABS: ALBUMIN 2.1 gm/dl (3.4-5.0); CALCIUM 8.2 mg/dl (8.5-10.1); CREATININE 0.52 mg/dl (0.60-1.20); POTASSIUM 3.6 mmol/L (3.5-5.1)
[2017-03-21 07:25] LABS: PHOSPHORUS 3.4 mg/dl (2.5-4.9); TOTAL PROTEIN 5.1 gm/dl (6.4-8.2)
[2017-03-21 07:40] LABS: PTT PATIENT 23.1 SECONDS (21.0-31.0)
[2017-03-21] MEDS: MULTI-VITAMIN INFUSION INJ 10 ML, THIAMINE HCL INJ 100 MG, FoLIC ACID INJ 1 MG in SODIU... IV SCH (08:00)
[2017-03-21] MEDS ORDERED: THIAMINE HCL INJ 200 MG in SODIUM CHLORIDE 0.9% 50ML 50 ML IV SCH (08:00)
[2017-03-21] MEDS: ALBUTEROL HFA 8 GM INHALER INH PRN (08:01)
[2017-03-21] MEDS: ESCITALOPRAM OXALATE 10 MG TAB PO SCH (08:02)
[2017-03-21] MEDS: FLUTICASONE HFA 220 MCG INHALER INH SCH ×2 (08:02→20:51)
[2017-03-21] MEDS: BOOST VANILLA PO SCH ×3 (08:09→17:00)
[2017-03-21] MEDS: HEPARIN SOD 5000 UNIT/0.5 ML CARP SQ SCH ×2 (09:00→20:58)
--- NOTE | 2017-03-21 17:14 | Progress Note ---
Medicine Progress Note Date & Time of Visit: Mar 21, 2017 at 14:10 . Subjective CC: Follow-up visit for altered mental status, weight loss, severe malnutrition, and other problems. HPI: Better. PO intake improved, starting to feed herself. No N/V. No diarrhea. Requiring straight caths for ongoing retention. Generalized weakness. Remains dependent for ADL's. Son visiting. ROS: General- no fever, no chills Resp- no cough; no shortness of breath Cardiac- no chest pain, no edema GI- as noted above in HPI - as noted above in HPI . Objective Last 8 Hrs Date Time Temp Pulse Resp B/P (MAP) Pulse Ox O2 Delivery O2 Flow Rate FiO2 03/21/17 15:58 36.4 76 16 128/80 (96) 99 Room Air Physical Exam: General- lying in bed; no distress Lungs- clear to auscultation; no respiratory distress Cardiovascular- RRR; no murmur; no gallop; no JVD; trace pretibial edema Abdomen- + bowel sounds, soft, nontender Extremities- no cyanosis; no calf tenderness Neuro- alert; oriented; resting tremor of head Skin- warm & dry . Laboratory Results: Last 24 Hours Test 03/20/17 20:10 03/21/17 06:15 03/21/17 07:13 03/21/17 07:56 Bedside Glucose 97 mg/dl 101 mg/dl White Blood Count 4.78 K/uL Red Blood Count 2.90 M/uL Hemoglobin 8.6 g/dL Hematocrit 26.0 % Mean Corpuscular Volume 89.7 fL Mean Corpuscular Hemoglobin 29.7 pg Mean Corpuscular Hemoglobin Concent 33.1 g/dl RDW Standard Deviation 49.7 fL RDW Coefficient of Variation 17.8 % Platelet Count 103 K/uL Mean Platelet Volume 11.6 fL Sodium Level 140 mmol/L Potassium Level 3.6 mmol/L Chloride Level 108 mmol/L Carbon Dioxide Level 25 mmol/L Anion Gap 7.0 mmol/L Blood Urea Nitrogen 13 mg/dl Creatinine 0.52 mg/dl Est Creatinine Clear Calc Drug Dose 92.1 ml/min Estimated GFR () 115.4 Estimated GFR (Non- 99.6 BUN/Creatinine Ratio 24.3 Random Glucose 87 mg/dl Calcium Level 8.2 mg/dl Phosphorus Level 3.4 mg/dl Magnesium Level 1.9 mg/dl Total Bilirubin 0.5 mg/dl Aspartate Amino Transf (AST/SGOT) 18 U/L Alanine Aminotransferase (ALT/SGPT) 23 U/L Alkaline Phosphatase 59 U/L Total Protein 5.1 gm/dl Albumin 2.1 gm/dl Globulin 3.0 gm/dl Albumin/Globulin Ratio 0.7 Prothrombin Time 10.9 SECONDS Prothromb Time International Ratio 1.0 Activated Partial Thromboplast Time 23.1 SECONDS Partial Thromboplastin Ratio 0.9 Test 03/21/17 11:45 03/21/17 16:35 Bedside Glucose 107 mg/dl 95 mg/dl Assessment & Plan ALTERED MENTAL STATUS MRI demonstrated minimal chronic small vessel ischemic changes, no acute events. Apparent metabolic encephalopathy due to severe malnutrition and vitamin deficiencies. Improving. WEIGHT LOSS / MALNUTRITION 100 lb weight loss documented. Apparently secondary to dysphagia. Albumin 3.2 --> 2.0. Documented folate and vitamin D deficiencies. Received enteral nutritional support via NGT. NGT inadvertently removed 03/17. Advance diet as tolerated- try progressing to dental soft. Continue vitamin supplementation. 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 EGD did not demonstrate any esophageal pathology. CERTIFIED PERFORMANCE TECHNOLOGIST consulted. HYPERTENSION Amlodipine stopped because of relatively low BP's. Follow. URINARY RETENTION Anti-cholinergic drugs discontinued. Adam cath removed. Continue straight caths. E COLI UTI (present on admission) Treated with course of antibiotics. THROMBOCYTOPENIA Plts 208,000 --> --> 82,000 --> 104,000. HIT screen negative. Platelet count today 103,000. Follow. ANEMIA Hgb 13.7 --> 8.5 --> 9.0 --> 8.6. Anemia probably multifactorial- malnutrition, hemodilution. No gross GI bleeding. Fe studies surprisingly normal. Folic acid low. B12 normal. Follow. GENERALIZED WEAKNESS Probably secondary to malnutrition and immobility. Seen by Neurology. Anti-acetylcholine receptor antibodies negative. PT / OT. Outpatient EMG / NCV recommended. DEPRESSION Psychiatry consulted. Receiving escitalopram. VTE PROPHYLAXIS Was receiving enoxaparin. Enoxaparin discontinued due to thrombocytopenia. SCD's. Platelet count improved- SQ heparin with caution. Ambulate as able. DISPOSITION To be determined. Anticipate need for skilled care or rehab. Family Medicine follow-up with Dr. Perales. . Consultants: Neuro-Amandeep Speech therapy GI-[facility] Psych Current Inpatient Medications: Current Inpatient Medications Medications (Trade) Dose Ordered Sig/Jose Route Start Time Stop Time Status Last Admin Dose Admin Acetaminophen (Tylenol Tab) 650 mg Q4H PRN PO 03/06/17 17:15 04/05/17 17:14 03/19/17 16:42 650 MG Hydralazine HCl (HydrALAZINE INJ) 5 mg Q6 PRN IV. 03/06/17 19:45 04/05/17 19:44 Albuterol (Ventolin Hfa Inhaler) 2 puffs Q4H PRN INH 03/06/17 20:30 04/05/17 20:29 03/21/17 08:01 2 PUFFS Escitalopram Oxalate (Lexapro Tab) 20 mg DAILY PO 03/07/17 09:00 04/06/17 08:59 03/21/17 08:02 20 MG Fluticasone Propionate (Flovent Hfa 220MCG Inhaler) 1 puffs BID INH 03/06/17 21:00 04/05/17 20:59 03/21/17 08:02 1 PUFFS Miconazole Nitrate (Desenex Powder) 1 appln PRN PRN EXT 03/10/17 12:00 04/09/17 11:59 03/17/17 20:37 1 APPLN Al Hydroxide/Mg Hydroxide/ Lidocaine HCl/ Barcode Q8H PRN PO 03/10/17 16:00 04/09/17 15:59 03/11/17 12:00 24 ML Bisacodyl (Dulcolax Supp) [address] 03/11/17 17:30 04/10/17 17:29 Polyethylene (Miralax Powder Packet) 17 gm DAILY PRN PO 03/11/17 17:30 04/10/17 17:29 Risperidone (Risperdal M Tab) 0.5 mg HS PO 03/15/17 21:00 04/14/17 20:59 03/20/17 21:15 0.5 MG Insulin Human Regular (novoLIN-R) SLIDING SCALE IF C... ACHS SC 03/15/17 21:00 04/14/17 20:59 Glucose (Glucose 40% Gel) 15-30 GRAMS 15 GRAMS... UD PRN PO 03/15/17 17:00 04/14/17 16:59 Glucose (Glucose Chew Tab) 4-8 Tablets 4 Tabl... UD PRN PO 03/15/17 17:00 04/14/17 16:59 Dextrose (Dextrose 50% 50ML Syringe) 25-50ML OF 50% DW IV FOR... UD PRN IV 03/15/17 17:00 04/14/17 16:59 Glucagon (Glucagon Inj) 1 mg UD PRN SQ 03/15/17 17:00 04/14/17 16:59 Ergocalciferol (Vitamin D Cap) 50,000 interunit Q4D@0900 PO 03/16/17 10:00 04/05/17 09:01 03/20/17 08:04 50,000 INTERUNIT Enteral Nutritional Formula (Boost) 1 can TIDM PO 03/18/17 12:00 04/17/17 11:59 03/21/17 08:09 1 CAN Heparin Sodium (Porcine) (Heparin Sq 5000 Unit/0.5ml) 5,000 unit Q12 SQ 03/21/17 09:00 04/20/17 08:59 Multivitamins 10 ml/Thiamine HCl 200 mg/Folic Acid 1 mg/Sodium Chloride 512.2 ml @ 125 mls/hr DAILY@0800 IV 03/22/17 08:00 04/21/17 07:59
[2017-03-21] MEDS: MULTIVITAMINS W/MINERALS 15ML UDP PO SCH (20:51)
[2017-03-21] MEDS: BOOST VANILLA PUDDING CUP PO SCH (20:51)
[2017-03-21] MEDS: RISPERIDONE ODT 0.5MG PO SCH (20:51)
[2017-03-22] MEDS: INSULIN HUMAN REGULAR SC SCH ×4 (06:30→21:00)
[2017-03-22 07:43] VITALS: BP 125/74; PULSE 82; TEMP 36.8; O2SAT 98
[2017-03-22 08:00] VITALS: O2SAT 98
[2017-03-22] MEDS: FLUTICASONE HFA 220 MCG INHALER INH SCH ×2 (08:00→19:42)
[2017-03-22] MEDS: BOOST VANILLA PO SCH ×3 (08:00→16:53)
[2017-03-22] MEDS: ESCITALOPRAM OXALATE 10 MG TAB PO SCH (08:00)
[2017-03-22] MEDS: BOOST VANILLA PUDDING CUP PO SCH ×2 (08:00→19:42)
[2017-03-22] MEDS ORDERED: [UNRECOGNIZED DRUG - OTHER] IV SCH (08:00)
[2017-03-22] MEDS ORDERED: MULTI VITAMIN INFUSION IV SCH (08:00)
[2017-03-22] MEDS ORDERED: THIAMINE HCL IV SCH (08:00)
[2017-03-22] MEDS: MULTIVITAMINS W/MINERALS 15ML UDP PO SCH ×2 (08:00→19:43)
[2017-03-22] MEDS ORDERED: FOLIC ACID IV SCH (08:00)
[2017-03-22] MEDS: HEPARIN SOD 5000 UNIT/0.5 ML CARP SQ SCH ×2 (09:00→19:44)
[2017-03-22 16:00] VITALS: O2SAT 97
[2017-03-22 16:37] VITALS: BP 115/68; PULSE 93; TEMP 36.4; O2SAT 99
[2017-03-22] MEDS: RISPERIDONE ODT 0.5MG PO SCH (19:43)
--- NOTE | 2017-03-22 19:51 | Progress Note ---
Medicine Progress Note Date & Time of Visit: Mar 22, 2017 at 16:20 . Subjective CC: Follow-up visit for multiple problems. HPI: Better. PO intake much better. Diet advanced to chopped dental and tolerated. No N/V. No diarrhea. Unable to void. Requiring straight caths for ongoing retention. Generalized weakness improved. Still needs assistance for ADL's. Ambulating with walker + assistance. Son visiting. ROS: General- no fever, no chills Resp- no cough; no shortness of breath Cardiac- no chest pain, no edema GI- as noted above in HPI - as noted above in HPI . Objective Last 8 Hrs Date Time Temp Pulse Resp B/P (MAP) Pulse Ox O2 Delivery O2 Flow Rate FiO2 03/22/17 16:37 36.4 93 20 115/68 (84) 99 Room Air 03/22/17 16:00 97 Room Air Physical Exam: General- sitting in chair; no distress Lungs- clear to auscultation; no respiratory distress Cardiovascular- RRR; no murmur; no gallop; no JVD; trace pretibial edema Abdomen- + bowel sounds, soft, nontender Extremities- no cyanosis; no calf tenderness Neuro- alert; oriented to day, year, president, [employer] (although she doesn' t know which teams are playing); resting tremor of head Skin- warm & dry . Laboratory Results: Last 24 Hours Test 03/21/17 20:25 03/22/17 07:53 03/22/17 12:12 03/22/17 16:58 Bedside Glucose 127 mg/dl 93 mg/dl 132 mg/dl 105 mg/dl Assessment & Plan ALTERED MENTAL STATUS MRI demonstrated minimal chronic small vessel ischemic changes, no acute events. Apparent metabolic encephalopathy due to severe malnutrition and vitamin deficiencies. Improving. WEIGHT LOSS / MALNUTRITION 100 lb weight loss documented. Apparently secondary to dysphagia. Albumin 3.2 --> 2.0. Documented folate and vitamin D deficiencies. Received enteral nutritional support via NGT. NGT inadvertently removed 03/17. Advance diet as tolerated- progressed to dental soft. Continue vitamin supplementation. 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 EGD did not demonstrate any esophageal pathology. ADMISSIONS RECRUITER consulted. HYPERTENSION Amlodipine stopped because of relatively low BP's. Follow. URINARY RETENTION Anti-cholinergic drugs discontinued. Adam cath removed. Continue straight caths. E COLI UTI (present on admission) Treated with course of antibiotics. THROMBOCYTOPENIA Plts 208,000 --> --> 82,000 --> 104,000. HIT screen negative. Platelet count 2/3 was 103,000. Follow. ANEMIA Hgb 13.7 --> 8.5 --> 9.0 Anemia probably multifactorial- malnutrition, hemodilution. No gross GI bleeding. Fe studies surprisingly normal. Folic acid low. B12 normal. Hgb 2/3 was 8.6. Follow. GENERALIZED WEAKNESS Probably secondary to malnutrition and immobility. Seen by Neurology. Anti-acetylcholine receptor antibodies negative. PT / OT. Outpatient EMG / NCV recommended. DEPRESSION Psychiatry consulted. Receiving escitalopram. VTE PROPHYLAXIS Was receiving enoxaparin. Enoxaparin discontinued due to thrombocytopenia. SCD's. Platelet count improved- SQ heparin with caution. Ambulate as able. DISPOSITION To be determined. Anticipate need for skilled care or rehab. Family Medicine follow-up with Dr. Perales. Son visiting and given update. . Consultants: Neuro-Amandeep Speech therapy GI-Baker Psych Current Inpatient Medications: Current Inpatient Medications Medications (Trade) Dose Ordered Sig/Jose Route Start Time Stop Time Status Last Admin Dose Admin Acetaminophen (Tylenol Tab) 650 mg Q4H PRN PO 03/06/17 17:15 04/05/17 17:14 03/19/17 16:42 650 MG Hydralazine HCl (HydrALAZINE INJ) 5 mg Q6 PRN IV. 03/06/17 19:45 04/05/17 19:44 Albuterol (Ventolin Hfa Inhaler) 2 puffs Q4H PRN INH 03/06/17 20:30 04/05/17 20:29 03/21/17 08:01 2 PUFFS Escitalopram Oxalate (Lexapro Tab) 20 mg DAILY PO 03/07/17 09:00 04/06/17 08:59 03/22/17 08:00 20 MG Fluticasone Propionate (Flovent Hfa 220MCG Inhaler) 1 puffs BID INH 03/06/17 21:00 04/05/17 20:59 03/22/17 19:42 1 PUFFS Miconazole Nitrate (Desenex Powder) 1 appln PRN PRN EXT 03/10/17 12:00 2/22/18 11:59 03/17/17 20:37 1 APPLN Al Hydroxide/Mg Hydroxide/ Lidocaine HCl/ Barcode Q8H PRN PO 03/10/17 16:00 04/09/17 15:59 03/11/17 12:00 24 ML Bisacodyl (Dulcolax Supp) 10 mg DAILY PRN NE 03/11/17 17:30 04/10/17 17:29 Polyethylene (Miralax Powder Packet) 17 gm DAILY PRN PO 03/11/17 17:30 04/10/17 17:29 Risperidone (Risperdal M Tab) 0.5 mg HS PO 03/15/17 21:00 04/14/17 20:59 03/22/17 19:43 0.5 MG Insulin Human Regular (novoLIN-R) SLIDING SCALE IF C... ACHS SC 03/15/17 21:00 04/14/17 20:59 Glucose (Glucose 40% Gel) 15-30 GRAMS 15 GRAMS... UD PRN PO 03/15/17 17:00 04/14/17 16:59 Glucose (Glucose Chew Tab) 4-8 Tablets 4 Tabl... UD PRN PO 03/15/17 17:00 04/14/17 16:59 Dextrose (Dextrose 50% 50ML Syringe) 25-50ML OF 50% DW IV FOR... UD PRN IV 03/15/17 17:00 04/14/17 16:59 Glucagon (Glucagon Inj) 1 mg UD PRN SQ 03/15/17 17:00 04/14/17 16:59 Ergocalciferol (Vitamin D Cap) 50,000 interunit Q4D@0900 PO 03/16/17 10:00 04/05/17 09:01 03/20/17 08:04 50,000 INTERUNIT Enteral Nutritional Formula (Boost) 1 can TIDM PO 03/18/17 12:00 04/17/17 11:59 03/22/17 16:53 1 CAN Heparin Sodium (Porcine) (Heparin Sq 5000 Unit/0.5ml) 5,000 unit Q12 SQ 03/21/17 09:00 04/20/17 08:59 03/22/17 19:44 5,000 UNIT Multivitamins 10 ml/Thiamine HCl 200 mg/Folic Acid 1 mg/Sodium Chloride 512.2 ml @ 125 mls/hr DAILY@0800 IV 03/22/17 08:00 04/21/17 07:59 03/22/17 08:00 125 MLS/HR Multivitamins Therapeutic (Cerovite Liquid) 15 ml BID PO 03/21/17 20:00 04/20/17 19:59 03/22/17 19:43 15 ML Enteral Nutritional Formula (Boost Pudding) 1 cup BID PO 03/21/17 20:00 04/20/17 19:59 03/22/17 19:42 1 CUP
[2017-03-23] VITALS: BP 135/82; PULSE 89; TEMP 36.7; O2SAT 96
[2017-03-23 07:02] LABS: HEMATOCRIT 26.3 % (37-47); HEMOGLOBIN 8.9 g/dL (12.0-16.0); MEAN CELL VOLUME 92.3 fL (80-100); MEAN CORPUSCULAR HEMOGLOBIN 31.2 pg (25-34); MEAN CORPUSCULAR HGB CONC 33.8 g/dl (32-36); MEAN PLATELET VOLUME 10.1 fL (7.4-10.4); PLATELET COUNT 247 K/uL (130-400); RED CELL DISTRIBUTION WIDTH CV 19.5 % (11.5-14.5); RED CELL DISTRIBUTION WIDTH SD 55.8 fL (36.4-46.3)
[2017-03-23 07:20] LABS: ALBUMIN 2.2 gm/dl (3.4-5.0); CALCIUM 8.4 mg/dl (8.5-10.1); CREATININE 0.53 mg/dl (0.60-1.20); POTASSIUM 3.9 mmol/L (3.5-5.1); TOTAL PROTEIN 5.3 gm/dl (6.4-8.2)
[2017-03-23 07:43] VITALS: BP 100/67; PULSE 67; TEMP 36.9; O2SAT 99
[2017-03-23] MEDS: ESCITALOPRAM OXALATE 10 MG TAB PO SCH (07:47)
[2017-03-23] MEDS: FLUTICASONE HFA 220 MCG INHALER INH SCH ×2 (07:47→19:47)
[2017-03-23] MEDS: BOOST VANILLA PO SCH ×3 (07:48→17:00)
[2017-03-23] MEDS: BOOST VANILLA PUDDING CUP PO SCH ×2 (07:48→19:47)
[2017-03-23] MEDS: MULTIVITAMINS W/MINERALS 15ML UDP PO SCH ×2 (07:48→19:49)
[2017-03-23] MEDS: HEPARIN SOD 5000 UNIT/0.5 ML CARP SQ SCH ×2 (07:49→19:53)
[2017-03-23] MEDS: INSULIN HUMAN REGULAR SC SCH ×4 (09:02→21:00)
[2017-03-23 16:00] VITALS: O2SAT 99
[2017-03-23 16:14] VITALS: BP 126/77; PULSE 90; TEMP 36.4; O2SAT 98
[2017-03-23] MEDS: RISPERIDONE ODT 0.5MG PO SCH (19:49)
--- NOTE | 2017-03-23 20:38 | Progress Note ---
Medicine Progress Note Date & Time of Visit: Mar 23, 2017 at 10:10 . Subjective CC: Follow-up visit for multiple problems. HPI: No new problems. Tolerating diet. No nausea, vomiting, diarrhea. Still requiring straight caths for ongoing retention. Generalized weakness improved. Still needs assistance for ADL's. Ambulating with walker + assistance. ROS: General- no fever, no chills Resp- no cough; no shortness of breath Cardiac- no chest pain, no edema GI- as noted above in HPI - as noted above in HPI . Objective Last 8 Hrs Date Time Temp Pulse Resp B/P (MAP) Pulse Ox O2 Delivery O2 Flow Rate FiO2 03/23/17 16:14 36.4 90 16 126/77 (93) 98 Room Air 03/23/17 16:00 99 Room Air Physical Exam: General- lying in bed; no distress Lungs- clear to auscultation; no respiratory distress Cardiovascular- RRR; no murmur; no gallop; no JVD; trace pretibial edema Abdomen- + bowel sounds, soft, nontender Extremities- no cyanosis; no calf tenderness Neuro- alert; oriented Skin- warm & dry . Laboratory Results: Last 24 Hours Test 03/22/17 20:46 03/23/17 06:08 03/23/17 08:03 03/23/17 11:55 Bedside Glucose 108 mg/dl 103 mg/dl 121 mg/dl White Blood Count 5.80 K/uL Red Blood Count 2.85 M/uL Hemoglobin 8.9 g/dL Hematocrit 26.3 % Mean Corpuscular Volume 92.3 fL Mean Corpuscular Hemoglobin 31.2 pg Mean Corpuscular Hemoglobin Concent 33.8 g/dl RDW Standard Deviation 55.8 fL RDW Coefficient of Variation 19.5 % Platelet Count 247 K/uL Mean Platelet Volume 10.1 fL Sodium Level 141 mmol/L Potassium Level 3.9 mmol/L Chloride Level 109 mmol/L Carbon Dioxide Level 25 mmol/L Anion Gap 7.0 mmol/L Blood Urea Nitrogen 14 mg/dl Creatinine 0.53 mg/dl Est Creatinine Clear Calc Drug Dose 89.0 ml/min Estimated GFR () 114.7 Estimated GFR (Non- 98.9 BUN/Creatinine Ratio 26.2 Random Glucose 86 mg/dl Calcium Level 8.4 mg/dl Magnesium Level 2.1 mg/dl Total Bilirubin 0.5 mg/dl Aspartate Amino Transf (AST/SGOT) 23 U/L Alanine Aminotransferase (ALT/SGPT) 23 U/L Alkaline Phosphatase 58 U/L Total Protein 5.3 gm/dl Albumin 2.2 gm/dl Globulin 3.1 gm/dl Albumin/Globulin Ratio 0.7 Triglycerides Level 207 mg/dl Cholesterol Level 133 mg/dl HDL Cholesterol 39 mg/dl LDL Cholesterol, Calculated 53 mg/dl VLDL Cholesterol, Calculated 41 mg/dl Cholesterol/HDL Ratio 3.4 Test 03/23/17 17:05 Bedside Glucose 105 mg/dl Assessment & Plan ALTERED MENTAL STATUS MRI demonstrated minimal chronic small vessel ischemic changes, no acute events. Apparent metabolic encephalopathy due to severe malnutrition and vitamin deficiencies. Improving. WEIGHT LOSS / MALNUTRITION 100 lb weight loss documented. Apparently secondary to dysphagia. Albumin 3.2 --> 2.0. Documented folate and vitamin D deficiencies. Received enteral nutritional support via NGT. NGT inadvertently removed 03/17. Advance diet as tolerated- progressed to dental soft. Continue vitamin supplementation. 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 EGD did not demonstrate any esophageal pathology. SPARKER AND PATCHER consulted. HYPERTENSION Amlodipine stopped because of relatively low BP's. Follow. URINARY RETENTION Anti-cholinergic drugs discontinued. Adam cath removed. Continue straight caths. E COLI UTI (present on admission) Treated with course of antibiotics. THROMBOCYTOPENIA Plts 208,000 --> --> 82,000 --> 104,000. HIT screen negative. Platelet count today = 247,000. Follow. ANEMIA Hgb 13.7 --> 8.5 --> 9.0 Anemia probably multifactorial- malnutrition, hemodilution. No gross GI bleeding. Fe studies surprisingly normal. Folic acid low. B12 normal. Hgb today = 8.9. Follow. GENERALIZED WEAKNESS Probably secondary to malnutrition and immobility. Seen by Neurology. Anti-acetylcholine receptor antibodies negative. PT / OT. Outpatient EMG / NCV recommended. DEPRESSION Psychiatry consulted. Receiving escitalopram. VTE PROPHYLAXIS Was receiving enoxaparin. Enoxaparin discontinued due to thrombocytopenia. SCD's. Platelet count improved- SQ heparin with caution. Ambulate as able. DISPOSITION Anticipate need for skilled care or rehab. Family Medicine follow-up with Dr. Perales. . Consultants: Neuro-Amandeep Speech therapy GI-Baker Psych Current Inpatient Medications: Current Inpatient Medications Medications (Trade) Dose Ordered Sig/Jose Route Start Time Stop Time Status Last Admin Dose Admin Acetaminophen (Tylenol Tab) 650 mg Q4H PRN PO 03/06/17 17:15 04/05/17 17:14 03/19/17 16:42 650 MG Hydralazine HCl (HydrALAZINE INJ) 5 mg Q6 PRN IV. 03/06/17 19:45 04/05/17 19:44 Albuterol (Ventolin Hfa Inhaler) 2 puffs Q4H PRN INH 03/06/17 20:30 04/05/17 20:29 03/21/17 08:01 2 PUFFS Escitalopram Oxalate (Lexapro Tab) 20 mg DAILY PO 03/07/17 09:00 04/06/17 08:59 03/23/17 07:47 20 MG Fluticasone Propionate (Flovent Hfa 220MCG Inhaler) 1 puffs BID INH 03/06/17 21:00 04/05/17 20:59 03/23/17 19:47 1 PUFFS Miconazole Nitrate (Desenex Powder) 1 appln PRN PRN EXT 03/10/17 12:00 04/09/17 11:59 03/17/17 20:37 1 APPLN Al Hydroxide/Mg Hydroxide/ Lidocaine HCl/ Barcode Q8H PRN PO 03/10/17 16:00 04/09/17 15:59 03/11/17 12:00 24 ML Bisacodyl (Dulcolax Supp) 10 mg DAILY PRN MD 03/11/17 17:30 04/10/17 17:29 Polyethylene (Miralax Powder Packet) 17 gm DAILY PRN PO 03/11/17 17:30 04/10/17 17:29 Risperidone (Risperdal M Tab) 0.5 mg HS PO 03/15/17 21:00 04/14/17 20:59 03/23/17 19:49 0.5 MG Insulin Human Regular (novoLIN-R) SLIDING SCALE IF C... ACHS SC 03/15/17 21:00 04/14/17 20:59 Glucose (Glucose 40% Gel) 15-30 GRAMS 15 GRAMS... UD PRN PO 03/15/17 17:00 04/14/17 16:59 Glucose (Glucose Chew Tab) 4-8 Tablets 4 Tabl... UD PRN PO 03/15/17 17:00 04/14/17 16:59 Dextrose (Dextrose 50% 50ML Syringe) 25-50ML OF 50% DW IV FOR... UD PRN IV 03/15/17 17:00 04/14/17 16:59 Glucagon (Glucagon Inj) 1 mg UD PRN SQ 03/15/17 17:00 04/14/17 16:59 Ergocalciferol (Vitamin D Cap) 50,000 interunit Q4D@0900 PO 03/16/17 10:00 04/05/17 09:01 03/20/17 08:04 50,000 INTERUNIT Enteral Nutritional Formula (Boost) 1 can TIDM PO 03/18/17 12:00 04/17/17 11:59 03/23/17 17:00 1 CAN Heparin Sodium (Porcine) (Heparin Sq 5000 Unit/0.5ml) 5,000 unit Q12 SQ 03/21/17 09:00 04/20/17 08:59 03/23/17 19:53 5,000 UNIT Multivitamins Therapeutic (Cerovite Liquid) 15 ml BID PO 03/21/17 20:00 04/20/17 19:59 03/23/17 19:49 15 ML Enteral Nutritional Formula (Boost Pudding) 1 cup BID PO 03/21/17 20:00 04/20/17 19:59 03/23/17 19:47 1 CUP
[2017-03-24 00:01] VITALS: BP 121/62; PULSE 84; TEMP 36.5; O2SAT 95
[2017-03-24 07:11] LABS: HEMATOCRIT 27.8 % (37-47); HEMOGLOBIN 9.2 g/dL (12.0-16.0); MEAN CELL VOLUME 93.3 fL (80-100); MEAN CORPUSCULAR HEMOGLOBIN 30.9 pg (25-34); MEAN CORPUSCULAR HGB CONC 33.1 g/dl (32-36); MEAN PLATELET VOLUME 10.3 fL (7.4-10.4); PLATELET COUNT 271 K/uL (130-400); RED CELL DISTRIBUTION WIDTH CV 20.1 % (11.5-14.5); RED CELL DISTRIBUTION WIDTH SD 63.7 fL (36.4-46.3); WHITE BLOOD COUNT 5.22 K/uL (4.8-10.8)
[2017-03-24 07:20] VITALS: BP 127/73; PULSE 82; TEMP 36.7; O2SAT 97
[2017-03-24 07:41] LABS: CALCIUM 8.5 mg/dl (8.5-10.1); CREATININE 0.53 mg/dl (0.60-1.20); POTASSIUM 3.9 mmol/L (3.5-5.1)
[2017-03-24] MEDS: BOOST VANILLA PO SCH ×3 (07:45→17:45)
[2017-03-24] MEDS: MULTIVITAMINS W/MINERALS 15ML UDP PO SCH ×2 (07:45→20:10)
[2017-03-24] MEDS: ESCITALOPRAM OXALATE 10 MG TAB PO SCH (07:45)
[2017-03-24] MEDS: ERGOCALCIFEROL 50,000 INTER.UNIT CAP PO SCH (07:45)
[2017-03-24] MEDS: FLUTICASONE HFA 220 MCG INHALER INH SCH ×2 (07:45→20:09)
[2017-03-24] MEDS: BOOST VANILLA PUDDING CUP PO SCH ×2 (07:46→20:50)
[2017-03-24] MEDS: HEPARIN SOD 5000 UNIT/0.5 ML CARP SQ SCH ×2 (07:55→20:52)
[2017-03-24] MEDS: INSULIN HUMAN REGULAR SC SCH ×4 (07:57→20:06)
[2017-03-24 16:00] VITALS: O2SAT 97
[2017-03-24 16:30] VITALS: BP 131/86; PULSE 84; TEMP 36.9; O2SAT 98
--- NOTE | 2017-03-24 20:32 | Progress Note ---
Medicine Progress Note Date & Time of Visit: Mar 24, 2017 at 12:00 . Subjective CC: Follow-up visit for multiple problems. HPI: Doing well. No new problems. Tolerating dental soft diet. Has some difficulty swallowing large pills. No nausea, vomiting, diarrhea. Still requiring straight caths for ongoing retention. Generalized weakness improved. Still needs assistance for ADL's. Family visiting. ROS: General- no fever, no chills Resp- no cough; no shortness of breath Cardiac- no chest pain, no edema GI- as noted above in HPI - as noted above in HPI . Objective Last 8 Hrs Date Time Temp Pulse Resp B/P (MAP) Pulse Ox O2 Delivery O2 Flow Rate FiO2 03/24/17 16:30 36.9 84 18 131/86 (101) 98 Room Air 03/24/17 16:00 97 Room Air Physical Exam: General- sitting in chair; no distress Lungs- clear to auscultation; no respiratory distress Cardiovascular- RRR; no murmur; no gallop; no JVD; trace pretibial edema Abdomen- + bowel sounds, soft, nontender Extremities- no cyanosis; no calf tenderness Neuro- alert; oriented; resting tremor of head Skin- warm & dry . Laboratory Results: Last 24 Hours Test 03/24/17 06:39 03/24/17 07:36 03/24/17 11:59 03/24/17 16:58 White Blood Count 5.22 K/uL Red Blood Count 2.98 M/uL Hemoglobin 9.2 g/dL Hematocrit 27.8 % Mean Corpuscular Volume 93.3 fL Mean Corpuscular Hemoglobin 30.9 pg Mean Corpuscular Hemoglobin Concent 33.1 g/dl RDW Standard Deviation 63.7 fL RDW Coefficient of Variation 20.1 % Platelet Count 271 K/uL Mean Platelet Volume 10.3 fL Sodium Level 141 mmol/L Potassium Level 3.9 mmol/L Chloride Level 109 mmol/L Carbon Dioxide Level 25 mmol/L Anion Gap 7.0 mmol/L Blood Urea Nitrogen 15 mg/dl Creatinine 0.53 mg/dl Est Creatinine Clear Calc Drug Dose 89.0 ml/min Estimated GFR () 114.7 Estimated GFR (Non- 98.9 BUN/Creatinine Ratio 28.9 Random Glucose 84 mg/dl Calcium Level 8.5 mg/dl Bedside Glucose 84 mg/dl 117 mg/dl 100 mg/dl Test 03/24/17 19:58 Bedside Glucose 162 mg/dl Assessment & Plan ALTERED MENTAL STATUS MRI demonstrated minimal chronic small vessel ischemic changes, no acute events. Apparent metabolic encephalopathy due to severe malnutrition and vitamin deficiencies. Improving. WEIGHT LOSS / MALNUTRITION 100 lb weight loss documented. Apparently secondary to dysphagia. Albumin 3.2 --> 2.0. Documented folate and vitamin D deficiencies. Received enteral nutritional support via NGT. NGT inadvertently removed 03/17. Advance diet as tolerated- progressed to dental soft. Continue vitamin supplementation. 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 EGD did not demonstrate any esophageal pathology. MEDICAL OFFICE COORDINATOR consulted. HYPERTENSION Amlodipine stopped because of relatively low BP's. Hemodynamically stable. Follow. URINARY RETENTION Anti-cholinergic drugs discontinued. Adam cath removed. Ongoing urinary retention. Continue straight caths. Outpatient Urology consultation recommended with urodynamics if indicated. E COLI UTI (present on admission) Treated with course of antibiotics. THROMBOCYTOPENIA Plts 208,000 --> --> 82,000 --> 104,000. HIT screen negative. Platelet count today = 271,000. Follow. ANEMIA Hgb 13.7 --> 8.5 --> 9.0 Anemia probably multifactorial- malnutrition, hemodilution. No gross GI bleeding. Fe studies surprisingly normal. Folic acid low. B12 normal. Hgb today = 9.2.. Follow. GENERALIZED WEAKNESS Probably secondary to malnutrition and immobility. Seen by Neurology. Anti-acetylcholine receptor antibodies negative. PT / OT. Outpatient EMG / NCV recommended. DEPRESSION Psychiatry consulted. Receiving escitalopram. VTE PROPHYLAXIS Was receiving enoxaparin. Enoxaparin discontinued due to thrombocytopenia. SCD's. Platelet count improved- SQ heparin with caution. Ambulate as able. DISPOSITION Anticipate need for skilled care or rehab. Family Medicine follow-up with Dr. Perales. . Consultants: Neuro-Amandeep Speech therapy GI-Baker Psych Current Inpatient Medications: Current Inpatient Medications Medications (Trade) Dose Ordered Sig/Jose Route Start Time Stop Time Status Last Admin Dose Admin Acetaminophen (Tylenol Tab) 650 mg Q4H PRN PO 03/06/17 17:15 04/05/17 17:14 03/19/17 16:42 650 MG Hydralazine HCl (HydrALAZINE INJ) 5 mg Q6 PRN IV. 03/06/17 19:45 04/05/17 19:44 Albuterol (Ventolin Hfa Inhaler) 2 puffs Q4H PRN INH 03/06/17 20:30 04/05/17 20:29 03/21/17 08:01 2 PUFFS Escitalopram Oxalate (Lexapro Tab) 20 mg DAILY PO 03/07/17 09:00 04/06/17 08:59 03/24/17 07:45 20 MG Fluticasone Propionate (Flovent Hfa 220MCG Inhaler) 1 puffs BID INH 03/06/17 21:00 04/05/17 20:59 03/24/17 20:09 1 PUFFS Miconazole Nitrate (Desenex Powder) 1 appln PRN PRN EXT 03/10/17 12:00 04/09/17 11:59 03/17/17 20:37 1 APPLN Al Hydroxide/Mg Hydroxide/ Lidocaine HCl/ Barcode Q8H PRN PO 03/10/17 16:00 04/09/17 15:59 03/11/17 12:00 24 ML Bisacodyl (Dulcolax Supp) 10 mg DAILY PRN LA 03/11/17 17:30 04/10/17 17:29 Polyethylene (Miralax Powder Packet) 17 gm DAILY PRN PO 03/11/17 17:30 04/10/17 17:29 Risperidone (Risperdal M Tab) 0.5 mg HS PO 03/15/17 21:00 04/14/17 20:59 03/23/17 19:49 0.5 MG Insulin Human Regular (novoLIN-R) SLIDING SCALE IF C... ACHS SC 03/15/17 21:00 04/14/17 20:59 Glucose (Glucose 40% Gel) 15-30 GRAMS 15 GRAMS... UD PRN PO 03/15/17 17:00 04/14/17 16:59 Glucose (Glucose Chew Tab) 4-8 Tablets 4 Tabl... UD PRN PO 03/15/17 17:00 04/14/17 16:59 Dextrose (Dextrose 50% 50ML Syringe) 25-50ML OF 50% DW IV FOR... UD PRN IV 03/15/17 17:00 04/14/17 16:59 Glucagon (Glucagon Inj) 1 mg UD PRN SQ 03/15/17 17:00 04/14/17 16:59 Ergocalciferol (Vitamin D Cap) 50,000 interunit Q4D@0900 PO 03/16/17 10:00 04/05/17 09:01 03/24/17 07:45 50,000 INTERUNIT Enteral Nutritional Formula (Boost) 1 can TIDM PO 03/18/17 12:00 04/17/17 11:59 03/24/17 17:45 1 CAN Heparin Sodium (Porcine) (Heparin Sq 5000 Unit/0.5ml) 5,000 unit Q12 SQ 03/21/17 09:00 04/20/17 08:59 03/24/17 07:55 5,000 UNIT Multivitamins Therapeutic (Cerovite Liquid) 15 ml BID PO 03/21/17 20:00 04/20/17 19:59 03/24/17 20:10 15 ML Enteral Nutritional Formula (Boost Pudding) 1 cup BID PO 03/21/17 20:00 04/20/17 19:59 03/24/17 07:46 1 CUP
[2017-03-24] MEDS: RISPERIDONE ODT 0.5MG PO SCH (20:50)
[2017-03-24 22:51] VITALS: BP 122/78; PULSE 89; TEMP 36.8; O2SAT 97
[2017-03-25] MEDS: HEPARIN SOD 5000 UNIT/0.5 ML CARP SQ SCH (07:35)
[2017-03-25] MEDS: BOOST VANILLA PUDDING CUP PO SCH (07:35)
[2017-03-25] MEDS: BOOST VANILLA PO SCH ×2 (07:36→12:01)
[2017-03-25] MEDS: ESCITALOPRAM OXALATE 10 MG TAB PO SCH (07:36)
[2017-03-25] MEDS: MULTIVITAMINS W/MINERALS 15ML UDP PO SCH (07:37)
[2017-03-25] MEDS: FLUTICASONE HFA 220 MCG INHALER INH SCH (07:37)
[2017-03-25] MEDS: INSULIN HUMAN REGULAR SC SCH (07:38)
[2017-03-25 08:03] VITALS: BP 119/72; PULSE 82; TEMP 37; O2SAT 96
--- NOTE | 2017-03-25 14:53 | Progress Note ---
Medicine Progress Note Date & Time of Visit: Mar 25, 2017 at 09:20 . Subjective Continues to require intermittent straight caths for urinary retention. Otherwise, doing well. No fever. No chest pain, cough, SOB, nausea, vomiting, diarrhea. Ambulating with walker and assistance. Resting tremor lifelong and at baseline. . Objective Last 8 Hrs Date Time Temp Pulse Resp B/P (MAP) Pulse Ox O2 Delivery O2 Flow Rate FiO2 03/25/17 08:03 37.0 82 16 119/72 (88) 96 Room Air 03/25/17 07:51 Room Air Physical Exam: General- sitting in chair; no distress Lungs- clear to auscultation; no respiratory distress Cardiovascular- RRR; no murmur; no gallop; no JVD; trace pretibial edema Abdomen- + bowel sounds, soft, nontender Extremities- no cyanosis; no calf tenderness Neuro- alert; oriented; resting tremor of head and extremities Skin- warm & dry . Laboratory Results: Last 24 Hours Test 03/24/17 16:58 03/24/17 19:58 03/25/17 07:30 03/25/17 11:34 Bedside Glucose 100 mg/dl 162 mg/dl 98 mg/dl 108 mg/dl Assessment & Plan ALTERED MENTAL STATUS MRI demonstrated minimal chronic small vessel ischemic changes, no acute events. Apparent metabolic encephalopathy due to severe malnutrition and vitamin deficiencies. Improved. Now alert, oriented x 3. WEIGHT LOSS / MALNUTRITION 100 lb weight loss documented. Apparently secondary to dysphagia. Albumin 3.2 --> 2.0. Evaluation of dysphagia as discussed below. Documented folate and vitamin D deficiencies. Received enteral nutritional support via NGT. NGT inadvertently removed 03/17. Edentulous. Diet advanced as tolerated and progressed to dental soft. Continue vitamin supplementation. Continue aggressive vitamin / mineral supplementation. Check follow-up vitamin B1, B2, B6, B12, D levels in several weeks. 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 EGD did not demonstrate any esophageal pathology. GLASS CYLINDER FLANGER consulted. HYPERTENSION Amlodipine stopped because of relatively low BP's. Hemodynamically stable. Follow. URINARY RETENTION Anti-cholinergic drugs discontinued. Adam cath removed. Ongoing urinary retention. Continue straight caths. Outpatient Urology consultation recommended with urodynamics if indicated. E COLI UTI (present on admission) Treated with course of antibiotics. THROMBOCYTOPENIA Plts 208,000 --> --> 82,000 --> 104,000. HIT screen negative. Platelet count 03/24/17 was 271,000. Follow. ANEMIA Hgb 13.7 --> 8.5 --> 9.0 Anemia probably multifactorial- malnutrition, hemodilution. No gross GI bleeding. Fe studies surprisingly normal. Folic acid low. B12 normal. Hgb 03/24/17 was 9.2.. Follow. GENERALIZED WEAKNESS Probably secondary to malnutrition and immobility. Seen by Neurology. Anti-acetylcholine receptor antibodies negative. PT / OT. Outpatient EMG / NCV recommended. DEPRESSION Psychiatry consulted. Receiving escitalopram. VTE PROPHYLAXIS Was receiving enoxaparin. Enoxaparin discontinued due to thrombocytopenia. SCD's. Platelet count improved- SQ heparin with caution. Ambulate as able. DISPOSITION Needs inpatient rehab. Arrangements being made for transfer to [facility]. Family Medicine follow-up with Dr. Perales. . Consultants: Neuro-Amandeep Speech therapy GI-Samuel Psych Current Inpatient Medications: Current Inpatient Medications Medications (Trade) Dose Ordered Sig/Ojse Route Start Time Stop Time Status Last Admin Dose Admin Acetaminophen (Tylenol Tab) 650 mg Q4H PRN PO 03/06/17 17:15 04/05/17 17:14 03/19/17 16:42 650 MG Hydralazine HCl (HydrALAZINE INJ) 5 mg Q6 PRN IV. 03/06/17 19:45 04/05/17 19:44 Albuterol (Ventolin Hfa Inhaler) 2 puffs Q4H PRN INH 03/06/17 20:30 04/05/17 20:29 03/21/17 08:01 2 PUFFS Escitalopram Oxalate (Lexapro Tab) 20 mg DAILY PO 03/07/17 09:00 04/06/17 08:59 03/25/17 07:36 20 MG Fluticasone Propionate (Flovent Hfa 220MCG Inhaler) 1 puffs BID INH 03/06/17 21:00 04/05/17 20:59 03/25/17 07:37 1 PUFFS Miconazole Nitrate (Desenex Powder) 1 appln PRN PRN EXT 03/10/17 12:00 04/09/17 11:59 03/17/17 20:37 1 APPLN Al Hydroxide/Mg Hydroxide/ Lidocaine HCl/ Barcode Q8H PRN PO 03/10/17 16:00 04/09/17 15:59 03/11/17 12:00 24 ML Bisacodyl (Dulcolax Supp) 10 mg DAILY PRN MD 03/11/17 17:30 04/10/17 17:29 Polyethylene (Miralax Powder Packet) 17 gm DAILY PRN PO 03/11/17 17:30 04/10/17 17:29 Risperidone (Risperdal M Tab) 0.5 mg HS PO 03/15/17 21:00 04/14/17 20:59 03/24/17 20:50 0.5 MG Glucose (Glucose 40% Gel) 15-30 GRAMS 15 GRAMS... UD PRN PO 03/15/17 17:00 04/14/17 16:59 Glucose (Glucose Chew Tab) 4-8 Tablets 4 Tabl... UD PRN PO 03/15/17 17:00 04/14/17 16:59 Dextrose (Dextrose 50% 50ML Syringe) 25-50ML OF 50% DW IV FOR... UD PRN IV 03/15/17 17:00 04/14/17 16:59 Glucagon (Glucagon Inj) 1 mg UD PRN SQ 03/15/17 17:00 04/14/17 16:59 Ergocalciferol (Vitamin D Cap) 50,000 interunit Q4D@0900 PO 03/16/17 10:00 04/05/17 09:01 03/24/17 07:45 50,000 INTERUNIT Enteral Nutritional Formula (Boost) 1 can TIDM PO 03/18/17 12:00 04/17/17 11:59 03/25/17 12:01 1 CAN Heparin Sodium (Porcine) (Heparin Sq 5000 Unit/0.5ml) 5,000 unit Q12 SQ 03/21/17 09:00 04/20/17 08:59 03/24/17 20:52 5,000 UNIT Multivitamins Therapeutic (Cerovite Liquid) 15 ml BID PO 03/21/17 20:00 04/20/17 19:59 03/25/17 07:37 15 ML Enteral Nutritional Formula (Boost Pudding) 1 cup BID PO 03/21/17 20:00 04/20/17 19:59 03/25/17 07:35 1 CUP
[2017-03-25] MEDS ORDERED: FLV1 PO (15:03)
[2017-03-25] MEDS ORDERED: RSPODT5 PO (15:03)
[2017-03-25] MEDS ORDERED: ERGO500011 PO (15:03)
[2017-03-25] MEDS ORDERED: B COLIQ PO ×2 (15:03→15:26)
[2017-03-25] MEDS ORDERED: MULTLIQ26 PO (15:03)
--- NOTE | 2017-03-25 15:08 | Discharge Instructions ---
Discharge Instructions Date of Service Mar 25, 2017. Admission Reason for Admission: weight loss, severe malnutrition . Discharge Discharge Diagnosis / Problem: weight loss, severe malnutrition, altered mental status Discharge Goals Goal(s): Improve function, Increase independence, Improve disease control Activity Recommendations Activity Level: Assistance Required Therapies: Physical Therapy, Occupational Therapy, Speech Therapy . Additional Information Patient informed of condition: Yes Advance Directives: No DNR: No Level of Care: Acute Rehab Communicable Disease: No Prognosis: Improving Adam Catheter: No Instructions / Follow-Up Instructions / Follow-Up Thank you for receiving this patient in transfer. Please call if you have any questions. Dain Reed . Current Hospital Diet Patient's current hospital diet: Regular Diet Discharge Diet Recommended Diet: Regular Diet Diet Texture: Dental Soft (bite-sized) (moist) Procedures Procedures Performed: EGD with dilatation Pending Studies Studies pending at discharge: no Physician Orders On Transfer Special Precautions: fall precautions aspiration precautions . Vital Signs: routine . Weigh: routine . Additional Orders: prompted voiding q shift straight cath if unable to void or if residual > 200 ml Nutrition consult Supplements of choice. . Laboratory Results Lipid Panel Test 03/23/17 06:08 Range/Units Triglycerides Level 207 H 0-150 mg/dl Cholesterol Level 133 0-200 mg/dl HDL Cholesterol 39 mg/dl Cholesterol/HDL Ratio 3.4 LDL Cholesterol, Calculated 53 mg/dl Medical Emergencies . Who to Call and When: Medical Emergencies: If at any time you feel your situation is an emergency, please call 911 immediately. . Non-Emergent Contact Non-Emergency issues call your: Primary Care Provider, Hospital Doctor . . "Provider Documentation" section prepared by Dain Reed. . Core Measure Problem Core Measures: None
[2017-03-25 15:11] VITALS: BP_SYST 119; BP_SYST 123; BP_DIAS 72; BP_DIAS 73; PULSE 82; PULSE 91; TEMP 36.7; TEMP 37; O2SAT 96; O2SAT 97
[2017-03-25 15:15] VITALS: BP 123/73; PULSE 91; TEMP 36.7; O2SAT 97
--- NOTE | 2017-03-25 15:21 | Discharge Summary ---
Discharge Summary Date of Service Mar 25, 2017. Discharge Summary Admission Date: Mar 06, 2017 at 15:01 Discharge Date: Mar 25, 2017 Discharge Disposition: Rehab ([facility]) Principal Diagnosis: severe protein calorie malnutrition weight loss dysphagia altered mental status . Secondary Diagnoses/Problems: Chronic and Resolved Medical Problems: (1) Anemia Status: Chronic (2) Anxiety Status: Chronic (3) Asthma Status: Chronic (4) Dysphagia Status: Chronic (5) Hypertension Status: Chronic (6) Tremor Status: Chronic . Procedures: MRI brain CT chest CT abdomen and pelvis CT head IV fluids IV meds EGD NG enteral feedings PT OT HOSPITAL PHARMACIST . Consultations: Neuro-Amandeep Speech therapy GI-Baker Psych Medication Reconciliation New Medications: B Complex W/ Iron & Minerals (Geriatric Vitamin) 1 Liq Liq 1 DOSE PO DAILY for 30 Days New medication. Will need prescription at time of discharge from [facility]. Folic Acid (Folic Acid) 1 Mg Tab 1 MG PO DAILY for 30 Days, TAB New medication. Will need prescription at time of discharge from [facility]. Multiple Vitamins W/ Minerals (Multivitamin & Mineral) 1 Liq Liq 1 DOSE PO DAILY for 30 Days With lunch. New medication. Will need prescription at time of discharge from [facility]. Ergocalciferol (Vitamin D 26877 Unit) 50,000 Unit Cap 44258 INTERUNIT PO WK for 30 Days, CAP New medication. Will need prescription at time of discharge from [facility]. Risperidone (Risperidone M-Tab) 0.5 Mg Lazara 0.5 MG PO HS for 30 Days New medication. Will need prescription at time of discharge from [facility]. Continued Medications: Albuterol Hfa (Ventolin Hfa) 200 Puffs/64582 Mcg Aers 2 PUFFS INH Q4H PRN for Shortness of Breath, #1 INHALER Escitalopram Oxalate (Lexapro) 10 Mg Tab 20 MG PO DAILY Famotidine (Pepcid) 20 Mg/2.5 Ml Susp 5 ML PO HS for 30 Days, #150 ML Fluticasone Propionate (Flovent Hfa) 120 Puffs/97659 Mcg Aero 1 PUFF INH BID Discontinued Medications: Amlodipine Besylate (Norvasc) 2.5 Mg Tab 2.5 MG PO DAILY, #30 Cholecalciferol (D 2000) 2,000 Unit Tab 2000 UNITS PO DAILY Simvastatin (Zocor) 20 Mg Tab 20 MG PO HS Admission Information HPI (per Admitting provider): This is a 66yo F with a PMH of HTN, HLD, asthma, h/o gastric ulcers and dysphagia who is a direct admit from Dr. Perales's office with poor PO intake and generalized weakness. Patient began to experience dysphagia this past September , describing the feeling as getting something stuck in her throat. Had lower and upper teeth removed around this time. A swallowing study was performed that showed mild esophageal dysmotility. Had an EGD performed in November that was normal, without abnormalities of the esophagus and stomach. Per chart review, GI felt that patient's anxiety may be contributing to dysphagia and recommended increasing SSRI. Also suggested a neuro evaluation as well as a dental referral. Was seen by neuro in December of this year for further evaluation of dysphagia. Also has a tremor that has been present since childhood. Neuro exam was essentially normal. CK and acetylcholine workday consultant ab were normal. An EMG was ordered to look for a central cause for symptoms but has not yet been performed. A CT abd/pelvis was performed in January which showed large diverticula of the rectosigmoid colon. Also showed a thickened bladder wall, for which urology follow-up has been scheduled. Today, the patient presents with worsening dysphagia, describing a burning sensation in the back of her throat. Feels that food and mucous get caught in the back of her throat and she is only able to tolerate thin liquids. States that she is continually throwing up/gagging white mucous. Has lost 30 pounds since symptoms began in September. Has felt generally weak and has not been ambulating as often. Endorses diffuse, aching abdominal pain. Denies nausea. Over the past few months, states that she has begun to notice blood in her urine. Denies dysuria. Has not been taking her medications due to dysphagia. Denies any fever, chills, lightheadedness, headache, CP, palpitations, SOB. Has chronic LE swelling that is unchanged. . Physical Exam (per Admitting): General Appearance: + mild distress, + pertinent finding Head: normocephalic, atraumatic Eyes: normal inspection, PERRL, sclerae normal, + pertinent finding (Left eyelid closed but able to open on command.) ENT: hearing grossly normal, + pharyngeal erythema Neck: supple, no adenopathy, trachea midline Respiratory/Chest: chest non-tender, lungs clear, normal breath sounds, no respiratory distress, no accessory muscle use Cardiovascular: regular rate, rhythm, no murmur, normal peripheral pulses Abdomen/GI: soft, no organomegaly, + tenderness (Diffusely tender, most tender in epigastrium.) Back: normal inspection, no CVA tenderness Extremities/Musculoskelatal: normal inspection, no calf tenderness, + pertinent finding (1+ pitting edema bilaterally to knee) Neurologic/Psych: scale operator II-XII nml as tested, no motor/sensory deficits ( Limited 2/2 fatigue, pain but CUCA 5/5 in all 4 extremities. Sensation intact. Cerebellar tests normal. ), alert, normal mood/affect, oriented x 3, + pertinent finding (Refused ambulation 2/2 fatigue ) Skin: normal color, warm/dry Hospital Course ALTERED MENTAL STATUS MRI demonstrated minimal chronic small vessel ischemic changes, no acute events. Apparent metabolic encephalopathy due to severe malnutrition and vitamin deficiencies. Improved. Now alert, oriented x 3. WEIGHT LOSS / MALNUTRITION 100 lb weight loss documented. Apparently secondary to dysphagia. Albumin 3.2 --> 2.0. Evaluation of dysphagia as discussed below. Documented folate and vitamin D deficiencies. Received enteral nutritional support via NGT. NGT inadvertently removed 03/17. Edentulous. Diet advanced as tolerated and progressed to dental soft. Continue vitamin supplementation. Continue aggressive vitamin / mineral supplementation. Check follow-up vitamin B1, B2, B6, B12, D levels in several weeks. VITAMIN D DEFICIENCY Continue 50,000 units weekly until levels normalize, then titrate. 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 EGD did not demonstrate any esophageal pathology. HOSPITAL PHARMACIST consulted. POSSIBLE RECTAL WALL THICKENING Possible rectal wall thickening noted on CT. Outpatient colonoscopy recommended when recovered from current illness. HYPERTENSION Amlodipine stopped because of relatively low BP's. Hemodynamically stable. Follow. URINARY RETENTION Chronic problem, duration uncertain. CT demonstrated bilateral hydronephrosis. Anti-cholinergic drugs discontinued. Adam cath removed. Ongoing urinary retention. Continue straight caths. Outpatient Urology consultation recommended with urodynamics if indicated. E COLI UTI (present on admission) Treated with course of antibiotics. THROMBOCYTOPENIA Plts 208,000 --> --> 82,000 --> 104,000. HIT screen negative. Platelet count 2/6/18 was 271,000. Follow. ANEMIA Hgb 13.7 --> 8.5 --> 9.0 Anemia probably multifactorial- malnutrition, hemodilution. No gross GI bleeding. Fe studies surprisingly normal. Folic acid low. B12 normal. Hgb 03/24/17 was 9.2.. Follow. GENERALIZED WEAKNESS Probably secondary to malnutrition and immobility. Seen by Neurology. Anti-acetylcholine receptor antibodies negative. PT / OT. Outpatient follow-up with Neurology with EMG / NCV recommended. DEPRESSION Psychiatry consulted. Escitalopram. Risperidone added to regimen. Improved. Follow-up with Psychiatry as needed. VTE PROPHYLAXIS Received enoxaparin, heparin, SCD's during hospital stay. Discharge on SQ enoxaparin and continue until ambulatory. Ambulate as able. DISPOSITION Needs inpatient rehab. Arrangements being made for transfer to [facility]. Family Medicine follow-up with Dr. Perales. Neurology follow-up with Pinky Mckeon PA-C or Dr. Fernandez. Outpatient Urology consult with Dr. Cannon re: urinary retention. . Total time spent on discharge = 45 min. This includes examination of the patient, discharge planning, medication reconciliation, and communication with other providers. . Discharge Instructions Date of Service Mar 25, 2017. Admission Reason for Admission: weight loss, severe malnutrition . Discharge Discharge Diagnosis / Problem: weight loss, severe malnutrition, altered mental status Discharge Goals Goal(s): Improve function, Increase independence, Improve disease control Activity Recommendations Activity Level: Assistance Required Therapies: Physical Therapy, Occupational Therapy, Speech Therapy . Additional Information Patient informed of condition: Yes Advance Directives: No DNR: No Level of Care: Acute Rehab Communicable Disease: No Prognosis: Improving Adam Catheter: No Instructions / Follow-Up Instructions / Follow-Up Thank you for receiving this patient in transfer. Please call if you have any questions. Dain Reed . Current Hospital Diet Patient's current hospital diet: Regular Diet Discharge Diet Recommended Diet: Regular Diet Diet Texture: Dental Soft (bite-sized) (moist) Procedures Procedures Performed: EGD with dilatation Pending Studies Studies pending at discharge: no Physician Orders On Transfer Special Precautions: fall precautions aspiration precautions . Vital Signs: routine . Weigh: routine . Additional Orders: prompted voiding q shift straight cath if unable to void or if residual > 200 ml Nutrition consult Supplements of choice. . Laboratory Results Lipid Panel Test 03/23/17 06:08 Range/Units Triglycerides Level 207 H 0-150 mg/dl Cholesterol Level 133 0-200 mg/dl HDL Cholesterol 39 mg/dl Cholesterol/HDL Ratio 3.4 LDL Cholesterol, Calculated 53 mg/dl Medical Emergencies . Who to Call and When: Medical Emergencies: If at any time you feel your situation is an emergency, please call 911 immediately. . Non-Emergent Contact Non-Emergency issues call your: Primary Care Provider, Hospital Doctor . . "Provider Documentation" section prepared by Dain Reed. . Core Measure Problem Core Measures: None . Additional Copies To Frieda Perales D.O.
[2017-03-25] MEDS ORDERED: ENOX30IN4 SQ (15:24)
[2017-03-25] MEDS ORDERED: THM100 PO (15:25)
== END 2017-03-25 16:10 | DRG 391 ==
LOC: C.MED 15:01 → C.4E 03-19 22:21
PROVIDERS: ADMIT Internal Medicine; ATTEND Hospitalist
PROC: 0DJ08ZZ Inspection of Upper Intestinal Tract, Via Natural or Artificial Opening Endoscopic (ICD-10-PCS; principal; 2017-03-11 09:30)
DX: R13.12 Dysphagia, oropharyngeal phase (principal); E43 Unspecified severe protein-calorie malnutrition; G93.41 Metabolic encephalopathy; N39.0 Urinary tract infection, site not specified; E86.0 Dehydration; K22.4 Dyskinesia of esophagus; I10 Essential (primary) hypertension; F32.9 Major depressive disorder, single episode, unspecified; E78.5 Hyperlipidemia, unspecified; J45.909 Unspecified asthma, uncomplicated; K25.9 Gastric ulcer, unspecified as acute or chronic, without hemorrhage or perforation; F41.8 Other specified anxiety disorders; K57.30 Diverticulosis of large intestine without perforation or abscess without bleeding; D64.9 Anemia, unspecified; R25.1 Tremor, unspecified; Z91.040 Latex allergy status; Z88.8 Allergy status to other drugs, medicaments and biological substances; E55.9 Vitamin D deficiency, unspecified; R33.9 Retention of urine, unspecified; B96.20 Unspecified Escherichia coli [E. coli] as the cause of diseases classified elsewhere